=== PATIENT | female | born 1950 | race Caucasian/White ===

== ENCOUNTER 2020-08-09 13:11 | Outpatient (CLI) | payer MEDICARE, SELFPAY ==
--- NOTE | 2020-08-09 | ECG_ITS ---
Measurements Intervals [place] Rate: 89 P: 61 CO: 195 QRS: -19 QRSD: 101 T: 62 QT: 335 QTc: 409 Interpretive Statements SINUS RHYTHM LOW QRS VOLTAGE IN PRECORDIAL LEADS DELAYED PRECORDIAL R/S TRANSITION VOLTAGE CRITERIA FOR LVH BORDERLINE ECG Electronically Signed On 08-09-2020 13:53:35 COMMUNITY DEVELOPMENT MANAGER by Neo Doyle D.O.
== END 2020-08-09 13:12 | disposition home or self-care (01) ==
LOC: ANHCARD 13:14
PROVIDERS: PCP Family Medicine; Visit Provider Psychiatry & Neurology Psychiatry
DX: F20.0 Paranoid schizophrenia (principal)
CPT/HCPCS: 93005

== ENCOUNTER 2020-10-14 08:40 | Outpatient (CLI) | payer MEDICARE, SELFPAY ==
--- NOTE | ~2020-10-14 | MR_ITS ---
EXAMINATION: MR cervical spine wo con EXAM DATE: 10/14/2020 10:31 INDICATION: Myelopathy. Neck pain. TECHNIQUE: Multi-sequential, multiplanar MR images of the cervical spine were obtained without contra st. Axial T2, axial T2 MERGE sequence. Sagittal T1, T2, T2 fat saturation images also obtained. Th ere is no prior study for comparison. FINDINGS: There is moderate to severe disc disease C4-C7. The vertebral bodies are aligned in the AP dimension. The spinal cord signal intensity and intrinsic morphology is normal. Cervicomedullary christiano ction is normal in appearance. There are no suspicious marrow signal abnormalities. Level by level evaluation: C2-C3: Disc does not extend beyond the endplate margin. Uncovertebral joint arthropathy: None. Facet joint arthropathy: Mild to moderate bilateral. Neural foraminal stenosis: No stenosis. Central canal stenosis: No stenosis. C3-C4: Disc does not extend beyond the endplate margin. Uncovertebral joint arthropathy: Mild bilateral. Facet joint arthropathy: Mild to moderate bilateral. Neural foraminal stenosis: Mild bilateral. Central canal stenosis: No stenosis. C4-C5: There is a mild to moderate diffuse disc bulge asymmetric to the right Uncovertebral joint arthropathy: Moderate to severe right, moderate left. Facet joint arthropathy: Mild to moderate bilateral. Neural foraminal stenosis: Severe right, moderate left. Central canal stenosis: Mild. C5-C6: There is a mild diffuse disc bulge asymmetric to the left Uncovertebral joint arthropathy: Moderate bilateral. Facet joint arthropathy: Mild to moderate bilateral. Neural foraminal stenosis: Moderate bilateral, right greater than left. Central canal stenosis: Mild. C6-C7: There is a mild diffuse disc bulge. Uncovertebral joint arthropathy: Moderate left, mild to moderate right. Facet joint arthropathy: Mild to moderate bilateral. Neural foraminal stenosis: Moderate bilateral, left greater than right. Central canal stenosis: Mild. C7-T1: Disc does not extend beyond the endplate margin. Uncovertebral joint arthropathy: Mild bilateral. Facet joint arthropathy: Mild to moderate bilateral. Neural foraminal stenosis: No stenosis. Central canal stenosis: No stenosis. IMPRESSION: 1. C4-5 severe right neural foraminal stenosis. 2. Moderate lower cervical spondylosis. Reviewed, dictated and finalized at location A.
== END 2020-10-14 08:41 | disposition home or self-care (01) ==
PROVIDERS: PCP Family Medicine; Visit Provider Psychiatry & Neurology Neurology
DX: M47.13 Other spondylosis with myelopathy, cervicothoracic region (principal); M48.03 Spinal stenosis, cervicothoracic region
CPT/HCPCS: 72141

== ENCOUNTER 2020-12-16 08:49 | Outpatient (CLI) | payer MEDICARE, SELFPAY ==
--- NOTE | ~2020-12-16 | NM_ITS ---
EXAMINATION: NM kelsea stress w perfusion DATE: 12/16/2020 12:43 INDICATION: Chest tightness. TECHNIQUE: Rest images were obtained following intravenous administration of 9.44 mCi Tc99m tetrofosm in (Myoview). The patient was infused intravenously with Lexiscan (regadenoson). Then, 30 mCi Tc99m t etrofosmin (Myoview) was administered intravenously, and stress images were obtained. Data was recons tructed into short axis and horizontal and vertical long axis SPECT images. Gated SPECT images were a lso obtained. COMPARISON: None. FINDINGS: There is no definite reversible or fixed perfusion abnormality to suggest ischemia or infar ction. There is no segmental wall motion abnormality. Left ventricular ejection fraction measures > 70%. IMPRESSION: 1. No definite ischemia or infarct. 2. Normal left ventricular ejection fraction measuring >70%. Reviewed, dictated and finalized at location A.
--- NOTE | 2020-12-16 09:06 | ECHO_ITS ---
Patient Info Name: Dori Louise Age: 70 years : 1950 Gender: Female Ht: 68 in Wt: 169 lbs BSA: 1.93 m2 HR: 78 bpm BP: 127 / 69 mmHg Technical Quality: Good Exam Date: 12/16/2020 9:15 AM Exam Location: [facility] Pulmonary Patient Status: Outpatient Admit Date: 12/16/2020 Staff Ordering Physician: Neo Doyle DO Biomedical Equipment Support Specialist: Namita Bland RDCS Attending Provider: Neo Doyle DO Referring Physician: Vivek OBRIEN; Exam Type: CA echo doppler color flow Study Info Indications - ELIZABETH Complete two-dimensional, color flow and Doppler transthoracic echocardiogram is performed. Summary 1. Complete two-dimensional, color flow and Doppler transthoracic echocardiogram is performed. 2. Left ventricular chamber dimension is normal. 3. Left ventricular systolic function is normal, estimated at 60-65%. 4. The left ventricular diastolic function is grade II diastolic dysfunction. 5. E/e' 13 is mildly elevated. 6. Left atrial chamber dimension is mildly enlarged. 7. There is mild mitral valve regurgitation. 8. There is mild tricuspid valve regurgitation. 9. No pulmonary hypertension, estimated pulmonary arterial systolic pressure is 25 mmHg. Left Ventricle E/e' 13 is mildly elevated. Left ventricular chamber dimension is normal. Left ventricular systolic function is normal, estimated at 60-65%. The left ventricular diastolic function is grade II diastolic dysfunction. Right Ventricle Right ventricular chamber dimension is normal. Right ventricular systolic function is normal. Left Atria Left atrial chamber dimension is mildly enlarged. Right Atria Right atrial chamber dimension is normal. Aortic Valve The aortic valve is trileaflet. There is no aortic valve stenosis. There is no aortic valve regurgitation. Pulmonic Valve There is no pulmonic regurgitation. Mitral Valve There is no mitral valve stenosis. There is mild mitral valve regurgitation. Tricuspid Valve There is mild tricuspid valve regurgitation. No pulmonary hypertension, estimated pulmonary arterial systolic pressure is 25 mmHg. Pericardium/Pleural There is no pericardial effusion. Inferior Vena Cava Normal inferior vena cava with >50% collapse upon inspiration consistent with normal right atrial pressure, 5 mmHg. Aorta The aortic root size at the sinus of Valsalva is normal. Left Ventricular Outflow Tract Name Value Normal LVOT 2D LVOT Diameter 2.0 cm LVOT Doppler LVOT Peak Gradient 5 mmHg LVOT Mean Gradient 3 mmHg LVOT VTI 25 cm LVOT VTI/AV VTI Ratio 0.6 LVOT Stroke Volume 80 ml LVOT CO 15.7 l/min LVOT CI 8.1 l/min/m2 Pulmonic Valve Name Value Normal PV Doppler
--- NOTE | 2020-12-16 10:39 | EST_ITS ---
Patient Info Name: Dori Louise Age: 70 years : 1950 Gender: Female Ht: 68 in Wt: 220 lbs BSA: 2.22 m2 Exam Date: 12/16/2020 11:13 AM Exam Location: [facility] Stress Patient Status: Outpatient Admit Date: 12/16/2020 Staff Ordering Physician: Neo Doyle DO Attending Provider: Neo Doyle DO Exercise Technologist: Jose Clinton RDCS, RT Exercise Physician: Neo Doyle DO Exam Type: CA stress kelsea w NM Study Info A regadenoson stress test was performed. Summary 1. 1. Negative lexiscan stress test for ischemic ST changes by ECG criteria. 2. 2. Stable hemodynamics throughout the test. 3. 3. Nuclear scan to follow and will be reported separately. Please correlate with it. 4. 4. Patient informed of the above results. Protocol: Lexiscan Stress ECG Details Stage: REST Duration (min): 2 min : 28 sec HR (bpm): 57 SBP (mmHg): 131 DBP (mmHg): 73 Stage: REST Duration (min): 8 min : 11 sec HR (bpm): 57 SBP (mmHg): 131 DBP (mmHg): 73 Stage: STAGE 1 Duration (min): 0 min : 59 sec HR (bpm): 70 SBP (mmHg): 125 DBP (mmHg): 53 Stage: RECOVERY Duration (min): 1 min : 0 sec HR (bpm): 74 SBP (mmHg): 125 DBP (mmHg): 53 Stage: RECOVERY Duration (min): 2 min : 0 sec HR (bpm): 73 SBP (mmHg): 125 DBP (mmHg): 53 Stage: RECOVERY Duration (min): 3 min : 0 sec HR (bpm): 72 SBP (mmHg): 115 DBP (mmHg): 56 Stage: RECOVERY Duration (min): 3 min : 20 sec HR (bpm): 72 SBP (mmHg): 115 DBP (mmHg): 56 Rest HR: 57 bpm Peak HR: 75 bpm Rest Sys BP: 131 mmHg Peak Sys BP: 125 mmHg Max Pred HR: 152 bpm % Max Pred HR: 49 % Target HR: 129 bpm Max RPP: 9,375 bpm*mmHg Termination Reason: Completed protocol Cardiac Symptoms: Shortness of breath Total Time: 1 min : 0 sec Rest Crowley BP: 73 mmHg Peak Crowley BP: 53 mmHg Total Dose: 0.4 mg Resting ECG Sinus rhythm. Stress ECG No ST changes. Arrhythmias None. Report Signatures
== END 2020-12-16 08:50 | disposition home or self-care (01) ==
PROVIDERS: PCP Family Medicine; Visit Provider Internal Medicine Cardiovascular Disease
DX: R07.89 Other chest pain (principal); R06.00 Dyspnea, unspecified; I08.1 Rheumatic disorders of both mitral and tricuspid valves
CPT/HCPCS: 78452; 93017; 93306; A9502; J2785

== ENCOUNTER → 2021-02-15 13:03 | Outpatient (CLI) | payer MEDICARE, SELFPAY ==
--- NOTE | ~2021-02-15 | MM_ITS ---
EXAMINATION: MM screening cristhian BI w hilda HISTORY: Screening mammogram TECHNIQUE: Craniocaudal and mediolateral oblique 3-D tomosynthesis images were obtained and synthetic 2-D images were generated. CAD analysis was submitted and interpreted. COMPARISON: 04/26/2017, 04/20/2013 bilateral digital screening mammogram examinations BREAST PARENCHYMAL COMPOSITION: There are scattered areas of fibroglandular density. FINDINGS: Scattered bilateral benign calcifications. There is no evidence of suspicious mass, calcifi cation, or architectural distortion to suggest malignancy in either breast. There has been no suspici ous interval change. IMPRESSION: 1. No mammographic evidence of malignancy. 2. Recommend routine screening mammography in one year. BI-RADS Category 2: Benign finding(s). Reviewed, dictated and finalized at location A.
== END ==
PROVIDERS: PCP Family Medicine; Visit Provider Physician Assistant Medical
DX: Z12.31 Encounter for screening mammogram for malignant neoplasm of breast (principal)
CPT/HCPCS: 77063; 77067

== ENCOUNTER 2021-02-16 08:54 | Outpatient (CLI) | payer MEDICARE, SELFPAY ==
--- NOTE | 2021-02-16 11:30 | NEURO_ITS ---
Impression: # Complains of numbness all over. # Normal nerve conduction study in upper and lower extremities including motor and sensory nerves. # Normal needle/EMG exam, no neurogenic changes noted. Nerve Conduction Studies Anti Sensory Summary Table Stim Site NR Peak (ms) P-T Amp (?V) Site1 Site2 Delta-P (ms) Dist (cm) Tom (m/s) Left Median Anti Sensory (2-3nd Digit) Wrist 2.8 60.0 Wrist 2-3nd Digit 2.8 14.0 50 Wrist 2.7 48.4 Wrist 2-3nd Digit 2.8 14.0 50 Right Median Anti Sensory (2-3nd Digit) Wrist 3.2 68.8 Wrist 2-3nd Digit 3.2 14.0 44 Wrist 2.9 39.4 Wrist 2-3nd Digit 3.2 14.0 44 Left Radial Anti Sensory (Base 1st Digit) Wrist 2.0 17.9 Wrist Base 1st Digit 2.0 0.0 Right Radial Anti Sensory (Base 1st Digit) Wrist 2.3 10.3 Wrist Base 1st Digit 2.3 0.0 Left Sup Fibular Anti Sensory (Ant Lat Mall) 14 cm 3.2 20.2 14 cm Ant Lat Mall 3.2 16.0 50 Right Sup Fibular Anti Sensory (Ant Lat Mall) 14 cm 3.0 16.0 14 cm Ant Lat Mall 3.0 16.0 53 Left Sural Anti Sensory (Lat Mall) Calf 3.7 16.0 Calf Lat Mall 3.7 16.0 43 Right Sural Anti Sensory (Lat Mall) Calf 3.3 19.8 Calf Lat Mall 3.3 16.0 48 Left Ulnar Anti Sensory (5th Digit) Wrist 2.5 21.5 Wrist 5th Digit 2.5 14.0 56 Right Ulnar Anti Sensory (5th Digit) Wrist 2.4 19.2 Wrist 5th Digit 2.4 14.0 58 Motor Summary Table Stim Site NR Onset (ms) O-P Amp (mV) Site1 Site2 Delta-0 (ms) Dist (cm) Tom (m/s) Left Median Motor (Abd Poll Brev) Wrist 3.0 7.8 Elbow Wrist 4.8 30.0 63 Elbow 7.8 5.4 Right Median Motor (Abd Poll Brev) Wrist 3.0 8.7 Elbow Wrist 5.0 30.0 60 Elbow 8.0 6.0 Left Peroneal Motor (Vastus Med) Ankle 4.1 1.4 Popit Ankle 9.0 44.0 49 Popit 13.1 1.3 Right Peroneal Motor (Vastus Med) Ankle 3.9 2.3 Popit Ankle 8.1 40.0 49 Popit 12.0 2.0 Left Tibial Motor (Abd Devlin Brev) Ankle 4.9 5.2 Knee Ankle 10.0 45.0 45 Knee 14.9 3.7 Right Tibial Motor (Abd Devlin Brev) Ankle 4.5 3.5 Knee Ankle 9.9 44.0 44 Knee 14.4 3.6 Left Ulnar Motor (Abd Dig Minimi) Wrist 2.2 6.1 A Elbow Wrist 5.2 30.0 58 A Elbow 7.4 6.6 Right Ulnar Motor (Abd Dig Minimi) Wrist 2.8 6.0 A Elbow Wrist 5.2 30.0 58 A Elbow 8.0 4.7 F Wave Studies NR F-Lat (ms) L-R F-Lat (ms) Left Median (Mrkrs) (Abd Poll Brev) 28.32 0.96 Right Median (Mrkrs) (Abd Poll Brev) 29.28 0.96 Left Peroneal (Mrkrs) (EDB) 57.85 0.47 Right Peroneal (Mrkrs) (EDB) 58.32 0.47 Left Tibial (Mrkrs) (Abd Hallucis) 59.50 0.46 Right Tibial (Mrkrs) (Abd Hallucis) 59.04 0.46 Left Ulnar (Mrkrs) (Abd Dig Min) 28.73 0.00 Right Ulnar (Mrkrs) (Abd Dig Min) 28.73 0.00 EMG Side Muscle Nerve Root Ins Act Fibs Amp Dur Recrt Comment Right 1stDorInt Ulnar C8-T1 Nml Nml Nml Nml Nml Right Ext Indicis Radial (Post Int) C7-8 Nml Nml Nml Nml Nml Right Ext Digitorum Radial (Post Int) C7-8 Nml Nml Nml Nml Nml Right BrachioRad Radial C5-6 Nml Nml Nml Nml Nml Right PronatorTeres Median C6-7 Nml Nml Nml Nml Nml Right Abd Poll Brev Median C8-T1 Nml Nml Nml Nml Nml Right AntTibialis Dp Br Fibular L4-5 Nml Nml Nml Nml Nml Right Gastroc Tibial S1-2 Nml Nm
== END 2021-02-16 08:55 | disposition home or self-care (01) ==
LOC: ANHNEURO 08:56
PROVIDERS: PCP Family Medicine; Visit Provider Psychiatry & Neurology Neurology
DX: R20.0 Anesthesia of skin (principal); G25.81 Restless legs syndrome
CPT/HCPCS: 95886; 95913

== ENCOUNTER → 2021-03-14 13:14 | Outpatient (CLI) | payer MEDICARE, SELFPAY ==
--- NOTE | ~2021-03-14 | MR_ITS ---
EXAMINATION: MR brain/brain stem wo con DATE: 03/14/2021 14:15 INDICATION: Unspecified convulsions. Dizziness. TECHNIQUE: Magnetic resonance imaging (MRI) of the brain and brainstem was performed without intraven ous contrast. Sequences included sagittal and axial T1-weighted FSE, axial diffusion-weighted FS EPI, axial T2*-weighted GRE, axial T2-weighted FLAIR Propeller, and axial T2-weighted Propeller. Apparent diffusion coefficient (ADC) maps were created. COMPARISON: Brain MRI 06/06/2016, head CT 07/05/2019 FINDINGS: There is no intracranial hemorrhage, acute infarction, or abnormal intracranial mass lesion . The ventricles are normal in size. There is mild mucosal thickening in the paranasal sinuses. The o rbits are normal. The mastoid air cells are normal. IMPRESSION: 1. Normal brain. Reviewed, dictated and finalized at location A. IMPRESSION: 1. Normal brain.
== END ==
PROVIDERS: PCP Family Medicine; Visit Provider Psychiatry & Neurology Neurology
DX: R56.9 Unspecified convulsions (principal)
CPT/HCPCS: 70551

== ENCOUNTER 2021-03-29 12:40 | Outpatient (CLI) | payer MEDICARE, SELFPAY ==
--- NOTE | 2021-03-30 09:42 | WPDNEUROLOGY ---
Neurology EEG Report General Information Date of Study: 03/29/21 TEST eeg DIAGNOSIS dizziness CONDITION OF RECORDING awake drowsy and sleep EEG NUMBER [id number] CLINICAL HISTORY patient reported she had been experiencing dizzy spells for about the last 5 years EEG DESCRIPTION basic resting occipital frequency consists of large amount of well-organized medium voltage 8 to 9 hertz per 2nd alpha superimposed by left-sided EKG artifact. Low-voltage beta activity seen diffusely during drowsiness. Photic stimulation produced normal drive. Hyperventilation not done. Bilateral symmetrical sleep activity seen during sleep. Non paroxysmal. Nonfocal. Nonlateralizing. IMPRESSION No significant abnormalities noted
== END 2021-03-29 12:41 | disposition home or self-care (01) ==
LOC: ANHNEURO 12:41
PROVIDERS: PCP Family Medicine; Visit Provider Psychiatry & Neurology Neurology
DX: R42 Dizziness and giddiness (principal)
CPT/HCPCS: 95816

== ENCOUNTER 2021-04-25 12:17 | Outpatient (CLI) | payer MEDICARE, SELFPAY ==
--- NOTE | ~2021-04-25 | US_ITS ---
EXAMINATION: US carotid duplex BI DATE: 04/25/2021 12:55 INDICATION: Carotid atherosclerosis. Transient cerebral ischemic attack with recent episode of unspec ified convulsions and dizziness. TECHNIQUE: Grayscale, color Doppler, and pulsed Doppler images of the cervical carotid arteries were obtained. The degree of vessel stenosis is placed in one of the following categories: normal, <50%, 5 0-69%, >=70% but less than near-occlusion, near-occlusion, or total occlusion. Note that percent sten osis relative to normal distal artery lumen diameter is indirectly measured from velocity measurement s as described by Ray, et al. Radiology 2003; 229:340-346. COMPARISON: 06/06/2016 FINDINGS: RIGHT: The right common carotid artery (CCA) peak systolic velocity (PSV) is 101 cm/s. The right internal ca rotid artery (ICA) PSV is 97 cm/s. The right ICA end-diastolic velocity (EDV) is 16 cm/s. The right I CA/CCA PSV ratio is 1.0. Grayscale and color Doppler images yield an estimate of <50% diameter reduct ion from plaque in the ICA. The external carotid artery (ECA) PSV is 139 cm/s. There is antegrade eugenia w in the right vertebral artery. LEFT: The left CCA PSV is 99 cm/s. The left ICA PSV is 117 cm/s. The left ICA EDV is 23 cm/s. The left ICA/ CCA PSV ratio is 1.2. Grayscale and color Doppler images yield an estimate of <50% diameter reduction from plaque in the ICA. The ECA PSV is 165 cm/s. There is antegrade flow in the left vertebral arter y. IMPRESSION: 1. <50% stenosis in the right internal carotid artery. 2. <50% stenosis in the left internal carotid artery. Reviewed, dictated and finalized at location B.
== END 2021-04-25 12:18 | disposition home or self-care (01) ==
LOC: ANHIMG 12:27
PROVIDERS: PCP Family Medicine; Visit Provider Psychiatry & Neurology Neurology
DX: I65.23 Occlusion and stenosis of bilateral carotid arteries (principal)
CPT/HCPCS: 93880

== ENCOUNTER 2021-05-05 00:22 | Day surgery (SDC) | payer MEDICARE, SELFPAY ==
[2021-04-24 13:32] VITALS: BMI 33.0
--- NOTE | 2021-05-05 10:45 | WPDANESEPPF ---
Anes - Initial Pre Proc Eval Procedure: Operation Date: 05/05/21 12:00 Proposed Procedures p Screening Colonoscopy - Ty Constantino MD Date/Time: 05/05/21 10:45 Surgeon: Ty Constantino MD Pre Op Diagnosis: hx of colon polyps Patient Data Age: 70 Gender: F Height: 1.73 m Weight: 98.6 kg Allergies Allergy/AdvReac Type Severity Reaction Status Date / Time atorvastatin Allergy Unknown pain Verified 05/05/21 10:42 Iodinated Contrast Media Allergy Unknown Hives Verified 05/05/21 10:42 liraglutide Allergy Unknown Unknown Verified 05/05/21 10:42 metformin Allergy Unknown Renal Verified 05/05/21 10:42 impairment tetracycline Allergy Unknown Unknown Verified 05/05/21 10:42 lisinopril AdvReac Mild dizziness Verified 05/05/21 10:42 sulfamethoxazole AdvReac sore Verified 05/05/21 10:42 [From Bactrim] throat/ hoarseness trimethoprim [From Bactrim] AdvReac sore Verified 05/05/21 10:42 throat/ hoarseness Home Medications Medication Instructions Recorded Confirmed Type albuterol sulfate 90 mcg/actuation 1 inhalation INHALATION Q4H PRN 07/09/19 05/03/21 History aerosol inhaler sitagliptin 100 mg tablet See Rx Instructions .ROUTE 09/08/20 05/03/21 Rx .COMPLEX #90 tablet blood sugar diagnostic See Rx Instructions .ROUTE 09/12/20 05/03/21 Rx .COMPLEX #400 strip lorazepam 0.5 mg tablet 0.5 mg PO TID tablet 10/21/20 05/03/21 History metoprolol tartrate 25 mg tablet See Rx Instructions PO .COMPLEX 12/20/20 05/03/21 Rx #270 tablet levothyroxine 100 mcg tablet See Rx Instructions .ROUTE 12/21/20 05/03/21 Rx .COMPLEX #90 tablet clozapine 100 mg tablet 300 mg PO HS tablet 03/17/21 05/03/21 History beclomethasone dipropionate 80 1 inh INHALATION Q12H 90 Days 04/12/21 05/03/21 Rx mcg/actuation HFA breath activated #31.8 g aerosol aripiprazole 2 mg PO HS 04/24/21 05/03/21 History clozapine 50 mg PO QAM 04/24/21 05/03/21 History ropinirole 4 mg tablet 6 mg PO QHS tablet 05/03/21 05/03/21 History Patient hx anesthesia problems: none Family hx anesthesia problems: none Results Review: All pre-operative results and documents have been reviewed as part of the pre-operative evaluation. 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 Under the care of Psychiatrist. Serotonin withdrawal syndrome with perceptual disturbance Sleep apnea Stress incontinence (female) (male) Trochanteric bursitis of both hips Type 2 diabetes mellitus with hyperglycemia Vitreous degeneration, bilateral Surgical History Surgical History History of hysterectomy History of open reduction and internal fixation (ORIF) procedure repair of lt ankle fracture History of subtotal thyroidectomy Hx of appendectomy Hx of eye surgery x2 Hx of varicose vein ligation Family History Family History Father Hypertension, Onset Age: 75 Family history of malignant neoplasm of thyroid Patient's father is Mother Hypertension Family history of dementia Family history of rheumatoid arthritis Sibling Family history of malignant neoplasm Family history of hepatitis Other Family history of malignant neoplasm of breast Family history of mental disorder Family history of thyroid disease Social History Social History Alcohol intake: never Living arrangements: alone Spiritual care concerns: No Anes - Eval Final PreProcedure
[2021-05-05 10:46] VITALS: BP 116/74; PULSE 65; RESP 20; TEMP 36.6; O2SAT 98; BMI 31.5
[2021-05-05] MEDS: LACTATED RINGERS 1,000 ML 150 ML IV CONT (10:58)
[2021-05-05 11:01] LABS: Glucose Point of Care 102 mg/dl (65-105)
--- NOTE | 2021-05-05 11:04 | SUR.PREOP ---
Pt stated feeling anxious and asked to take her mid-day dose of 0.[address] Rangel made aware. Ok to take 0.5 lorazepam from pt's personal home meds per Dr. Rangel. 0.5 mg lorazepam given to pt with a sip of water.
--- NOTE | 2021-05-05 11:35 | WPDGICN ---
Assessment and Plan Assessment and plan (1) Personal history of colonic polyps: Code(s): Z86.010 - Personal history of colonic polyps Status: Acute Assessment and Plan: Patient has a history of colon polyps for this reason surveillance exam is performed today. Further recommendations will be given after endoscopy. GI Consult Note Consult date/time: 05/05/21 11:35 HPI: Dori Louise is a 70 year old female Presents for screening colonoscopy. Patient reports that her current weight appetite bowel movements are normal. She denies abdominal pain. She has had no bleeding. Patient reports having had colonoscopy with polypectomy more than 10 years ago. Last exam about 5 years ago was without polyps. She reports her current weight Appetite bowel movements are normal. 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 Under the care of Psychiatrist. Serotonin withdrawal syndrome with perceptual disturbance Sleep apnea Stress incontinence (female) (male) Trochanteric bursitis of both hips Type 2 diabetes mellitus with hyperglycemia Vitreous degeneration, bilateral Surgical History Surgical History History of hysterectomy History of open reduction and internal fixation (ORIF) procedure repair of lt ankle fracture History of subtotal thyroidectomy Hx of appendectomy Hx of eye surgery x2 Hx of varicose vein ligation Family History Family History Father Hypertension, Onset Age: 75 Family history of malignant neoplasm of thyroid Patient's father is Mother Hypertension Family history of dementia Family history of rheumatoid arthritis Sibling Family history of malignant neoplasm Family history of hepatitis Other Family history of malignant neoplasm of breast Family history of mental disorder Family history of thyroid disease Social History Social History Alcohol intake: never Living arrangements: alone Spiritual care concerns: No Meds Home Medications and Allergies Home Medications Medication Instructions Recorded Confirmed Type albuterol sulfate 90 mcg/actuation 1 inhalation INHALATION Q4H PRN 07/09/19 05/03/21 History aerosol inhaler sitagliptin 100 mg tablet See Rx Instructions .ROUTE 09/08/20 05/05/21 Rx .COMPLEX #90 tablet blood sugar diagnostic See Rx Instructions .ROUTE 09/12/20 05/03/21 Rx .COMPLEX #400 strip lorazepam 0.5 mg tablet 0.5 mg PO TID tablet 10/21/20 05/05/21 History metoprolol tartrate 25 mg tablet See Rx Instructions PO .COMPLEX 12/20/20 05/05/21 Rx #270 tablet levothyroxine 100 mcg tablet See Rx Instructions .ROUTE 12/21/20 05/05/21 Rx .COMPLEX #90 tablet clozapine 100 mg tablet 300 mg PO HS tablet 03/17/21 05/05/21 History beclomethasone dipropionate 80 1 inh INHALATION Q12H 90 Days 04/12/21 05/05/21 Rx mcg/actuation HFA breath activated #31.8 g aerosol aripiprazole 2.5 mg PO HS 04/24/21 05/05/21 History clozapine 50 mg PO QAM 04/24/21 05/05/21 History ropinirole 4 mg tablet 4 mg PO QHS tablet 05/03/21 05/05/21 History Allergies Allergy/AdvReac Type Severity Reaction Status Date / Time atorvastatin Allergy Unknown pain Verified 05/05/21 10:42 Iodinated Contrast Media Allergy Unknown Hives Verified 05/05/21 10:42 liraglutide Allergy U
[2021-05-05 12:04] VITALS: BP 97/46; PULSE 97; RESP 15; O2SAT 97
[2021-05-05 12:14] VITALS: BP 90/43; PULSE 60; RESP 22; O2SAT 97
[2021-05-05 12:24] VITALS: BP 103/54; PULSE 55; RESP 21; O2SAT 100
[2021-05-05 12:29] VITALS: BP 90/43; PULSE 58; RESP 22; O2SAT 97
== END 2021-05-05 12:41 | disposition home or self-care (01) ==
PROVIDERS: PCP Family Medicine; Visit Provider Internal Medicine Gastroenterology
PROC: 0DJD8ZZ Inspection of Lower Intestinal Tract, Via Natural or Artificial Opening Endoscopic (ICD-10-PCS; CPT 45378; principal; 2021-05-05 12:00)
DX: Z12.11 Encounter for screening for malignant neoplasm of colon (principal); Z86.010 Personal history of colon polyps; K64.8 Other hemorrhoids; J45.909 Unspecified asthma, uncomplicated; Z86.718 Personal history of other venous thrombosis and embolism; G24.01 Drug induced subacute dyskinesia; E03.9 Hypothyroidism, unspecified; F20.9 Schizophrenia, unspecified; E11.65 Type 2 diabetes mellitus with hyperglycemia; Z79.51 Long term (current) use of inhaled steroids; G47.30 Sleep apnea, unspecified; E66.9 Obesity, unspecified; Z68.31 Body mass index [BMI] 31.0-31.9, adult
CPT/HCPCS: G0105; 82948; J2704; J7120

== ENCOUNTER 2021-05-24 10:10 | Emergency (ER) | payer MEDICARE, SELFPAY ==
[2021-05-24 10:15] VITALS: BP 133/52; PULSE 65; RESP 16; TEMP 36.1; O2SAT 100
--- NOTE | 2021-05-24 10:45 | ED.SKABFB ---
HPI - Skin/Abscess/Foreign Bdy General Chief complaint: Skin/Abscess/Foreign Body Stated complaint: ABSCESS TO L FOREARM Time Seen by Provider: 05/24/21 10:30 Source: patient and RN notes reviewed Mode of arrival: ambulatory Limitations: no limitations History of Present Illness HPI narrative: Patient presents today complaining of a reddened area to the left forearm x2 days. She was concerned that she may have a boil. This area is only painful with touch. Denies drainage. She has tried no [id number] treatment prior to arrival. MD complaint: abscess/boil Related Data Home Medications Medication Instructions Recorded Confirmed lorazepam 0.5 mg tablet 0.5 mg PO TID tablet 10/21/20 05/05/21 clozapine 100 mg tablet 300 mg PO HS tablet 03/17/21 05/05/21 aripiprazole 2.5 mg PO HS 04/24/21 05/05/21 clozapine 50 mg PO QAM 04/24/21 05/05/21 ropinirole 4 mg tablet 4 mg PO QHS tablet 05/03/21 05/05/21 Allergies Allergy/AdvReac Type Severity Reaction Status Date / Time atorvastatin Allergy Unknown pain Verified 05/05/21 10:42 Iodinated Contrast Media Allergy Unknown Hives Verified 05/05/21 10:42 liraglutide Allergy Unknown Unknown Verified 05/05/21 10:42 metformin Allergy Unknown Renal Verified 05/05/21 10:42 impairment tetracycline Allergy Unknown Unknown Verified 05/05/21 10:42 lisinopril AdvReac Mild dizziness Verified 05/05/21 10:42 sulfamethoxazole AdvReac sore Verified 05/05/21 10:42 [From Bactrim] throat/ hoarseness trimethoprim [From Bactrim] AdvReac sore Verified 05/05/21 10:42 throat/ hoarseness Review of Systems Review of Systems: CONSTITUTIONAL: Denies body aches, fever, chills, or sweats. EYES: Denies visual changes, redness, or discharge. ENT: Denies rhinorrhea, congestion, sore throat, or otalgia. CARDIOVASCULAR: Denies chest pain, palpitations, or edema. RESPIRATORY: Denies cough or dyspnea. GASTROINTESTINAL: Denies abdominal pain, nausea, vomiting, or diarrhea. GENITOURINARY: Denies dysuria or hematuria. SKIN: Denies rash, itching, or wounds.+ Possible boil to left forearm MUSCULOSKELETAL: Denies back pain, joint pain, or myalgia. NEUROLOGIC: Denies headache, numbness, tingling, or weakness. PSYCH: Denies depression or anxiety. 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 Under the care of Psychiatrist. Serotonin withdrawal syndrome with perceptual disturbance Sleep apnea Stress incontinence (female) (male) Trochanteric bursitis of both hips Type 2 diabetes mellitus with hyperglycemia Vitreous degeneration, bilateral Surgical History Surgical History History of hysterectomy History of open reduction and internal fixation (ORIF) procedure repair of lt ankle fracture History of subtotal thyroidectomy Hx of appendectomy Hx of eye surgery x2 Hx of varicose vein ligation Family History Family History Father Hypertension, Onset Age: 75 Family history of malignant neoplasm of thyroid Patient's father is Mother Hypertension Family history of dementia Family history of rheumatoid arthritis Sibling Family history of malignant neoplasm Family history of hepatitis Other Family history of malignant neoplasm of breast Family history of mental disorder Family history of thyroid disease Social History Social History Alcohol intake: never Spiritual care c
== END 2021-05-24 10:52 | disposition home or self-care (01) ==
PROVIDERS: Emergency Provider Nurse Practitioner; PCP Family Medicine
DX: L02.414 Cutaneous abscess of left upper limb (principal); J45.909 Unspecified asthma, uncomplicated; E11.9 Type 2 diabetes mellitus without complications; Z86.73 Personal history of transient ischemic attack (TIA), and cerebral infarction without residual deficits; M17.12 Unilateral primary osteoarthritis, left knee; G47.30 Sleep apnea, unspecified; E89.0 Postprocedural hypothyroidism
CPT/HCPCS: 10160; 99213; G0463

== ENCOUNTER 2022-01-10 21:40 | Inpatient (IN) | payer MEDICARE, SELFPAY ==
--- NOTE | ~2022-01-10 | XR_ITS ---
EXAM: XR abdomen obstructive series DATE: 01/14/2022 08:33 HISTORY: SBO . COMPARISON: 01/13/2022. FINDINGS: NG tube, tip over the stomach, side port at the GE junction. Clear lung bases. Interval de creased small bowel dilation with only one dilated loop of bowel noted in the central abdomen. No lar ge bowel dilation. No organomegaly. Right staghorn calculus. Pelvic phleboliths. Degenerative lumbar changes. IMPRESSION: Shallow positioned NG tube, consider advancing by 5 cm. Improving findings of small bowel obstruction. Reviewed, dictated and finalized at location K. IMPRESSION: Shallow positioned NG tube, consider advancing by 5 cm. Improving f indings of small bowel obstruction.
--- NOTE | ~2022-01-10 | XR_ITS ---
. EXAMINATION: XR abdomen/kub 1V DATE: 01/12/2022 07:53 INDICATION: Small bowel obstruction. TECHNIQUE: A supine view of the abdomen on 2 radiographs was obtained. COMPARISON: CT abdomen and pelvis 01/10/2022 FINDINGS: There are dilated loops of small bowel. The colon is decompressed. The nasogastric tube tip is in the stomach. There is a staghorn calculus in right kidney. IMPRESSION: 1. Persistently dilated small bowel, consistent with small bowel obstruction. 2. Staghorn calculus in right kidney. Reviewed, dictated and finalized at location A.
--- NOTE | ~2022-01-10 | XR_ITS ---
EXAMINATION: XR abdomen/kub 1V INDICATION: Abdominal pain and constipation TECHNIQUE: Supine views of the abdomen were obtained on 2 radiographs. COMPARISON: 01/15/2022 FINDINGS: The bowel gas pattern is normal. There are no dilated loops of bowel. A small volume of ent viji contrast from recent small bowel follow-through is seen in the rectum. A staghorn calculus is no moises in the right kidney. IMPRESSION: 1. Nonspecific bowel gas pattern. Reviewed, dictated and finalized at location A.
--- NOTE | ~2022-01-10 | XR_ITS ---
EXAMINATION: XR UGI water soluble w sbs DATE: 01/15/2022 11:59 INDICATION: Small bowel obstruction TECHNIQUE: The patient drank thick barium, gas-producing crystals, and thin barium. Conventional supi ne abdomen radiographs and fluoroscopy of the esophagus, stomach, and small bowel were performed. Flu oroscopy exposure time was 1.3 minutes. The DAP for this procedure was 82.886 Gycm2. COMPARISON: None. FINDINGS: UPPER GASTROINTESTINAL SERIES: Contrast was injected through the indwelling nasogastric tube which is in the stomach. A staghorn jack culus is noted in the right kidney. There is no hiatal hernia. There was no visualized gastroesophage al reflux. The stomach shows a normal folding pattern.] SMALL BOWEL SERIES: Transit time from the stomach to proximal colon was approximately 30 minutes. There is normal caliber and mucosal fold pattern throughout the small bowel. No dilated loops of bowel are identified. IMPRESSION: 1. No small bowel obstruction. Reviewed, dictated and finalized at location A.
--- NOTE | ~2022-01-10 | XR_ITS ---
EXAMINATION: XR abdomen/kub 1V DATE: 01/11/2022 08:58 INDICATION: Small bowel obstruction TECHNIQUE: A supine view of the abdomen on 2 radiographs was obtained. COMPARISON: CT dated 01/10/2022 FINDINGS: Nasogastric tube tip in proximal side port in the stomach. There are couple dilated gas-filled loops of small bowel in the left abdomen consistent with persistent small bowel obstruction. Small amount o f gas and stool scattered throughout the colon. Large staghorn calculus filling the right renal pelvi s and multiple right renal calyces. A few phleboliths in the pelvis. Lung bases are clear. Heart size is normal. IMPRESSION: 1. Persistent small bowel obstruction. 2. Large right staghorn calculus. Reviewed, dictated and finalized at location B.
--- NOTE | ~2022-01-10 | CT_ITS ---
EXAMINATION: CT abdomen pelvis wo con DATE: 01/10/2022 22:52 INDICATION: lower and right sided ab pain TECHNIQUE: Computed tomography (CT) of the abdomen and pelvis was performed without intravenous contr ast. Automated exposure control and iterative reconstruction technique were employed. The dose-length product was 1236.92 mGy-cm. COMPARISON: None. FINDINGS: Lower thorax: Unremarkable Liver: Normal. Biliary/Gallbladder: Contracted. No bile duct dilation. Pancreas: No mass or duct dilation. Spleen: Normal. Adrenals:Small right adrenal adenoma. Kidneys: Right staghorn calculus. Bilateral perinephric stranding. No hydronephrosis or renal mass. GI tract: Diffusely dilated proximal and mid small bowel, fecal content in the distal dilated portion s of bowel, with a transition point in the mid lower abdomen (image 140 series 3). Appendix not visua lized. Mesentery/Peritoneum: No ascites, mass, or free air. Retroperitoneum: No mass. Atherosclerotic abdominal aortic and/or arterial calcifications. Pelvis: Uterus not visualized. Bladder normal. Soft Tissues: Soft tissues and body wall unremarkable. Bones: No acute osseous finding. IMPRESSION: Mid/distal small bowel obstruction, transition point in the midline lower abdomen possibly secondary to abdominal adhesion. Reviewed, dictated and finalized at location K. IMPRESSION: Mid/distal small bowel obstruction, transition point in the midline lower abdom en possibly secondary to abdominal adhesion.
--- NOTE | ~2022-01-10 | NM_ITS ---
EXAMINATION: MICHAEL chavarria renal scan DATE: 01/15/2022 13:06 INDICATION: Assess renal function. TECHNIQUE: 9 mCi Tc-99m MAG3 was administered IV. 40 mg furosemide was administered IV immediately a fterward. The patient was scanned in the supine position. A posterior abdominal radionuclide angiogra m was obtained. A subsequent time course of static images of the kidneys, ureters, and bladder was ob tained. COMPARISON: None FINDINGS: The posterior abdominal radionuclide angiogram and sequential static images show normal size, positio n, and morphology of the kidneys. Peak renal parenchymal uptake was 2.5 min in left kidney and 2.5 mi n in right kidney (normal peak 3-5 minutes). The relative early renal uptake was 55% on the left and 45% on the right (<40% is abnormal). No abnormalities of the ureters or bladder are seen. T1/2 for clearance of activity from the left kidney and proximal collecting system was 11 minutes. T1/2 for clearance of activity from the right kidney and proximal collecting system was 11 minutes. Notes on interpretation: T1/2 <10 minutes is normal, 10-15 minutes is low grade obstruction of questi onable clinical significance, 15-20 minutes is partial obstruction that is likely clinically signific ant, >20 minutes is high grade obstruction. Note that false positives may be seen with supine positio manuel, dehydration, severely dilated nonobstructed kidney, atonic collecting system, poor renal functi on, and chronic furosemide use. IMPRESSION: 1. Symmetric kidney function. 2. Negligible delay in contrast clearance from both kidneys without evident hydronephrosis identifie d on the current study or recent CT dated 01/10/22 and more likely due to either supine positioning, d ehydration or decreased renal function. Reviewed, dictated and finalized at location A. IMPRESSION: 1. Symmetric kidney function. 2. Negligible delay in contrast clearance from both kidneys without evident hy dronephrosis identified on the current study or recent CT dated 6/22/22 and mor e likely due to either supine positioning, dehydration or decreased renal funct ion.
--- NOTE | ~2022-01-10 | XR_ITS ---
EXAMINATION: XR abdomen/kub 1V INDICATION: Small bowel obstruction TECHNIQUE: Supine view the abdomen is obtained. COMPARISON: 01/12/2022 FINDINGS: The nasogastric tube is in the stomach. There are dilated loops of small bowel in the midab domen, unchanged. No free intraperitoneal gas is identified. A staghorn calculus is noted in the righ t kidney. There are phleboliths of the pelvis. IMPRESSION: 1. Dilated loops small bowel without significant change, consistent with small bowel obstruction. Reviewed, dictated and finalized at location A.
[2022-01-10 21:44] VITALS: BP 139/71; PULSE 72; RESP 18; TEMP 36.1; O2SAT 99
--- NOTE | 2022-01-10 22:34 | ED.GENADULT ---
HPI - General Adult General Chief complaint: Nausea/Vomiting/Diarrhea Stated complaint: low abd pain, N/D Time Seen by Provider: 01/10/22 21:45 History of Present Illness HPI narrative: 71-year-old female with history of recurrent urinary tract infection, and schizophrenia presented to the emergency department for evaluation of burning with urination and lower and right-sided abdominal pain with associated nausea without vomiting. Patient states over the last 2 months she has had multiple urinary tract infections and has been treated with Keflex. Patient does have follow-up scheduled with urology of [place] but has not yet had this follow-up. Patient does report prior history of appendectomy and hysterectomy. Related Data Home Medications Medication Instructions Recorded Confirmed lorazepam 0.5 mg tablet 0.5 mg PO TID 10/21/20 01/11/22 clozapine 100 mg tablet 300 mg PO HS 03/17/21 01/11/22 aripiprazole 2 mg tablet 2.5 mg PO HS 04/24/21 01/11/22 clozapine 50 mg tablet 50 mg PO QAM 04/24/21 01/11/22 metoprolol tartrate 25 mg tablet 50 mg PO BID 01/11/22 01/11/22 sitagliptin 100 mg tablet (Januvia) 100 mg PO DAILY 01/11/22 01/11/22 Allergies Allergy/AdvReac Type Severity Reaction Status Date / Time atorvastatin Allergy Unknown pain Verified 01/05/22 10:36 Iodinated Contrast Media Allergy Unknown Hives Verified 01/05/22 10:36 liraglutide Allergy Unknown Unknown Verified 01/05/22 10:36 metformin Allergy Unknown Renal Verified 01/05/22 10:36 impairment tetracycline Allergy Unknown Unknown Verified 01/05/22 10:36 lisinopril AdvReac Mild dizziness Verified 01/05/22 10:36 sulfamethoxazole AdvReac sore Verified 01/05/22 10:36 [From Bactrim] throat/ hoarseness trimethoprim [From Bactrim] AdvReac sore Verified 01/05/22 10:36 throat/ hoarseness Review of Systems Review of Systems: CONSTITUTIONAL: Denies fever, chills, or sweats. EYES: Denies visual changes, redness, or discharge. ENT: Denies rhinorrhea, congestion, sore throat, or otalgia. CARDIOVASCULAR: Denies chest pain, palpitations, or edema. RESPIRATORY: Denies cough or dyspnea. GASTROINTESTINAL: See HPI GENITOURINARY: See HPI SKIN: Denies rash or itching. MUSCULOSKELETAL: Denies back pain, joint pain, or myalgia. NEUROLOGIC: Denies headache, numbness, or weakness. PSYCHIATRIC: History of schizophrenia but feels like she is doing well at this time. 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 Under the care of Psychiatrist. Serotonin withdrawal syndrome with perceptual disturbance Sleep apnea Stress incontinence (female) (male) Trochanteric bursitis of both hips Type 2 diabetes mellitus with hyperglycemia Vitreous degeneration, bilateral Surgical History Surgical History History of hysterectomy History of open reduction and internal fixation (ORIF) procedure repair of lt ankle fracture History of subtotal thyroidectomy Hx of appendectomy Hx of eye surgery x2 Hx of varicose vein ligation Family History Family History Father Hypertension, Onset Age: 75 Family history of malignant neoplasm of thyroid Patient's father is Mother Hypertension Family history of dementia Family history of rheumatoid arthritis Sibling Family history of malignant neoplasm Family history of hepatitis Esophageal cancer Other Family history of malignant neoplasm of breast Family history of mental disorder
[2022-01-10] MEDS: ONDANSETRON INJ 4 MG/2 ML VIAL IV PUSH (22:57)
[2022-01-10] MEDS: HYDROmorphone HCL INJ (*CRX) 1 MG/ML SYR IV PUSH (22:58)
[2022-01-10 22:59] LABS: Basophils Absolute Auto 0.1 K/mm3 (0.0-0.1); Basophils Percent Auto 0.4 % (0.2-1.2); Eosinophils Absolute Auto 0.1 K/mm3 (0-0.3); Eosinophils Percent Auto 0.7 % (0-4.4); Hematocrit 39.1 % (37.0-47.0); Hemoglobin 13.1 g/dL (12.0-15.0); Immature Granulocyte Absolute 0.05 K/mm3 (0.00-0.031); Immature Granulocyte Percent A 0.4 % (0-0.5); Lymphocytes Absolute Auto 1.33 K/mm3 (0.9-3.2); Lymphocytes Percent Auto 10.1 % (18.3-44.2); Mean Corpuscular HGB Conc 33.5 g/dl (32-36); Mean Corpuscular Hemoglobin 28.7 pg (26-34); Mean Corpuscular Volume 85.7 fl (80-100); Mean Platelet Volume 11.4 fl (7.4-10.4); Monocytes Absolute Auto 0.6 K/mm3 (0.1-0.6); Monocytes Percent Auto 4.7 % (2.6-8.5); Neutrophils Absolute Auto 11.1 K/mm3 (1.3-6.7); Neutrophils Percent Auto 83.7 % (45.5-73.1); Platelet Count Result 260 k/mm3 (150-375); Red Blood Count 4.56 M/mm3 (4.2-5.4); Red Cell Distribution Width 13.9 % (11.5-14.5); White Blood Count 13.2 K/mm3 (4.5-10.0)
[2022-01-10] MEDS: SODIUM CHLORIDE 0.9% IV 1,000 ML 999 ML IV CONT (22:59)
[2022-01-10 23:11] LABS: Alanine Aminotransferase 33 U/L (6-35); Albumin Level 4.5 g/dL (3.5-5.1); Alkaline Phosphatase 93 U/L (38-126); Anion Gap 8 mmol/L (8-16); Aspartate Amino Transferase 28 U/L (14-36); Bilirubin,Total 0.3 mg/dL (0.2-1.3); Blood Urea Nitrogen 16 mg/dL (7-17); Calcium 9.1 mg/dL (8.4-10.2); Carbon Dioxide 27 mmol/L (22-30); Chloride 97 mmol/L (98-107); Estimated CRCL calculation 84 ml/min; Estimated Glomerular Filt Rate > 60; Glucose 149 mg/dL (65-110); Lipase 97 U/L (23-300); Potassium 3.9 mmol/L (3.4-5.0); Sodium 132 mmol/L (137-145)
[2022-01-10 23:12] LABS: Lactic Acid Reflex 1.1 mmol/L (0.7-2.0)
[2022-01-11] VITALS (8 sets, daily range): BP systolic 124–163; BP diastolic 55–75; PULSE 63–86; RESP 18; TEMP 36.1–36.5; O2SAT 94–100; BMI 35.7
[2022-01-11] MEDS: SODIUM CHLORIDE 0.9% IV 1,000 ML 125 ML IV CONT ×2 (01:13→06:03)
[2022-01-11 01:16] LABS: Appearance Urine Clear (Clear); Bilirubin Urine Negative (Negative); Blood Urine 2+ (Negative); Color Urine Yellow (Yellow); Glucose Urine UA Negative (Negative); Ketones Urine Negative (Negative); Leukocyte Esterase Ur 3+ LEU/UL (Negative); Nitrate Urine Negative (Negative); Protein Urine 2+ mg/dL (Negative); Specific Grav Ur 1.025 (1.001-1.035); Urobilinogen Urine 0.2 mg/dL (<2.0)
[2022-01-11 01:39] LABS: Mucus Urine Few /lpf; RBC Urine 21-50 /hpf (0-2); Squamous Epithelial Cell Urine Rare /hpf (Few); WBC Clumps Urine Present /HPF; WBC Urine >75 /hpf
[2022-01-11 02:00] LABS: Add Urine Microscopic? YES
--- NOTE | 2022-01-11 02:52 | ADMGEN ---
0237 This patient, Dori Louise, was admitted to 3 [facility] Room 321-01. Patient/family oriented to hospital policies and general routines including ID bracelet, bed and alarms, visiting hours, pain management, procedures, bathroom and other care routines, personal items, smoking policy, room service/diet, and visiting hours. Information on how to activate the Rapid Response Team has been discussed. Patient/Family are encouraged to report perceived risks to care and to ask questions if they do not understand what they are told or what they should do.
[2022-01-11] MEDS: HYDROmorphone HCL INJ (*CRX) 1 MG/ML SYR 0.5 MG IV PUSH ×2 (03:02→20:37)
[2022-01-11] MEDS: ONDANSETRON INJ 4 MG/2 ML VIAL IV PUSH (03:04)
--- NOTE | 2022-01-11 06:29 | PC.NURSE ---
0600 Pt has NG tube in left nare , connected to low intermittent suction , draining greenish content. Pt c/o nausea x1 , see MAR.
--- NOTE | 2022-01-11 06:59 | PM.IMHP ---
H&P: HPI History of Present Illness Date/Time: 01/11/22 06:59 Chief Complaint: Abdominal pain Narrative: Dori Louise is a 71 yo female with medical history of non-insulin dependent diabetes, hypertension, asthma, hypothyroidism, schizophrenia and recurrent UTIs. She presented to the ED, from home, with c/o bilateral lower abdominal pain, bilateral flank pain, and nausea. She reports the pain started yesterday morning and progressively worsened throughout the day. It was sharp, pressure like. The pain is to her lower abdomen and wraps around to both sides of her back. She reports nausea and some retching, but no emesis. She had multiple BMs the previous night and yesterday morning and got progressively smaller and liquid. She endorses straining. Additionally, she c/o urinary frequency and urgency. She does not feel she is completely evacuating her bladder. She denies fever, chills, diaphoresis, chest pain, SOB, or dizziness. She attributed her symptoms to eating 1 lb of celery and a bunch of green bananas yesterday. She took multiple doses of Pepto Bismal without relief. Of note, she reports being treated for a UTI in October of this year. She completed a course of antibiotics, which she thinks was cephalexin. Her urinary symptoms returned a few weeks later and she had a second course of unknown antibiotics that she reports completing on 12/31/21. In the ED, her vitals were stable and she was afebrile. Lab work shows WBC 13.2 with left shift, lactic acid 1.1, sodium 132, and chloride 97. UA showed 3+ leukocytes, >75 WBC, and rare epi cells. CT scan showed small bowel obstruction and staghorn calculus with bilateral perinephric fat stranding. She was admitted to the medical floor for further management. 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 Under the care of Psychiatrist. Serotonin withdrawal syndrome with perceptual disturbance Sleep apnea Stress incontinence (female) (male) Trochanteric bursitis of both hips Type 2 diabetes mellitus with hyperglycemia Vitreous degeneration, bilateral Surgical History Surgical History History of hysterectomy History of open reduction and internal fixation (ORIF) procedure repair of lt ankle fracture History of subtotal thyroidectomy Hx of appendectomy Hx of eye surgery x2 Hx of varicose vein ligation Family History Family History Father Hypertension, Onset Age: 75 Family history of malignant neoplasm of thyroid Patient's father is Mother Hypertension Family history of dementia Family history of rheumatoid arthritis Sibling Family history of malignant neoplasm Family history of hepatitis Esophageal cancer Other Family history of malignant neoplasm of breast Family history of mental disorder Family history of thyroid disease Social History Social History (Updated 01/11/22 @ 13:20 by Duyen Roy APRN) Smoking status: Never smoker Second hand tobacco smoke exposure: No Alcohol intake: never Substance use: never Living arrangements: alone Additional living arrangements comments: Gender identity (if verbalized by the patient): Female Spiritual care concerns: No Meds Home Medications and Allergies Home Medications Medication Instructions Recorded Confirmed Typ
[2022-01-11 08:18] LABS: Hemoglobin A1C 5.9 % (<5.7)
[2022-01-11 10:00] LABS: Glucose Point of Care 142 mg/dl (65-105)
--- NOTE | 2022-01-11 10:03 | PHAR ---
HOME MEDS VERIFIED = [facility] RX [id number]/ON CLOZAPINE 50 MG 1 TAB Q AM RX [id number]/ON CLOZAPINE 100 MG 3 TABS (300 MG) AT BEDTIME
[2022-01-11 11:51] LABS: Glucose Point of Care 127 mg/dl (65-105)
--- NOTE | 2022-01-11 12:36 | WPDURCON ---
Assessment and Plan Assessment and plan (1) Complicated urinary tract infection: Code(s): N39.0 - Urinary tract infection, site not specified Status: Acute Assessment and Plan: Secondary to staghorn stone, repeat culture is pending from today. Culture from 01/04/22 is negative. She will be likely to continue to have recurrent UTI's until Staghorn is removed. I would recommend prophylaxis of Cephalexin 250mg QD until surgery. (2) Staghorn calculus: Code(s): N20.0 - Calculus of kidney Status: Acute Assessment and Plan: She will cancel her appointment with Shira Lo NP next week and we will schedule her to see Dr. Andrade for a PCNL consultation to remove her right staghorn stone. No further evaluation needed, ok to discharge at anytime per urology. Urology Consult Note HPI Date Seen: 01/11/22 Time Seen: 12:36 Requesting Physician: Lilo Vigil DO Primary Care Provider: Beatriz Pizarro MD Consult Narrative Reason for consult: Staghorn Stone/Recurrent UTI Narrative: Dori Louise is a 71 year old female who presented to the ER with RLQ pain and dysuria yesterday. She has a WBC of 13.2, creatinine of 0.70 and was found to have a right staghorn stone on CT without hydronephrosis and bilateral perinephric stranding, as well as a bowel obstruction. She denies a history of kidney stones but states she has had chronic UTI's since 2018. She has an appointment with our nurse practitioner Shira next week to evaluate this, but has never been seen by our group before. Most recently she had a severe UTI around [facility] this year where she describes having a fever of >102 that persisted and required treatment with two courses of antibiotic to resolve the infection. She is currently afebrile. She denies all other urologic symptoms. We were asked to see her d/t her incidental findings on CT in the right kidney and recurrent UTI's. 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 Under the care of Psychiatrist. Serotonin withdrawal syndrome with perceptual disturbance Sleep apnea Stress incontinence (female) (male) Trochanteric bursitis of both hips Type 2 diabetes mellitus with hyperglycemia Vitreous degeneration, bilateral Surgical History Surgical History History of hysterectomy History of open reduction and internal fixation (ORIF) procedure repair of lt ankle fracture History of subtotal thyroidectomy Hx of appendectomy Hx of eye surgery x2 Hx of varicose vein ligation Family History Family History Father Hypertension, Onset Age: 75 Family history of malignant neoplasm of thyroid Patient's father is Mother Hypertension Family history of dementia Family history of rheumatoid arthritis Sibling Family history of malignant neoplasm Family history of hepatitis Esophageal cancer Other Family history of malignant neoplasm of breast Family history of mental disorder Family history of thyroid disease Social History Social Histor
[2022-01-11] MEDS: LORazepam (*CRX) 0.5 MG TABLET PO ×2 (13:08→18:13)
[2022-01-11] MEDS: KCL 20MEQ/0.9% SOD CHL 1,000 ML 125 ML IV CONT ×2 (14:47→22:56)
[2022-01-11 16:23] LABS: Glucose Point of Care 119 mg/dl (65-105)
[2022-01-11] MEDS: METOPROLOL TARTRATE 50 MG TAB PO (18:13)
[2022-01-11 18:55] LABS: Glucose Point of Care 99 mg/dl (65-105)
--- NOTE | 2022-01-11 19:54 | PM.CNGS ---
Assessment and Plan Assessment and plan (1) SBO (small bowel obstruction): Code(s): K56.609 - Unspecified intestinal obstruction, unspecified as to partial versus complete obstruction Status: Acute Assessment and Plan: Patient feeling better this morning after just several hours of NG suction and IV fluid hydration. Continue present treatment. Will check daily KUB, labs and clinical exam. Hopefully this will resolve without surgery. I did discuss with the patient that sometimes laparotomy is necessary to resolve his small-bowel obstruction. We will follow along with you. (2) Staghorn calculus: Code(s): N20.0 - Calculus of kidney Status: Chronic Assessment and Plan: Urology plans noted. (3) Complicated urinary tract infection: Code(s): N39.0 - Urinary tract infection, site not specified Status: Chronic (4) Schizophrenia: Code(s): F20.9 - Schizophrenia, unspecified Status: Chronic (5) Type 2 diabetes mellitus with microalbuminuria: Qualifiers: Diabetes mellitus group home insulin use: without terminal makeup operator use Qualified Code(s): E11.29 - Type 2 diabetes mellitus with other diabetic kidney complication; R80.9 - Proteinuria, unspecified Code(s): E11.29 - Type 2 diabetes mellitus with other diabetic kidney complication; R80.9 - Proteinuria, unspecified Status: Chronic History of Present Illness Consult details Consult date: 01/11/22 Reason for consult: abdominal pain Requesting physician: Mario Tomas MD Narrative: Patient is a 71-year-old woman with history of recurrent urinary tract infections as well as schizophrenia. Yesterday morning she was awakened with lower abdominal pain predominantly in the left lower quadrant. The pain persisted and became worse. She had nausea and dry heaves. She eventually came to the emergency room. Imaging there including CT scan showed small bowel obstruction. There imaging also showed a large right staghorn calculus. She has been admitted and nasogastric tube was placed. Urology has seen her and plans for eventual removal of the staghorn calculus are being made. She was seen early this morning in consultation for her small-bowel obstruction. She reports that she was feeling better with no further nausea and improved abdominal pain. She has a history of 2 previous abdominal surgeries. The 1st was an appendectomy in the done through a midline incision. Later in the she had a hysterectomy done through the same midline incision. Review of Systems Review of Systems: All systems reviewed & are unremarkable except as noted in HPI and below Constitutional: Constitutional: Reports as per HPI, Denies body ache(s), Denies chills, Denies fever(s) and Denies headache(s) Cardiovascular: Cardiovascular: Denies chest pain, Denies diaphoresis, Denies dyspnea and Denies paroxysmal nocturnal dyspnea Respiratory: Respiratory: Denies chest congestion, Denies cough and Denies dyspnea Gastrointestinal: Gastrointestinal: Reports as per HPI, Reports abdominal pain, Denies constipation (Last bowel movement yesterday morning), Denies heartburn, Denies diarrhea, Reports nausea and Reports vomiting (Dry heaves) Integumentary/Breasts: Skin/Breast: Denies lesions and Denies rash PMFSH Past Medical History Medical History Ankle fracture, left Asthma At low risk for fall Diabetes DVT (deep venous thrombosis) Edema History of chicken pox Hypothyroid Hypothyroidism 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 Under the care of Psychiatrist. Serotonin withdrawal syndrome with perceptual disturbance Sleep apnea Stress incontinence (female) (male) Trochanteric bursitis of both hips Type 2
[2022-01-11] MEDS: METOPROLOL TARTRATE 25 MG TABLET PO (20:37)
[2022-01-11] MEDS: ARIPiprazole 2.5 MG TABLET PO (20:37)
[2022-01-11 21:08] LABS: Glucose Point of Care 110 mg/dl (65-105)
[2022-01-12] VITALS (7 sets, daily range): BP systolic 134–146; BP diastolic 68–75; PULSE 63–72; RESP 16–18; TEMP 35.8–36.5; O2SAT 96–99
[2022-01-12] MEDS: HYDROmorphone HCL INJ (*CRX) 1 MG/ML SYR 0.5 MG IV PUSH ×4 (00:50→23:09)
[2022-01-12] MEDS: KCL 20MEQ/0.9% SOD CHL 1,000 ML 125 ML IV CONT ×2 (05:45→14:16)
[2022-01-12] MEDS: LEVOTHYROXINE SODIUM 100 MCG TABLET BY MOUTH (05:46)
[2022-01-12 05:57] LABS: Basophils Percent Auto 0.4 % (0.2-1.2); Eosinophils Absolute Auto 0.1 K/mm3 (0-0.3); Eosinophils Percent Auto 1.7 % (0-4.4); Hematocrit 36.1 % (37.0-47.0); Hemoglobin 11.5 g/dL (12.0-15.0); Immature Granulocyte Absolute 0.03 K/mm3 (0.00-0.031); Immature Granulocyte Percent A 0.4 % (0-0.5); Lymphocytes Absolute Auto 1.08 K/mm3 (0.9-3.2); Lymphocytes Percent Auto 14.1 % (18.3-44.2); Mean Corpuscular HGB Conc 31.9 g/dl (32-36); Mean Corpuscular Hemoglobin 28.3 pg (26-34); Mean Corpuscular Volume 88.9 fl (80-100); Mean Platelet Volume 10.6 fl (7.4-10.4); Monocytes Absolute Auto 0.6 K/mm3 (0.1-0.6); Neutrophils Absolute Auto 5.8 K/mm3 (1.3-6.7); Neutrophils Percent Auto 75.4 % (45.5-73.1); Platelet Count Result 196 k/mm3 (150-375); Red Blood Count 4.06 M/mm3 (4.2-5.4); Red Cell Distribution Width 14.1 % (11.5-14.5); White Blood Count 7.6 K/mm3 (4.5-10.0)
[2022-01-12 06:06] LABS: Anion Gap 3 mmol/L (8-16); Blood Urea Nitrogen 11 mg/dL (7-17); Calcium 7.8 mg/dL (8.4-10.2); Carbon Dioxide 29 mmol/L (22-30); Chloride 108 mmol/L (98-107); Estimated CRCL calculation 84 ml/min; Estimated Glomerular Filt Rate > 60; Glucose 118 mg/dL (65-110); Potassium 3.7 mmol/L (3.4-5.0); Sodium 140 mmol/L (137-145)
--- NOTE | 2022-01-12 06:51 | PM.PNGS ---
Progress Note: A&P Assessment and Plan (1) SBO (small bowel obstruction): Code(s): K56.609 - Unspecified intestinal obstruction, unspecified as to partial versus complete obstruction Status: Acute Assessment and Plan: Improving as patient now has some bowel sounds. She is still distended and has some suprapubic pain. Continue NPO and NG tube to suction. Labs look good but KUB from this morning is pending. Still hopeful this will resolve without requiring laparotomy. Discussed with patient. (2) Schizophrenia: Code(s): F20.9 - Schizophrenia, unspecified Status: Chronic (3) Type 2 diabetes mellitus with microalbuminuria: Qualifiers: Diabetes mellitus senior care insulin use: without intermediate accountant use Qualified Code(s): E11.29 - Type 2 diabetes mellitus with other diabetic kidney complication; R80.9 - Proteinuria, unspecified Code(s): E11.29 - Type 2 diabetes mellitus with other diabetic kidney complication; R80.9 - Proteinuria, unspecified Status: Chronic (4) Staghorn calculus: Code(s): N20.0 - Calculus of kidney Status: Chronic Subjective Subjective Date/Time Seen: 01/12/22 06:51 Patient reports: still having pain ( Less severe than before but still having suprapubic lower abdominal pain.), no flatus, no bowel movement and afebrile Review of Systems Review of Systems: All systems reviewed & are unremarkable except as noted in HPI and below Cardiovascular: Cardiovascular: Denies chest pain and Denies dyspnea Respiratory: Respiratory: Denies cough and Denies dyspnea Gastrointestinal: Gastrointestinal: Reports as per HPI Exam Const: General: cooperative, comfortable, no acute distress, alert and awake Nutritional Appearance: overweight Orientation/consciousness: No confusion GI: Inspection: distended, obesity and scar GI Palp: Yes Soft to palpation and No Tenderness to palpation present (GI) Auscultation: normal bowel sounds Objective Data Vital Signs Vital Signs: Vital Signs - 24 hr 01/11/22 13:47 01/11/22 08:00 01/11/22 20:16 Temperature 36.3 C L Pulse Rate 81 81 Respiratory Rate 18 18 Blood Pressure 163/75 H Pulse Oximetry 99 99 94 Oxygen Delivery Room Air Room Air 01/11/22 20:37 01/11/22 22:00 01/11/22 20:00 Temperature 36.1 C L Pulse Rate 86 63 Respiratory Rate 18 Blood Pressure 124/55 L Pulse Oximetry 96 Oxygen Delivery Room Air 01/12/22 05:14 Temperature 35.8 C L Pulse Rate 67 Respiratory Rate 16 Blood Pressure 146/75 H Pulse Oximetry 98 Oxygen Delivery Intake/Output Intake/Output: Intake & Output 01/09/22 01/10/22 01/11/22 01/12/22 23:59 23:59 23:59 23:59 Intake Total 3150 1100 Output Total 2950 1900 Balance 200 -800 Meds/Results Medications: Active Medications Generic Name Dose Route Start Last Admin Trade Name Freq PRN Reason Stop Dose Admin Albuterol 2.5 mg 01/11/22 07:26 Albuterol Sulfate Neb 2.5 Mg/3 Ml Inh INHALATION Q6HRT PRN Shortness Of Breath Aripiprazole 2.5 mg 01/11/22 21:00 01/11/22 20:37 Aripiprazole 2.5 Mg Tablet PO 2.5 mg HS ALVARADO Administration Dextrose 12.5 gm 01/11/22 07:44 Dextrose 50% 25 Gm/50 Ml Syringe IV PUSH PRN PRN Hypoglycemia Protocol Enoxaparin Sodium 40 mg 01/12/22 09:00 Enoxaparin 40 Mg/0.4 Ml Syringe SUB-Q DAILY ALVARADO Fluticasone Propionate 2 puff 01/11/22 08:00 01/12/22 06:11 Fluticasone Prop 44 Mcg (*Sp) 10.6 Gm INHALATION Not Given Q12HRT ALVARADO Glucagon 1 mg 01/11/22 07:44 Glucagon For Inj 1 Mg Vial IM PRN PRN Hypoglycemia Protocol Glucose 15 gm 01/11/22 07:44 Glucose Oral Gel 15 Gm Of Glucse In 37.5 Gm Tube PO PRN PRN Hypoglycemia Protocol Home Med 3 each 01/11/22 21:00 01/11/22 20:40 Home Medication-Clozapine 100 Mg PO 02/10/22 20:59 3 each HS ALVARADO Administration Home Med 1 each 01/11/22 09:00 01/11/22
[2022-01-12 08:04] LABS: Glucose Point of Care 123 mg/dl (65-105)
[2022-01-12] MEDS: FLUTICASONE PROP 44 MCG (*SP) 10.6 GM 2 PUFF INHALATION ×2 (08:16→20:40)
--- NOTE | 2022-01-12 08:24 | PM.IMPN ---
Progress Note: A&P Assessment and Plan (1) SBO (small bowel obstruction): Code(s): K56.609 - Unspecified intestinal obstruction, unspecified as to partial versus complete obstruction Status: Acute Assessment and Plan: CT scan demonstrates mid/distal small bowel obstruction, transition point in the midline lower abdomen possibly secondary to abdominal adhesion. N/V and abd pain noted on presentation. -General surgery consulted and appreciate recommendations. -NPO, NG tube with LIWS, and IV fluids with 20 mEQ KCl to IV fluids given large volume NG output. -Monitor I/O. -Monitor electrolytes and replace as needed. -Increase ambulation. (2) Complicated urinary tract infection: Code(s): N39.0 - Urinary tract infection, site not specified Status: Chronic Assessment and Plan: CT scan demonstrates staghorn calculus, UA positive for infection and c/o lower abd pain and dysuria at presentation. -Consult Urology and recommend -Continue Zosyn 3.375 mg IV Q6 hours until patient able to take PO and urine culture results obtained. Patient was treated with Keflex within the past 3 months and so broader abx coverage warranted. De-escalate abx as soon as appropriate. -Urine culture from 01/04 appears mixed and repeat recommended. Patient reports finishing second round of antibiotics around 12/31. -WBC improved. Patient is afebrile with improved flank pain. (3) Type 2 diabetes mellitus with microalbuminuria: Qualifiers: Diabetes mellitus mexican food maker hand insulin use: without mexican food maker hand use Qualified Code(s): E11.29 - Type 2 diabetes mellitus with other diabetic kidney complication; R80.9 - Proteinuria, unspecified Code(s): E11.29 - Type 2 diabetes mellitus with other diabetic kidney complication; R80.9 - Proteinuria, unspecified Status: Chronic Assessment and Plan: Hold Januvia. This may not be the best medication for the patient given her recurrent UTIs, however she has listed allergies for meformin and liraglutide. - A1c 5.9% and patient is well controlled. -Accu-checks Q6 while NPO. -Aspart sliding scale insulin for hyperglycemia. Goal <180 mg/dL. (4) Moderate persistent allergic asthma: Code(s): J45.40 - Moderate persistent asthma, uncomplicated Status: Chronic Assessment and Plan: Not in acute exacerbation. -continue Qvar & PRN albuterol nebs for SOB/wheezing. (5) Schizophrenia: Code(s): F20.9 - Schizophrenia, unspecified Status: Chronic Assessment and Plan: W/history of tardive dyskinesia -Continue abilify, clozapine and lorazepam at home doses. -Resume ropinirole. (6) Hypertension: Qualifiers: Hypertension type: essential hypertension Qualified Code(s): I10 - Essential (primary) hypertension Code(s): I10 - Essential (primary) hypertension Status: Chronic Assessment and Plan: -Continue metoprolol 50 mg qam and 25 mg qpm. -Hold olmesartan for now and resume when off IV fluids and/or if BP >170. (7) Postprocedural hypothyroidism: Code(s): E89.0 - Postprocedural hypothyroidism Status: Chronic Assessment and Plan: -Continue levothyroxine at home dose. Plan Awaiting bowel function. P Time Spent With Patient Time with patient: 15 - 25 minutes Subjective Date/time seen: 01/12/22 08:24 Patient is a 71 yo female with medical history of non-insulin dependent diabetes, hypertension, asthma, hypothyroidism, schizophrenia and recurrent UTIs. She presented to the ED, from home, with c/o bilateral lower abdominal pain, bilateral flank pain, and nausea. CT abdomen & pelvis demonstrated SBO, staghorn calculus with bilateral perinephritic stranding and UA was concerning for UTI. Patient has multiple questions regarding plan of care. She denies abdominal pain, nausea, vomiting or flatus. NG tube still with more than 1000 mL output overnight. She still reports urinary
[2022-01-12] MEDS: ENOXAPARIN 40 MG/0.4 ML SYRINGE SUB-Q (08:56)
[2022-01-12] MEDS: LORazepam (*CRX) 0.5 MG TABLET PO ×3 (08:56→17:06)
[2022-01-12 12:04] LABS: Glucose Point of Care 110 mg/dl (65-105)
[2022-01-12] MEDS: METOPROLOL TARTRATE 25 MG TABLET PO (17:06)
[2022-01-12 17:08] LABS: Glucose Point of Care 91 mg/dl (65-105)
--- NOTE | 2022-01-12 17:15 | WPDUROPN2 ---
Progress Note: A&P Assessment and Plan (1) Staghorn calculus: Code(s): N20.0 - Calculus of kidney Status: Chronic (2) Complicated urinary tract infection: Code(s): N39.0 - Urinary tract infection, site not specified Status: Chronic Plan 71-year-old lady admitted with small-bowel obstruction. A right staghorn calculus. -urine Culture from 01/04/22 is negative. -plan to continue to have recurrent UTI's until Staghorn is removed. Plan Cephalexin 250mg QD until surgery if no longer on IV antibiotics from general surgery perspective -recommend renal scan to assess right renal function given size of her large right staghorn calculus. -patient will require definitive stone management with a PCNL as long as she has sufficient right-sided renal function. This procedure will likely need to be performed in a tertiary facility ([facility]). Subjective Subjective Date/Time Seen: 01/12/22 17:15 Review of Systems Review of Systems: Patient denies urinary complaints at this time. Objective Data Vital Signs Vital Signs: Vital Signs - 24 hr 01/11/22 20:16 01/11/22 20:37 01/11/22 22:00 Temperature 36.1 C L Pulse Rate 86 63 Respiratory Rate 18 Blood Pressure 124/55 L Pulse Oximetry 94 96 Oxygen Delivery Room Air 01/11/22 20:00 01/12/22 05:14 01/12/22 08:28 Temperature 35.8 C L Pulse Rate 67 66 Respiratory Rate 16 16 Blood Pressure 146/75 H Pulse Oximetry 98 96 Oxygen Delivery Room Air Room Air 01/12/22 08:15 01/12/22 14:00 01/12/22 17:06 Temperature 36.5 C Pulse Rate 67 72 Respiratory Rate 16 Blood Pressure 136/71 Pulse Oximetry 98 Oxygen Delivery Room Air Intake/Output Intake/Output: Intake & Output 01/09/22 01/10/22 01/11/22 01/12/22 23:59 23:59 23:59 23:59 Intake Total 3150 2250 Output Total 2950 3000 Balance 200 -750 Meds/Results Medications: Active Medications Generic Name Dose Route Start Last Admin Trade Name Freq PRN Reason Stop Dose Admin Albuterol 2.5 mg 01/11/22 07:26 Albuterol Sulfate Neb 2.5 Mg/3 Ml Inh INHALATION Q6HRT PRN Shortness Of Breath Aripiprazole 2.5 mg 01/11/22 21:00 01/11/22 20:37 Aripiprazole 2.5 Mg Tablet PO 2.5 mg HS ALVARADO Administration Dextrose 12.5 gm 01/11/22 07:44 Dextrose 50% 25 Gm/50 Ml Syringe IV PUSH PRN PRN Hypoglycemia Protocol Enoxaparin Sodium 40 mg 01/12/22 09:00 01/12/22 08:56 Enoxaparin 40 Mg/0.4 Ml Syringe SUB-Q 40 mg DAILY ALVARADO Administration Fluticasone Propionate 2 puff 01/11/22 08:00 01/12/22 08:16 Fluticasone Prop 44 Mcg (*Sp) 10.6 Gm INHALATION 2 puff Q12HRT ALVARADO Administration Glucagon 1 mg 01/11/22 07:44 Glucagon For Inj 1 Mg Vial IM PRN PRN Hypoglycemia Protocol Glucose 15 gm 01/11/22 07:44 Glucose Oral Gel 15 Gm Of Glucse In 37.5 Gm Tube PO PRN PRN Hypoglycemia Protocol Home Med 3 each 01/11/22 21:00 01/11/22 20:40 Home Medication-Clozapine 100 Mg PO 02/10/22 20:59 3 each HS ALVARADO Administration Home Med 1 each 01/11/22 09:00 01/12/22 08:57 Home Medication-Clozapine 50 Mg PO 02/10/22 08:59 1 each QAM ALVARADO Administration Hydromorphone HCl 0.5 mg 01/11/22 00:42 01/12/22 13:13 Hydromorphone Hcl Inj (*Crx) 1 Mg/Ml Syr IV PUSH 0.5 mg Q4H PRN Administration Pain Rated 7-10 Piperacillin/Tazobactam/Dextrose 3.375 gm in 50 mls @ 100 mls/hr 01/11/22 09:00 01/12/22 14:50 Zosyn 3.375 Gm/D5w 50ml Pm IVPB Infused Q6H ALVARADO Infusion Dextrose 1,000 mls @ 100 mls/hr 01/11/22 07:44 Dextrose 5% 1,000 Ml IVPB PRN PRN Hypoglycemia Protocol Potassium Chloride/Sodium Chloride 1,000 mls @ 125 mls/hr 01/11/22 13:20 01/12/22 14:16 Kcl 20 Meq/Ns IV CONT 125 mls/hr .Q8H ALVARADO Administration Insulin Aspart 2 - 5 units 01/11/22 08:00 01/12/22 17:06 Insulin Aspart (*Bkc) 100 Units/Ml
[2022-01-12] MEDS: rOPINIRole HCL 1 MG TABLET 12 MG PO (21:11)
[2022-01-12] MEDS: ARIPiprazole 2.5 MG TABLET PO (21:11)
[2022-01-12 23:21] LABS: Glucose Point of Care 91 mg/dl (65-105)
[2022-01-13] VITALS (8 sets, daily range): BP systolic 148–174; BP diastolic 66–79; PULSE 62–80; RESP 12–18; TEMP 36.2–36.8; O2SAT 97–100
[2022-01-13] MEDS: KCL 20MEQ/0.9% SOD CHL 1,000 ML 125 ML IV CONT ×4 (00:53→22:08)
[2022-01-13] MEDS: LEVOTHYROXINE SODIUM 100 MCG TABLET BY MOUTH (05:38)
[2022-01-13 06:33] LABS: Hematocrit 36.6 % (37.0-47.0); Hemoglobin 11.4 g/dL (12.0-15.0); Mean Corpuscular HGB Conc 31.1 g/dl (32-36); Mean Corpuscular Hemoglobin 28.3 pg (26-34); Mean Corpuscular Volume 90.8 fl (80-100); Mean Platelet Volume 10.8 fl (7.4-10.4); Platelet Count Result 179 k/mm3 (150-375); Red Blood Count 4.03 M/mm3 (4.2-5.4); Red Cell Distribution Width 13.9 % (11.5-14.5); White Blood Count 7.3 K/mm3 (4.5-10.0)
[2022-01-13 07:05] LABS: Anion Gap 8 mmol/L (8-16); Blood Urea Nitrogen 9 mg/dL (7-17); Calcium 7.7 mg/dL (8.4-10.2); Carbon Dioxide 26 mmol/L (22-30); Chloride 107 mmol/L (98-107); Estimated CRCL calculation 96 ml/min; Estimated Glomerular Filt Rate > 60; Glucose 107 mg/dL (65-110); Potassium 3.5 mmol/L (3.4-5.0); Sodium 141 mmol/L (137-145)
[2022-01-13 07:57] LABS: Glucose Point of Care 108 mg/dl (65-105)
[2022-01-13] MEDS: LORazepam (*CRX) 0.5 MG TABLET PO ×3 (08:25→17:18)
[2022-01-13] MEDS: ENOXAPARIN 40 MG/0.4 ML SYRINGE SUB-Q (08:25)
[2022-01-13] MEDS: METOPROLOL TARTRATE 50 MG TAB PO (08:25)
--- NOTE | 2022-01-13 09:04 | PM.IMPN ---
Progress Note: A&P Assessment and Plan (1) SBO (small bowel obstruction): Code(s): K56.609 - Unspecified intestinal obstruction, unspecified as to partial versus complete obstruction Status: Acute Assessment and Plan: CT scan demonstrates mid/distal small bowel obstruction, transition point in the midline lower abdomen possibly secondary to abdominal adhesion. N/V and abd pain noted on presentation. -General surgery consulted and appreciate recommendations. -NPO, NG tube with LIWS, and IV fluids with 20 mEQ KCl to IV fluids. -Monitor I/O. -Monitor electrolytes and replace as needed. -Encourage ambulation. (2) Complicated urinary tract infection: Code(s): N39.0 - Urinary tract infection, site not specified Status: Chronic Assessment and Plan: CT scan demonstrates staghorn calculus, UA positive for infection and c/o lower abd pain and dysuria at presentation. -Urology following and recommend PCNL when SBO resolves. NM Lasix renal scan on Saturday. -Urine culture negative. Stop Zosyn. Keflex 250 mg daily ordered until procedure per Urology recommendations. (3) Type 2 diabetes mellitus with microalbuminuria: Qualifiers: Diabetes mellitus custodial insulin use: without custodial use Qualified Code(s): E11.29 - Type 2 diabetes mellitus with other diabetic kidney complication; R80.9 - Proteinuria, unspecified Code(s): E11.29 - Type 2 diabetes mellitus with other diabetic kidney complication; R80.9 - Proteinuria, unspecified Status: Chronic Assessment and Plan: Hold Januvia. This may not be the best medication for the patient given her recurrent UTIs, however she has listed allergies for meformin and liraglutide. -A1c 5.9% and patient is well controlled. -Accu-checks Q6 while NPO. -Aspart sliding scale insulin for hyperglycemia. Goal <180 mg/dL. -Stable. (4) Moderate persistent allergic asthma: Code(s): J45.40 - Moderate persistent asthma, uncomplicated Status: Chronic Assessment and Plan: Not in acute exacerbation. -continue Qvar & PRN albuterol nebs for SOB/wheezing. -Stable (5) Schizophrenia: Code(s): F20.9 - Schizophrenia, unspecified Status: Chronic Assessment and Plan: W/history of tardive dyskinesia -Continue abilify, clozapine and lorazepam at home doses. -Continue ropinirole 8 mg at HS and additional 4 mg PRN at HS if symptoms persist. (6) Hypertension: Qualifiers: Hypertension type: essential hypertension Qualified Code(s): I10 - Essential (primary) hypertension Code(s): I10 - Essential (primary) hypertension Status: Chronic Assessment and Plan: -Continue metoprolol 50 mg qam and 25 mg qpm. -BP elevated. Resume Olmesartan at home dose. (7) Postprocedural hypothyroidism: Code(s): E89.0 - Postprocedural hypothyroidism Status: Chronic Assessment and Plan: -Continue levothyroxine at home dose. Plan Awaiting bowel function and NM renal scan on Saturday. Time Spent With Patient Time with patient: 25 - 35 minutes (>50% time spent with patient education. ) Subjective Date/time seen: 01/13/22 09:04 Patient is a 71 yo female with medical history of non-insulin dependent diabetes, hypertension, asthma, hypothyroidism, schizophrenia and recurrent UTIs. She presented to the ED, from home, with c/o bilateral lower abdominal pain, bilateral flank pain, and nausea. CT abdomen & pelvis demonstrated SBO, staghorn calculus with bilateral perinephritic stranding and UA was concerning for UTI. Patient found lying in bed. She reports taking a lot of ice chips and is wondering how much is too much. She states she can take 2-3 tablets (8-12 mg) of ropinirole per night, but only takes 2 usually. Nursing reports she had a BM overnight, but none today. Patient denies flatus. Her chest felt tight overnight, but is improved this morning. S
[2022-01-13] MEDS: HYDROmorphone HCL INJ (*CRX) 1 MG/ML SYR 0.5 MG IV PUSH ×2 (10:17→22:04)
[2022-01-13 11:53] LABS: Glucose Point of Care 104 mg/dl (65-105)
--- NOTE | 2022-01-13 13:42 | PM.PNGS ---
Progress Note: A&P Assessment and Plan (1) SBO (small bowel obstruction): Code(s): K56.609 - Unspecified intestinal obstruction, unspecified as to partial versus complete obstruction Status: Acute Assessment and Plan: Still having high NG output, but patient said she was taking a lot of ice chips Will give Dulcolax suppository and repeat abdominal xray tomorrow Might need SBFT but patient has contrast allergy--might need to pre-treat to prevent allergic reaction (2) Complicated urinary tract infection: Code(s): N39.0 - Urinary tract infection, site not specified Status: Chronic (3) Staghorn calculus: Code(s): N20.0 - Calculus of kidney Status: Chronic Subjective Subjective Date/Time Seen: 01/13/22 13:42 Interval history: Had a large BM yesterday. No BM or flatus today. No abdominal pain. Exam GI: Inspection: non-distended GI Palp: Yes Soft to palpation and No Guarding due to palpation present (GI) Auscultation: Hypoactive bowel sounds present Objective Data Vital Signs Vital Signs: Vital Signs - 24 hr 01/12/22 14:00 01/12/22 17:06 01/12/22 20:44 Temperature 36.5 C Pulse Rate 67 72 Respiratory Rate 16 Blood Pressure 136/71 Pulse Oximetry 98 98 Oxygen Delivery Room Air 01/12/22 21:39 01/12/22 20:00 01/13/22 05:36 Temperature 36.4 C 36.2 C L Pulse Rate 63 63 73 Respiratory Rate 18 18 18 Blood Pressure 134/68 174/79 H Pulse Oximetry 99 99 99 Oxygen Delivery Room Air 01/13/22 08:25 01/13/22 08:00 Temperature Pulse Rate 76 Respiratory Rate Blood Pressure Pulse Oximetry Oxygen Delivery Room Air Intake/Output Intake/Output: Intake & Output 01/10/22 01/11/22 01/12/22 01/13/22 23:59 23:59 23:59 23:59 Intake Total 3150 3300 1050 Output Total 2950 4300 1000 Balance 200 -1000 50 Meds/Results Medications: Active Medications Generic Name Dose Route Start Last Admin Trade Name Freq PRN Reason Stop Dose Admin Albuterol 2.5 mg 01/11/22 07:26 Albuterol Sulfate Neb 2.5 Mg/3 Ml Inh INHALATION Q6HRT PRN Shortness Of Breath Aripiprazole 2.5 mg 01/11/22 21:00 01/12/22 21:11 Aripiprazole 2.5 Mg Tablet PO 2.5 mg HS ALVARADO Administration Bisacodyl 10 mg 01/13/22 13:40 Bisacodyl 10 Mg Suppository RECTAL 01/13/22 13:41 ONCE ONE Cephalexin HCl 250 mg 01/13/22 21:00 Cephalexin 250 Mg Capsule PO HS ALVARADO Dextrose 12.5 gm 01/11/22 07:44 Dextrose 50% 25 Gm/50 Ml Syringe IV PUSH PRN PRN Hypoglycemia Protocol Enoxaparin Sodium 40 mg 01/12/22 09:00 01/13/22 08:25 Enoxaparin 40 Mg/0.4 Ml Syringe SUB-Q 40 mg DAILY ALVARADO Administration Fluticasone Propionate 2 puff 01/11/22 08:00 01/13/22 08:38 Fluticasone Prop 44 Mcg (*Sp) 10.6 Gm INHALATION Not Given Q12HRT ALVARADO Glucagon 1 mg 01/11/22 07:44 Glucagon For Inj 1 Mg Vial IM PRN PRN Hypoglycemia Protocol Glucose 15 gm 01/11/22 07:44 Glucose Oral Gel 15 Gm Of Glucse In 37.5 Gm Tube PO PRN PRN Hypoglycemia Protocol Home Med 3 each 01/11/22 21:00 01/12/22 21:13 Home Medication-Clozapine 100 Mg PO 02/10/22 20:59 3 each HS ALVARADO Administration Home Med 1 each 01/11/22 09:00 01/13/22 08:26 Home Medication-Clozapine 50 Mg PO 02/10/22 08:59 1 each QAM ALVARADO Administration Hydromorphone HCl 0.5 mg 01/11/22 00:42 01/13/22 10:17 Hydromorphone Hcl Inj (*Crx) 1 Mg/Ml Syr IV PUSH 0.5 mg Q4H PRN Administration Pain Rated 7-10 Dextrose 1,000 mls @ 100 mls/hr 01/11/22 07:44 Dextrose 5% 1,000 Ml IVPB PRN PRN Hypoglycemia Protocol Potassium Chloride/Sodium Chloride 1,000 mls @ 125 mls/hr 01/11/22 13:20 01/13/22 05:38 Kcl 20 Meq/Ns IV CONT 125 mls/hr .Q8H ALVARADO Administration Insulin Aspart 2 - 5 units 01/11/22 08:00 01/13/22 12:08 Insulin Aspart (*Bkc) 100 Units/Ml SUB-Q Not Given TIDWM ALVARADO
--- NOTE | 2022-01-13 14:25 | WPDUROPN2 ---
Progress Note: A&P Assessment and Plan (1) Staghorn calculus: Code(s): N20.0 - Calculus of kidney Status: Chronic Assessment and Plan: She has a staghorn calculus on the right. There is no acute urologic issue. Currently without UTI. Continue treatment for SBO as per medical and surgical teams. Patient will need right PCN after bowel issues resolved. Subjective Subjective Date/Time Seen: 01/13/22 14:25 - No voiding issues. No flank pain. UC was normal. Exam Narrative: Resting comfortably. NGT in place Objective Data Vital Signs Vital Signs: Vital Signs - 24 hr 01/12/22 17:06 01/12/22 20:44 01/12/22 21:39 Temperature 36.4 C Pulse Rate 72 63 Respiratory Rate 18 Blood Pressure 134/68 Pulse Oximetry 98 99 Oxygen Delivery Room Air 01/12/22 20:00 01/13/22 05:36 01/13/22 08:25 Temperature 36.2 C L Pulse Rate 63 73 76 Respiratory Rate 18 18 Blood Pressure 174/79 H Pulse Oximetry 99 99 Oxygen Delivery Room Air 01/13/22 08:00 Temperature Pulse Rate Respiratory Rate Blood Pressure Pulse Oximetry Oxygen Delivery Room Air Intake/Output Intake/Output: Intake & Output 01/10/22 01/11/22 01/12/22 01/13/22 23:59 23:59 23:59 23:59 Intake Total 3150 3300 1050 Output Total 2950 4300 1000 Balance 200 -1000 50 Meds/Results Medications: Active Medications Generic Name Dose Route Start Last Admin Trade Name Freq PRN Reason Stop Dose Admin Albuterol 2.5 mg 01/11/22 07:26 Albuterol Sulfate Neb 2.5 Mg/3 Ml Inh INHALATION Q6HRT PRN Shortness Of Breath Aripiprazole 2.5 mg 01/11/22 21:00 01/12/22 21:11 Aripiprazole 2.5 Mg Tablet PO 2.5 mg HS ALVARADO Administration Cephalexin HCl 250 mg 01/13/22 21:00 Cephalexin 250 Mg Capsule PO HS ALVARADO Dextrose 12.5 gm 01/11/22 07:44 Dextrose 50% 25 Gm/50 Ml Syringe IV PUSH PRN PRN Hypoglycemia Protocol Enoxaparin Sodium 40 mg 01/12/22 09:00 01/13/22 08:25 Enoxaparin 40 Mg/0.4 Ml Syringe SUB-Q 40 mg DAILY ALVARADO Administration Fluticasone Propionate 2 puff 01/11/22 08:00 01/13/22 08:38 Fluticasone Prop 44 Mcg (*Sp) 10.6 Gm INHALATION Not Given Q12HRT ALVARADO Glucagon 1 mg 01/11/22 07:44 Glucagon For Inj 1 Mg Vial IM PRN PRN Hypoglycemia Protocol Glucose 15 gm 01/11/22 07:44 Glucose Oral Gel 15 Gm Of Glucse In 37.5 Gm Tube PO PRN PRN Hypoglycemia Protocol Home Med 3 each 01/11/22 21:00 01/12/22 21:13 Home Medication-Clozapine 100 Mg PO 02/10/22 20:59 3 each HS ALVARADO Administration Home Med 1 each 01/11/22 09:00 01/13/22 08:26 Home Medication-Clozapine 50 Mg PO 02/10/22 08:59 1 each QAM ALVARADO Administration Hydromorphone HCl 0.5 mg 01/11/22 00:42 01/13/22 10:17 Hydromorphone Hcl Inj (*Crx) 1 Mg/Ml Syr IV PUSH 0.5 mg Q4H PRN Administration Pain Rated 7-10 Dextrose 1,000 mls @ 100 mls/hr 01/11/22 07:44 Dextrose 5% 1,000 Ml IVPB PRN PRN Hypoglycemia Protocol Potassium Chloride/Sodium Chloride 1,000 mls @ 125 mls/hr 01/11/22 13:20 01/13/22 05:38 Kcl 20 Meq/Ns IV CONT 125 mls/hr .Q8H ALVARADO Administration Insulin Aspart 2 - 5 units 01/11/22 08:00 01/13/22 12:08 Insulin Aspart (*Bkc) 100 Units/Ml SUB-Q Not Given TIDWM ALVARADO Protocol Levothyroxine Sodium 100 mcg 01/11/22 07:45 01/13/22 05:38 Levothyroxine Sodium 100 Mcg Tablet BY MOUTH 100 mcg DAILY@0630 ALVARADO Administration Lorazepam 0.5 mg 01/11/22 09:00 01/13/22 12:09 Lorazepam (*Crx) 0.5 Mg Tablet PO 0.5 mg TID ALVARADO Administration Metoprolol Tartrate 50 mg 01/11/22 09:00 01/13/22 08:25 Metoprolol Tartrate 50 Mg Tab PO 50 mg QAM ALVARADO Administration Metoprolol Tartrate 25 mg 01/11/22 18:00 01/12/22 17:06 Metoprolol Tartrate 25 Mg Tablet PO 25 mg QPM ALVARADO Administration Olmesartan 5 mg 01/14/22 09:00 Olmesartan Medoxomil 5 Mg Tablet PO
[2022-01-13] MEDS: BISACODYL 10 MG SUPPOSITORY RECTAL (14:27)
[2022-01-13] MEDS: METOPROLOL TARTRATE 25 MG TABLET PO (17:18)
[2022-01-13 17:28] LABS: Glucose Point of Care 95 mg/dl (65-105)
[2022-01-13] MEDS: ARIPiprazole 2.5 MG TABLET PO (20:10)
[2022-01-13] MEDS: rOPINIRole HCL 1 MG TABLET 8 MG PO (20:10)
[2022-01-13] MEDS: FLUTICASONE PROP 44 MCG (*SP) 10.6 GM 2 PUFF INHALATION (20:46)
[2022-01-13] MEDS: ALBUTEROL SULFATE NEB 2.5 MG/3 ML INH INHALATION (22:36)
[2022-01-14] LABS: Glucose Point of Care 94 mg/dl (65-105)
--- NOTE | 2022-01-14 03:55 | PC.NURSE ---
01/14/22 0355 ng tube clamped by this nurse so pt may ambulate in hallways. pt then assisted back to bed.
[2022-01-14] MEDS: LEVOTHYROXINE SODIUM 100 MCG TABLET BY MOUTH (05:33)
[2022-01-14 05:42] LABS: Glucose Point of Care 98 mg/dl (65-105)
[2022-01-14] MEDS: KCL 20MEQ/0.9% SOD CHL 1,000 ML 125 ML IV CONT (05:53)
[2022-01-14 06:00] VITALS: BP 183/82; PULSE 75; RESP 18; TEMP 36.2; O2SAT 98
--- NOTE | 2022-01-14 06:22 | PC.NURSE ---
01/14/22 0618 spoke with galo regarding pt's elev bp. galo stated to give benicar early.
[2022-01-14 06:23] LABS: Hematocrit 35.7 % (37.0-47.0); Hemoglobin 11.3 g/dL (12.0-15.0); Mean Corpuscular HGB Conc 31.7 g/dl (32-36); Mean Corpuscular Hemoglobin 28.5 pg (26-34); Mean Corpuscular Volume 90.2 fl (80-100); Mean Platelet Volume 10.8 fl (7.4-10.4); Platelet Count Result 196 k/mm3 (150-375); Red Blood Count 3.96 M/mm3 (4.2-5.4); Red Cell Distribution Width 13.5 % (11.5-14.5); White Blood Count 7.9 K/mm3 (4.5-10.0)
[2022-01-14] MEDS: HYDROmorphone HCL INJ (*CRX) 1 MG/ML SYR 0.5 MG IV PUSH ×2 (06:29→17:17)
[2022-01-14 06:30] LABS: Anion Gap 7 mmol/L (8-16); Blood Urea Nitrogen 9 mg/dL (7-17); Calcium 8.1 mg/dL (8.4-10.2); Carbon Dioxide 24 mmol/L (22-30); Chloride 109 mmol/L (98-107); Estimated CRCL calculation 96 ml/min; Estimated Glomerular Filt Rate > 60; Glucose 100 mg/dL (65-110); Potassium 3.7 mmol/L (3.4-5.0); Sodium 140 mmol/L (137-145)
[2022-01-14] MEDS: OLMESARTAN MEDOXOMIL 5 MG TABLET PO (06:30)
[2022-01-14 08:21] LABS: Glucose Point of Care 91 mg/dl (65-105)
[2022-01-14] MEDS: ENOXAPARIN 40 MG/0.4 ML SYRINGE SUB-Q (08:51)
[2022-01-14 08:52] VITALS: PULSE 78
[2022-01-14] MEDS: METOPROLOL TARTRATE 50 MG TAB PO (08:52)
[2022-01-14] MEDS: LORazepam (*CRX) 0.5 MG TABLET PO ×3 (08:52→17:17)
[2022-01-14] MEDS: FLUTICASONE PROP 44 MCG (*SP) 10.6 GM 2 PUFF INHALATION ×2 (09:02→20:50)
[2022-01-14 09:04] VITALS: PULSE 74; RESP 16
--- NOTE | 2022-01-14 10:59 | PM.PNGS ---
Progress Note: A&P Assessment and Plan (1) SBO (small bowel obstruction): Code(s): K56.609 - Unspecified intestinal obstruction, unspecified as to partial versus complete obstruction Status: Acute Assessment and Plan: NG output less today. X-ray has been done, but has not been read by radiology. I reviewed the x-ray and bowel gas pattern appears less distended and signs of obstruction resolving. Will give milk of magnesia per tube and Dulcolax suppository again today. Not sure if patient has a true contrast allergy she states that she had a single of developed at the IV site he when she a prior study with contrast. She probably will be able to tolerate oral contrast for small-bowel follow-through if necessary, but will see if stimulating bowels a little more will help. (2) Complicated urinary tract infection: Code(s): N39.0 - Urinary tract infection, site not specified Status: Chronic (3) Staghorn calculus: Code(s): N20.0 - Calculus of kidney Status: Chronic Subjective Subjective Date/Time Seen: 01/14/22 10:59 Interval history: No bowel movement yet. Any abdominal pain. Patient is hungry. Patient states that before her symptoms started she had eaten 1 lb of celery and 8 bananas. She is wondering if this could have contributed to the obstruction. Exam GI: Inspection: non-distended GI Palp: Yes Soft to palpation and No Guarding due to palpation present (GI) Auscultation: Hypoactive bowel sounds present Objective Data Vital Signs Vital Signs: Vital Signs - 24 hr 01/13/22 14:00 01/13/22 17:18 01/13/22 19:50 Temperature 36.2 C L Pulse Rate 62 80 Respiratory Rate 12 Blood Pressure 168/77 H Pulse Oximetry 100 Oxygen Delivery Room Air 01/13/22 20:48 01/13/22 22:36 01/13/22 22:00 Temperature 36.8 C Pulse Rate 68 70 69 Respiratory Rate 14 14 16 Blood Pressure 148/66 H Pulse Oximetry 97 Oxygen Delivery 01/13/22 22:46 01/14/22 06:00 01/14/22 08:52 Temperature 36.2 C L Pulse Rate 70 75 78 Respiratory Rate 16 18 Blood Pressure 183/82 H Pulse Oximetry 98 Oxygen Delivery 01/14/22 09:04 01/14/22 08:00 Temperature Pulse Rate 74 Respiratory Rate 16 Blood Pressure Pulse Oximetry Oxygen Delivery Room Air Intake/Output Intake/Output: Intake & Output 01/11/22 01/12/22 01/13/22 01/14/22 23:59 23:59 23:59 23:59 Intake Total 3150 3300 3100 1000 Output Total 2950 4300 3100 900 Balance 200 -1000 0 100 Meds/Results Medications: Active Medications Generic Name Dose Route Start Last Admin Trade Name Freq PRN Reason Stop Dose Admin Albuterol 2.5 mg 01/11/22 07:26 01/13/22 22:36 Albuterol Sulfate Neb 2.5 Mg/3 Ml Inh INHALATION 2.5 mg Q6HRT PRN Administration Shortness Of Breath Aripiprazole 2.5 mg 01/11/22 21:00 01/13/22 20:10 Aripiprazole 2.5 Mg Tablet PO 2.5 mg HS ALVARADO Administration Bisacodyl 10 mg 01/14/22 10:58 Bisacodyl 10 Mg Suppository RECTAL 01/14/22 10:59 ONCE ONE Cephalexin HCl 250 mg 01/13/22 21:00 01/13/22 21:41 Cephalexin 250 Mg Capsule PO Not Given HS ALVARADO Dextrose 12.5 gm 01/11/22 07:44 Dextrose 50% 25 Gm/50 Ml Syringe IV PUSH PRN PRN Hypoglycemia Protocol Enoxaparin Sodium 40 mg 01/12/22 09:00 01/14/22 08:51 Enoxaparin 40 Mg/0.4 Ml Syringe SUB-Q 40 mg DAILY ALVARADO Administration Fluticasone Propionate 2 puff 01/11/22 08:00 01/14/22 09:02 Fluticasone Prop 44 Mcg (*Sp) 10.6 Gm INHALATION 2 puff Q12HRT ALVARADO Administration Glucagon 1 mg 01/11/22 07:44 Glucagon For Inj 1 Mg Vial IM PRN PRN Hypoglycemia Protocol Glucose 15 gm 01/11/22 07:44 Glucose Oral Gel 15 Gm Of Glucse In 37.5 Gm Tube PO PRN PRN Hypoglycemia Protocol Home Med 3 each 01/11/22 21:00 01/13/22 20:10 Home Medication-Clozapine 100 Mg PO 02/10/22 20:59 3 each HS ALVARADO Administration Home
[2022-01-14] MEDS: BISACODYL 10 MG SUPPOSITORY RECTAL (11:17)
[2022-01-14] MEDS: MAGNESIUM HYDROXIDE SUSP 30 ML UDC FEED TUBE (11:17)
[2022-01-14 12:24] LABS: Glucose Point of Care 94 mg/dl (65-105)
--- NOTE | 2022-01-14 13:57 | PM.IMPN ---
Progress Note: A&P Assessment and Plan (1) SBO (small bowel obstruction): Code(s): K56.609 - Unspecified intestinal obstruction, unspecified as to partial versus complete obstruction Status: Acute Assessment and Plan: Admission CT scan demonstrates mid/distal SBO, transition point in midline lower abdomen possibly secondary to abd adhesion. N/V and significant abd pain reported on admission. -NG tube output decreasing. BM on 01/12 but no BM since. Thinks she passed flatus once today. -General surgery following and appreciate recommendations. Bisacodyl supp & MOM via NG today per surgery. -Continue NPO except meds/ice chips. -NG tube to suction. output appears to be decreasing. -Continue IV fluids. Glucose 99-100, she reports normal fasting 140 mg/dL and feels foggy. Change fluids to D51/2NS w/40 mEQ KCl at 125 ml/hour. -Monitor and replace electrolytes as needed. -Encouraged to ambulate. -Will hold lovenox now in case no resolution of SBO and surgery needed. (2) Staghorn calculus: Code(s): N20.0 - Calculus of kidney Status: Chronic Assessment and Plan: CT scan demonstrates staghorn calculus, UA concerning for infection and c/o lower abd pain and dysuria on admission. -Urology following and recommend PCNL when SBO resolves. -NM Lasix renal scan on Saturday. -Urine culture negative. Zosyn stopped 01/13 and prophylactic Keflex 250 mg daily until procedure, per Urology recommendations. (3) Type 2 diabetes mellitus with microalbuminuria: Qualifiers: Diabetes mellitus watermelon inspector insulin use: without watermelon inspector use Qualified Code(s): E11.29 - Type 2 diabetes mellitus with other diabetic kidney complication; R80.9 - Proteinuria, unspecified Code(s): E11.29 - Type 2 diabetes mellitus with other diabetic kidney complication; R80.9 - Proteinuria, unspecified Status: Chronic Assessment and Plan: Hold Januvia while NPO and inpatient. -A1c 5.9% and patient is well controlled. -Accu-checks Q6 while NPO. -Aspart sliding scale insulin for hyperglycemia. Goal <180 mg/dL. -Dextrose IV fluids as above. (4) Moderate persistent allergic asthma: Code(s): J45.40 - Moderate persistent asthma, uncomplicated Status: Chronic Assessment and Plan: Not in acute exacerbation. -continue Qvar & PRN albuterol HFA for SOB/wheezing. -PRN nebs changed to inhaler due to c/o claustrophobia. -Stable (5) Schizophrenia: Code(s): F20.9 - Schizophrenia, unspecified Status: Chronic Assessment and Plan: W/history of tardive dyskinesia -Continue abilify, clozapine and lorazepam at home doses. (6) Hypertension: Qualifiers: Hypertension type: essential hypertension Qualified Code(s): I10 - Essential (primary) hypertension Code(s): I10 - Essential (primary) hypertension Status: Chronic Assessment and Plan: -Continue metoprolol 50 mg qam and 25 mg qpm. -BP elevated. Resume Olmesartan at home dose. (7) Postprocedural hypothyroidism: Code(s): E89.0 - Postprocedural hypothyroidism Status: Chronic Assessment and Plan: -Continue levothyroxine at home dose. (8) Restless legs syndrome: Code(s): G25.81 - Restless legs syndrome Status: Chronic Assessment and Plan: -Continue ropinirole 8 mg at HS and additional 4 mg PRN at HS if symptoms persist. Plan CODE STATUS: FULL CODE. DISPOSITION: Home with spouse when bowel function returns. Estimated LOS: unable to determine at this time. Time Spent With Patient Time with patient: 15 - 25 minutes Subjective Date/time seen: 01/14/22 13:57 Patient is a 71 yo female with medical history of non-insulin dependent diabetes, hypertension, asthma, hypothyroidism, schizophrenia and recurrent UTIs. She presented to the ED, from home, with c/o bilateral lower abdominal pain, bilateral flank pain, and n
[2022-01-14 14:00] VITALS: BP 160/72; PULSE 66; RESP 20; TEMP 36.8; O2SAT 100
[2022-01-14] MEDS: KCL 40 MEQ/D5 1/2NS 1,000 ML 125 ML IV CONT ×2 (14:56→22:09)
[2022-01-14 15:58] LABS: Glucose Point of Care 96 mg/dl (65-105)
[2022-01-14 17:18] VITALS: PULSE 78
[2022-01-14] MEDS: METOPROLOL TARTRATE 25 MG TABLET PO (17:18)
[2022-01-14 20:40] LABS: Glucose Point of Care 114 mg/dl (65-105)
[2022-01-14 22:00] VITALS: BP 160/72; PULSE 61; RESP 18; TEMP 36.3; O2SAT 100
[2022-01-14] MEDS: rOPINIRole HCL 1 MG TABLET 8 MG PO (22:10)
[2022-01-14] MEDS: CEPHALEXIN 250 MG CAPSULE PO (22:10)
[2022-01-14] MEDS: ARIPiprazole 2.5 MG TABLET PO (22:10)
[2022-01-15] VITALS (7 sets, daily range): BP systolic 122–169; BP diastolic 67–83; PULSE 66–86; RESP 16–20; TEMP 36.2–36.9; O2SAT 98–99
[2022-01-15] MEDS: HYDROmorphone HCL INJ (*CRX) 1 MG/ML SYR 0.5 MG IV PUSH (00:18)
--- NOTE | 2022-01-15 00:44 | PC.NURSE ---
Patient continues to call me into the room, paranoid that she didn't get her medications. I assured her she did. Then she said I didn't turn the NG tube off after giving them to her. I assured her the NG suction was turned off before I gave them to her, and that I left it off for an hour, before turning it back on. She just looked at me like she really didn't believe me; however, the tube was off before giving them, and it was left off for an hour after giving them before I turned it back on.
[2022-01-15] MEDS: LEVOTHYROXINE SODIUM 100 MCG TABLET BY MOUTH (05:48)
[2022-01-15 06:25] LABS: Hematocrit 36.8 % (37.0-47.0); Mean Corpuscular HGB Conc 32.6 g/dl (32-36); Mean Corpuscular Hemoglobin 28.8 pg (26-34); Mean Corpuscular Volume 88.2 fl (80-100); Mean Platelet Volume 10.8 fl (7.4-10.4); Platelet Count Result 215 k/mm3 (150-375); Red Blood Count 4.17 M/mm3 (4.2-5.4); Red Cell Distribution Width 13.5 % (11.5-14.5); White Blood Count 8.3 K/mm3 (4.5-10.0)
[2022-01-15 06:39] LABS: Glucose Point of Care 112 mg/dl (65-105)
[2022-01-15 07:04] LABS: Anion Gap 9 mmol/L (8-16); Blood Urea Nitrogen 9 mg/dL (7-17); Calcium 8.3 mg/dL (8.4-10.2); Carbon Dioxide 22 mmol/L (22-30); Chloride 107 mmol/L (98-107); Estimated CRCL calculation 113 ml/min; Estimated Glomerular Filt Rate > 60; Glucose 109 mg/dL (65-110); Potassium 3.9 mmol/L (3.4-5.0); Sodium 138 mmol/L (137-145)
[2022-01-15 08:25] LABS: Glucose Point of Care 98 mg/dl (65-105)
[2022-01-15] MEDS: FLUTICASONE PROP 44 MCG (*SP) 10.6 GM 2 PUFF INHALATION ×2 (08:40→21:04)
[2022-01-15] MEDS: METOPROLOL TARTRATE 50 MG TAB PO (09:31)
[2022-01-15] MEDS: OLMESARTAN MEDOXOMIL 5 MG TABLET PO (09:31)
--- NOTE | 2022-01-15 09:35 | PM.PNGS ---
Progress Note: A&P Assessment and Plan (1) SBO (small bowel obstruction): Code(s): K56.609 - Unspecified intestinal obstruction, unspecified as to partial versus complete obstruction Status: Acute Assessment and Plan: Plain films yesterday suggesting the small bowel obstruction was improving. Still with high NG output overnight. Will plan to get a Gastrografin upper GI small bowel follow through to further evaluate. Will discuss the patient's possible contrast allergy with the Radiologist to decide on the need for pre-medication for the Gastrografin study. Continue NG tube decompression, NPO, IV fluids, and analgesics as needed. (2) Complicated urinary tract infection: Code(s): N39.0 - Urinary tract infection, site not specified Status: Chronic (3) Staghorn calculus: Code(s): N20.0 - Calculus of kidney Status: Chronic Plan I have discussed the patient's case and plan of care with Dr. Quinteros. Subjective Subjective Date/Time Seen: 01/15/22 09:35 Interval history: This is a 71 yo F who presented to the ER with lower abdominal pain and work-up in the ED showed evidence of a small bowel obstruction. She was admitted and has been treated with NG tube decompression and bowel rest. She also has a staghorn right calculus that Urology is following. Chart reviewed. Patient seen and examined. She reports not sleeping well last night due to post-nasal drainage and irritation of the NG tube. She also reports having a few short episodes of what felt like muscle spasms in her central abdomen, which she received Dilaudid IV once around midnight. She denies any abdominal pain this morning or bloating. She reports one small bowel movement yesterday and noticing flatus yesterday but not yet today. NG output charted overnight was 1,000 mL. She has an Iodinated contrast allergy noted in her chart and reports she had one episode of hives after a CT when she received IV contrast over 20 years ago. She has since avoided contrast. Review of Systems Review of Systems: All systems reviewed & are unremarkable except as noted in HPI and below Constitutional: Constitutional: Reports as per HPI and Reports no additional constitutional complaints Gastrointestinal: Gastrointestinal: Reports as per HPI and Reports no additional gastrointestinal complaints Exam Const: General: comfortable, no acute distress and awake Nutritional Appearance: overweight Orientation/consciousness: patient oriented x3 GI: Inspection: non-distended and obesity GI Palp: Yes Soft to palpation, No Tenderness to palpation present (GI) and No Guarding due to palpation present (GI) Auscultation: Hypoactive bowel sounds present Extrem: General: normal to inspection and no edema Psych: Insight: Good insight present (Psych) Objective Data Vital Signs Vital Signs: Vital Signs - 24 hr 01/14/22 14:00 01/14/22 17:18 01/14/22 22:00 Temperature 98.3 F 97.3 F L Pulse Rate 66 78 61 Respiratory Rate 20 18 Blood Pressure 160/72 H 160/72 H Pulse Oximetry 100 100 01/15/22 06:00 01/15/22 08:41 01/15/22 09:31 Temperature 98.0 F Pulse Rate 85 72 86 Respiratory Rate 20 16 Blood Pressure 169/83 H Pulse Oximetry 98 Intake/Output Intake/Output: Intake & Output 01/12/22 01/13/22 01/14/22 01/15/22 23:59 23:59 23:59 23:59 Intake Total 3300 3100 2000 300 Output Total 4300 3100 3500 Balance -1000 0 -1500 300 Meds/Results Medications: Active Medications Generic Name Dose Route Start Last Admin Trade Name Freq PRN Reason Stop Dose Admin Albuterol 2 puff 01/14/22 12:32 Albuterol Sulfate (*Sp) Aerosol 1 Puff INHALATION Q4HRT PRN Shortness Of Breath Or Wheezing Aripiprazole 2.5 mg 01/11/22 21:00 01/14/22 22:10 Aripiprazole 2.5 Mg Tablet PO 2.5 mg HS ALVARADO Administration Cephalexin HCl 250 mg 01/13/22 21:00 01/14/22 22:10 Cephalexin 250 Mg Capsule PO 250 mg HS ALVARADO Admin
[2022-01-15] MEDS: KCL 40 MEQ/D5 1/2NS 1,000 ML 125 ML IV CONT (09:37)
[2022-01-15] MEDS: LORazepam (*CRX) 0.5 MG TABLET PO ×3 (09:40→17:28)
[2022-01-15] MEDS: PANTOPRAZOLE SODIUM IV 40 MG VIAL IV PUSH (10:41)
--- NOTE | 2022-01-15 11:20 | PC.NURSE ---
Pt called the desk and needed to go to the bathroom, some pain medication, and ice cream. Before I could turn around her bed alarm was going off and I went flying in to find her lying crosswise in the bed. I helped her up and to the bathroom, then back to bed. After getting her tucked back in, I told her I would go get her pain medication, to which she replied, how did you know I wanted pain medication? I didn't tell anyone yet. So I told her I heard her when she called to which she couldn't remember calling. When I went to take her pain med back in to her, she had already fallen to sleep and was resting. When I turned to leave, I accidentally bumped the table, and she woke up. I went over to scan her bracelet so I could chart her pain med and she asked when we started scanning bracelets for ice cream. I explained that it was for her pain medication, not for her ice cream. That satisfied her and she finally went to sleep.
--- NOTE | 2022-01-15 11:34 | PM.IMPN ---
Progress Note: A&P Assessment and Plan (1) SBO (small bowel obstruction): Code(s): K56.609 - Unspecified intestinal obstruction, unspecified as to partial versus complete obstruction Status: Acute Assessment and Plan: Admission CT scan demonstrates mid/distal SBO, transition point in midline lower abdomen possibly secondary to abd adhesion. N/V and significant abd pain reported on admission. -General surgery following and appreciate recommendations. -NPO except meds/ice chips. -NG tube to suction. -Continue D51/2NS w/40 mEQ KCl at 125 ml/hour. -Monitor and replace electrolytes as needed. -Encouraged to ambulate. -Will hold lovenox now in case no resolution of SBO and surgery needed. -Upper GI series today. (2) Staghorn calculus: Code(s): N20.0 - Calculus of kidney Status: Chronic Assessment and Plan: CT scan demonstrates staghorn calculus, UA concerning for infection and c/o lower abd pain and dysuria on admission. -Urology following and recommend PCNL when SBO resolves. -NM Lasix renal scan today. -Urine culture negative. Zosyn stopped 01/13 and prophylactic Keflex 250 mg daily until procedure, per Urology recommendations. (3) Type 2 diabetes mellitus with microalbuminuria: Qualifiers: Diabetes mellitus assisted insulin use: without assisted use Qualified Code(s): E11.29 - Type 2 diabetes mellitus with other diabetic kidney complication; R80.9 - Proteinuria, unspecified Code(s): E11.29 - Type 2 diabetes mellitus with other diabetic kidney complication; R80.9 - Proteinuria, unspecified Status: Chronic Assessment and Plan: Hold Januvia while NPO and inpatient. -A1c 5.9% and patient is well controlled. -Accu-checks Q6 while NPO. -Aspart sliding scale insulin for hyperglycemia. Goal <180 mg/dL. -Dextrose IV fluids as above. -Stable. (4) Moderate persistent allergic asthma: Code(s): J45.40 - Moderate persistent asthma, uncomplicated Status: Chronic Assessment and Plan: Not in acute exacerbation. -continue Qvar & PRN albuterol HFA for SOB/wheezing. -PRN nebs changed to inhaler due to c/o claustrophobia. -Stable (5) Schizophrenia: Code(s): F20.9 - Schizophrenia, unspecified Status: Chronic Assessment and Plan: W/history of tardive dyskinesia -Continue abilify, clozapine and lorazepam at home doses. (6) Hypertension: Qualifiers: Hypertension type: essential hypertension Qualified Code(s): I10 - Essential (primary) hypertension Code(s): I10 - Essential (primary) hypertension Status: Chronic Assessment and Plan: -Continue metoprolol 50 mg qam and 25 mg qpm, olmesartan at home dose. -BP elevated. Add IV hydralazine 10 mg Q8 hours PRN SBP>160 (7) Postprocedural hypothyroidism: Code(s): E89.0 - Postprocedural hypothyroidism Status: Chronic Assessment and Plan: -Continue levothyroxine at home dose. (8) Restless legs syndrome: Code(s): G25.81 - Restless legs syndrome Status: Chronic Assessment and Plan: -Continue ropinirole 8 mg at HS and additional 4 mg PRN at HS if symptoms persist. Plan CODE STATUS: FULL CODE. DISPOSITION: Home with spouse when bowel function returns. Estimated LOS: possible DC in 1-2 days if improving. Add PT/OT eval Time Spent With Patient Time with patient: 15 - 25 minutes Subjective Date/time seen: 01/15/22 11:34 She denies new complaints or overnight events. She is on her way to [place] renal scan and Upper GI series. NG tube with increased output in the past 24 hours. She reports 1 small liquid BM and flatus yesterday. None today, however. No SOB or dysuria. Review of Systems Review of Systems: All systems reviewed & are unremarkable except as noted in HPI and below Exam Narrative: GENERAL: no distress, older adult female lying on the gurney.
[2022-01-15] MEDS: FUROSEMIDE INJ 40 MG/4 ML VIAL (12:28)
[2022-01-15 13:18] LABS: Glucose Point of Care 146 mg/dl (65-105)
[2022-01-15 16:25] LABS: Glucose Point of Care 120 mg/dl (65-105)
[2022-01-15] MEDS: METOPROLOL TARTRATE 25 MG TABLET PO (17:28)
[2022-01-15] MEDS: CEPHALEXIN 250 MG CAPSULE PO (21:34)
[2022-01-15] MEDS: rOPINIRole HCL 1 MG TABLET 8 MG PO (21:34)
[2022-01-15] MEDS: ARIPiprazole 2.5 MG TABLET PO (21:37)
[2022-01-15 22:12] LABS: Glucose Point of Care 142 mg/dl (65-105)
--- NOTE | 2022-01-15 22:30 | PC.NURSE ---
As soon as we came in for shift change, pt started calling Emilia into her room wanting to go for a walk, and I finally walked in on one conversation she was being very short with Emilia, upset that she only got to go for one walk today. However, PT had her up walking as well as the day shift nurse. I went in and explained that we were in the middle of trying to get report, that we had other patients that were jumping out of the bed, and as soon as things calmed down, Emilia could come back in and take her for a walk. She didn't look too happy, but was agreeable to it.
[2022-01-15] MEDS: HYDROcodone/acetaminophen (*CRX) 5-325 MG TABLET 1 TAB PO (23:20)
[2022-01-16] VITALS (8 sets, daily range): BP systolic 134–145; BP diastolic 64–75; PULSE 66–78; RESP 16–18; TEMP 36.4–36.8; O2SAT 96–100
[2022-01-16] MEDS: LEVOTHYROXINE SODIUM 100 MCG TABLET BY MOUTH (06:17)
[2022-01-16 07:47] LABS: Glucose Point of Care 108 mg/dl (65-105)
[2022-01-16] MEDS: FLUTICASONE PROP 44 MCG (*SP) 10.6 GM 2 PUFF INHALATION ×2 (08:35→20:33)
[2022-01-16] MEDS: LORazepam (*CRX) 0.5 MG TABLET PO ×3 (08:56→16:35)
[2022-01-16] MEDS: PANTOPRAZOLE 40 MG TABLET PO (08:56)
[2022-01-16] MEDS: METOPROLOL TARTRATE 50 MG TAB PO (08:57)
[2022-01-16] MEDS: OLMESARTAN MEDOXOMIL 5 MG TABLET PO (08:58)
[2022-01-16 11:40] LABS: Glucose Point of Care 145 mg/dl (65-105)
--- NOTE | 2022-01-16 11:40 | PM.PNGS ---
Progress Note: A&P Assessment and Plan (1) SBO (small bowel obstruction): Code(s): K56.609 - Unspecified intestinal obstruction, unspecified as to partial versus complete obstruction Status: Acute Assessment and Plan: appears to have resolved. Tolerating full liquids well. Advance to soft diet. Can go home tomorrow on regular diabetic diet from surgical standpoint. Subjective Subjective Date/Time Seen: 01/16/22 11:40 Patient reports: no new complaints, feels better, pain is less ( no abdominal pain), tolerating liquids well, bowel movement and afebrile Review of Systems Review of Systems: All systems reviewed & are unremarkable except as noted in HPI and below ( HPI) Constitutional: Constitutional: Denies anorexia, Denies chills, Denies fever(s), Denies headache(s), Denies night sweats and Denies poor appetite Gastrointestinal: Gastrointestinal: Reports as per HPI, Denies abdominal pain, Denies nausea and Denies vomiting Exam Const: General: comfortable, no acute distress, alert and awake Nutritional Appearance: overweight Orientation/consciousness: No confusion GI: Inspection: normal to inspection ( protuberant but not distended) and scar GI Palp: Yes Soft to palpation and No Tenderness to palpation present (GI) Auscultation: normal bowel sounds Objective Data Vital Signs Vital Signs: Vital Signs - 24 hr 01/15/22 13:57 01/15/22 14:00 01/15/22 15:38 Temperature 36.9 C Pulse Rate 71 Respiratory Rate 16 Blood Pressure 122/68 Pulse Oximetry 99 Oxygen Delivery Room Air Room Air 01/15/22 17:28 01/15/22 22:00 01/15/22 23:55 Temperature 36.2 C L Pulse Rate 73 68 66 Respiratory Rate 18 Blood Pressure 146/67 H Pulse Oximetry 99 98 Oxygen Delivery CPAP 01/16/22 04:11 01/16/22 06:00 01/16/22 08:37 Temperature 36.4 C L Pulse Rate 71 66 72 Respiratory Rate 18 16 Blood Pressure 145/64 H Pulse Oximetry 96 97 Oxygen Delivery CPAP 01/16/22 08:57 Temperature Pulse Rate 73 Respiratory Rate Blood Pressure Pulse Oximetry Oxygen Delivery Intake/Output Intake/Output: Intake & Output 01/13/22 01/14/22 01/15/22 01/16/22 23:59 23:59 23:59 23:59 Intake Total 3100 1999 2080 790 Output Total 3100 3500 1600 Balance 0 -1500 480 790 Meds/Results Medications: Active Medications Generic Name Dose Route Start Last Admin Trade Name Freq PRN Reason Stop Dose Admin Acetaminophen 500 mg 01/15/22 12:35 Acetaminophen 500 Mg Tablet PO Q6H PRN Mild Pain (1-3) or Fever Hydrocodone Bitart/Acetaminophen 1 tab 01/15/22 12:35 01/15/22 23:20 Hydrocodone/Acetaminophen (*Crx) 5-325 Mg Tablet PO 1 tab Q6H PRN Administration Pain Rated 4-6 Albuterol 2 puff 01/14/22 12:32 Albuterol Sulfate (*Sp) Aerosol 1 Puff INHALATION Q4HRT PRN Shortness Of Breath Or Wheezing Aripiprazole 2.5 mg 01/11/22 21:00 01/15/22 21:37 Aripiprazole 2.5 Mg Tablet PO 2.5 mg HS ALVARADO Administration Cephalexin HCl 250 mg 01/13/22 21:00 01/15/22 21:34 Cephalexin 250 Mg Capsule PO 250 mg HS ALVARADO Administration Dextrose 12.5 gm 01/11/22 07:44 Dextrose 50% 25 Gm/50 Ml Syringe IV PUSH PRN PRN Hypoglycemia Protocol Enoxaparin Sodium 40 mg 01/12/22 09:00 01/14/22 08:51 Enoxaparin 40 Mg/0.4 Ml Syringe SUB-Q 40 mg DAILY ALVARADO Administration Fluticasone Propionate 2 puff 01/11/22 08:00 01/16/22 08:35 Fluticasone Prop 44 Mcg (*Sp) 10.6 Gm INHALATION 2 puff Q12HRT ALVARADO Administration Glucagon 1 mg 01/11/22 07:44 Glucagon For Inj 1 Mg Vial IM PRN PRN Hypoglycemia Protocol Glucose 15 gm 01/11/22 07:44 Glucose Oral Gel 15 Gm Of Glucse In 37.5 Gm Tube PO PRN PRN Hypoglycemia Protocol Home Med 3 each 01/11/22 21:00 01/15/22 21:35 Home Medication-Clozapine 100 Mg PO 02/10/22 20:59 3 each HS ALVARADO Administration Home Med 1 each 01/11/22 0
--- NOTE | 2022-01-16 12:11 | P.PNIM_ITS ---
Progress Note: A&P Assessment and Plan (1) SBO (small bowel obstruction): Code(s): K56.609 - Unspecified intestinal obstruction, unspecified as to partial versus complete obstruction Status: Acute Assessment and Plan: * Admission CT scan demonstrates mid/distal SBO, transition point in midline lower abdomen possibly secondary to abd adhesion. N/V and significant abd pain reported on admission. * General surgery following and appreciate recommendations. * Resolving. Diet advanced per surgery. (2) Staghorn calculus: Code(s): N20.0 - Calculus of kidney Status: Chronic Assessment and Plan: * CT scan demonstrates staghorn calculus, UA concerning for infection and c/o lower abd pain and dysuria on admission. * Urology following and recommend PCNL outpatient when SBO resolves. This will likely be done and MoBap per notes. * NM Lasix renal scan with negligible delay in contrast clearance from both kidneys and no hydronephrosis. * Urine culture negative. Zosyn stopped 01/13 and prophylactic * Continue Keflex 250 mg daily until procedure, per Urology recommendations. (3) Type 2 diabetes mellitus with microalbuminuria: Qualifiers: Diabetes mellitus prison insulin use: without longwall headgate operator use Qualified Code(s): E11.29 - Type 2 diabetes mellitus with other diabetic kidney complication; R80.9 - Proteinuria, unspecified Code(s): E11.29 - Type 2 diabetes mellitus with other diabetic kidney complication; R80.9 - Proteinuria, unspecified Status: Chronic Assessment and Plan: * Hold Januvia while inpatient. * A1c 5.9% and patient is well controlled. * Accu-checks Q6 while NPO. * Aspart sliding scale insulin for hyperglycemia. Goal <180 mg/dL. * Stable. (4) Moderate persistent allergic asthma: Code(s): J45.40 - Moderate persistent asthma, uncomplicated Status: Chronic Assessment and Plan: * Not in acute exacerbation. * continue Qvar & PRN albuterol HFA for SOB/wheezing. * Stable (5) Schizophrenia: Code(s): F20.9 - Schizophrenia, unspecified Status: Chronic Assessment and Plan: * W/history of tardive dyskinesia * Continue abilify, clozapine and lorazepam at home doses. (6) Hypertension: Qualifiers: Hypertension type: essential hypertension Qualified Code(s): I10 - Essential (primary) hypertension Code(s): I10 - Essential (primary) hypertension Status: Chronic Assessment and Plan: * Continue metoprolol 50 mg qam and 25 mg qpm, olmesartan at home dose. * IV hydralazine 10 mg Q8 hours PRN SBP>160 (7) Postprocedural hypothyroidism: Code(s): E89.0 - Postprocedural hypothyroidism Status: Chronic Assessment and Plan: * Continue levothyroxine at home dose. (8) Restless legs syndrome: Code(s): G25.81 - Restless legs syndrome Status: Chronic Assessment and Plan: * Continue ropinirole 8 mg at HS and additional 4 mg PRN at HS if symptoms persist. Plan CODE STATUS: FULL CODE. DISPOSITION: Home with spouse. No home needs. Estimated LOS: If tolerating diet, okay per surgery to discharge 01/17. Time Spent With Patient Time with patient: 15 - 25 minutes Subjective Date/time seen: 01/16/22 12:11 Patient reports at least 3 bowel movements yesterday. She denies nausea or vomiting. NG tube was removed yesterday after negative upper GI series. She d
--- NOTE | 2022-01-16 12:11 | PM.IMPN ---
Progress Note: A&P Assessment and Plan (1) SBO (small bowel obstruction): Code(s): K56.609 - Unspecified intestinal obstruction, unspecified as to partial versus complete obstruction Status: Acute Assessment and Plan: Admission CT scan demonstrates mid/distal SBO, transition point in midline lower abdomen possibly secondary to abd adhesion. N/V and significant abd pain reported on admission. General surgery following and appreciate recommendations. Resolving. Diet advanced per surgery. (2) Staghorn calculus: Code(s): N20.0 - Calculus of kidney Status: Chronic Assessment and Plan: CT scan demonstrates staghorn calculus, UA concerning for infection and c/o lower abd pain and dysuria on admission. Urology following and recommend PCNL outpatient when SBO resolves. This will likely be done and MoBap per notes. NM Lasix renal scan with negligible delay in contrast clearance from both kidneys and no hydronephrosis. Urine culture negative. Zosyn stopped 01/13 and prophylactic Continue Keflex 250 mg daily until procedure, per Urology recommendations. (3) Type 2 diabetes mellitus with microalbuminuria: Qualifiers: Diabetes mellitus longterm insulin use: without longterm use Qualified Code(s): E11.29 - Type 2 diabetes mellitus with other diabetic kidney complication; R80.9 - Proteinuria, unspecified Code(s): E11.29 - Type 2 diabetes mellitus with other diabetic kidney complication; R80.9 - Proteinuria, unspecified Status: Chronic Assessment and Plan: Hold Januvia while inpatient. A1c 5.9% and patient is well controlled. Accu-checks Q6 while NPO. Aspart sliding scale insulin for hyperglycemia. Goal <180 mg/dL. Stable. (4) Moderate persistent allergic asthma: Code(s): J45.40 - Moderate persistent asthma, uncomplicated Status: Chronic Assessment and Plan: Not in acute exacerbation. continue Qvar & PRN albuterol HFA for SOB/wheezing. Stable (5) Schizophrenia: Code(s): F20.9 - Schizophrenia, unspecified Status: Chronic Assessment and Plan: W/history of tardive dyskinesia Continue abilify, clozapine and lorazepam at home doses. (6) Hypertension: Qualifiers: Hypertension type: essential hypertension Qualified Code(s): I10 - Essential (primary) hypertension Code(s): I10 - Essential (primary) hypertension Status: Chronic Assessment and Plan: Continue metoprolol 50 mg qam and 25 mg qpm, olmesartan at home dose. IV hydralazine 10 mg Q8 hours PRN SBP>160 (7) Postprocedural hypothyroidism: Code(s): E89.0 - Postprocedural hypothyroidism Status: Chronic Assessment and Plan: Continue levothyroxine at home dose. (8) Restless legs syndrome: Code(s): G25.81 - Restless legs syndrome Status: Chronic Assessment and Plan: Continue ropinirole 8 mg at HS and additional 4 mg PRN at HS if symptoms persist. Plan CODE STATUS: FULL CODE. DISPOSITION: Home with spouse. No home needs. Estimated LOS: If tolerating diet, okay per surgery to discharge 01/17. Time Spent With Patient Time with patient: 15 - 25 minutes Subjective Date/time seen: 01/16/22 12:11 Patient reports at least 3 bowel movements yesterday. She denies nausea or vomiting. NG tube was removed yesterday after negative upper GI series. She denies dysuria or flank pain. Her breathing feels comfortable. Review of Systems Review of Systems: All systems reviewed & are unremarkable except as noted in HPI and below Exam Narrative: GENERAL: no distress, older adult female lying in bed. HEENT: PERRL. conjunctivae clear. Nonicteric. Mucous membranes dry. NECK: No JVD. LUNGS: Respirations regular and unlabored. Lung sounds CTAB. No wheezing or accessory muscle use. HEART: Normal S1 and S2 regular rate and rhythm without murmu
[2022-01-16 16:31] LABS: Glucose Point of Care 114 mg/dl (65-105)
[2022-01-16] MEDS: METOPROLOL TARTRATE 25 MG TABLET PO (17:01)
[2022-01-16 22:07] LABS: Glucose Point of Care 128 mg/dl (65-105)
[2022-01-16] MEDS: ARIPiprazole 2.5 MG TABLET PO (22:09)
[2022-01-16] MEDS: rOPINIRole HCL 1 MG TABLET 8 MG PO (22:09)
[2022-01-16] MEDS: CEPHALEXIN 250 MG CAPSULE PO (22:09)
[2022-01-17] VITALS (7 sets, daily range): BP systolic 140–159; BP diastolic 65–81; PULSE 66–78; RESP 18–20; TEMP 36.3–36.5; O2SAT 96–99
[2022-01-17] MEDS: LEVOTHYROXINE SODIUM 100 MCG TABLET BY MOUTH (05:51)
[2022-01-17 08:06] LABS: Glucose Point of Care 113 mg/dl (65-105)
[2022-01-17] MEDS: LORazepam (*CRX) 0.5 MG TABLET PO ×3 (08:13→16:43)
[2022-01-17] MEDS: PANTOPRAZOLE 40 MG TABLET PO (08:14)
[2022-01-17] MEDS: METOPROLOL TARTRATE 50 MG TAB PO (08:14)
[2022-01-17] MEDS: OLMESARTAN MEDOXOMIL 5 MG TABLET PO (08:14)
[2022-01-17] MEDS: ENOXAPARIN 40 MG/0.4 ML SYRINGE SUB-Q (08:14)
[2022-01-17] MEDS: FLUTICASONE PROP 44 MCG (*SP) 10.6 GM 2 PUFF INHALATION (08:16)
--- NOTE | 2022-01-17 11:54 | P.DS_ITS ---
DS: Admitting Diagnosis Discharge Date 01/17/2022 Admitting Diagnosis Acute abdominal pain DS: Discharge Diagnosis Discharge Diagnosis (1) SBO (small bowel obstruction): Code(s): K56.609 - Unspecified intestinal obstruction, unspecified as to partial versus complete obstruction Status: Acute Assessment and Plan: * Admission CT scan demonstrates mid/distal SBO, transition point in midline lower abdomen possibly secondary to abd adhesion. N/V and significant abd pain reported on admission. * General surgery following and appreciate recommendations. * Resolving. Diet advanced per surgery. (2) Staghorn calculus: Code(s): N20.0 - Calculus of kidney Status: Chronic Assessment and Plan: * CT scan demonstrates staghorn calculus, UA concerning for infection and c/o lower abd pain and dysuria on admission. * Urology following and recommend PCNL outpatient when SBO resolves. This will likely be done and MoBap per notes. * NM Lasix renal scan with negligible delay in contrast clearance from both kidneys and no hydronephrosis. * Urine culture negative. Zosyn stopped 01/13 and prophylactic * Continue Keflex 250 mg daily until procedure, per Urology recommendations. (3) Type 2 diabetes mellitus with microalbuminuria: Qualifiers: Diabetes mellitus care home insulin use: without buttermaker use Qualified Code(s): E11.29 - Type 2 diabetes mellitus with other diabetic kidney complication; R80.9 - Proteinuria, unspecified Code(s): E11.29 - Type 2 diabetes mellitus with other diabetic kidney complication; R80.9 - Proteinuria, unspecified Status: Chronic Assessment and Plan: * Hold Januvia while inpatient. * A1c 5.9% and patient is well controlled. * Accu-checks Q6 while NPO. * Aspart sliding scale insulin for hyperglycemia. Goal <180 mg/dL. * Stable. (4) Moderate persistent allergic asthma: Code(s): J45.40 - Moderate persistent asthma, uncomplicated Status: Chronic Assessment and Plan: * Not in acute exacerbation. * continue Qvar & PRN albuterol HFA for SOB/wheezing. * Stable (5) Schizophrenia: Code(s): F20.9 - Schizophrenia, unspecified Status: Chronic Assessment and Plan: * W/history of tardive dyskinesia * Continue abilify, clozapine and lorazepam at home doses. (6) Hypertension: Qualifiers: Hypertension type: essential hypertension Qualified Code(s): I10 - Essential (primary) hypertension Code(s): I10 - Essential (primary) hypertension Status: Chronic Assessment and Plan: * Continue metoprolol 50 mg qam and 25 mg qpm, olmesartan at home dose. * IV hydralazine 10 mg Q8 hours PRN SBP>160 (7) Postprocedural hypothyroidism: Code(s): E89.0 - Postprocedural hypothyroidism Status: Chronic Assessment and Plan: * Continue levothyroxine at home dose. (8) Restless legs syndrome: Code(s): G25.81 - Restless legs syndrome Status: Chronic Assessment and Plan: * Continue ropinirole 8 mg at HS and additional 4 mg PRN at HS if symptoms persist. Plan CODE STATUS: FULL CODE. DISPOSITION: Home with spouse. No home needs. Estimated LOS: If tolerating diet, okay per surgery to discharge 01/17. DS: Summary Hospital Course Reason for hospitalization: Acute abdominal pain Small bowel obstruction Hospital Course: Patient is 71-ye
--- NOTE | 2022-01-17 11:54 | PM.DS ---
DS: Admitting Diagnosis Discharge Date 01/17/2022 Admitting Diagnosis Acute abdominal pain DS: Discharge Diagnosis Discharge Diagnosis (1) SBO (small bowel obstruction): Code(s): K56.609 - Unspecified intestinal obstruction, unspecified as to partial versus complete obstruction Status: Acute Assessment and Plan: Admission CT scan demonstrates mid/distal SBO, transition point in midline lower abdomen possibly secondary to abd adhesion. N/V and significant abd pain reported on admission. General surgery following and appreciate recommendations. Resolving. Diet advanced per surgery. (2) Staghorn calculus: Code(s): N20.0 - Calculus of kidney Status: Chronic Assessment and Plan: CT scan demonstrates staghorn calculus, UA concerning for infection and c/o lower abd pain and dysuria on admission. Urology following and recommend PCNL outpatient when SBO resolves. This will likely be done and MoBap per notes. NM Lasix renal scan with negligible delay in contrast clearance from both kidneys and no hydronephrosis. Urine culture negative. Zosyn stopped 01/13 and prophylactic Continue Keflex 250 mg daily until procedure, per Urology recommendations. (3) Type 2 diabetes mellitus with microalbuminuria: Qualifiers: Diabetes mellitus superintendent terminal insulin use: without superintendent terminal use Qualified Code(s): E11.29 - Type 2 diabetes mellitus with other diabetic kidney complication; R80.9 - Proteinuria, unspecified Code(s): E11.29 - Type 2 diabetes mellitus with other diabetic kidney complication; R80.9 - Proteinuria, unspecified Status: Chronic Assessment and Plan: Hold Januvia while inpatient. A1c 5.9% and patient is well controlled. Accu-checks Q6 while NPO. Aspart sliding scale insulin for hyperglycemia. Goal <180 mg/dL. Stable. (4) Moderate persistent allergic asthma: Code(s): J45.40 - Moderate persistent asthma, uncomplicated Status: Chronic Assessment and Plan: Not in acute exacerbation. continue Qvar & PRN albuterol HFA for SOB/wheezing. Stable (5) Schizophrenia: Code(s): F20.9 - Schizophrenia, unspecified Status: Chronic Assessment and Plan: W/history of tardive dyskinesia Continue abilify, clozapine and lorazepam at home doses. (6) Hypertension: Qualifiers: Hypertension type: essential hypertension Qualified Code(s): I10 - Essential (primary) hypertension Code(s): I10 - Essential (primary) hypertension Status: Chronic Assessment and Plan: Continue metoprolol 50 mg qam and 25 mg qpm, olmesartan at home dose. IV hydralazine 10 mg Q8 hours PRN SBP>160 (7) Postprocedural hypothyroidism: Code(s): E89.0 - Postprocedural hypothyroidism Status: Chronic Assessment and Plan: Continue levothyroxine at home dose. (8) Restless legs syndrome: Code(s): G25.81 - Restless legs syndrome Status: Chronic Assessment and Plan: Continue ropinirole 8 mg at HS and additional 4 mg PRN at HS if symptoms persist. Plan CODE STATUS: FULL CODE. DISPOSITION: Home with spouse. No home needs. Estimated LOS: If tolerating diet, okay per surgery to discharge 01/17. DS: Summary Hospital Course Reason for hospitalization: Acute abdominal pain Small bowel obstruction Hospital Course: Patient is 71-year-old female past medical history of non-insulin diabetic diabetes mellitus, hypertension, asthma, hypothyroidism, schizophrenia and recurrent UTIs. Patient presented to [facility] emergency department from home with complaints of bilateral lower abdominal pain with bilateral flank pain with associated nausea. Patient reports of being started the day before and progressively worsened throughout the day it was sharp, pressure-like. The pain to the lower abdomen wrapped around both sides to her back. She reported
[2022-01-17 12:10] LABS: Glucose Point of Care 177 mg/dl (65-105)
--- NOTE | 2022-01-17 14:00 | PC.NURSE ---
call placed to urology last note stated pt needs R PCN after sob resolves.
--- NOTE | 2022-01-17 15:20 | PC.NURSE ---
Swapna Chandra [employer] to discuss renal scan finding with pt at bedside soon, pt is scheduled for R PCN outpt at another hospital, procedure will be done outpatient.
--- NOTE | 2022-01-17 15:23 | PM.PNGS ---
Progress Note: A&P Assessment and Plan (1) SBO (small bowel obstruction): Code(s): K56.609 - Unspecified intestinal obstruction, unspecified as to partial versus complete obstruction Status: Acute Assessment and Plan: Continues to improve. Tolerating solids and bowels are moving. Okay to discharge home on a regular diabetic diet from our standpoint. No follow-up with surgery needed. Plan I have discussed the patient's case and plan of care with Dr. Quinteros. Subjective Subjective Date/Time Seen: 01/17/22 15:23 Patient reports: no new complaints, feels better, pain is less, tolerating a regular diet, flatus and bowel movement Interval history: Patient seen and examined. She reports feeling well today. Continues to feel better. Denies any abdominal pain, nausea or vomiting. She still has some soreness in the RLQ, but otherwise feels well. Bowels are moving and tolerating her diet. Review of Systems Review of Systems: All systems reviewed & are unremarkable except as noted in HPI and below Exam Const: General: no acute distress and awake Orientation/consciousness: patient oriented x3 GI: Inspection: non-distended and obesity GI Palp: Yes Soft to palpation, No Tenderness to palpation present (GI) and No Guarding due to palpation present (GI) Auscultation: normal bowel sounds Neuro: General: no focal motor deficits and No confusion Extrem: General: no edema Psych: Insight: Good insight present (Psych) Objective Data Vital Signs Vital Signs: Vital Signs - 24 hr 01/16/22 17:01 01/16/22 20:37 01/16/22 21:27 Temperature 98.2 F Pulse Rate 78 67 Respiratory Rate 18 Blood Pressure 140/74 Pulse Oximetry 96 100 Oxygen Delivery CPAP 01/17/22 02:28 01/17/22 04:39 01/17/22 05:17 Temperature 97.7 F Pulse Rate 67 71 66 Respiratory Rate 18 Blood Pressure 140/65 Pulse Oximetry 97 96 99 Oxygen Delivery CPAP CPAP 01/17/22 08:14 01/17/22 08:00 01/17/22 13:41 Temperature 97.3 F L Pulse Rate 66 66 74 Respiratory Rate 18 20 Blood Pressure 159/81 H Pulse Oximetry 99 99 Oxygen Delivery CPAP Intake/Output Intake/Output: Intake & Output 01/14/22 01/15/22 01/16/22 01/17/22 23:59 23:59 23:59 23:59 Intake Total 1999 2079 1770 1470 Output Total 3500 1600 1000 1750 Balance -1500 480 770 -280 Meds/Results Medications: Active Medications Generic Name Dose Route Start Last Admin Trade Name Freq PRN Reason Stop Dose Admin Acetaminophen 500 mg 01/15/22 12:35 Acetaminophen 500 Mg Tablet PO Q6H PRN Mild Pain (1-3) or Fever Hydrocodone Bitart/Acetaminophen 1 tab 01/15/22 12:35 01/15/22 23:20 Hydrocodone/Acetaminophen (*Crx) 5-325 Mg Tablet PO 1 tab Q6H PRN Administration Pain Rated 4-6 Albuterol 2 puff 01/14/22 12:32 Albuterol Sulfate (*Sp) Aerosol 1 Puff INHALATION Q4HRT PRN Shortness Of Breath Or Wheezing Aripiprazole 2.5 mg 01/11/22 21:00 01/16/22 22:09 Aripiprazole 2.5 Mg Tablet PO 2.5 mg HS ALVARADO Administration Cephalexin HCl 250 mg 01/13/22 21:00 01/16/22 22:09 Cephalexin 250 Mg Capsule PO 250 mg HS ALVARADO Administration Dextrose 12.5 gm 01/11/22 07:44 Dextrose 50% 25 Gm/50 Ml Syringe IV PUSH PRN PRN Hypoglycemia Protocol Enoxaparin Sodium 40 mg 01/12/22 09:00 01/17/22 08:14 Enoxaparin 40 Mg/0.4 Ml Syringe SUB-Q 40 mg DAILY ALVARADO Administration Fluticasone Propionate 2 puff 01/11/22 08:00 01/17/22 08:16 Fluticasone Prop 44 Mcg (*Sp) 10.6 Gm INHALATION 2 puff Q12HRT ALVARADO Administration Glucagon 1 mg 01/11/22 07:44 Glucagon For Inj 1 Mg Vial IM PRN PRN Hypoglycemia Protocol Glucose 15 gm 01/11/22 07:44 Glucose Oral Gel 15 Gm Of Glucse In 37.5 Gm Tube PO PRN PRN Hypoglycemia Protocol Home Med 3 each 01/11/22 21:00 01/16/22 22:10 Home Medication-Clozapine 100 Mg PO 02/10/22 20:59 3 each HS ALVARADO Admi
[2022-01-17] MEDS: METOPROLOL TARTRATE 25 MG TABLET PO (16:44)
[2022-01-17 16:46] LABS: Glucose Point of Care 129 mg/dl (65-105)
--- NOTE | 2022-01-17 16:57 | PC.NURSE ---
home medication return to pt
--- NOTE | 2022-01-17 17:30 | WPDUROPN2 ---
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 Andrade to discuss plans for your PCNL at [facility]. No further plans to assess at this time. We discussed at the bedside what a PCNL entails and the results of her Renal lasix scan. I answered all of her questions and she understands the plan for her large stone. (2) Complicated urinary tract infection: Code(s): N39.0 - Urinary tract infection, site not specified Status: Chronic Subjective Subjective Date/Time Seen: 01/17/22 17:30 Right Staghorn stone Chronic UTI Patient had a renal lasix scan two days ago and we are at the bedside today to discuss results. Review of Systems Cardiovascular: Cardiovascular: Denies chest pain Respiratory: Respiratory: Reports no additional respiratory complaints Gastrointestinal: Gastrointestinal: Reports abdominal pain, Denies nausea and Denies vomiting Genitourinary: Genitourinary: Denies hematuria, Denies dysuria, Denies flank pain and Denies urinary urgency Exam Const: General: cooperative Resp: Effort & Inspection: normal respiratory effort Cardio: Rate: regular rate GI: GI Palp: Yes Soft to palpation and No Tenderness to palpation present (GI) : General: Yes no CVA tenderness Back/Spine/Pelvis: Back: CVA tenderness Extrem: Right lower extremity: no edema Left lower extremity: no edema Objective Data Vital Signs Vital Signs: Vital Signs - 24 hr 01/16/22 20:37 01/16/22 21:27 01/17/22 02:28 Temperature 98.2 F Pulse Rate 67 67 Respiratory Rate 18 Blood Pressure 140/74 Pulse Oximetry 96 100 97 Oxygen Delivery CPAP CPAP 01/17/22 04:39 01/17/22 05:17 01/17/22 08:14 Temperature 97.7 F Pulse Rate 71 66 66 Respiratory Rate 18 Blood Pressure 140/65 Pulse Oximetry 96 99 Oxygen Delivery CPAP 01/17/22 08:00 01/17/22 13:41 01/17/22 16:44 Temperature 97.3 F L Pulse Rate 66 74 78 Respiratory Rate 18 20 Blood Pressure 159/81 H Pulse Oximetry 99 99 Oxygen Delivery CPAP Intake/Output Intake/Output: Intake & Output 01/14/22 01/15/22 01/16/2229/22 23:59 23:59 23:59 23:59 Intake Total 1999 2079 1770 1470 Output Total 3500 1600 1000 1750 Balance -1500 480 770 -280 Meds/Results Medications: Active Medications Generic Name Dose Route Start Last Admin Trade Name Freq PRN Reason Stop Dose Admin Acetaminophen 500 mg 01/15/22 12:35 Acetaminophen 500 Mg Tablet PO Q6H PRN Mild Pain (1-3) or Fever Hydrocodone Bitart/Acetaminophen 1 tab 01/15/22 12:35 01/15/22 23:20 Hydrocodone/Acetaminophen (*Crx) 5-325 Mg Tablet PO 1 tab Q6H PRN Administration Pain Rated 4-6 Albuterol 2 puff 01/14/22 12:32 Albuterol Sulfate (*Sp) Aerosol 1 Puff INHALATION Q4HRT PRN Shortness Of Breath Or Wheezing Aripiprazole 2.5 mg 01/11/22 21:00 01/16/22 22:09 Aripiprazole 2.5 Mg Tablet PO 2.5 mg HS ALVARADO Administration Cephalexin HCl 250 mg 01/13/22 21:00 01/16/22 22:09 Cephalexin 250 Mg Capsule PO 250 mg HS ALVARADO Administration Dextrose 12.5 gm 01/11/22 07:44 Dextrose 50% 25 Gm/50 Ml Syringe IV PUSH PRN PRN Hypoglycemia Protocol Enoxaparin Sodium 40 mg 01/12/22 09:00 01/17/22 08:14 Enoxaparin 40 Mg/0.4 Ml Syringe SUB-Q 40 mg DAILY ALVARADO Administration Fluticasone Propionate 2 puff 01/11/22 08:00 01/17/22 08:16 Fluticasone Prop 44 Mcg (*Sp) 10.6 Gm INHALATION 2 puff Q12HRT ALVARADO Administration Glucagon 1 mg 01/11/22 07:44 Glucagon For Inj 1 Mg Vial IM PRN PRN Hypoglycemia Protocol Glucose 15 gm 01/11/22 07:44 Glucose Oral Gel 15 Gm Of Glucse In 37.5 Gm Tube PO PRN PRN Hypoglycemia Protocol Home Med 3 each 01/11/22 21:00 01/16/22 22:10 Home Medication-Clozapine 100 Mg PO 01/20
--- NOTE | 2022-01-17 18:02 | PC.NURSE ---
discharge paperwork explained to pt, home medication returned, belongings packed, pt awaiting ride home. Discharge paperwork signed.
== END 2022-01-17 18:20 | disposition home or self-care (01) | DRG 390 ==
LOC: ANHED 22:07 → ANH3MEDSUR 01-11 01:35
PROVIDERS: Nurse Practitioner Family; Admitting Provider Internal Medicine; Emergency Provider Emergency Medicine; PCP Family Medicine; Visit Provider Nurse Practitioner Family
DX: K56.50 Intestinal adhesions [bands], unspecified as to partial versus complete obstruction (principal); N20.0 Calculus of kidney; E11.29 Type 2 diabetes mellitus with other diabetic kidney complication; R80.9 Proteinuria, unspecified; J45.40 Moderate persistent asthma, uncomplicated; F20.9 Schizophrenia, unspecified; I10 Essential (primary) hypertension; E89.0 Postprocedural hypothyroidism; G25.81 Restless legs syndrome; M17.0 Bilateral primary osteoarthritis of knee; N39.3 Stress incontinence (female) (male); G47.30 Sleep apnea, unspecified; E11.65 Type 2 diabetes mellitus with hyperglycemia; M70.62 Trochanteric bursitis, left hip; M70.61 Trochanteric bursitis, right hip; H43.813 Vitreous degeneration, bilateral; Z90.49 Acquired absence of other specified parts of digestive tract; Z90.710 Acquired absence of both cervix and uterus; Z86.718 Personal history of other venous thrombosis and embolism
CPT/HCPCS: 36415; 74018; 74019; 74176; 74240; 74248; 78708; 80048; 80053; 81001; 82948; 83036; 83605; 83690; 83735; 85025; 85027; 87086; 87088; 94640; 96361; 96374; 96375; 96376; 97161; 97165; 99285; A9270; A9562; C9113; G0378; J0696; J1170; J1650; J1940; J2405; J2543; J3480; J7030

== ENCOUNTER 2022-02-01 09:54 | Outpatient (CLI) | payer MEDICARE, SELFPAY ==
--- NOTE | 2022-02-09 14:58 | WPDPFTINT ---
PFT Procedure Performed PFT Procedure Performed Spirometry with Pre/Post Bronchodilator Plethysmography (Lung Vol) Diffusing Cap (DLCO) Flow Vol Loop PFT Interpretation DOS: 02/01/2022 REQUESTING: Lexy Plascencia PA-C REASON FOR TESTING: Shortness of breath, asthma PULMONARY FUNCTION TESTS Results are reliable and reproducible. Spirometry: pre bronchodilator FEV1 is 61%, 1.57 L, Decreased.. Pre bronchodilator FVC is 67%, 2.22 L, decreased. FEV1/FVC ratio is 71% normal. FEF 25-75 is 48% predicted, 0.99 L decreased. After bronchodilator, the FEV1 increases by 14%, 210 mL which is The FEV1 becomes 70%, 1.78 L which is still below normal. The FVC increases by 5%, 70% predicted, 2.33 L, still below normal. The FEV1/FVC ratio is 77% normal. The EF EF 25-75 increases 49%, this is now 71% predicted. This increased by 49%, now 1.48 L. This is now in the normal range. Lung volumes: Total lung capacity is 97% predicted, 5.49 L, normal. Functional residual capacity 113%, 3.67 L, normal. Residual volume 138%, 3.27 L, elevated consistent with air trapping. RV/TLC is increased 60% consistent with air trapping. Airway resistance elevated 169%. Diffusion: DLCO 98% normal. DLCO /VA = 136%, normal. Flow volume loop: There is mild scooping of the expiratory limb. IMPRESSION: There is a mild obstructive ventilatory impairment which is severe in the small airways with a robust response to bronchodilator, moderate air trapping and normal diffusion. In the proper clinical setting this may be consistent with asthma. Compared to her prior study on 05/07/2017 the FEV1 was normal 85%, 2.15 L, the FVC was normal 81%, 2.79 L, and the OYH60-63% was 70% predicted 1.89 L. There was a robust response to bronchodilator in the small airways with a 23% increase in RLO51-11%. Total lung capacity was 86%, also normal. Air trapping was present with an increased RV/TLC 42%. Diffusion was normal. The current study shows decrease in FEV1 and FVC, which were previously normal. Aga Dumas MD
== END 2022-02-01 09:55 | disposition home or self-care (01) ==
LOC: ANHPFT 09:56
PROVIDERS: PCP Family Medicine; Visit Provider Physician Assistant
DX: R06.02 Shortness of breath (principal); R06.00 Dyspnea, unspecified
CPT/HCPCS: 94060; 94726; 94729

== ENCOUNTER 2022-02-16 16:40 | Emergency (ER) | payer MEDICARE, SELFPAY ==
[2022-02-16 17:46] VITALS: BP 128/104; PULSE 82; RESP 16; TEMP 36.1; O2SAT 99
[2022-02-16 18:19] LABS: Alanine Aminotransferase 37 U/L (6-35); Albumin Level 4.7 g/dL (3.5-5.1); Alkaline Phosphatase 95 U/L (38-126); Anion Gap 12 mmol/L (8-16); Aspartate Amino Transferase 29 U/L (14-36); Bilirubin,Total 0.4 mg/dL (0.2-1.3); Blood Urea Nitrogen 15 mg/dL (7-17); Calcium 9.1 mg/dL (8.4-10.2); Carbon Dioxide 23 mmol/L (22-30); Chloride 99 mmol/L (98-107); Estimated CRCL calculation 94 ml/min; Estimated Glomerular Filt Rate > 60; Glucose 132 mg/dL (65-110); Lipase 133 U/L (23-300); Potassium 3.7 mmol/L (3.4-5.0); Sodium 134 mmol/L (137-145)
[2022-02-16 18:27] LABS: NT Pro B Type Natriuretic Pept 67 pg/mL (5-100)
[2022-02-16 18:58] LABS: Appearance Urine Clear (Clear); Bilirubin Urine Negative (Negative); Blood Urine Negative (Negative); Glucose Urine UA Negative (Negative); Ketones Urine Negative (Negative); Leukocyte Esterase Ur 2+ LEU/UL (Negative); Nitrate Urine Negative (Negative); Protein Urine Negative (Negative); Urobilinogen Urine 0.2 mg/dL (<2.0)
[2022-02-16 19:05] LABS: Add Urine Microscopic? YES; Bacteria Urine Trace /hpf; Color Urine Light Yellow (Yellow); RBC Urine 0-2 /hpf (0-2); Squamous Epithelial Cell Urine Rare /hpf (Few); WBC Urine 51-75 /hpf
[2022-02-16 20:45] LABS: Basophils Absolute Auto 0.1 K/mm3 (0.0-0.1); Basophils Percent Auto 0.6 % (0.2-1.2); Eosinophils Absolute Auto 0.2 K/mm3 (0-0.3); Eosinophils Percent Auto 2.2 % (0-4.4); Hematocrit 36.1 % (37.0-47.0); Hemoglobin 11.9 g/dL (12.0-15.0); Immature Granulocyte Absolute 0.05 K/mm3 (0.00-0.031); Immature Granulocyte Percent A 0.5 % (0-0.5); Lymphocytes Absolute Auto 2.48 K/mm3 (0.9-3.2); Lymphocytes Percent Auto 26.3 % (18.3-44.2); Mean Corpuscular Hemoglobin 28.4 pg (26-34); Mean Corpuscular Volume 86.2 fl (80-100); Mean Platelet Volume 11.4 fl (7.4-10.4); Monocytes Absolute Auto 0.5 K/mm3 (0.1-0.6); Monocytes Percent Auto 5.7 % (2.6-8.5); Neutrophils Absolute Auto 6.1 K/mm3 (1.3-6.7); Neutrophils Percent Auto 64.7 % (45.5-73.1); Platelet Count Result 195 k/mm3 (150-375); Red Blood Count 4.19 M/mm3 (4.2-5.4); Red Cell Distribution Width 13.6 % (11.5-14.5); White Blood Count 9.4 K/mm3 (4.5-10.0)
--- NOTE | 2022-02-16 21:01 | ED.EXTPRO ---
HPI - Extremity Problem General Chief complaint: Extremity Problem,Nontraumatic Stated complaint: swelling to feet Time Seen by Provider: 02/16/22 20:52 History of Present Illness HPI Narrative: Patient is a 71-year-old female complaining of bilateral lower extremity swelling x1 month. Patient denies chest pain, shortness of breath, abdominal pain, abdominal distention, fever or chills. Related Data Home Medications Medication Instructions Recorded Confirmed lorazepam 0.5 mg tablet 0.5 mg PO TID 10/21/20 01/23/22 clozapine 100 mg tablet 300 mg PO HS 03/17/21 01/23/22 aripiprazole 2 mg tablet 2.5 mg PO HS 04/24/21 01/23/22 clozapine 50 mg tablet 50 mg PO QAM 04/24/21 01/23/22 sitagliptin 100 mg tablet (Januvia) 100 mg PO DAILY 01/11/22 01/23/22 metoprolol tartrate 25 mg tablet 50 mg PO .COMPLEX 01/23/22 01/23/22 polyethylene glycol 3350 17 gram 17 g PO DAILY 01/23/22 01/23/22 oral powder packet (Miralax) Allergies Allergy/AdvReac Type Severity Reaction Status Date / Time atorvastatin Allergy Unknown pain Verified 01/23/22 11:56 Iodinated Contrast Media Allergy Unknown Hives Verified 01/23/22 11:56 liraglutide Allergy Unknown Unknown Verified 01/23/22 11:56 metformin Allergy Unknown Renal Verified 01/23/22 11:56 impairment tetracycline Allergy Unknown Unknown Verified 01/23/22 11:56 lisinopril AdvReac Mild dizziness Verified 01/23/22 11:56 sulfamethoxazole AdvReac sore Verified 01/23/22 11:56 [From Bactrim] throat/ hoarseness trimethoprim [From Bactrim] AdvReac sore Verified 01/23/22 11:56 throat/ hoarseness Review of Systems Review of Systems: All systems reviewed & are unremarkable except as noted in HPI and below Constitutional: Constitutional: Denies body ache(s), Denies chills, Denies excessive sweating, Denies fatigue, Denies fever(s), Denies headache(s), Denies lethargy, Denies malaise, Denies weakness and Denies weight loss Eyes: Eyes: Denies blurry vision, Denies change in vision and Denies loss of vision ENT: Denies dizziness, Denies ear discharge, Denies headache(s), Denies lip swelling, Denies epistaxis, Denies nasal congestion, Denies neck pain, Denies throat swelling and Denies tongue swelling Cardiovascular: Cardiovascular: Denies chest pain, Denies chest pain at rest, Denies chest pain with activity, Denies diaphoresis, Denies rapid heart rate, Denies edema, Denies irregular heart rhythm, Denies lightheadedness, Denies palpitations, Denies dyspnea and Denies dyspnea on exertion Respiratory: Respiratory: Denies chest congestion, Denies cough, Denies hemoptysis, Denies dyspnea and Denies dyspnea on exertion Gastrointestinal: Gastrointestinal: Denies abdominal pain, Denies melena, Denies hematochezia, Denies diarrhea, Denies nausea, Denies vomiting and Denies hematemesis Musculoskeletal: Musculoskeletal: Denies abnormal gait, Denies deformity, Denies joint swelling, Denies limited range of motion, Denies neck pain and Denies numbness Neurologic: Denies Abnormal speech present, Denies abnormal gait, Denies confusion, Denies dizziness, Denies headache(s), Denies focal weakness, Denies loss of vision, Denies numbness, Denies Other visual disturbances, Denies Sensory deficit (Neuro) and Denies weakness Psychiatric: Psychiatric: Denies confusion, Denies depression, Denies auditory hallucinations, Denies homicidal ideation and Denies suicidal ideation Endocrine: Endocrine: Denies cold intolerance, Denies excessive sweating, Denies fatigue, Denies heat intolerance and Denies palpitations Hematologic/Lymphatic: Hematologic/Lymphatic: Denies easy bleeding and Denies easy bruising Allergic/Immunologic: Allergic/Immunologic: Denies lip swelling, Denies throat swelling and Denies tongue swelling [facility] Past Medical History Medical History Ankle fracture, left Asthma At low risk for fall Diabetes DVT (deep venous thrombosis) Edema History
[2022-02-16 22:26] VITALS: BP 140/82; PULSE 64; RESP 18; O2SAT 100
== END 2022-02-16 22:27 | disposition home or self-care (01) ==
PROVIDERS: Nurse Practitioner Family; Emergency Provider Emergency Medicine; PCP Family Medicine
DX: R60.0 Localized edema (principal); J45.909 Unspecified asthma, uncomplicated; E11.9 Type 2 diabetes mellitus without complications; G47.30 Sleep apnea, unspecified; H43.813 Vitreous degeneration, bilateral; N39.3 Stress incontinence (female) (male); M17.0 Bilateral primary osteoarthritis of knee; E89.0 Postprocedural hypothyroidism; F20.9 Schizophrenia, unspecified; G24.01 Drug induced subacute dyskinesia; Z86.718 Personal history of other venous thrombosis and embolism; Z87.01 Personal history of pneumonia (recurrent); Z90.710 Acquired absence of both cervix and uterus; Z79.899 Other long term (current) drug therapy
CPT/HCPCS: 36415; 80053; 81001; 83690; 83880; 85025; 87077; 87086; 87186; 99283

== ENCOUNTER 2022-03-03 07:18 | Outpatient (CLI) | payer MEDICARE, SELFPAY ==
--- NOTE | 2022-03-03 08:28 | ECHO_ITS ---
Patient Info Name: Dori Louise Age: 71 years : 1950 Gender: Female Ht: 68 in Wt: 228 lbs BSA: 2.27 m2 HR: 63 bpm BP: 129 / 79 mmHg Technical Quality: Good Exam Date: 03/03/2022 8:46 AM Exam Location: [facility] Pulmonary Patient Status: Outpatient Admit Date: 03/03/2022 Staff Ordering Physician: Beatriz Pizarro MD Grades 7 8 Tutor: Namita Bland RDCS Attending Provider: Beatriz Pizarro MD Referring Physician: Juarez LOZOYA; Exam Type: CA echo doppler color flow Study Info Indications - LEG EDEMA Complete two-dimensional, color flow and Doppler transthoracic echocardiogram is performed. Summary 1. Complete two-dimensional, color flow and Doppler transthoracic echocardiogram is performed. 2. Left ventricular chamber dimension is normal. 3. Left ventricular systolic function is normal, estimated at 60-65%. 4. The left ventricular diastolic function is grade I diastolic dysfunction. 5. E/e' 8 is minimally elevated. 6. There is trace mitral valve regurgitation. 7. No pulmonary hypertension, estimated pulmonary arterial systolic pressure is 23 mmHg. Left Ventricle E/e' 8 is minimally elevated. Left ventricular chamber dimension is normal. Left ventricular systolic function is normal, estimated at 60-65%. The left ventricular diastolic function is grade I diastolic dysfunction. Right Ventricle Right ventricular systolic function is normal and with normal TAPSE 2.2 cm. Right ventricular chamber dimension is normal. Left Atria Left atrial chamber dimension is normal. Right Atria Right atrial chamber dimension is normal. Aortic Valve The aortic valve is trileaflet. There is no aortic valve stenosis. There is no aortic valve regurgitation. Pulmonic Valve There is no pulmonic regurgitation. Mitral Valve There is no mitral valve stenosis. There is trace mitral valve regurgitation. Tricuspid Valve There is no tricuspid valve regurgitation. No pulmonary hypertension, estimated pulmonary arterial systolic pressure is 23 mmHg. Pericardium/Pleural There is no pericardial effusion. Inferior Vena Cava Normal inferior vena cava with >50% collapse upon inspiration consistent with normal right atrial pressure, 5 mmHg. Aorta The aortic root size at the sinus of Valsalva is normal. Left Ventricular Outflow Tract Name Value Normal LVOT 2D LVOT Diameter 2.0 cm LVOT Doppler LVOT Peak Gradient 5 mmHg LVOT Mean Gradient 3 mmHg LVOT VTI 22 cm LVOT VTI/AV VTI Ratio 0.7 LVOT Stroke Volume 72 ml LVOT CO 15.3 l/min LVOT CI 6.8 l/min/m2 Pulmonic Valve Name Value Normal PV Doppler PV Peak Gradient
== END 2022-03-03 07:19 | disposition home or self-care (01) ==
LOC: ANHCARD 07:20
PROVIDERS: PCP Family Medicine; Visit Provider Family Medicine
DX: R06.02 Shortness of breath (principal); M79.89 Other specified soft tissue disorders
CPT/HCPCS: 93306

== ENCOUNTER 2022-04-20 10:32 | Outpatient (CLI) | payer MEDICARE, SELFPAY ==
--- NOTE | ~2022-04-20 | DEXA_ITS ---
Bone Density Report Name: WILTON APIZ Age: 71 Sex: Female Ethnicity: White Date of : 1950 Indication: postmenopausal; screening for osteoporosis; height loss; prior fracture; asthma or emphysema; hysterectomy; Referring Provider: MUKUL SNYDER Study: Bone densitometry was performed. Exam Date: April 20, 2022 Accession number: [id number] Bone Density: Region BMD T-score Z-score Classification AP Spine(L1-L4) 1.109 0.6 2.7 Normal Femoral Neck (Left) 0.761 -0.8 1.0 Normal Total Hip (Left) 0.944 0.0 1.5 Normal Femoral Neck (Right) 0.771 -0.7 1.1 Normal Total Hip (Right) 0.946 0.0 1.5 Normal Femoral Neck Mean 0.766 -0.7 1.0 Normal Total Hip Mean 0.945 0.0 1.5 Normal World Health Organization criteria for BMD impression classify patients as: Normal (T-score at or above -1.0), Osteopenia (T-score between -1.0 and -2.5), or Osteoporosis (T-score at or below -2.5). 10-year Fracture Risk: FRAX not reported because: All T-scores for Spine Total, Hip Total, Femoral Neck at or above -1.0 Clinical Information Provided by Patient: Has had a low trauma fracture Has the following medical conditions: Asthma or Emphysema, Hysterectomy Patient maximum height was 69 Menopause Age: 50 Drinks caffeinated beverages Onset of menses at age 16 Number of children 0 Impression: The patient has normal bone mass. The patient has risk factors, including: previous fracture. Discussion: BONE DENSITY IS ABOVE THE MINIMUM DESIRABLE LEVEL AT ALL SKELETAL SITES TESTED. This patient?s bone mineral density is above the minimum desirable level (T-score -1.0 or better) at all sites measured. The patient should follow a healthful lifestyle (good nutrition with adequate calcium and vitamin D, and appropriate weight-bearing exercise). Follow-Up: Consider repeating this study in 5 years or sooner if there is some new clinical indication. Reported by: Dr. Barrett Perry on 04/27/2022 1:42:00 PM. Reviewed, dictated and final[facility]
== END 2022-04-20 10:33 | disposition home or self-care (01) ==
LOC: CHSIMG 10:34
PROVIDERS: PCP Family Medicine; Visit Provider Family Medicine
DX: Z78.0 Asymptomatic menopausal state (principal)
CPT/HCPCS: 77080

== ENCOUNTER 2022-06-20 19:16 | Outpatient (NON) | payer MEDICARE, SELFPAY | END 2022-06-20 19:17 | disposition home or self-care (01) | PROVIDERS: PCP Family Medicine; Visit Provider Family Medicine | DX: N39.0 Urinary tract infection, site not specified (principal) | CPT/HCPCS: 87077; 87086; 87186 ==

== ENCOUNTER 2022-07-24 14:28 | Outpatient (CLI) | payer MEDICARE, SELFPAY ==
[2022-07-24 20:20] LABS: Kit Draw Collected
== END 2022-07-24 14:29 | disposition home or self-care (01) ==
PROVIDERS: PCP Family Medicine; Visit Provider Family Medicine
DX: G62.9 Polyneuropathy, unspecified (principal)
CPT/HCPCS: 36415

== ENCOUNTER 2022-10-01 09:15 | Outpatient (CLI) | payer MEDICARE, SELFPAY ==
--- NOTE | ~2022-10-01 | NM_ITS ---
EXAMINATION: NM kelsea stress w perfusion DATE: 10/01/2022 11:25 INDICATION: Chest pain TECHNIQUE: Rest images were obtained following intravenous administration of 9.44 mCi Tc99m tetrofosm in (Myoview). The patient was infused intravenously with Lexiscan (Regadenoson). Then, 30 mCi Tc99m t etrofosmin (Myoview) was administered intravenously, and stress images were obtained. Data was recons tructed into short axis and horizontal and vertical long axis SPECT images. Gated SPECT images were a lso obtained. COMPARISON: 12/16/2020 FINDINGS: There is no definite reversible or fixed perfusion abnormality to suggest ischemia or infar ction. There is normal left ventricular chamber size, wall motion and ejection fraction. Left ventr icular ejection fraction measures >70%. IMPRESSION: 1. Normal myocardial perfusion at rest and during stress. 2. Left ventricular ejection fraction measuring >70%. Reviewed, dictated and finalized at location B.
--- NOTE | 2022-10-01 09:35 | EST_ITS ---
Patient Info Name: Dori Louise Age: 72 years : 1950 Gender: Female Ht: 67 in Wt: 235 lbs BSA: 2.29 m2 HR: 80 bpm BP: 135 / 90 mmHg Heart Rhythm: Sinus Rhythm Exam Date: 10/01/2022 10:25 AM Exam Location: [facility] Stress Patient Status: Outpatient Admit Date: 10/01/2022 Staff Ordering Physician: Neo Doyle DO Attending Provider: Neo Doyle DO Exercise Technologist: Rachele Zambrano CT Exercise Physician: Neo Doyle DO Exam Type: CA stress kelsea w NM Study Info Indications R07.9 - Chest pain, unspecified A regadenoson stress test was performed. Summary 1. 1. Negative lexiscan stress test for ischemic ST changes by ECG criteria. 2. 2. Stable hemodynamics throughout the test. 3. 3. Nuclear scan to follow and will be reported separately. Please correlate with it. 4. 4. Patient informed of the above results. Protocol: Lexiscan Stress ECG Details Stage: REST Duration (min): 1 min : 4 sec HR (bpm): 80 SBP (mmHg): 135 DBP (mmHg): 90 Stage: REST Duration (min): 3 min : 46 sec HR (bpm): 80 SBP (mmHg): 135 DBP (mmHg): 90 Stage: REST Duration (min): 6 min : 37 sec HR (bpm): 79 SBP (mmHg): 135 DBP (mmHg): 90 Stage: STAGE 1 Duration (min): 0 min : 59 sec HR (bpm): 94 SBP (mmHg): 135 DBP (mmHg): 90 Stage: RECOVERY Duration (min): 1 min : 0 sec HR (bpm): 93 SBP (mmHg): 131 DBP (mmHg): 59 Stage: RECOVERY Duration (min): 2 min : 0 sec HR (bpm): 95 SBP (mmHg): 131 DBP (mmHg): 59 Stage: RECOVERY Duration (min): 3 min : 0 sec HR (bpm): 94 SBP (mmHg): 155 DBP (mmHg): 61 Stage: RECOVERY Duration (min): 3 min : 54 sec HR (bpm): 92 SBP (mmHg): 155 DBP (mmHg): 61 Rest HR: 79 bpm Peak HR: 95 bpm Rest Sys BP: 135 mmHg Peak Sys BP: 155 mmHg Max Pred HR: 150 bpm % Max Pred HR: 63 % Target HR: 128 bpm Max RPP: 14,725 bpm*mmHg Termination Reason: Completed protocol Cardiac Symptoms: Shortness of breath Total Time: 1 min : 0 sec Rest Crowley BP: 90 mmHg Peak Crowley BP: 61 mmHg Total Dose: 0.4 mg Resting ECG Sinus rhythm, PRWP. Stress ECG No ST changes. Arrhythmias None. Report Signatures
== END 2022-10-01 09:16 | disposition home or self-care (01) ==
PROVIDERS: PCP Family Medicine; Visit Provider Internal Medicine Cardiovascular Disease
DX: R07.89 Other chest pain (principal)
CPT/HCPCS: 78452; 93017; A9502; J2785

== ENCOUNTER 2022-10-10 13:51 | Emergency (ER) | payer MEDICARE, SELFPAY ==
[2022-10-10 13:55] VITALS: BP 182/99; PULSE 104; RESP 20; TEMP 36.6; O2SAT 99
--- NOTE | 2022-10-10 14:16 | ED.PSYCH ---
HPI - Psych General Chief Complaint: Psychiatric Symptoms <Parminder Robb MD - Last Filed: 10/10/22 21:59> Stated Complaint: SI, cut wrists <Parminder Robb MD - Last Filed: 10/10/22 21:59> Time Seen by Provider: 10/10/22 13:56 <Parminder Robb MD - Last Filed: 10/10/22 21:59> History of Present Illness HPI Narrative: Patient is a 72-year-old female who presents ER with suicidal ideation and attempt. Cut her wrist yesterday horizontally across both wrists. Nothing to repair. Patient reports she was concerned people were trying to get into her home yesterday and she was distressed decided to end her life. She reports she is still suicidal but does not think people are trying to get her home. She reports hearing voices that tell her to not talk to her family. Patient has history of SI and schizophrenia. She was seen by her psychiatrist but she did not tell him her issues. She was encouraged to come here by her sister. <Parminder Robb MD - Last Filed: 10/10/22 21:59> Related Data Home Medications: Home Medications Medication Instructions Recorded Confirmed lorazepam 0.5 mg tablet 0.5 mg PO TID 10/21/20 09/19/22 clozapine 100 mg tablet 300 mg PO HS 03/17/21 09/19/22 aripiprazole 2 mg tablet See Rx Instructions PO QHS 05/22/22 09/19/22 olmesartan 5 mg tablet 5 mg PO DAILY 09/19/22 09/19/22 <Parminder Robb MD - Last Filed: 10/10/22 21:59> Allergies/Adverse Reactions: Allergies Allergy/AdvReac Type Severity Reaction Status Date / Time atorvastatin Allergy Unknown pain Verified 10/10/22 14:07 Iodinated Contrast Media Allergy Unknown Hives Verified 10/10/22 14:07 liraglutide Allergy Unknown Unknown Verified 10/10/22 14:07 metformin Allergy Unknown Renal Verified 10/10/22 14:07 impairment tetracycline Allergy Unknown Unknown Verified 10/10/22 14:07 lisinopril AdvReac Mild dizziness Verified 10/10/22 14:07 sulfamethoxazole AdvReac sore Verified 10/10/22 14:07 [From Bactrim] throat/ hoarseness trimethoprim [From Bactrim] AdvReac sore Verified 10/10/22 14:07 throat/ hoarseness <Parminder Robb MD - Last Filed: 10/10/22 21:59> Review of Systems Review of Systems: All systems reviewed & are unremarkable except as noted in HPI and below <Parminder Robb MD - Last Filed: 10/10/22 21:59> Constitutional: Constitutional: Denies chills, Denies fatigue and Denies fever(s) <Parminder Robb MD - Last Filed: 10/10/22 21:59> ENT: Denies nasal congestion and Denies sore throat <Parminder Robb MD - Last Filed: 10/10/22 21:59> Cardiovascular: Cardiovascular: Denies chest pain, Denies rapid heart rate and Denies radiating jaw, neck or arm pain <Parminder Robb MD - Last Filed: 10/10/22 21:59> Respiratory: Respiratory: Denies cough and Denies dyspnea <Parminder Robb MD - Last Filed: 10/10/22 21:59> Gastrointestinal: Gastrointestinal: Denies abdominal pain, Denies diarrhea, Denies nausea and Denies vomiting <Parminder Robb MD - Last Filed: 10/10/22 21:59> Genitourinary: Genitourinary: Denies dysuria and Denies flank pain <Parminder Robb MD - Last Filed: 10/10/22 21:59> [facility] Past Medical History Medical History: Medical History Ankle fracture, left At low risk for fall Chest tightness Complicated urinary tract infection Diabetes ELIZABETH (dyspnea on exertion) DVT (deep venous thrombosis) Edema General unsteadiness H/O nephrolithotomy with removal of calculi (~04/2022) History of chicken pox 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 Under the care of Psychiatrist. Seizures 03.29.21 eeg negative 03.14.21 mri brain normal Serotonin withdrawal syndrome
--- NOTE | 2022-10-10 14:30 | PC.NURSE ---
Pt had 3 bags of personal belongings given to sister in ED lobby at this time. 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
[2022-10-10 14:41] LABS: Basophils Absolute Auto 0.1 K/mm3 (0.0-0.1); Basophils Percent Auto 0.5 % (0.2-1.2); Eosinophils Absolute Auto 0.1 K/mm3 (0-0.3); Eosinophils Percent Auto 1.2 % (0-4.4); Hematocrit 37.1 % (37.0-47.0); Hemoglobin 12.6 g/dL (12.0-15.0); Immature Granulocyte Absolute 0.05 K/mm3 (0.00-0.031); Immature Granulocyte Percent A 0.4 % (0-0.5); Lymphocytes Absolute Auto 1.68 K/mm3 (0.9-3.2); Lymphocytes Percent Auto 14.4 % (18.3-44.2); Mean Corpuscular Hemoglobin 28.3 pg (26-34); Mean Corpuscular Volume 83.4 fl (80-100); Mean Platelet Volume 10.7 fl (7.4-10.4); Monocytes Absolute Auto 0.5 K/mm3 (0.1-0.6); Monocytes Percent Auto 4.5 % (2.6-8.5); Neutrophils Absolute Auto 9.2 K/mm3 (1.3-6.7); Platelet Count Result 238 k/mm3 (150-375); Red Blood Count 4.45 M/mm3 (4.2-5.4); Red Cell Distribution Width 13.6 % (11.5-14.5); White Blood Count 11.6 K/mm3 (4.5-10.0)
[2022-10-10 14:52] LABS: Acetaminophen < 10 ug/mL (10-30); Ethanol < 10 mg/dL (<10); Salicylate < 1.0 mg/dL (2-20)
[2022-10-10 14:56] LABS: Alanine Aminotransferase 70 U/L (6-35); Albumin Level 4.7 g/dL (3.5-5.1); Alkaline Phosphatase 114 U/L (38-126); Anion Gap 9 mmol/L (8-16); Aspartate Amino Transferase 43 U/L (14-36); Bilirubin,Total 0.8 mg/dL (0.2-1.3); Blood Urea Nitrogen 11 mg/dL (7-17); Carbon Dioxide 24 mmol/L (22-30); Chloride 98 mmol/L (98-107); Estimated CRCL calculation 109 ml/min; Estimated Glomerular Filt Rate > 60; Glucose 131 mg/dL (65-110); Potassium 3.7 mmol/L (3.4-5.0); Sodium 131 mmol/L (137-145)
[2022-10-10 15:18] LABS: SARS-CoV-2 RNA PCR Negative
[2022-10-10 15:41] LABS: Appearance Urine Clear (Clear); Bacteria Urine None Seen /hpf; Bilirubin Urine Negative (Negative); Blood Urine Negative (Negative); Color Urine Yellow (Yellow); Glucose Urine UA Negative (Negative); Ketones Urine Negative (Negative); Leukocyte Esterase Ur 1+ LEU/UL (Negative); Need Manual Microscopic Reviewed; Nitrate Urine Negative (Negative); Non Pathogenic Casts 0-2; Protein Urine Negative (Negative); RBC Urine 0-2 /hpf (0-2); Specific Grav Ur 1.006 (1.001-1.035); Squamous Epithelial Cell Urine None seen /hpf (Few); Urobilinogen Urine 0.2 mg/dL (<2.0); WBC Urine 0-5 /hpf
[2022-10-10 15:43] LABS: Add Urine Microscopic? YES
[2022-10-10 17:24] LABS: Amphetamine Screen Urine Negative (Negative); Barbiturate Screen Urine Negative (Negative); Benzodiazepines Screen Urine Negative (Negative); Cannabinoid Screen Urine Negative (Negative); Cocaine Screen Urine Negative (Negative); Methadone Screen Urine Negative (Negative); Opiate Screen Urine Negative (Negative); Phencyclidine Screen Urine Negative (Negative)
[2022-10-10] MEDS: ACETAMINOPHEN 500 MG TABLET 1000 MG PO (20:35)
[2022-10-10 20:40] VITALS: BP 140/70; PULSE 80; RESP 16; TEMP 36.9; O2SAT 100
[2022-10-10] MEDS: LORazepam (*CRX) 0.5 MG TABLET PO (20:44)
--- NOTE | 2022-10-10 21:30 | PC.NURSE ---
Intake nurse at [facility] states they cannot take pt due to staffing issues because pt is requires a cpap at night. states she will notify [facility] to let them know. states may have bed in the morning. dr. Robb aware.
--- NOTE | 2022-10-10 22:15 | PC.NURSE ---
Nurse to nurse given to Bertha at [place] states she will call back with accepting MD
--- NOTE | 2022-10-10 22:45 | PC.NURSE ---
shipwright helper at [facility] called back for more info and states that Dr. Antonio accepts pt but transport cannot be set up until [address] Herrera aware.
[2022-10-11 03:16] LABS: Glucose Point of Care 205 mg/dl (65-105)
--- NOTE | 2022-10-11 06:48 | PC.NURSE ---
Lynne from [facility] #: [phone]
[2022-10-11 07:33] VITALS: BP 173/72; PULSE 89; RESP 18; TEMP 36.3; O2SAT 100
== END 2022-10-11 08:38 ==
PROVIDERS: Emergency Medicine; Emergency Provider Preventive Medicine Aerospace Medicine; PCP Family Medicine
DX: F32.A Depression, unspecified (principal); R45.851 Suicidal ideations; S61.512A Laceration without foreign body of left wrist, initial encounter; S61.511A Laceration without foreign body of right wrist, initial encounter; E11.9 Type 2 diabetes mellitus without complications; Z86.718 Personal history of other venous thrombosis and embolism; W26.9XXA Contact with unspecified sharp object(s), initial encounter; Z20.822 Contact with and (suspected) exposure to COVID-19; Z79.899 Other long term (current) drug therapy
CPT/HCPCS: 36415; 80053; 80307; 81001; 82948; 84443; 85025; 99285; A9270; U0003; U0005

== ENCOUNTER 2022-10-26 08:59 | Observation (INO) | payer MEDICARE, SELFPAY ==
[2022-10-26] VITALS (41 sets, daily range): BP systolic 132–186; BP diastolic 58–98; PULSE 76–101; RESP 8–21; TEMP 36.5–36.9; O2SAT 97–100; BMI 32.9
--- NOTE | ~2022-10-26 | US_ITS ---
US venous doppler [facility] DATE: 10/27/2022 08:37 INDICATION: Edema of the lower extremities TECHNIQUE: Real-time and color flow imaging and Doppler analysis of the veins of both lower extremiti es COMPARISON: None FINDINGS: The greater saphenous veins are patent. There is spontaneous and phasic flow and normal aug mentation and color flow signal and normal compression of the deep veins of both lower extremities. IMPRESSION: No evidence of deep venous thrombosis of the lower extremities Reviewed, dictated and finalized at [facility]. Reviewed, dictated and finalized at location [facility].
--- NOTE | ~2022-10-26 | CT_ITS ---
EXAMINATION: CT brain wo con DATE: 10/26/2022 10:00 INDICATION: Altered mental status. TECHNIQUE: Computed tomography (CT) of the head was performed without intravenous contrast. The mA wa s adjusted according to patient size. Iterative reconstruction technique was employed. The dose-lengt h product was 605.33 mGy-cm. COMPARISON: Head CT 07/05/2019 FINDINGS: There is no intracranial hemorrhage, acute infarction, or abnormal intracranial mass lesion . The ventricles are normal in size. There is mild mucosal thickening in the paranasal sinuses. There are likely changes of ocular lens replacement surgeries. The mastoid air cells are normal. IMPRESSION: 1. Normal brain. Reviewed, dictated and finalized at location [facility]. IMPRESSION: 1. Normal brain.
--- NOTE | 2022-10-26 09:10 | ECG_ITS ---
Measurements Intervals [place] Rate: 86 P: 66 IL: 174 QRS: -29 QRSD: 115 T: 50 QT: 364 QTc: 436 Interpretive Statements SINUS RHYTHM VOLTAGE CRITERIA FOR LVH LOW QRS VOLTAGE IN PRECORDIAL LEADS BORDERLINE ECG COMPARED TO ECG 08/09/2020 13:34:04 NO SIGNIFICANT CHANGES Electronically Signed On 10-27-2022 14:49:50 CDT by Rodrick Le M.D.
[2022-10-26 09:31] LABS: Basophils Absolute Auto 0.1 K/mm3 (0.0-0.1); Basophils Percent Auto 0.7 % (0.2-1.2); Eosinophils Absolute Auto 0.1 K/mm3 (0-0.3); Eosinophils Percent Auto 1.3 % (0-4.4); Hematocrit 36.1 % (37.0-47.0); Hemoglobin 11.8 g/dL (12.0-15.0); Immature Granulocyte Absolute 0.03 K/mm3 (0.00-0.031); Immature Granulocyte Percent A 0.4 % (0-0.5); Lymphocytes Absolute Auto 1.14 K/mm3 (0.9-3.2); Mean Corpuscular HGB Conc 32.7 g/dl (32-36); Mean Corpuscular Hemoglobin 28.9 pg (26-34); Mean Corpuscular Volume 88.3 fl (80-100); Mean Platelet Volume 11.6 fl (7.4-10.4); Monocytes Absolute Auto 0.6 K/mm3 (0.1-0.6); Monocytes Percent Auto 7.6 % (2.6-8.5); Neutrophils Absolute Auto 6.2 K/mm3 (1.3-6.7); Platelet Count Result 208 k/mm3 (150-375); Red Blood Count 4.09 M/mm3 (4.2-5.4); Red Cell Distribution Width 13.9 % (11.5-14.5); White Blood Count 8.2 K/mm3 (4.5-10.0)
[2022-10-26 09:39] LABS: Alanine Aminotransferase 56 U/L (6-35); Albumin Level 4.1 g/dL (3.5-5.1); Alkaline Phosphatase 128 U/L (38-126); Anion Gap 9 mmol/L (8-16); Aspartate Amino Transferase 36 U/L (14-36); Bilirubin,Total 0.5 mg/dL (0.2-1.3); Blood Urea Nitrogen 20 mg/dL (7-17); Carbon Dioxide 24 mmol/L (22-30); Chloride 106 mmol/L (98-107); Estimated Glomerular Filt Rate > 60; Glucose 191 mg/dL (65-110); Potassium 3.3 mmol/L (3.4-5.0); Sodium 139 mmol/L (137-145)
[2022-10-26 09:41] LABS: Ethanol < 10 mg/dL (<10)
[2022-10-26 09:45] LABS: Acetaminophen < 10 ug/mL (10-30); Salicylate < 1.0 mg/dL (2-20)
[2022-10-26 09:46] LABS: Amphetamine Screen Urine Negative (Negative); Barbiturate Screen Urine Negative (Negative); Benzodiazepines Screen Urine Negative (Negative); Cannabinoid Screen Urine Negative (Negative); Cocaine Screen Urine Negative (Negative); Methadone Screen Urine Negative (Negative); Opiate Screen Urine Negative (Negative); Phencyclidine Screen Urine Negative (Negative)
[2022-10-26 09:48] LABS: Appearance Urine Cloudy (Clear); Bilirubin Urine Negative (Negative); Blood Urine Negative (Negative); Color Urine Yellow (Yellow); Glucose Urine UA Negative (Negative); Ketones Urine Trace mg/dL (Negative); Leukocyte Esterase Ur 2+ LEU/UL (Negative); Mucus Urine Present /lpf; Need Manual Microscopic Need Manual; Nitrate Urine Positive (Negative); Non Pathogenic Casts 0-2; Protein Urine 1+ mg/dL (Negative); RBC Urine 0-2 /hpf (0-2); Specific Grav Ur 1.028 (1.001-1.035); Squamous Epithelial Cell Urine None seen /hpf (Few); WBC Urine >100 /hpf; pH Urine 5.5 (5.0-9.0)
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
[2022-10-26 10:03] LABS: Bacteria Urine 4+ /hpf; WBC Clumps Urine Present /hpf
[2022-10-26 10:17] LABS: Influenza A QL RT-PCR Negative (Negative); Influenza B QL RT-PCR Negative (Negative); SARS-CoV-2 RNA PCR Negative
[2022-10-26 10:21] LABS: Add Urine Microscopic? YES
[2022-10-26] MEDS: SODIUM CHLORIDE 0.9% IV 1,000 ML 999 ML IV CONT (10:27)
[2022-10-26] MEDS: POTASSIUM CHLORIDE 20 MEQ PACKET (FOR LIQUID) 40 MEQ PO (12:07)
--- NOTE | 2022-10-26 12:51 | PC.NURSE ---
Safety tray ordered at 1250.
--- NOTE | 2022-10-26 16:20 | ADMGEN ---
This patient, Dori Louise, was admitted to Intensive Care Unit-4. Patient/family oriented to hospital policies and general routines including ID bracelet, bed and alarms, visiting hours, pain management, procedures, bathroom and other care routines, personal items, smoking policy, room service/diet, and visiting hours. Information on how to activate the Rapid Response Team has been discussed. Patient/Family are encouraged to report perceived risks to care and to ask questions if they do not understand what they are told or what they should do.
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
[2022-10-26] MEDS: METOPROLOL TARTRATE 50 MG TAB PO (23:32)
[2022-10-27 03:47] VITALS: BP 157/85; PULSE 66; RESP 20; TEMP 36.8; O2SAT 98
[2022-10-27 04:29] LABS: Hematocrit 36.9 % (37.0-47.0); Hemoglobin 12.4 g/dL (12.0-15.0); Mean Corpuscular HGB Conc 33.6 g/dl (32-36); Mean Corpuscular Volume 86.2 fl (80-100); Mean Platelet Volume 11.9 fl (7.4-10.4); Platelet Count Result 215 k/mm3 (150-375); Red Blood Count 4.28 M/mm3 (4.2-5.4); Red Cell Distribution Width 13.6 % (11.5-14.5); White Blood Count 9.1 K/mm3 (4.5-10.0)
[2022-10-27 04:39] LABS: Ammonia 12 umol/L (9-30)
[2022-10-27 05:05] LABS: Alanine Aminotransferase 52 U/L (6-35); Albumin Level 3.9 g/dL (3.5-5.1); Alkaline Phosphatase 137 U/L (38-126); Anion Gap 6 mmol/L (8-16); Aspartate Amino Transferase 30 U/L (14-36); Bilirubin,Total 0.7 mg/dL (0.2-1.3); Blood Urea Nitrogen 9 mg/dL (7-17); Calcium 8.5 mg/dL (8.4-10.2); Carbon Dioxide 25 mmol/L (22-30); Chloride 108 mmol/L (98-107); Estimated CRCL calculation 94 ml/min; Estimated Glomerular Filt Rate > 60; Glucose 133 mg/dL (65-110); Potassium 3.5 mmol/L (3.4-5.0); Sodium 139 mmol/L (137-145)
[2022-10-27 05:17] LABS: Hemoglobin A1C 7.1 % (<5.7)
[2022-10-27] MEDS: LEVOTHYROXINE SODIUM 100 MCG TABLET PO (06:08)
[2022-10-27 07:34] VITALS: BP 174/84; PULSE 79; RESP 20; TEMP 36.8; O2SAT 98
[2022-10-27 07:42] LABS: Glucose Point of Care 151 mg/dl (65-105)
[2022-10-27] MEDS: FLUTICASONE PROP 110 MCG INHALER 12 GM (*SP) 2 PUFF INHALATION ×2 (08:08→21:14)
[2022-10-27] MEDS: METOPROLOL TARTRATE 25 MG TABLET 50 MG PO (08:16)
[2022-10-27] MEDS: GLIMEPIRIDE 2 MG TABLET PO (08:16)
--- NOTE | 2022-10-27 11:36 | PC.NURSE ---
patient pulled out IV. Physician Dr. Man stated ok to leave out. care continued
--- NOTE | 2022-10-27 12:08 | PC.NURSE ---
patient sister, Donna, her POA, called for updates. sister stated patient usually goes to [facility] in [place] for treatment when she has psychotic breakthroughs. Donna stated patient does this once every 5-8years and requires an adjustment on her meds. She stated she was recently at the [facility] and absolutely does not want her to go back there. Donna stated she was not notified of her transfer and is POA.
--- NOTE | 2022-10-27 12:31 | PM.IMPN ---
Progress Note: A&P Assessment and Plan (1) Altered mental status: Code(s): R41.82 - Altered mental status, unspecified Status: Acute Assessment and Plan: I think her altered mental status is likely related to her paranoia. She does have a UTI however which I suppose could be playing a role as well. No focal deficits to suggest CVA. Drug screen was negative. (2) Paranoid schizophrenia: Code(s): F20.0 - Paranoid schizophrenia Status: Acute Assessment and Plan: Recently at an inpatient facility as detailed in HPI. Patient reports feeling suicidal but is unable to verbalize a plan. She will need a crisis evaluation when she is treated for the UTI. Continue home medications. (3) Urinary tract infection: Code(s): N39.0 - Urinary tract infection, site not specified Status: Acute Assessment and Plan: She has been started on ceftriaxone, pending urine culture. (4) Hypertension: Qualifiers: Hypertension type: essential hypertension Qualified Code(s): I10 - Essential (primary) hypertension Code(s): I10 - Essential (primary) hypertension Status: Chronic Assessment and Plan: Continue antihypertensives and monitor. (5) Type 2 diabetes mellitus: Code(s): E11.9 - Type 2 diabetes mellitus without complications Status: Acute Assessment and Plan: Continue glimepiride. Initiate sliding scale insulin, Accu-Cheks, and hypoglycemic protocol. (6) Hypokalemia: Code(s): E87.6 - Hypokalemia Status: Acute Assessment and Plan: Replace potassium and monitor. (7) Suicidal ideation: Code(s): R45.851 - Suicidal ideations Status: Acute Assessment and Plan: Initiate suicide precautions as detailed above. Will need crisis evaluation once medically stable. (8) Lower extremity edema: Code(s): R60.0 - Localized edema Status: Acute Assessment and Plan: Check venous Doppler ultrasounds to rule out DVT given history of the same. Subjective Date/time seen: 10/27/22 12:31 No complaints Exam Narrative: General: Chronically ill-appearing elderly female in the semi-Cowan position in bed. Weight: 11.2 kg. BMI: 32.9. HEENT: Wearing glasses. Normocephalic, atraumatic. Pupils are reactive. Extraocular motions appear to be intact. Sclerae anicteric. Conjunctiva mildly injected. Oral mucosa is moist. Her tongue protrudes somewhat out of the mouth and a rhythmic fashion consistent with tardive dyskinesia. Oropharynx not visualized. Neck: Supple. Scar consistent with prior thyroidectomy. Respiratory: Lung sounds are diminished due to poor effort. Cardiovascular: Regular rate and rhythm with S1-S2. Gastrointestinal: Abdomen is soft and nondistended with positive bowel sounds. She is a bit tender to palpation in the suprapubic region. No guarding or rebound tenderness. Skin: Warm and dry. Extremities: No cyanosis or clubbing. 1+ mitch ankle edema, softening above the ankles. Equivocal Homans sign bilaterally. Neurological: Alert to name. She does not answer the rest of the orientation questions. Cranial nerves 2-12 are grossly intact. Speech is slow and tangential. No facial asymmetry. Noted to move upper and lower extremities. She did not participate in the neurologic exam. Psychiatric: Depressed mood. Flat affect. Exhibits paranoid thoughts. Objective Data Vital Signs Vital Signs: Vital Signs - 24 hr 10/26/22 12:45 10/26/22 13:00 10/26/22 13:15 Temperature Pulse Rate 81 81 83 Respiratory Rate 9 L 9 L 13 Blood Pressure Pulse Oximetry 98 100 99 10/26/22 13:30 10/26/22 13:45 10/26/22 14:00 Temperature Pulse Rate 90 90 99 Respiratory Rate 11 L 11 L 21 H Blood Pressure Pulse Oximetry 100 100 100 10/26/22 14:01 10/26/22 14:22 10/26/22 14:30 Temperature Pulse Rate 101 H 94 93 Respiratory Rate 14 11 L 11 L Blood Pressure 153/58 H
[2022-10-27 16:41] LABS: Glucose Point of Care 104 mg/dl (65-105)
[2022-10-27] MEDS: METOPROLOL TARTRATE 25 MG TABLET PO (17:40)
[2022-10-27] MEDS: HALOPERIDOL LACTATE 5 MG/ML VIAL IM (17:59)
[2022-10-27] MEDS: clonazePAM (*CRX) 0.5 MG TABLET PO (18:00)
[2022-10-27 20:00] VITALS: BP 143/69; PULSE 75; RESP 20; TEMP 36.6; O2SAT 100
[2022-10-27 20:44] LABS: Glucose Point of Care 154 mg/dl (65-105)
[2022-10-27 21:30] VITALS: PULSE 72; RESP 18
[2022-10-27] MEDS: rOPINIRole HCL 1 MG TABLET 4 MG PO (23:11)
[2022-10-28] MEDS: rOPINIRole HCL 1 MG TABLET 4 MG PO ×2 (00:25→20:45)
[2022-10-28 02:48] LABS: Glucose Point of Care 160 mg/dl (65-105)
[2022-10-28] MEDS: clonazePAM (*CRX) 0.5 MG TABLET PO (03:57)
[2022-10-28 04:00] VITALS: BP 178/83; PULSE 91; RESP 18; TEMP 36.7; O2SAT 99
[2022-10-28 05:37] LABS: Glucose Point of Care 134 mg/dl (65-105)
[2022-10-28] MEDS: HALOPERIDOL LACTATE 5 MG/ML VIAL IM (06:45)
--- NOTE | 2022-10-28 06:51 | PC.NURSE ---
A ONE TIME DOSE OF HALDOL 5 MG IM WAS ORDERED APPROXIMATELY 0300 D/T PT LEAVING THE ROOM ATTEMPTING TO MAKE PHONE CALLS TO HER SISTER. SHE WAS ABLE TO BE REDIRECTED AT THAT TIME AND IT WAS NOT ADMINISTERED. 0630 PT WOKE IN AN ANXIOUS STATE STATING SHE MISSED HER TIME TO GET OUT OF HERE . SHE EXITED HER ROOM AND RAN TOWARDS THE EXIT DESPITE ATTEMPTS TO BE REDIRECTED. TWO RNS WERE ABLE TO ESCORT HER BACK TO HER ROOM WHILE COMPLAINTS OF NEEDING TO LEAVE CONTINUED. AT THAT TIME THE 5 MG HALDOL WAS GIVEN IM IN THE LEFT THIGH D/T HER MULTIPLE ATTEMPTS TO LEAVE THE ROOM AND INABILITY TO BE REDIRECTED
[2022-10-28] MEDS: INSULIN ASPART (*BKC) 100 UNITS/ML SUB-Q (07:31)
[2022-10-28] MEDS: LEVOTHYROXINE SODIUM 100 MCG TABLET PO (07:32)
[2022-10-28 07:33] VITALS: PULSE 74
[2022-10-28] MEDS: METOPROLOL TARTRATE 25 MG TABLET 50 MG PO (07:33)
[2022-10-28] MEDS: GLIMEPIRIDE 2 MG TABLET PO (07:34)
[2022-10-28 07:35] VITALS: BP 149/81; PULSE 72; RESP 14; TEMP 36.9; O2SAT 98
[2022-10-28 07:48] LABS: Glucose Point of Care 220 mg/dl (65-105)
[2022-10-28] MEDS: CEFDINIR 300 MG CAPSULE PO ×2 (08:38→20:45)
[2022-10-28] MEDS: FLUTICASONE PROP 110 MCG INHALER 12 GM (*SP) 2 PUFF INHALATION ×2 (08:45→22:58)
[2022-10-28 10:13] LABS: Glucose Point of Care 138 mg/dl (65-105)
--- NOTE | 2022-10-28 10:24 | PC.NURSE ---
This patient standing at the side of her bed complaining of shortness of breath. States You guys gave me something. I know you did. You gave me too much insulin. Patient's glucose checked early as she felt her glucose was low. Resulted to be normal. Upon visualization of the result, patient states Well I'm withdrawing, then. When asked what patient is withdrawing from, she states she doesn't know. She states [facility] tricked me to get me in here! Patient instructed to stay in bed to promote safety. States Just let me ! Dr. Man notified. Orders received.
[2022-10-28] MEDS: QUEtiapine FUMARATE 25 MG TABLET PO ×2 (11:15→20:45)
--- NOTE | 2022-10-28 11:51 | PM.IMPN ---
Progress Note: A&P Assessment and Plan (1) Altered mental status: Code(s): R41.82 - Altered mental status, unspecified Status: Acute Assessment and Plan: I think her altered mental status is likely related to her paranoia. She does have a UTI however which I suppose could be playing a role as well. No focal deficits to suggest CVA. Drug screen was negative. (2) Paranoid schizophrenia: Code(s): F20.0 - Paranoid schizophrenia Status: Acute Assessment and Plan: Recently at an inpatient facility as detailed in HPI. Patient reports feeling suicidal but is unable to verbalize a plan. She will need a crisis evaluation when she is treated for the UTI. Continue home medications. (3) Urinary tract infection: Code(s): N39.0 - Urinary tract infection, site not specified Status: Acute Assessment and Plan: Oral antibiotics. This is not causing her any psychologic issue at this time. Patient is medically stable and cleared for evaluation by Psychiatry or case management. (4) Hypertension: Qualifiers: Hypertension type: essential hypertension Qualified Code(s): I10 - Essential (primary) hypertension Code(s): I10 - Essential (primary) hypertension Status: Chronic Assessment and Plan: Continue antihypertensives and monitor. (5) Type 2 diabetes mellitus: Code(s): E11.9 - Type 2 diabetes mellitus without complications Status: Acute Assessment and Plan: Continue glimepiride. Initiate sliding scale insulin, Accu-Cheks, and hypoglycemic protocol. (6) Hypokalemia: Code(s): E87.6 - Hypokalemia Status: Acute Assessment and Plan: Replace potassium and monitor. (7) Suicidal ideation: Code(s): R45.851 - Suicidal ideations Status: Acute Assessment and Plan: Initiate suicide precautions as detailed above. Will need crisis evaluation once medically stable. (8) Lower extremity edema: Code(s): R60.0 - Localized edema Status: Acute Assessment and Plan: Check venous Doppler ultrasounds to rule out DVT given history of the same. Subjective Date/time seen: 10/28/22 11:51 No complaints Exam Narrative: General: Chronically ill-appearing elderly female in the semi-Cowan position in bed. Weight: 11.2 kg. BMI: 32.9. HEENT: Wearing glasses. Normocephalic, atraumatic. Pupils are reactive. Extraocular motions appear to be intact. Sclerae anicteric. Conjunctiva mildly injected. Oral mucosa is moist. Her tongue protrudes somewhat out of the mouth and a rhythmic fashion consistent with tardive dyskinesia. Oropharynx not visualized. Neck: Supple. Scar consistent with prior thyroidectomy. Respiratory: Lung sounds are diminished due to poor effort. Cardiovascular: Regular rate and rhythm with S1-S2. Gastrointestinal: Abdomen is soft and nondistended with positive bowel sounds. She is a bit tender to palpation in the suprapubic region. No guarding or rebound tenderness. Skin: Warm and dry. Extremities: No cyanosis or clubbing. 1+ mitch ankle edema, softening above the ankles. Equivocal Homans sign bilaterally. Neurological: Alert to name. She does not answer the rest of the orientation questions. Cranial nerves 2-12 are grossly intact. Speech is slow and tangential. No facial asymmetry. Noted to move upper and lower extremities. She did not participate in the neurologic exam. Psychiatric: Depressed mood. Flat affect. Exhibits paranoid thoughts. Objective Data Vital Signs Vital Signs: Vital Signs - 24 hr 10/27/22 20:00 10/27/22 21:30 10/28/22 04:00 Temperature 97.8 F 98.0 F Pulse Rate 75 72 91 Respiratory Rate 20 18 18 Blood Pressure 143/69 H 178/83 H Pulse Oximetry 100 99 Oxygen Delivery 10/28/22 07:33 10/28/22 07:35 10/28/22 08:00 Temperature 98.4 F Pulse Rate 74 72 Respiratory Rate 14 Blood Pressure 149/81 H Pulse Oximetry 98 Ox
[2022-10-28 16:00] VITALS: BP 151/86; PULSE 79; RESP 12; TEMP 36.5; O2SAT 99
[2022-10-28 16:27] VITALS: PULSE 79
[2022-10-28] MEDS: METOPROLOL TARTRATE 25 MG TABLET PO (16:27)
[2022-10-28 16:35] LABS: Glucose Point of Care 129 mg/dl (65-105)
[2022-10-28 21:00] LABS: Glucose Point of Care 169 mg/dl (65-105)
[2022-10-28 22:07] VITALS: BP 146/74; PULSE 91; RESP 20; TEMP 36.4; O2SAT 100
[2022-10-29 05:13] VITALS: BP 155/88; PULSE 106; RESP 19; TEMP 36.4; O2SAT 98
[2022-10-29] MEDS: LEVOTHYROXINE SODIUM 100 MCG TABLET PO (06:30)
[2022-10-29 08:00] VITALS: BP 160/78; PULSE 95; RESP 15; RESP 20; TEMP 36.4; O2SAT 99
[2022-10-29 08:12] VITALS: PULSE 95
[2022-10-29] MEDS: METOPROLOL TARTRATE 25 MG TABLET 50 MG PO (08:12)
[2022-10-29] MEDS: CEFDINIR 300 MG CAPSULE PO ×2 (08:12→21:07)
[2022-10-29] MEDS: QUEtiapine FUMARATE 25 MG TABLET PO ×2 (08:13→21:07)
[2022-10-29] MEDS: GLIMEPIRIDE 2 MG TABLET PO (08:13)
[2022-10-29 08:31] LABS: Glucose Point of Care 190 mg/dl (65-105)
[2022-10-29 08:32] VITALS: RESP 20
[2022-10-29] MEDS: FLUTICASONE PROP 110 MCG INHALER 12 GM (*SP) 2 PUFF INHALATION ×2 (08:32→21:48)
--- NOTE | 2022-10-29 11:59 | PM.DS ---
DS: Admitting Diagnosis Discharge Date October 29, 2022 Admitting Diagnosis Acute psychotic episode DS: Discharge Diagnosis Discharge Diagnosis (1) Altered mental status: Code(s): R41.82 - Altered mental status, unspecified Status: Acute Assessment and Plan: I think her altered mental status is likely related to her paranoia. She does have a UTI however which I suppose could be playing a role as well. No focal deficits to suggest CVA. Drug screen was negative. (2) Paranoid schizophrenia: Code(s): F20.0 - Paranoid schizophrenia Status: Acute Assessment and Plan: Recently at an inpatient facility as detailed in HPI. Patient reports feeling suicidal but is unable to verbalize a plan. She will need a crisis evaluation when she is treated for the UTI. Continue home medications. (3) Urinary tract infection: Code(s): N39.0 - Urinary tract infection, site not specified Status: Acute Assessment and Plan: She has been started on ceftriaxone, pending urine culture. (4) Hypertension: Qualifiers: Hypertension type: essential hypertension Qualified Code(s): I10 - Essential (primary) hypertension Code(s): I10 - Essential (primary) hypertension Status: Chronic Assessment and Plan: Continue antihypertensives and monitor. (5) Type 2 diabetes mellitus: Code(s): E11.9 - Type 2 diabetes mellitus without complications Status: Acute Assessment and Plan: Continue glimepiride. Initiate sliding scale insulin, Accu-Cheks, and hypoglycemic protocol. (6) Hypokalemia: Code(s): E87.6 - Hypokalemia Status: Acute Assessment and Plan: Replace potassium and monitor. (7) Suicidal ideation: Code(s): R45.851 - Suicidal ideations Status: Acute Assessment and Plan: Initiate suicide precautions as detailed above. Will need crisis evaluation once medically stable. (8) Lower extremity edema: Code(s): R60.0 - Localized edema Status: Acute Assessment and Plan: Check venous Doppler ultrasounds to rule out DVT given history of the same. DS: Summary Hospital Course Hospital Course: Patient was admitted for acute psychotic episode. She has also having paranoid delusions. Patient is also treated for UTI which is not contributing to any of these issues. She is can be involuntarily admitted to psych unit. Time Spent with Patient Time attestation: Total time spent providing and/or coordinating discharge services: Exam Narrative: General: Chronically ill-appearing elderly female in the semi-Cowan position in bed. Weight: 11.2 kg. BMI: 32.9. HEENT: Wearing glasses. Normocephalic, atraumatic. Pupils are reactive. Extraocular motions appear to be intact. Sclerae anicteric. Conjunctiva mildly injected. Oral mucosa is moist. Her tongue protrudes somewhat out of the mouth and a rhythmic fashion consistent with tardive dyskinesia. Oropharynx not visualized. Neck: Supple. Scar consistent with prior thyroidectomy. Respiratory: Lung sounds are diminished due to poor effort. Cardiovascular: Regular rate and rhythm with S1-S2. Gastrointestinal: Abdomen is soft and nondistended with positive bowel sounds. She is a bit tender to palpation in the suprapubic region. No guarding or rebound tenderness. Skin: Warm and dry. Extremities: No cyanosis or clubbing. 1+ mitch ankle edema, softening above the ankles. Equivocal Homans sign bilaterally. Neurological: Alert to name. She does not answer the rest of the orientation questions. Cranial nerves 2-12 are grossly intact. Speech is slow and tangential. No facial asymmetry. Noted to move upper and lower extremities. She did not participate in the neurologic exam. Psychiatric: Depressed mood. Flat affect. Exhibits paranoid thoughts. DS: Data Data Completed and Pending Labs on day of discharge: Labs from last 24 hours 10/29/22
[2022-10-29 12:26] LABS: Glucose Point of Care 128 mg/dl (65-105)
[2022-10-29 15:16] LABS: Hematocrit 40.5 % (37.0-47.0); Hemoglobin 13.6 g/dL (12.0-15.0); Mean Corpuscular HGB Conc 33.6 g/dl (32-36); Mean Corpuscular Hemoglobin 29.4 pg (26-34); Mean Corpuscular Volume 87.7 fl (80-100); Mean Platelet Volume 11.1 fl (7.4-10.4); Platelet Count Result 249 k/mm3 (150-375); Red Blood Count 4.62 M/mm3 (4.2-5.4); Red Cell Distribution Width 13.8 % (11.5-14.5); White Blood Count 9.3 K/mm3 (4.5-10.0)
[2022-10-29 15:31] LABS: Alanine Aminotransferase 60 U/L (6-35); Albumin Level 4.4 g/dL (3.5-5.1); Alkaline Phosphatase 152 U/L (38-126); Anion Gap 10 mmol/L (8-16); Aspartate Amino Transferase 40 U/L (14-36); Bilirubin,Total 0.5 mg/dL (0.2-1.3); Blood Urea Nitrogen 15 mg/dL (7-17); Calcium 8.7 mg/dL (8.4-10.2); Carbon Dioxide 24 mmol/L (22-30); Chloride 102 mmol/L (98-107); Estimated CRCL calculation 80 ml/min; Estimated Glomerular Filt Rate > 60; Glucose 206 mg/dL (65-110); Potassium 3.9 mmol/L (3.4-5.0); Sodium 136 mmol/L (137-145)
[2022-10-29 15:41] LABS: Influenza A QL RT-PCR Negative (Negative); Influenza B QL RT-PCR Negative (Negative); RSV RNA, RT-PCR Negative (Negative); SARS-CoV-2 RNA PCR Negative
[2022-10-29 16:00] VITALS: BP 158/78; PULSE 70; RESP 12; TEMP 36.7; O2SAT 99
[2022-10-29 16:12] LABS: Glucose Point of Care 199 mg/dl (65-105)
[2022-10-29] MEDS: METOPROLOL TARTRATE 25 MG TABLET PO (18:24)
[2022-10-29 18:45] LABS: Appearance Urine Clear (Clear); Bilirubin Urine Negative (Negative); Blood Urine Negative (Negative); Color Urine Yellow (Yellow); Glucose Urine UA Trace mg/dL (Negative); Ketones Urine Negative (Negative); Leukocyte Esterase Ur Negative LEU/UL (NEGATIVE); Nitrate Urine Negative (Negative); Protein Urine Negative (Negative); Specific Grav Ur 1.004 (1.001-1.035); Urobilinogen Urine 0.2 mg/dL (<2.0); pH Urine 6.5 (5.0-9.0)
[2022-10-29 18:54] LABS: Barbiturate Screen Urine Negative (Negative); Benzodiazepines Screen Urine Negative (Negative)
[2022-10-29 19:00] LABS: Amphetamine Screen Urine Negative (Negative); Cannabinoid Screen Urine Negative (Negative); Cocaine Screen Urine Negative (Negative); Methadone Screen Urine Negative (Negative); Opiate Screen Urine Negative (Negative); Phencyclidine Screen Urine Negative (Negative)
[2022-10-29 19:08] LABS: Add Urine Microscopic? NO
[2022-10-29] MEDS: rOPINIRole HCL 1 MG TABLET 4 MG PO (21:06)
--- NOTE | 2022-10-29 21:38 | PC.NURSE ---
[facility] called around 2100 asking for pt information to be sent to [facility]. Fax number [phone]. Notified batch tester, Darin.
[2022-10-29 23:24] LABS: Glucose Point of Care 131 mg/dl (65-105)
[2022-10-29 23:25] VITALS: BP 159/73; PULSE 65; RESP 16; TEMP 36.3; O2SAT 96
--- NOTE | 2022-10-29 23:29 | PC.NURSE ---
Pt currently resting in bed comfortably, cooperative but suspicious. Pt currently A&Ox4 and admitted to having auditory hallucinations. She wasn't specific about what the hallucinations were telling her. Pt also has delusions and has been asking to call her friends because she needs to leave the hospital with another pt that she saw walking in the hallway. Pt educated to stay in her room and that she doesn't need to worry about other pts in the hospital. Pt is redirectable at this time. All VS currently stable and as follows: Temp: 97.4 HR: 65 SpO2: 96% RR: 16 BP: 159/73 blood glucose: 131
[2022-10-30] MEDS: clonazePAM (*CRX) 0.5 MG TABLET PO (01:12)
[2022-10-30] MEDS: ALBUTEROL SULFATE (*SP) AEROSOL 1 PUFF INHALATION (01:17)
[2022-10-30] MEDS: rOPINIRole HCL 1 MG TABLET 4 MG PO (03:43)
[2022-10-30] MEDS: traZODone HCL 50 MG TABLET 100 MG PO (03:43)
[2022-10-30] MEDS: LEVOTHYROXINE SODIUM 100 MCG TABLET PO (06:10)
[2022-10-30 08:00] VITALS: BP 115/74; PULSE 75; RESP 16; TEMP 36.5; O2SAT 100; O2SAT 92
[2022-10-30] MEDS: FLUTICASONE PROP 110 MCG INHALER 12 GM (*SP) 2 PUFF INHALATION (08:48)
[2022-10-30 08:58] LABS: Glucose Point of Care 138 mg/dl (65-105)
[2022-10-30 09:30] VITALS: PULSE 80
[2022-10-30] MEDS: METOPROLOL TARTRATE 25 MG TABLET 50 MG PO (09:30)
[2022-10-30] MEDS: CEFDINIR 300 MG CAPSULE PO (09:30)
[2022-10-30] MEDS: GLIMEPIRIDE 2 MG TABLET PO (09:30)
[2022-10-30] MEDS: QUEtiapine FUMARATE 25 MG TABLET PO (09:30)
--- NOTE | 2022-10-30 11:32 | PM.DS ---
DS: Admitting Diagnosis Discharge Date October 30, 2022 Admitting Diagnosis Acute psychotic episode DS: Discharge Diagnosis Discharge Diagnosis (1) Altered mental status: Code(s): R41.82 - Altered mental status, unspecified Status: Acute Assessment and Plan: I think her altered mental status is likely related to her paranoia. She does have a UTI however which I suppose could be playing a role as well. No focal deficits to suggest CVA. Drug screen was negative. (2) Paranoid schizophrenia: Code(s): F20.0 - Paranoid schizophrenia Status: Acute Assessment and Plan: Recently at an inpatient facility as detailed in HPI. Patient reports feeling suicidal but is unable to verbalize a plan. She will need a crisis evaluation when she is treated for the UTI. Continue home medications. (3) Urinary tract infection: Code(s): N39.0 - Urinary tract infection, site not specified Status: Acute Assessment and Plan: She has been started on ceftriaxone, pending urine culture. (4) Hypertension: Qualifiers: Hypertension type: essential hypertension Qualified Code(s): I10 - Essential (primary) hypertension Code(s): I10 - Essential (primary) hypertension Status: Chronic Assessment and Plan: Continue antihypertensives and monitor. (5) Type 2 diabetes mellitus: Code(s): E11.9 - Type 2 diabetes mellitus without complications Status: Acute Assessment and Plan: Continue glimepiride. Initiate sliding scale insulin, Accu-Cheks, and hypoglycemic protocol. (6) Hypokalemia: Code(s): E87.6 - Hypokalemia Status: Acute Assessment and Plan: Replace potassium and monitor. (7) Suicidal ideation: Code(s): R45.851 - Suicidal ideations Status: Acute Assessment and Plan: Initiate suicide precautions as detailed above. Will need crisis evaluation once medically stable. (8) Lower extremity edema: Code(s): R60.0 - Localized edema Status: Acute Assessment and Plan: Check venous Doppler ultrasounds to rule out DVT given history of the same. DS: Summary Hospital Course Hospital Course: patient was admitted for acute psychotic episode.? She has also having paranoid delusions.? Patient is also treated for UTI which is not contributing to any of these issues.? She is can be involuntarily admitted to psych unit. Time Spent with Patient Time attestation: Total time spent providing and/or coordinating discharge services: Exam Narrative: General: Chronically ill-appearing elderly female in the semi-Cowan position in bed. Weight: 11.2 kg. BMI: 32.9. HEENT: Wearing glasses. Normocephalic, atraumatic. Pupils are reactive. Extraocular motions appear to be intact. Sclerae anicteric. Conjunctiva mildly injected. Oral mucosa is moist. Her tongue protrudes somewhat out of the mouth and a rhythmic fashion consistent with tardive dyskinesia. Oropharynx not visualized. Neck: Supple. Scar consistent with prior thyroidectomy. Respiratory: Lung sounds are diminished due to poor effort. Cardiovascular: Regular rate and rhythm with S1-S2. Gastrointestinal: Abdomen is soft and nondistended with positive bowel sounds. She is a bit tender to palpation in the suprapubic region. No guarding or rebound tenderness. Skin: Warm and dry. Extremities: No cyanosis or clubbing. 1+ mitch ankle edema, softening above the ankles. Equivocal Homans sign bilaterally. Neurological: Alert to name. She does not answer the rest of the orientation questions. Cranial nerves 2-12 are grossly intact. Speech is slow and tangential. No facial asymmetry. Noted to move upper and lower extremities. She did not participate in the neurologic exam. Psychiatric: Depressed mood. Flat affect. Exhibits paranoid thoughts. DS: Data Data Completed and Pending Labs on day of discharge: Labs from last 24 hours 10/30/22
[2022-10-30 11:43] LABS: Glucose Point of Care 167 mg/dl (65-105)
== END 2022-10-30 14:58 | disposition home or self-care (01) ==
LOC: ANHED 11:57 → ANHICU 10-28 19:11
PROVIDERS: Emergency Medicine; Physician Assistant; Admitting Provider Internal Medicine; Emergency Provider Physician Assistant; PCP Family Medicine; Visit Provider Chiropractor
DX: R41.82 Altered mental status, unspecified (principal); F20.0 Paranoid schizophrenia; I10 Essential (primary) hypertension; E11.9 Type 2 diabetes mellitus without complications; E87.6 Hypokalemia; R45.851 Suicidal ideations; R60.0 Localized edema; Z20.822 Contact with and (suspected) exposure to COVID-19; N39.0 Urinary tract infection, site not specified; B96.1 Klebsiella pneumoniae [K. pneumoniae] as the cause of diseases classified elsewhere; G24.01 Drug induced subacute dyskinesia; D64.9 Anemia, unspecified; H43.813 Vitreous degeneration, bilateral; Z91.199 Patient's noncompliance with other medical treatment and regimen due to unspecified reason; Z91.51 Personal history of suicidal behavior; Z86.718 Personal history of other venous thrombosis and embolism; Z79.84 Long term (current) use of oral hypoglycemic drugs; Z79.51 Long term (current) use of inhaled steroids; Z79.899 Other long term (current) drug therapy
CPT/HCPCS: 36415; 70450; 80053; 80307; 81001; 81003; 82140; 82607; 82948; 83036; 83735; 84443; 85025; 85027; 87077; 87086; 87186; 87636; 87637; 93005; 93970; 94640; 96361; 96365; 96372; 99285; A9270; G0378; J0696; J1630; J1815; J7030

== ENCOUNTER 2022-12-01 07:58 | Emergency (ER) | payer MEDICARE, SELFPAY ==
[2022-12-01] VITALS (10 sets, daily range): BP systolic 141–158; BP diastolic 73–86; PULSE 65–77; RESP 17–20; TEMP 36.4; O2SAT 98–100
--- NOTE | ~2022-12-01 | CT_ITS ---
EXAMINATION: CT cervical spine wo con DATE: 12/01/2022 08:59 INDICATION: Trauma. TECHNIQUE: Computed tomography (CT) of the cervical spine was performed without intravenous contrast. The dose-length product was 515 mGy-cm. Automated exposure control and iterative reconstruction tech nique were employed. COMPARISON: None FINDINGS: There is advanced degenerative disc disease at C4-5, C5-6 and C6-7. There is straightening of cervical lordosis. Craniovertebral junction is normal. Odontoid process is normal. No evidence for perched facet. Mild-moderate multilevel uncinate hypertrophy. No acute fracture or traumatic malalig nment. Lung apices are unremarkable. IMPRESSION: 1. No acute fracture. Reviewed, dictated and finalized at location A. IMPRESSION: 1. No acute fracture.
--- NOTE | ~2022-12-01 | CT_ITS ---
EXAMINATION: CT BRAIN W/O DATE: 12/01/2022 08:59 INDICATION: Altered mental status TECHNIQUE: Computed tomography (CT) of the head was performed without intravenous contrast. The dose- length product was 832.33 mGy-cm. Automated exposure control and iterative reconstruction technique w ere employed. COMPARISON: No prior studies for comparison. FINDINGS: Normal brain parenchymal volume for age. Normal owusu-white differentiation. No acute intrac ranial hemorrhage, infarction, mass or mass effect. No ventriculomegaly or midline shift. Midline sagittal images demonstrate a normal corpus callosum, c raniovertebral junction and sella turcica. Basilar cisterns are patent. Mild mucosal thickening of the maxillary and ethmoid sinuses. Mastoids are pneumatized. No depressed skull fractures. There is intracranial atherosclerosis. IMPRESSION: 1. No acute intracranial abnormality. Reviewed, dictated and finalized at location A.
[2022-12-01 08:09] LABS: Glucose Point of Care 148 mg/dl (65-105)
--- NOTE | 2022-12-01 08:10 | ECG_ITS ---
Measurements Intervals [place] Rate: 71 P: 50 IN: 204 QRS: -16 QRSD: 111 T: 20 QT: 394 QTc: 430 Interpretive Statements SINUS RHYTHM INTRAVENTRICULAR CONDUCTION DELAY LEFT VENTRICULAR HYPERTROPHY BORDERLINE R WAVE PROGRESSION, ANTERIOR LEADS MINIMAL Q WAVES- HIGH LATERAL LEADS BORDERLINE ECG COMPARED TO ECG 10/26/2022 09:19:20 INTRAVENTRICULAR CONDUCTION DELAY NOW PRESENT Electronically Signed On 12-01-2022 13:00:07 CDT by Neo Doyle D.O.
--- NOTE | 2022-12-01 08:11 | ED.GENADULT ---
HPI - General Adult General Chief complaint: Unspecified Stated complaint: found on floor History of Present Illness HPI narrative: 72-year-old female presenting to the emergency department for evaluation for increased somnolence and a fall from bed. Patient states that she was recently discharged from [facility] [place] and was started on a medication that she feels gives her bad side effects. Patient states that she took extra dose of her Ativan to help her sleep. Patient states this morning she had a fall from bed. Upon arrival to the ED patient is somnolent but is alert and able to provide history. Patient states that this was an attempt to sleep and not an attempt at self-harm. Related Data Home Medications Medication Instructions Recorded Confirmed clozapine 100 mg tablet 350 mg PO HS 03/17/21 10/26/22 aripiprazole 2 mg tablet 1 mg PO QHS 05/22/22 10/26/22 beclomethasone dipropionate 80 2 inh inhalation Q12H 10/26/22 10/26/22 mcg/actuation HFA breath activated aerosol (Qvar RediHaler) clonazepam 0.5 mg tablet 0.5 mg PO DAILY PRN Anxiety 10/26/22 10/26/22 glimepiride 2 mg tablet 2 mg PO DAILY 10/26/22 10/26/22 levothyroxine 100 mcg tablet 100 mcg PO DAILY 10/26/22 10/26/22 ropinirole 4 mg tablet 12 mg PO HS 10/27/22 10/27/22 Allergies Allergy/AdvReac Type Severity Reaction Status Date / Time atorvastatin Allergy Unknown pain Verified 12/01/22 08:12 Iodinated Contrast Media Allergy Unknown Hives Verified 12/01/22 08:12 liraglutide Allergy Unknown Unknown Verified 12/01/22 08:12 metformin Allergy Unknown Renal Verified 12/01/22 08:12 impairment tetracycline Allergy Unknown Unknown Verified 12/01/22 08:12 lisinopril AdvReac Mild dizziness Verified 12/01/22 08:12 sulfamethoxazole AdvReac sore Verified 12/01/22 08:12 [From Bactrim] throat/ hoarseness trimethoprim [From Bactrim] AdvReac sore Verified 12/01/22 08:12 throat/ hoarseness Review of Systems Review of Systems: All systems reviewed & are unremarkable except as noted in HPI and below PMFSH Past Medical History Medical History (Updated 12/01/22 @ 16:01 by Wilber Arboleda MD) Ankle fracture, left Complicated urinary tract infection Diabetes DVT (deep venous thrombosis) Edema General unsteadiness History of chicken pox 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 Under the care of Psychiatrist. Seizures .8. eeg negative 03.14.21 mri brain normal Staghorn calculus Stress incontinence (female) (male) Vitreous degeneration, bilateral Surgical History Surgical History (Updated 10/29/22 @ 00:51 by Susan Montes PA-C) H/O nephrolithotomy with removal of calculi (~04/2022) History of hysterectomy History of open reduction and internal fixation (ORIF) procedure repair of lt ankle fracture History of subtotal thyroidectomy Hx of appendectomy Hx of eye surgery x2 Hx of varicose vein ligation Family History Family History Father Hypertension, Onset Age: 75 Family history of malignant neoplasm of thyroid Patient's father is Mother Hypertension Family history of dementia Family history of rheumatoid arthritis Sibling Family history of malignant neoplasm Family history of hepatitis Esophageal cancer Kidney failure Other Family history of malignant neoplasm of breast Family history of mental disorder Family history of thyroid disease Social History Social History (Updated 10/29/22 @ 00:51 by Susan Montes PA-C) Social History: Caffeine-seldom Smoking status: Never smoker Second hand tobacco smoke exposure: No Alcohol intake: never Substance use: never Substance use type: does not use Lack of Transportation: No Lack of Food: Never True Current Housing: Decline to A
[2022-12-01 08:40] LABS: Alveolar/Arterial O2 Gradient 25.9 mmHg; Base Excess ABG -2.1 mEq/l (+/-2.0); Carboxyhemoglobin 0.3 % THb (0-2.0); Fractional Inspired Oxygen 21 %; HCO3 ABG 22.9 mEq/l (22.0-26.0); Methemoglobin ABG 0.2 %THb (0-1.5); Oxygen Content ABG 16.4 %vol (16.0-22.0); Oxygen Saturation ABG 94.9 % (95.0-100.0); Oxyhemoglobin 93.7 % THb (90.0-100.0); PCO2 ABG 40.2 mmHg (35.0-45.0); PO2 ABG 75.7 mmHg (80.0-100.0); Reduced Hemoglobin 5.8 %THb (0-5.0); Total Hemoglobin 12.4 g/dL (12.0-18.0); pH ABG 7.374 (7.350-7.450)
[2022-12-01 08:41] LABS: Modified Allen's Test Pass; Site Drawn LEFT RADIAL
[2022-12-01 08:44] LABS: Basophils Absolute Auto 0.1 K/mm3 (0.0-0.1); Basophils Percent Auto 0.5 % (0.2-1.2); Eosinophils Absolute Auto 0.2 K/mm3 (0-0.3); Eosinophils Percent Auto 1.9 % (0-4.4); Hematocrit 38.9 % (37.0-47.0); Hemoglobin 12.7 g/dL (12.0-15.0); Immature Granulocyte Absolute 0.05 K/mm3 (0.00-0.031); Immature Granulocyte Percent A 0.5 % (0-0.5); Lymphocytes Absolute Auto 1.71 K/mm3 (0.9-3.2); Mean Corpuscular HGB Conc 32.6 g/dl (32-36); Mean Corpuscular Hemoglobin 28.9 pg (26-34); Mean Corpuscular Volume 88.6 fl (80-100); Mean Platelet Volume 11.5 fl (7.4-10.4); Monocytes Absolute Auto 0.6 K/mm3 (0.1-0.6); Monocytes Percent Auto 5.3 % (2.6-8.5); Neutrophils Absolute Auto 8.1 K/mm3 (1.3-6.7); Neutrophils Percent Auto 75.8 % (45.5-73.1); Platelet Count Result 207 k/mm3 (150-375); Red Blood Count 4.39 M/mm3 (4.2-5.4); Red Cell Distribution Width 13.6 % (11.5-14.5); White Blood Count 10.7 K/mm3 (4.5-10.0)
[2022-12-01 08:51] LABS: Appearance Urine Clear (Clear); Bilirubin Urine Negative (Negative); Blood Urine Negative (Negative); Color Urine Yellow (Yellow); Glucose Urine UA Negative (Negative); Ketones Urine Negative (Negative); Leukocyte Esterase Ur Negative LEU/UL (Negative); Nitrate Urine Negative (Negative); Protein Urine Negative (Negative); Specific Grav Ur 1.015 (1.001-1.035); Urobilinogen Urine 0.2 mg/dL (<2.0)
[2022-12-01 08:55] LABS: Alanine Aminotransferase 58 U/L (6-35); Albumin Level 4.1 g/dL (3.5-5.1); Alkaline Phosphatase 103 U/L (38-126); Anion Gap 6 mmol/L (8-16); Aspartate Amino Transferase 36 U/L (14-36); Bilirubin,Total 0.4 mg/dL (0.2-1.3); Blood Urea Nitrogen 17 mg/dL (7-17); Calcium 8.8 mg/dL (8.4-10.2); Carbon Dioxide 29 mmol/L (22-30); Chloride 103 mmol/L (98-107); Estimated CRCL calculation 90 ml/min; Estimated Glomerular Filt Rate > 60; Glucose 148 mg/dL (65-110); Potassium 3.9 mmol/L (3.4-5.0); Sodium 138 mmol/L (137-145)
[2022-12-01 08:56] LABS: INR 0.9; Lactic Acid Reflex 1.6 mmol/L (0.7-2.0); Partial Thromboplastin Time 26.7 SECONDS (22.3-36.8); Prothrombin Time 12.5 Seconds (11.1-14.7)
[2022-12-01 08:56] LABS: Acetaminophen < 10 ug/mL (10-30); Ethanol < 10 mg/dL (<10); Salicylate < 1.0 mg/dL (2-20)
[2022-12-01 09:05] LABS: Amphetamine Screen Urine Negative (Negative); Barbiturate Screen Urine Negative (Negative); Benzodiazepines Screen Urine Negative (Negative); Cannabinoid Screen Urine Negative (Negative); Cocaine Screen Urine Negative (Negative); Methadone Screen Urine Negative (Negative); Opiate Screen Urine Negative (Negative); Phencyclidine Screen Urine Negative (Negative)
[2022-12-01 09:06] LABS: Add Urine Microscopic? NO
== END 2022-12-01 15:36 | disposition home or self-care (01) ==
PROVIDERS: Emergency Provider Emergency Medicine; PCP Family Medicine
DX: T42.4X1A Poisoning by benzodiazepines, accidental (unintentional), initial encounter (principal); E11.9 Type 2 diabetes mellitus without complications; Z86.718 Personal history of other venous thrombosis and embolism; W06.XXXA Fall from bed, initial encounter; Z79.899 Other long term (current) drug therapy
CPT/HCPCS: 36415; 36600; 70450; 72125; 80053; 80307; 81003; 82375; 82805; 82948; 83050; 83605; 84443; 85025; 85610; 85730; 93005; 99284

== ENCOUNTER → 2022-12-19 13:46 | Outpatient (CLI) | payer MEDICARE, SELFPAY ==
--- NOTE | ~2022-12-19 | US_ITS ---
EXAMINATION: US carotid duplex BI DATE: 12/19/2022 14:18 INDICATION: Visual disturbance. TECHNIQUE: Grayscale, color Doppler, and pulsed Doppler images of the cervical carotid arteries were obtained. The degree of vessel stenosis is placed in one of the following categories: normal, <50%, 5 0-69%, >=70% but less than near-occlusion, near-occlusion, or total occlusion. Note that percent sten osis relative to normal distal artery lumen diameter is indirectly measured from velocity measurement s as described by Ray, et al. Radiology 2003; 229:340-346. COMPARISON: 06/06/2016 FINDINGS: RIGHT: The right common carotid artery (CCA) peak systolic velocity (PSV) is 149 cm/s. The right internal ca rotid artery (ICA) PSV is 114 cm/s. The right ICA end-diastolic velocity (EDV) is 11 cm/s. The right ICA/CCA PSV ratio is 0.8. Grayscale and color Doppler images yield an estimate of <50% diameter reduc tion from plaque in the ICA. The external carotid artery (ECA) PSV is 187 cm/s. There is antegrade fl ow in the right vertebral artery. LEFT: The left CCA PSV is 116 cm/s. The left ICA PSV is 140 cm/s. The left ICA EDV is 20 cm/s. The left ICA /CCA PSV ratio is 1.2. Grayscale and color Doppler images including secondary Doppler criteria yield an estimate of <50% diameter reduction from plaque in the ICA. The ECA PSV is 171 cm/s. There is ante grade flow in the left vertebral artery. IMPRESSION: 1. <50% stenosis in the right internal carotid artery. 2. <50% stenosis in the left internal carotid artery. Reviewed, dictated and finalized at location B.
== END ==
PROVIDERS: PCP Family Medicine
DX: H53.8 Other visual disturbances (principal); I65.23 Occlusion and stenosis of bilateral carotid arteries
CPT/HCPCS: 93880

== ENCOUNTER 2022-12-23 11:00 | Emergency (ER) | payer MEDICARE, SELFPAY ==
--- NOTE | ~2022-12-23 | XR_ITS ---
XR chest 1V portable DATE: 12/23/2022 12:08 INDICATION: Cough TECHNIQUE: Portable upright AP chest on 12/2022 at 1207 hours COMPARISON: 07/05/2019 2 view chest FINDINGS: Borderline heart size. Mild aortic unfolding. No hilar or mediastinal enlargement. No pulmonary infiltrate or consolidation, pleural effusion or pulmonary vascular congestion or pneumo thorax is detected. Osteopenia Degenerative spurring of the thoracic spine. IMPRESSION: No active pulmonary disease is evident on this limited single portable view Reviewed, dictated and finalized at location A. IMPRESSION: No active pulmonary disease is evident on this limited single erika ble view
[2022-12-23 11:04] VITALS: BP 164/79; PULSE 90; RESP 18; TEMP 36.6; O2SAT 99
--- NOTE | 2022-12-23 11:24 | ECG_ITS ---
Measurements Intervals [place] Rate: 74 P: 54 DC: 197 QRS: -20 QRSD: 122 T: 33 QT: 391 QTc: 434 Interpretive Statements SINUS RHYTHM MODERATE VOLTAGE CRITERIA FOR LVH, CONSIDER NORMAL VARIANT [MEETS CRITERIA IN ONE OF: R(aVL), S(V1), R(V5), R(V5/V6)+S(V1)] COMPARED TO ECG 12/01/2022 08:17:09 NO SIGNIFICANT CHANGES Electronically Signed On 12-23-2022 12:18:22 CDT by Giuliana Genao M.D.
--- NOTE | 2022-12-23 11:24 | ED.RECABL ---
HPI - Recheck/Abnormal Lab/Rx General Chief Complaint: Recheck/Abnormal Lab/Rx Stated Complaint: high BS; weeping wound Time Seen by Provider: 12/23/22 11:14 History of Present Illness HPI narrative: 72-year-old female with a history of JAVI, schizophrenia, type 2 diabetes, hypertension , chronic venous stasis reports for evaluation of worsening bilateral lower extremity edema and a weeping wound to her right lower extremity x5 day ,and for evaluation due to her glucose being elevated to 405 this morning. She ate brownies for breakfast and did not take her glipizide this morning, took her blood glucose which was 405 and came to the ED. She is not having any signs or symptoms of infection and states she normally takes her medications daily, she is unsure why she did not take it this morning. Patient states she has had increased edema to her extremities for the past few weeks, her primary and had her Lasix dose increased to 40 mg daily on 12/12. Patient reports it did not help the edema. She reports 5 days ago, she noticed a wound to her right lower extremity that started weeping and came here because she has not stopped weeping and she think she need stitches . States she had an echocardiogram in February and was told it was normal . She has followed with Dr. Ramos (cardiology) for multiple years because she was having dizziness many years ago and was sent to cardiology for evaluation. States her last appoint with Dr. Ramos was 6 months ago and normal. She states she has shortness of breath which is unchanged from her baseline and due to her asthma. She also reports nasal congestion and a intermittent productive cough. Denies CP, abdominal pain, fever, body aches, chills, rashes, leg pain, hemoptysis. Echo on 03/03/2022 summary as follows: ? 1. Complete two-dimensional, color flow and Doppler transthoracic echocardiogram is performed. ? 2. Left ventricular chamber dimension is normal. ? 3. Left ventricular systolic function is normal, estimated at 60-65%. ? 4. The left ventricular diastolic function is grade I diastolic dysfunction. ? 5. E/e' 8 is minimally elevated. ? 6. There is trace mitral valve regurgitation. ? 7. No pulmonary hypertension, estimated pulmonary arterial systolic pressure is 23 mmHg. Related Data Home Medications Medication Instructions Recorded Confirmed clozapine 100 mg tablet 350 mg PO HS 03/17/21 12/12/22 aripiprazole 2 mg tablet 1 mg PO QHS 05/22/22 12/12/22 beclomethasone dipropionate 80 2 inh inhalation Q12H 10/26/22 12/12/22 mcg/actuation HFA breath activated aerosol (Qvar RediHaler) clonazepam 0.5 mg tablet 0.5 mg PO DAILY PRN Anxiety 10/26/22 12/12/22 ropinirole 4 mg tablet 12 mg PO HS 10/27/22 12/12/22 escitalopram oxalate 20 mg tablet 20 mg PO DAILY 12/06/22 12/12/22 loxapine succinate 50 mg capsule 50 mg PO ONCE 12/06/22 12/12/22 hydroxyzine HCl 10 mg tablet 10 mg PO QHS PRN 12/12/22 12/12/22 Allergies Allergy/AdvReac Type Severity Reaction Status Date / Time atorvastatin Allergy Unknown pain Verified 12/23/22 11:01 Iodinated Contrast Media Allergy Unknown Hives Verified 12/23/22 11:01 liraglutide Allergy Unknown Unknown Verified 12/23/22 11:01 metformin Allergy Unknown Renal Verified 12/23/22 11:01 impairment tetracycline Allergy Unknown Unknown Verified 12/23/22 11:01 lisinopril AdvReac Mild dizziness Verified 12/23/22 11:01 sulfamethoxazole AdvReac sore Verified 12/23/22 11:01 [From Bactrim] throat/ hoarseness trimethoprim [From Bactrim] AdvReac sore Verified 12/23/22 11:01 throat/ hoarseness Review of Systems Review of Systems: CONSTITUTIONAL: Denies fever, chills EYES: Denies visual changes, redness, or discharge. ENT: Denies rhinorrhea, sore throat, or otalgia. CARDIOVASCULAR: See HPI RESPIRATORY: See HPI GASTROINTESTINAL: Denies abdominal pain, nausea, vomiting, or diarrhea. GENITOURINARY: Denies dysuria or hematuria. SKIN: Denies rash or itching. MUSCULOSKELETAL
[2022-12-23 12:08] VITALS: PULSE 73; RESP 18; O2SAT 93
[2022-12-23] MEDS: FUROSEMIDE INJ 40 MG/4 ML VIAL 20 MG IV PUSH (12:11)
[2022-12-23 12:22] LABS: Basophils Absolute Auto 0.1 K/mm3 (0.0-0.1); Basophils Percent Auto 1.2 % (0.2-1.2); Eosinophils Absolute Auto 0.8 K/mm3 (0-0.3); Eosinophils Percent Auto 10.9 % (0-4.4); Hematocrit 34.5 % (37.0-47.0); Hemoglobin 11.5 g/dL (12.0-15.0); Immature Granulocyte Absolute 0.04 K/mm3 (0.00-0.031); Immature Granulocyte Percent A 0.6 % (0-0.5); Lymphocytes Absolute Auto 1.85 K/mm3 (0.9-3.2); Lymphocytes Percent Auto 25.5 % (18.3-44.2); Mean Corpuscular HGB Conc 33.3 g/dl (32-36); Mean Corpuscular Hemoglobin 28.8 pg (26-34); Mean Corpuscular Volume 86.5 fl (80-100); Mean Platelet Volume 11.6 fl (7.4-10.4); Monocytes Absolute Auto 0.5 K/mm3 (0.1-0.6); Monocytes Percent Auto 7.2 % (2.6-8.5); Neutrophils Percent Auto 54.6 % (45.5-73.1); Platelet Count Result 190 k/mm3 (150-375); Red Blood Count 3.99 M/mm3 (4.2-5.4); Red Cell Distribution Width 13.3 % (11.5-14.5); White Blood Count 7.3 K/mm3 (4.5-10.0)
[2022-12-23 12:37] LABS: Alanine Aminotransferase 40 U/L (6-35); Albumin Level 3.7 g/dL (3.5-5.1); Alkaline Phosphatase 105 U/L (38-126); Anion Gap 4 mmol/L (8-16); Aspartate Amino Transferase 27 U/L (14-36); Bilirubin,Total 0.4 mg/dL (0.2-1.3); Blood Urea Nitrogen 16 mg/dL (7-17); Calcium 8.2 mg/dL (8.4-10.2); Carbon Dioxide 26 mmol/L (22-30); Chloride 103 mmol/L (98-107); Estimated CRCL calculation 95 ml/min; Estimated Glomerular Filt Rate > 60; Glucose 333 mg/dL (65-110); Sodium 133 mmol/L (137-145)
[2022-12-23 12:49] LABS: NT Pro B Type Natriuretic Pept 50 pg/mL (19.9-100)
[2022-12-23 13:01] LABS: Influenza A QL RT-PCR Negative (Negative); Influenza B QL RT-PCR Negative (Negative); SARS-CoV-2 RNA PCR Negative (Negative)
[2022-12-23 13:36] VITALS: BP 138/71; PULSE 80; RESP 18; O2SAT 100
[2022-12-23 13:44] LABS: Appearance Urine Clear (Clear); Bilirubin Urine Negative (Negative); Blood Urine Negative (Negative); Color Urine Yellow (Yellow); Glucose Urine UA 1+ mg/dL (Negative); Ketones Urine Negative (Negative); Leukocyte Esterase Ur Negative LEU/UL (Negative); Nitrate Urine Negative (Negative); Protein Urine Negative (Negative); Specific Grav Ur 1.006 (1.001-1.035); Urobilinogen Urine 0.2 mg/dL (<2.0); pH Urine 5.5 (5.0-9.0)
[2022-12-23 13:48] LABS: Add Urine Microscopic? NO
[2022-12-23] MEDS: glipiZIDE XL 2.5 MG TAB.ER.24 PO (14:06)
[2022-12-23 14:15] VITALS: BP 156/58; PULSE 79; RESP 18; O2SAT 100
== END 2022-12-23 14:16 | disposition home or self-care (01) ==
PROVIDERS: Emergency Provider Physician Assistant; PCP Family Medicine
DX: R60.0 Localized edema (principal); R06.02 Shortness of breath; E11.65 Type 2 diabetes mellitus with hyperglycemia; I10 Essential (primary) hypertension; G47.33 Obstructive sleep apnea (adult) (pediatric); I87.8 Other specified disorders of veins; F20.9 Schizophrenia, unspecified; J45.909 Unspecified asthma, uncomplicated; Z79.51 Long term (current) use of inhaled steroids; Z79.84 Long term (current) use of oral hypoglycemic drugs; Z20.822 Contact with and (suspected) exposure to COVID-19
CPT/HCPCS: 36415; 71045; 80053; 81003; 83880; 85025; 87636; 93005; 96374; 99284; A9270; J1940

== ENCOUNTER 2023-01-23 13:30 | Outpatient (RCR) | payer MEDICARE, SELFPAY ==
--- NOTE | 2022-12-25 13:26 | OPREHPOC ---
Outpatient Therapy Plan of Care This is a Multidisciplinary Plan of Care that may contain components documented by all disciplines (PT, OT, and ST.) PT Problem 1 PT Problem #1 Knowledge Deficit PT Goal 1 Goal Pt to be IND with issued HEP Target Visit 8 PT Problem 2 PT Problem #2 Pain PT Goal 1 Goal Pt to report low back pain no greater than 4/10 in the last week Target Visit 8 PT Goal 2 Goal Pt to report 75% improvement in overall symptoms Target Visit 8 PT Problem 3 PT Problem #3 Impaired Strength PT Goal 1 Goal Pt to improve BLE strength to grossly 4/5 Target Visit 8 PT Goal 2 Goal Pt to improve 5xSTS time from 26s to 18s to minimize fall risk Target Visit 8 PT Problem 4 PT Problem #4 Impaired Functional Mobil PT Goal 1 Goal Pt to improve 2 min walk distance from 275ft to 350ft Target Visit 8 PT Goal 2 Goal Pt to report a functional lift of 10lb without deviations Target Visit 8 PT Problem 5 PT Problem #5 Impaired Safety Awareness PT Goal 1 Goal Pt to report no falls in the last month Target Visit 8
--- NOTE | 2022-12-25 13:26 | PTOPEVAL1 ---
Assessment and note entered by Veena Albarran, PT, DPT Evaluation Information Assessment Status Evaluation Diagnosis low back pain Onset 1 month Subjective Information Pt states in October she had a one month long hospital stay. She noticed after a change of medication while still in the hospital that she started to have back pain. She was in the emergency room 2 days ago for blood sugar concerns and a weeping wound on her R keene. She states she has been using a walker since getting out of the hospital d/t being so week. She reports she was supposed to have HH PT but this never happened. She states she was only out of bed for meals while in the hospital. Pt reports 2 falls in the last month, she lives alone but has caregivers that come 2x/wk to help with daily chores. Reported Pain Level Pain Score 6: Self Report Assessment PT Clinical Summary Dori presents to therapy today for her initial evaluation with a diagnosis of low back pain. She reports a month long hospitalization during which she was doing minimal physical activity. Today she demonstrates decreased hip, lumbar, and thoracic ROM, decreased LE and core strength, and decreased postural alignment. Balance and strength deficits are resulting in her using a rollator which she was not prior to her hospitalization. She also reports tenderness to palpation along her sacral border and throughout her lumbar paraspinals. Skilled therapy services are indicated to improve the deficits noted above, to manage pain, to improve safety and independence, and to return to PLOF. Plan of Care Interventions Electrical Stimulation,Gait Training,Hot Pack/Cold Pack,Manual Therapy,Neuro Re-education,Patient/ Caregiver Educati,Therapeutic Activities, Therapeutic Exercise PT Services Indicated Yes Treatment Frequency and 2x/ wk for 4 wks Duration These treatments will address the objective and functional deficits as defined above. The patient will be advanced safely and appropriately in order for the patient to progress towards his/her prior level of function. Additional exercises will be introduced and as well as a comprehensive home exercise program upon discharge, if needed, ?to ensure carryover of functional gains achieved in the clinic. This treatment plan has been reviewed and agreement upon by the patient.
--- NOTE | 2023-01-08 14:19 | PCPTNOTE ---
On 01/08/23, the student Caprice Thacker, provided care and completed [facility] documentation on this patient. I have reviewed the student's documentation and agree with the findings.
--- NOTE | 2023-01-11 15:38 | PCPTNOTE ---
On 01/11/23, the student, Carly Thacker, provided care and completed [facility] documentation on this patient. I have reviewed the student's documentation and agree with the findings.
--- NOTE | 2023-01-15 10:14 | PCPTNOTE ---
On 01/15/23, the student Kirstie Carroll, provided care and completed [facility] documentation on this patient. I have reviewed the student's documentation and agree with the findings.
--- NOTE | 2023-01-17 15:28 | PCPTNOTE ---
On 01/17/23, the student, Kirstie Carroll provided care and completed [facility] documentation on this patient. I have reviewed the student's documentation and agree with the findings.
--- NOTE | 2023-01-23 14:10 | PTOPDC ---
Assessment and note entered by Veena Albarran, PT, DPT Evaluation Information Assessment Status Discharge Diagnosis low back pain Onset 1 month Subjective Information Pt states her back is hurting less than when she stated, she also states she feels less weak. She states her back pain is better than when she went into the hospital. She states balance has been a challenge for her for a while, she feels like her overall mobility has basically returned to normal. Pt reports 65% improvement in her overall symptoms. Reported Pain Level Pain Score 2,2,1: Self Report Assessment PT Clinical Summary Dori presents to therapy today for her progress report following 8 visits of skilled therapy to treat her diagnosis of low back pain. She reports a month long hospitalization during which she was doing minimill physical activity. Today she demonstrates improved BLE strength to grossly 4 to 4+/5. She demonstrates improved times during the 5xSTS and score on the Tinetti that no longer place her at an increased risk of falls. She reports functional better than prior to her hospitalization. She has met all of her therapy goals and no longer requires skilled. She will be discharged at this time. Plan of Care PT Services Indicated No
== END 2023-01-23 14:29 | disposition home or self-care (01) ==
LOC: ANHGOSHPT 13:30
PROVIDERS: PCP Family Medicine; Visit Provider Family Medicine
DX: M54.50 Low back pain, unspecified (principal)
CPT/HCPCS: 97110; 97112; 97140; 97161; 97530

== ENCOUNTER → 2023-02-27 10:21 | Outpatient (CLI) | payer MEDICARE, SELFPAY ==
--- NOTE | ~2023-02-27 | MM_ITS ---
EXAMINATION: MM screening cristhian BI w hilda HISTORY: Screening mammogram TECHNIQUE: Craniocaudal and mediolateral oblique 3-D tomosynthesis images were obtained and synthetic 2-D images were generated. CAD analysis was submitted and interpreted. COMPARISON: 02/15/2021, 04/26/2017, 04/20/2013 BREAST PARENCHYMAL COMPOSITION: The breasts are heterogeneously dense, which may obscure small masses . FINDINGS: Scattered benign-appearing calcifications are present. No suspicious mass, calcification, o r architectural distortion are identified in either breast to suggest malignancy. There has been no s uspicious interval change. IMPRESSION: 1. No mammographic evidence of malignancy. 2. Recommend routine screening mammography in one year. BI-RADS Category 2: Benign finding(s). Reviewed, dictated and finalized at location A.
== END ==
PROVIDERS: PCP Family Medicine; Visit Provider Family Medicine
DX: Z12.31 Encounter for screening mammogram for malignant neoplasm of breast (principal)
CPT/HCPCS: 77063; 77067

== ENCOUNTER → 2023-02-28 07:37 | Outpatient (CLI) | payer MEDICARE, SELFPAY ==
--- NOTE | ~2023-02-28 | US_ITS ---
Limited Abdominal Sonogram: Real-time sonographic imaging of the right upper quadrant was performed. Clinical History: Other fecal abnormalities Findings: The liver appears normal with no evidence of mass lesion or bile duct dilatation. Main por camilla vein demonstrates normal direction of flow. The gallbladder is well distended, and appears normal with no evidence of gallstone or wall thickening. The common bile duct measures 5 mm. The visualize d pancreas, aorta, and IVC are unremarkable. Impression: No significant abnormality seen. Reviewed, dictated and finalized at location . Impression: No significant abnormality seen.
== END ==
PROVIDERS: PCP Family Medicine; Visit Provider Family Medicine
DX: R19.5 Other fecal abnormalities (principal)
CPT/HCPCS: 76705

== ENCOUNTER 2023-04-08 09:16 | Outpatient (CLI) | payer MEDICARE, SELFPAY ==
--- NOTE | 2023-04-08 09:43 | ECHO_ITS ---
Patient Info Name: Dori Louise Age: 72 years : 1950 Gender: Female Ht: 68 in Wt: 223 lbs BSA: 2.24 m2 HR: 78 bpm BP: 158 / 81 mmHg Technical Quality: Fair Exam Date: 04/08/2023 9:45 AM Exam Location: [facility] Patient Status: Outpatient Admit Date: 04/08/2023 Staff Ordering Physician: Neo Doyle DO Public Information Officer: Namita Bland RDCS Attending Provider: Neo Doyle DO Referring Physician: Vivek OBRIEN; Exam Type: CA echo doppler w bubble study Study Info Indications - TIA Complete two-dimensional, color flow and Doppler transthoracic echocardiogram is performed with agitated saline. Contrast/Agitated Saline Contrast/Ag. Saline: Agitated Saline Amount: 20.00 ml Administered By: Kitty White RDCS Existing IV Access: Yes New IV Access: Left Site Condition: IV removed Summary 1. Left ventricular chamber dimension is normal. 2. Left ventricular systolic function is normal, estimated at 60-65%. 3. There is mild concentric increased left ventricular wall thickness. 4. The left ventricular diastolic function is grade I diastolic dysfunction. 5. E/e' 10 is mildly elevated. 6. Left atrial chamber dimension is mildly enlarged. 7. There is trace mitral valve regurgitation. 8. No pulmonary hypertension, estimated pulmonary arterial systolic pressure is 29 mmHg. Left Ventricle E/e' 10 is mildly elevated. Left ventricular chamber dimension is normal. Left ventricular systolic function is normal, estimated at 60-65%. There is mild concentric increased left ventricular wall thickness. The left ventricular diastolic function is grade I diastolic dysfunction. Right Ventricle Right ventricular chamber dimension is normal. Right ventricular systolic function is normal. Left Atria Left atrial chamber dimension is mildly enlarged. Right Atria Right atrial chamber dimension is normal. Atrial Septum Agitated saline injection with and without valsalva maneuver opacified right side cardiac chambers without shunt to left side cardiac chambers. Intact interatrial septum visualized by 2D and agitated saline imaging. Aortic Valve The aortic valve is trileaflet. There is no aortic valve stenosis. There is no aortic valve regurgitation. Pulmonic Valve There is no pulmonic regurgitation. Mitral Valve There is no mitral valve stenosis. There is trace mitral valve regurgitation. Tricuspid Valve There is no tricuspid valve regurgitation. No pulmonary hypertension, estimated pulmonary arterial systolic pressure is 29 mmHg. Pericardium/Pleural There is no pericardial effusion. Inferior Vena Cava Normal inferior vena cava with >50% collapse upon inspiration consistent with normal right atrial pressure, 5 mmHg. Aorta The aortic root size at the sinus of Valsalva is normal. Left Ventricular Outflow Tract Name Value Normal LVOT 2D LVOT Diameter 2.0 cm LVOT Doppler LVOT Peak Gradient 6 mmHg LVOT Mean Gradient 3 mmHg LVOT VTI 26 cm LVOT VTI/AV VTI Ratio 0.8 LVOT Stroke Volume 83 ml
== END 2023-04-08 09:17 | disposition home or self-care (01) ==
LOC: ANHCARD 09:17
PROVIDERS: PCP Family Medicine; Visit Provider Internal Medicine Cardiovascular Disease
DX: H53.8 Other visual disturbances (principal); I51.7 Cardiomegaly; I34.0 Nonrheumatic mitral (valve) insufficiency; R93.1 Abnormal findings on diagnostic imaging of heart and coronary circulation
CPT/HCPCS: 93306; 96375

== ENCOUNTER → 2023-04-30 10:09 | Outpatient (CLI) | payer MEDICARE, SELFPAY ==
--- NOTE | ~2023-04-30 | CT_ITS ---
EXAMINATION: CT abdomen pelvis wo con DATE: 04/30/2023 10:27 INDICATION: Kidney stones TECHNIQUE: Computed tomography (CT) of the abdomen and pelvis was performed without intravenous contr ast. The dose-length product was 896.29 mGy-cm. Automated exposure control and iterative reconstructi on technique were employed. COMPARISON: CT dated 01/10/2022. FINDINGS: There are punctate nonobstructing 2 mm bilateral renal stones. No ureteral stones or hydron ephrosis. Bladder is unremarkable. Ureters are normal in course and caliber. There is cortical scarri ng in the right kidney. Cardiomegaly. Lung bases are unremarkable. No significant pleural or pericardial effusion. The liver, spleen, pancreas, adrenal glands are unremarkable. Gallbladder is present there is a small upper abd ominal ventral hernia containing fat. No bowel obstruction. Moderate lumbar spondylosis. Grade 1 dege nerative spondylolisthesis at L3-4. There is atherosclerosis of the aorta without aneurysm. No lympha denopathy. Nonobstructive bowel pattern. No free air or free fluid. IMPRESSION: 1. Nonobstructing bilateral nephrolithiasis. Reviewed, dictated and finalized at location L.
== END ==
DX: N20.0 Calculus of kidney (principal)
CPT/HCPCS: 74176

== ENCOUNTER 2023-07-17 09:42 | Outpatient (CLI) | payer MEDICARE, SELFPAY ==
--- NOTE | ~2023-07-17 | US_ITS ---
US arterial ankle brachial ind INDICATION: Poor circulation of the extremity TECHNIQUE: Segmental pressures and plethysmographic and Doppler waveforms of the brachial and lower e xtremity arteries were obtained. COMPARISON: None. FINDINGS: Right and left brachial artery pressures of 146 mm Hg and 149 mm Hg, respectively, are concordant (no rmal difference <= 30 mmHg). The right ankle-brachial index (SEAN) is 1.35 (normal >= 0.9-1.0). The right great toe-brachial index (TBI) is 1.03 (normal >= 0.60). The left SEAN is 1.34. The left TBI is 1.21. IMPRESSION: 1. Normal bilateral ankle and toe brachial indices. Reviewed, dictated and finalized at location B. R SUBSTRATE TESTER
== END 2023-07-17 09:43 | disposition home or self-care (01) ==
LOC: CHSIMG 09:44
PROVIDERS: PCP Family Medicine; Visit Provider Family Medicine
DX: R60.0 Localized edema (principal); R09.89 Other specified symptoms and signs involving the circulatory and respiratory systems
CPT/HCPCS: 93922

== ENCOUNTER → 2023-07-29 09:45 | Outpatient (CLI) | payer MEDICARE, SELFPAY ==
--- NOTE | ~2023-07-29 | MR_ITS ---
MRI of the lumbar spine Clinical History: Degenerative disc disease Technique: Axial T2-weighted images, and sagittal T1-weighted, T2-weighted, and T2 fat-sat images wer e acquired. Findings: No acute fracture identified. There is minimal grade 1 anterolisthesis of L3 over L4, and o f L4 over L5. No suspicious bone marrow signal abnormality seen. There is reactive marrow edema at th e L1-L2 disc space due to underlying degenerative disc disease. At L1-L2, there is small disc extrusion at the left paracentral region extending superiorly behind th e L1 vertebral body. There is mild facet arthropathy. No central canal stenosis or neural foraminal n arrowing. At L2-L3, there is mild disc bulge and moderate facet arthropathy. No central canal stenosis or neura l foraminal narrowing. At L3-L4, there is diffuse disc bulge with severe facet arthropathy and probable left-sided 1 cm syno vial cyst (sagittal image 8). There is associated severe compression of the thecal sac, with severe c entral canal stenosis. There is moderate to severe left neural foraminal narrowing, and moderate righ t neural foraminal narrowing. At L4-L5, there is disc bulge and severe facet arthropathy. No central canal stenosis. There is mild to moderate right neural foraminal narrowing. At L5-S1, there is minimal disc bulge. There is moderate facet arthropathy. No central canal stenosis or neural foraminal narrowing. Paravertebral soft tissues are unremarkable. Impression: Multifactorial severe degenerative spondylosis at L3-L4, with associated 1 cm synovial cyst in severe spinal canal stenosis/thecal sac compression. Small disc extrusion at the left paracentral region at L1-L2, extending superiorly. Minimal grade 1 anterolistheses of L3 over L4, and L4 over L5. Reviewed, dictated and finalized at [facility]. MANAGER Impression: Multifactorial severe degenerative spondylosis at L3-L4, with associated 1 cm s ynovial cyst in severe spinal canal stenosis/thecal sac compression. Small disc extrusion at the left paracentral region at L1-L2, extending superio rly. Minimal grade 1 anterolistheses of L3 over L4, and L4 over L5.
== END ==
PROVIDERS: PCP Family Medicine; Visit Provider Family Medicine
DX: M51.16 Intervertebral disc disorders with radiculopathy, lumbar region (principal); M47.816 Spondylosis without myelopathy or radiculopathy, lumbar region; M71.38 Other bursal cyst, other site; M48.061 Spinal stenosis, lumbar region without neurogenic claudication; M51.26 Other intervertebral disc displacement, lumbar region
CPT/HCPCS: 72148

== ENCOUNTER 2023-08-28 06:42 | Emergency (ER) | payer MEDICARE, SELFPAY ==
--- NOTE | ~2023-08-28 | CT_ITS ---
Non-contrast CT scan of the Abdomen and Pelvis Clinical indication: Hematuria, abdominal pain Technique: 2.5 mm axial scans were obtained through the abdomen and pelvis without intravenous or or al contrast. Dose reduction technique was used on this scan by utilizing automated exposure control a nd iterative reconstruction technique. The dose-length product (DLP) was 1138.03 mGy-cm. COMPARISON: 04/30/2023 Findings: Images through the lung bases reveal no abnormalities. There is no evidence of renal or ureteral calculi. The kidneys and the ureters are nondilated. The liver, spleen, pancreas, gallbladder, and adrenals appear normal. There is no aortic aneurysm. There is no evidence of bowel obstruction. Images through the pelvis were performed. There is no evidence of ascites or lymphadenopathy. Urinary bladder unremarkable. No adnexal mass seen. No ascites. Impression: No significant abnormality seen. Reviewed, dictated and finalized at [facility]. ONAL SALES REPRESENTATIVE Impression: No significant abnormality seen.
[2023-08-28 07:00] VITALS: BP 149/67; PULSE 60; RESP 16; TEMP 36.4; O2SAT 100
[2023-08-28 07:28] LABS: Basophils Percent Auto 0.4 % (0.2-1.2); Eosinophils Absolute Auto 0.7 K/mm3 (0-0.3); Eosinophils Percent Auto 6.2 % (0-4.4); Hematocrit 40.2 % (37.0-47.0); Hemoglobin 13.2 g/dL (12.0-15.0); Immature Granulocyte Absolute 0.03 K/mm3 (0.00-0.031); Immature Granulocyte Percent A 0.3 % (0-0.5); Lymphocytes Absolute Auto 1.51 K/mm3 (0.9-3.2); Lymphocytes Percent Auto 13.3 % (18.3-44.2); Mean Corpuscular HGB Conc 32.8 g/dl (32-36); Mean Corpuscular Hemoglobin 27.8 pg (26-34); Mean Corpuscular Volume 84.6 fl (80-100); Mean Platelet Volume 11.1 fl (7.4-10.4); Monocytes Absolute Auto 0.5 K/mm3 (0.1-0.6); Monocytes Percent Auto 4.4 % (2.6-8.5); Neutrophils Absolute Auto 8.6 K/mm3 (1.3-6.7); Neutrophils Percent Auto 75.4 % (45.5-73.1); Platelet Count Result 246 k/mm3 (150-375); Red Blood Count 4.75 M/mm3 (4.2-5.4); Red Cell Distribution Width 14.1 % (11.5-14.5); White Blood Count 11.4 K/mm3 (4.5-10.0)
[2023-08-28 07:34] LABS: Appearance Urine Clear (Clear); Bacteria Urine 4+ /hpf; Bilirubin Urine Negative (Negative); Blood Urine Negative (Negative); Color Urine Yellow (Yellow); Glucose Urine UA Negative (Negative); Ketones Urine Negative (Negative); Leukocyte Esterase Ur 2+ LEU/UL (Negative); Nitrate Urine Negative (Negative); Non Pathogenic Casts 0-2; Protein Urine Negative (Negative); RBC Urine 0-2 /hpf (0-2); Specific Grav Ur 1.006 (1.001-1.035); Squamous Epithelial Cell Urine None seen /hpf (Few); Urobilinogen Urine 0.2 mg/dL (<2.0); WBC Urine 21-50 /hpf; pH Urine 6.5 (5.0-9.0)
[2023-08-28 07:36] VITALS: BP 149/67; PULSE 55; RESP 20; O2SAT 94
[2023-08-28 07:37] LABS: Prothrombin Time 13.3 Seconds (11.1-14.7)
[2023-08-28 07:38] LABS: Partial Thromboplastin Time 29.1 SECONDS (22.3-36.8)
[2023-08-28 07:46] LABS: Alanine Aminotransferase 41 U/L (6-35); Albumin Level 4.3 g/dL (3.5-5.1); Alkaline Phosphatase 89 U/L (38-126); Anion Gap 7 mmol/L (8-16); Aspartate Amino Transferase 28 U/L (14-36); Bilirubin,Total 0.7 mg/dL (0.2-1.3); Blood Urea Nitrogen 15 mg/dL (7-17); Calcium 9.1 mg/dL (8.4-10.2); Carbon Dioxide 27 mmol/L (22-30); Chloride 99 mmol/L (98-107); Estimated CRCL calculation 90 ml/min; Estimated Glomerular Filt Rate > 60; Glucose 154 mg/dL (65-110); Potassium 3.8 mmol/L (3.4-5.0); Sodium 133 mmol/L (137-145)
[2023-08-28 08:02] LABS: Add Urine Microscopic? YES
--- NOTE | 2023-08-28 08:12 | ED.GENADULT ---
HPI - General Adult General Chief complaint: Back Pain/Injury Stated complaint: blood in urine and stool Time Seen by Provider: 08/28/23 07:00 Source: patient Limitations: no limitations History of Present Illness HPI narrative: Patient is a 73-year-old female presented emergency department complaining of blood in her stool and blood in her urine. Patient states that she noticed blood in her stool 6 months ago and thought might be related to aspirin, notes that his extent or distal. Patient denies use of blood thinners or use of NSAIDs or alcohol. Patient notes her last colonoscopy was 2020. He patient denies any significant changes in her blood in her stool. Patient states the blood in her urine she knows partially 2 weeks ago has not noticed any clots, denies difficulty urinating, notes that she has a history of staghorn calculi and had a CT on April 30 showed tiny stones. Patient also states that she is chronic sciatica pain for which she is no new spinal specialist and is getting regular PT and OT has an appointment coming up on September 16 and overall this is not changed in her primary concerns are her foot in her stool and urine. Patient also states that she has noticed a little bit of right lower quadrant mild abdominal discomfort Frida, coming goes has not tried anything for, nonradiating, no history in the past. Patient denies chest pain, difficulty breathing, fever, nausea, vomiting, diarrhea, constipation, new or change medications, numbness, weakness, recent injuries. Related Data Home Medications Medication Instructions Recorded Confirmed aripiprazole 400 mg intramuscular 400 mg IM MONTHLY 02/18/23 06/25/23 suspension,extended release (Faridaligudelia Mainleighanna) lorazepam 0.5 mg tablet 0.5 mg PO DAILY PRN 02/18/23 06/25/23 aspirin 81 mg chewable tablet 81 mg PO DAILY 03/26/23 06/25/23 acetaminophen 500 mg capsule 500 mg PO Q6H PRN 06/25/23 06/25/23 buspirone 5 mg tablet 5 mg PO BID 06/25/23 06/25/23 furosemide 20 mg tablet 20 mg PO QAM 06/25/23 06/25/23 losartan 25 mg tablet 25 mg PO DAILY 06/25/23 06/25/23 Allergies Allergy/AdvReac Type Severity Reaction Status Date / Time atorvastatin Allergy Unknown pain Verified 08/28/23 07:27 Iodinated Contrast Media Allergy Unknown Hives Verified 08/28/23 07:27 liraglutide Allergy Unknown Unknown Verified 08/28/23 07:27 metformin Allergy Unknown Renal Verified 08/28/23 07:27 impairment tetracycline Allergy Unknown Unknown Verified 08/28/23 07:27 nebivolol Allergy Hives Verified 08/28/23 07:27 glipizide AdvReac Intermediate Diarrhea Verified 08/28/23 07:27 lisinopril AdvReac Mild dizziness Verified 08/28/23 07:27 sulfamethoxazole AdvReac sore Verified 08/28/23 07:27 [From Bactrim] throat/ hoarseness trimethoprim [From Bactrim] AdvReac sore Verified 08/28/23 07:27 throat/ hoarseness Review of Systems Review of Systems: A 10 system review of systems was completed on the patient and is negative except for what is stated in the HPI. Nursing and ancillary documentation was reviewed. 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
[2023-08-28] MEDS: SODIUM CHLORIDE 0.9% IV 500 ML 999 ML IV CONT (08:26)
[2023-08-28] MEDS: cefTRIAXone 2 GM/NS 100 ML 2 GM/100 ML BAG IVPB (08:26)
[2023-08-28 08:50] LABS: Lipase 144 U/L (23-300); Magnesium 2.1 mg/dL (1.6-2.3)
[2023-08-28 09:02] LABS: Creatine Kinase 137 U/L (30-135)
[2023-08-28] MEDS: KETOROLAC 15 MG/ML VIAL (*BKC) IV PUSH (09:29)
[2023-08-28] MEDS: ACETAMINOPHEN 500 MG TABLET 1000 MG PO (09:30)
[2023-08-28 09:38] VITALS: BP 133/54; PULSE 96; RESP 14; O2SAT 100
== END 2023-08-28 09:39 | disposition home or self-care (01) ==
PROVIDERS: Emergency Provider Student in an Organized Health Care Education/Training Program; PCP Family Medicine
DX: N39.0 Urinary tract infection, site not specified (principal); M19.90 Unspecified osteoarthritis, unspecified site; Z87.442 Personal history of urinary calculi; Z86.73 Personal history of transient ischemic attack (TIA), and cerebral infarction without residual deficits
CPT/HCPCS: 36415; 74176; 80053; 81001; 82550; 83605; 83690; 83735; 85025; 85610; 85730; 87077; 87086; 87186; 96365; 96375; 99284; A9270; J0696; J1885; J7040

== ENCOUNTER 2023-09-19 13:58 | Outpatient (CLI) | payer MEDICARE, SELFPAY ==
--- NOTE | ~2023-09-19 | XR_ITS ---
MODIFIED ESOPHAGRAM HISTORY: Dysphagia. TECHNIQUE: Modified barium esophagram was performed by speech pathologist under radiologist fluorosco pic guidance. This was recorded on tape. The exam was reviewed on 09/19/2023 15:08 COVER MAKING MACHINE OPERATOR. The DAP for this procedure was 0.64 Gycm2. Fluoroscopy time is 0.8. FINDINGS: Lateral projection of the cervical spine demonstrates normal alignment. Normal swallowing function without penetration or aspiration.. IMPRESSION: 1: Normal swallowing function without penetration or aspiration. 2: Please refer to speech pathologist report for additional detail. Reviewed, dictated and finalized at location A. R MAKING MACHINE OPERATOR
--- NOTE | 2023-09-19 15:08 | REHSTMBS ---
Assessment and note entered by Aga Lima, SHAKE MAKER Modified Barium Swallow Evaluation Feeding Type Recommended Oral Food Consistency Regular, Level 7 Liquid Consistency Thin (0) ST Clinical Summary MODIFIED BARIUM SWALLOW This patient was seen for a Modified Barium Swallow study at the request of her physician. Patient reports that she has been coughing on water for a long time. When asked about other liquids, she reported the same. She denied difficulty swallowing solids but did say that occasionally supplements can hang up. Patient told the story about a grape becoming lodged in the esophagus when she was in her twenties. Patient has a varied medical history including three thyroid surgeries and GERD that may or may not be affecting her swallowing skills. The patient was viewed in the lateral position to the level of C5/C6. She was presented first with a small sip of thin liquid contrast medium and then uncontrolled contrast medium per cup and also per straw, pudding mixed with semi-solid contrast medium, and then fruit cocktail and esme cracker, both coated with the semi-solid mixture. She elicited quick swallows with no evidence of penetration or aspiration. Results indicate this patient's swallowing skills are within normal limits; when results were discussed with patient, she stated that people have been telling her to slow down when drinking. Patient was instructed in the use of head flexion and therapist modeled appropriate head flexion and patient voiced and demonstrated good understanding. No further Speech Therapy is recommended. Thank you for this referral.
== END 2023-09-19 13:59 | disposition home or self-care (01) ==
PROVIDERS: PCP Family Medicine; Visit Provider Nurse Practitioner
DX: R13.12 Dysphagia, oropharyngeal phase (principal)
CPT/HCPCS: 92611

== ENCOUNTER 2023-09-26 00:30 | Day surgery (SDC) | payer MEDICARE, SELFPAY ==
[2023-09-17 14:02] VITALS: BMI 33.8
--- NOTE | 2023-09-24 10:23 | SUR.PREOP ---
Patient called regarding upcoming procedure. Reviewed preop instructions, appointment times, and procedure prep.
[2023-09-26 10:45] VITALS: BP 156/71; PULSE 67; RESP 20; TEMP 36.4; O2SAT 97
--- NOTE | 2023-09-26 11:00 | WPDANESEPPF ---
Anes - Initial Pre Proc Eval Procedure: Operation Date: 09/26/23 11:30 Proposed Procedures p Esophagogastroduodenoscopy & Colonoscopy - Shaan Ambrose MD Date/Time: 09/26/23 11:00 Surgeon: Shaan Ambrose MD Pre Op Diagnosis: melena,other dysphagia Patient Data Age: 73 Gender: F Height: 1.73 m Weight: 96.8 kg Last Vital Signs Temp 97.5 F L 09/26/23 10:45 Pulse 67 09/26/23 10:45 Resp 20 09/26/23 10:45 BP 156/71 H 09/26/23 10:45 Pulse Ox 97 09/26/23 10:45 O2 Del Method Room Air 09/26/23 10:45 Allergies Allergy/AdvReac Type Severity Reaction Status Date / Time atorvastatin Allergy Intermediate Muscle Pain Verified 09/26/23 10:39 metformin Allergy Intermediate Renal Verified 09/26/23 10:39 impairment nebivolol Allergy Intermediate Hives Verified 09/26/23 10:39 sulfamethoxazole Allergy Intermediate sore Verified 09/26/23 10:39 [From Bactrim] throat/ hoarseness tetracycline Allergy Intermediate Fever Verified 09/26/23 10:39 trimethoprim [From Bactrim] Allergy Intermediate sore Verified 09/26/23 10:39 throat/ hoarseness Iodinated Contrast Media Allergy Mild Hives Verified 09/26/23 10:39 glipizide AdvReac Intermediate Diarrhea Verified 09/26/23 10:39 liraglutide AdvReac Intermediate Gastrointestinal Verified 09/26/23 10:39 Upset lisinopril AdvReac Mild dizziness Verified 09/26/23 10:39 Home Medications Medication Instructions Recorded Confirmed Type glucose monitor kit #1 ea 08/13/22 09/04/23 Rx rollator #1 ea 12/06/22 09/04/23 Rx levothyroxine 100 mcg tablet 100 mcg PO DAILY #30 tabs 01/18/23 09/26/23 Rx glimepiride 2 mg tablet 2 mg PO QAM #90 tabs 02/13/23 09/17/23 Rx aripiprazole 400 mg intramuscular 400 mg IM MONTHLY 02/18/23 09/17/23 History suspension,extended release (Jody Casey) aspirin 81 mg chewable tablet 81 mg PO DAILY 03/26/23 09/17/23 History metoprolol tartrate 50 mg tablet 50 mg PO BID #60 tabs 04/23/23 09/26/23 Rx albuterol sulfate 90 mcg/actuation 1 - 2 inh inhalation Q4-6H PRN 06/03/23 09/17/23 Rx aerosol inhaler (ProAir HFA) shortness of breath or wheezing #8.5 grams buspirone 5 mg tablet 5 mg PO BID 06/25/23 09/26/23 History furosemide 20 mg tablet 20 mg PO QAM 06/25/23 09/17/23 History losartan 25 mg tablet 25 mg PO DAILY 06/25/23 09/17/23 History blood sugar diagnostic (OneTouch #100 ea 08/23/23 09/04/23 Rx Ultra Test strips) loperamide 2 mg capsule (Imodium 2 mg PO Q6H PRN loose stool #60 09/04/23 09/17/23 Rx A-D) caps Qvar RediHaler 80 mcg/actuation 1 inh inhalation Q12H #10.6 grams 09/09/23 09/17/23 Rx HFA breath activated aerosol (beclomethasone dipropionate) acetaminophen 300 mg-codeine 30 mg 1 - 2 tablet PO Q6H PRN Pain 09/17/23 09/17/23 History tablet buspirone 10 mg tablet 10 mg PO HS 09/17/23 09/17/23 History cyclobenzaprine 5 mg tablet 5 mg PO TID PRN MUSCLE SPASMS 09/17/23 09/17/23 History mupirocin 2 % topical ointment 1 applic topical TID PRN Rash 09/17/23 09/17/23 History ropinirole 4 mg tablet 2 mg PO QAM 09/17/23 09/17/23 History ropinirole 4 mg tablet 4 mg PO HS 09/17/23 09/17/23 History vitamin E 400 unit tablet 400 unit PO DAILY 09/17/23 09/17/23 History Patient hx anesthesia problems: none Family hx anesthesia problems: none Results Review: All pre-operative results and documents have been reviewed as part of the pre-operative evaluation. 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
[2023-09-26] MEDS: LACTATED RINGERS 1,000 ML 150 ML IV CONT (11:07)
--- NOTE | 2023-09-26 11:09 | WPDHPUPDATE1 ---
History and Physical Update Update Date/Time: 09/26/23 11:09 History and Physical has been reviewed, including an updated exam of the patient. There are NO changes in the patient's condition. Risks, benefits, and alternatives have been discussed and questions answered. Patient agrees to proceed with procedure.
[2023-09-26 11:10] LABS: Glucose Point of Care 105 mg/dl (65-105)
--- NOTE | 2023-09-26 11:40 | SUR.OPER ---
EGD START 1116, END 1120 COLONOSCOPY START 1124, END 1136
[2023-09-26 11:42] VITALS: BP 119/49; PULSE 57; RESP 17; O2SAT 99
[2023-09-26 11:52] VITALS: BP 109/48; PULSE 57; RESP 24; O2SAT 99
[2023-09-26 12:02] VITALS: BP 108/87; PULSE 59; RESP 23; O2SAT 99
--- NOTE | 2023-09-26 12:19 | SUR.PHASEII ---
Pt up in wheelchair. Awaiting transportation.
== END 2023-09-26 13:22 | disposition home or self-care (01) ==
PROVIDERS: PCP Family Medicine; Visit Provider Internal Medicine Gastroenterology
PROC: 0DJ08ZZ Inspection of Upper Intestinal Tract, Via Natural or Artificial Opening Endoscopic (ICD-10-PCS; CPT 43235; principal; 2023-09-26 11:30)
DX: K21.00 Gastro-esophageal reflux disease with esophagitis, without bleeding (principal); K29.50 Unspecified chronic gastritis without bleeding; K31.89 Other diseases of stomach and duodenum; D12.0 Benign neoplasm of cecum; D12.3 Benign neoplasm of transverse colon; I10 Essential (primary) hypertension; E11.9 Type 2 diabetes mellitus without complications; G47.33 Obstructive sleep apnea (adult) (pediatric); F20.9 Schizophrenia, unspecified; K52.9 Noninfective gastroenteritis and colitis, unspecified; N39.3 Stress incontinence (female) (male); E66.9 Obesity, unspecified; Z68.32 Body mass index [BMI] 32.0-32.9, adult; Z79.84 Long term (current) use of oral hypoglycemic drugs; Z79.51 Long term (current) use of inhaled steroids; Z79.82 Long term (current) use of aspirin; Z98.890 Other specified postprocedural states; Z86.010 Personal history of colon polyps; Z86.73 Personal history of transient ischemic attack (TIA), and cerebral infarction without residual deficits; Z86.718 Personal history of other venous thrombosis and embolism; Z86.79 Personal history of other diseases of the circulatory system; Z80.8 Family history of malignant neoplasm of other organs or systems; Z80.0 Family history of malignant neoplasm of digestive organs; Z80.3 Family history of malignant neoplasm of breast
CPT/HCPCS: 43239; 45385; 45380; 82948; 88305; J1596; J2001; J2704; J7120

== ENCOUNTER 2023-11-25 09:46 | Outpatient (CLI) | payer MEDICARE, SELFPAY ==
--- NOTE | ~2023-11-25 | MR_ITS ---
EXAMINATION: MR lumbar spine wo con DATE: 11/25/2023 10:37 INDICATION: Low back pain. Lumbar disc disease with radiculopathy. TECHNIQUE: Magnetic resonance imaging (MRI) of the lumbar spine was performed without intravenous con trast. Sequences included sagittal T2-weighted FSE, sagittal T2-weighted FS FSE, sagittal T1-weighted FSE, and axial T2-weighted FSE. COMPARISON: Lumbar spine MRI 07/29/2023 FINDINGS: There is 13 degrees dextroscoliosis of thoracolumbar spine. There is 4 mm anterolisthesis o f L3 on L4 and L4 on L5. Vertebral body heights are normal. There is moderately decreased disc height at T12-L1, severely decreased disc height at L1-L2, mildly decreased disc height at L2-L3 and L3-L4, and moderately decreased disc height at L4-L5. The distal spinal cord signal intensity is normal. Th e conus medullaris is at T12. The following disc levels are specifically discussed: L1-L2: The disc is bulging with superimposed left subarticular and foraminal zone extrusion. There is mild bilateral facet joint osteoarthritis. There is mild right and moderate left neural foraminal st enosis. There is mild central canal stenosis. L2-L3: The disc is bulging. There is severe bilateral facet joint osteoarthritis. There is mild bilat eral neural foraminal stenosis. There is mild central canal stenosis. L3-L4: The disc is bulging. There is severe bilateral facet joint osteoarthritis. There is a 12 mm sy novial cyst of right facet joint in the central spinal canal. There is mild bilateral neural foramina l stenosis. There is severe central canal stenosis. L4-L5: The disc is bulging. There is severe bilateral facet joint osteoarthritis. There is mild bilat eral neural foraminal stenosis. There is mild central canal stenosis. L5-S1: The disc does not extend beyond the endplate margin. There is severe bilateral facet joint ost eoarthritis. There is mild bilateral neural foraminal stenosis. There is no central canal stenosis. IMPRESSION: 1. Severe lumbar spondylosis, stable from 07/29/2023. 2. Thoracolumbar dextroscoliosis. Reviewed, dictated and finalized at location A.
--- NOTE | ~2023-11-25 | MR_ITS ---
MRI of the cervical spine Clinical History: Upper extremity weakness Technique: Axial T2-weighted and gradient images, and sagittal T1-weighted, T2-weighted, and STIR nga ges were acquired. Findings: There is no fracture or subluxation of cervical spine. Vertebral bodies maintain normal hei ght and alignment. No suspicious bone marrow signal abnormality seen. There is moderate to advanced d egenerative disc narrowing at C4-C5, C5-C6, and C6-C7. At C2-C3, there is no disc bulge or herniation. No spinal canal stenosis, cord compression, or neural foraminal narrowing. There is bilateral facet arthropathy. At C3-C4, there is no significant disc bulge or herniation. No spinal canal stenosis or cord compress ion. Probable minimal bilateral neural foraminal narrowing, with bilateral facet arthropathy present. At C4-C5, there is mild disc osteophyte complex. No fern canal stenosis or cord compression. There i s right neural foraminal narrowing with bilateral facet arthropathy present. At C5-C6, there is mild disc osteophyte complex. There is minimal flattening the ventral cord. There is bilateral neural foraminal narrowing with bilateral facet arthropathy. At C6-C7, there is no significant disc osteophyte complex. No spinal canal stenosis or cord compressi on. There is bilateral neural foraminal narrowing. No abnormal signal seen in the spinal cord. Paravertebral soft tissues are unremarkable. Impression: Moderate degenerative spondylosis, as above. Reviewed, dictated and finalized at [facility]. Impression: Moderate degenerative spondylosis, as above.
== END 2023-11-25 09:47 ==
LOC: MICIMG 09:47
PROVIDERS: PCP Family Medicine
DX: R29.898 Other symptoms and signs involving the musculoskeletal system (principal); M43.06 Spondylolysis, lumbar region; M41.85 Other forms of scoliosis, thoracolumbar region; M51.16 Intervertebral disc disorders with radiculopathy, lumbar region; M71.30 Other bursal cyst, unspecified site; M47.892 Other spondylosis, cervical region
CPT/HCPCS: 72141; 72148

== ENCOUNTER 2024-03-16 09:37 | Outpatient (CLI) | payer MEDICARE, SELFPAY ==
--- NOTE | ~2024-03-16 | CT_ITS ---
Non-contrast CT scan of the Abdomen and Pelvis Clinical indication: Nephrolithiasis Technique: 2.5 mm axial scans were obtained through the abdomen and pelvis without intravenous or or al contrast. Dose reduction technique was used on this scan by utilizing automated exposure control a nd iterative reconstruction technique. The dose-length product (DLP) was 882.38 mGy-cm. COMPARISON: 08/28/2023 Findings: Images through the lung bases reveal no abnormalities. There is no evidence of renal or ureteral calculi. The kidneys and the ureters are nondilated. The liver, spleen, pancreas, gallbladder, and adrenals appear normal. There is no aortic aneurysm. There is no evidence of bowel obstruction. Images through the pelvis were performed. There is no evidence of ascites or lymphadenopathy. Urinary bladder unremarkable. No pelvic mass seen. Impression: No significant abnormality seen. Reviewed, dictated and finalized at [facility]. Impression: No significant abnormality seen.
== END 2024-03-16 09:38 ==
PROVIDERS: PCP Family Medicine
DX: N20.0 Calculus of kidney (principal)
CPT/HCPCS: 74176

== ENCOUNTER 2024-05-07 13:21 | Outpatient (CLI) | payer MEDICARE, SELFPAY ==
--- NOTE | ~2024-05-07 | DEXA_ITS ---
Bone Density Report Name: WILTON PAIZ Age: 73 Sex: Female Ethnicity: White Date of : 1950 Indication: postmenopausal; screening for osteoporosis; height loss; prior fracture; asthma or emphysema; hysterectomy; Referring Provider: TONY, SILVIA Stevens Study: Bone densitometry was performed. Exam Date: May 07, 2024 Accession number: [id number] Bone Density: Region BMD T-score Z-score Classification Femoral Neck (Left) 0.811 -0.3 1.6 Normal Total Hip (Left) 1.002 0.5 2.1 Normal Femoral Neck (Right) 0.813 -0.3 1.6 Normal Total Hip (Right) 1.288 2.8 4.4 Normal Femoral Neck Mean 0.812 -0.3 1.6 Normal Total Hip Mean 1.145 1.7 3.3 Normal World Health Organization criteria for BMD impression classify patients as: Normal (T-score at or above -1.0), Osteopenia (T-score between -1.0 and -2.5), or Osteoporosis (T-score at or below -2.5). 10-year Fracture Risk: FRAX not reported because: All T-scores for Spine Total, Hip Total, Femoral Neck at or above -1.0 Previous Exams: Region Exam Age BMD T-score BMD Change BMD Change Date g/cm2 vs Baseline vs Previous Total Hip(Left) 05/07/2024 73 1.002 0.5 0.058 (6.1%)# 0.058 (6.1%)# 04/20/2022 71 0.944 0.0 Total Hip(Right) 05/07/2024 73 1.288 2.8 0.342 (36.1%)# 0.342 (36.1%)# 04/20/2022 71 0.946 0.0 *Denotes significance at 95% confidence level, LSC for Total Hip = 0.027 g/cm2 # Denotes dissimilar scan types or analysis methods Clinical Information Provided by Patient: Has had a low trauma fracture Has used the following medications: HRT (i.e. estrogen/hormone therapy), Vitamin D, multivitamins Has the following medical conditions: Asthma or Emphysema, Hysterectomy Patient maximum height was 69 Menopause Age: 50 Drinks caffeinated beverages Onset of menses at age 16 Number of children 0 Impression: The patient has normal bone mass. The patient has risk factors, including: previous fracture. No significant bone loss was observed. Discussion: BONE DENSITY IS ABOVE THE MINIMUM DESIRABLE LEVEL AT ALL SKELETAL SITES TESTED. This patient?s bone mineral density is above the minimum desirable level (T-score -1.0 or better) at all sites measured. The patient should follow a healthful lifestyle (good nutrition with adequate calcium and vitamin D, and appropriate weight-bearing exercise). Follow-Up: Consider repeating this study in 5 years or sooner if there is some new clinical indication. Reported by: Grey
--- NOTE | ~2024-05-07 | MM_ITS ---
EXAMINATION: MM screening cristhian BI w hilda HISTORY: Screening TECHNIQUE: Craniocaudal and mediolateral oblique 3-D tomosynthesis images were obtained and synthetic 2-D images were generated. CAD analysis was submitted and interpreted. COMPARISON: Comparison to multiple prior studies sequentially, with oldest reviewed study dated 12/2016. BREAST PARENCHYMAL COMPOSITION: Dense: The breasts are heterogeneously dense, which may obscure small masses FINDINGS: There is no evidence of suspicious mass, calcification, or architectural distortion to sugg est malignancy in either breast. There has been no suspicious interval change. IMPRESSION: 1. No mammographic evidence of malignancy. 2. Recommend routine screening mammography in one year. BI-RADS Category 1: Negative Reviewed, dictated and finalized at location B.
== END 2024-05-07 13:22 | disposition home or self-care (01) ==
PROVIDERS: PCP Family Medicine; Visit Provider Family Medicine
DX: Z12.31 Encounter for screening mammogram for malignant neoplasm of breast (principal); Z78.0 Asymptomatic menopausal state
CPT/HCPCS: 77063; 77067; 77080

== ENCOUNTER 2025-07-09 12:24 | Outpatient (CLI) | payer MEDICARE, SELFPAY ==
--- OUTSIDE RECORDS SUMMARY | 2025-07-08 13:44 | XMS_ITS | Encounter Summary ---
Author Organization [facility] Address [address] [place] [address] Care Team Providers Care Grants And Contracts Assistant Name Role Phone Barrie Hamm MD Primary Care Provider Encounter Details Date Type Department Care Team (Latest Contact Info) Description 07/08/2025 1:44 PM EDGING CATCHER - 07/08/2025 11:59 PM EDGING CATCHER Hospital Encounter [facility] - Outside Imaging Discharge Disposition: Home or Self Care Social History Tobacco Use Types Packs/Day Years Used Date Smoking Tobacco: Never Passive Smoke Exposure: Never Smokeless Tobacco: Never PHQ-2 Answer Date Recorded Patient Health Questionnaire-2 Score 2 04/29/2025 Comments Unknown Sex and Gender Information Value Date Recorded Sex Assigned at Not on file Legal Sex Female 5:21 AM EDGING CATCHER Gender Identity Not on file Sexual Orientation Not on file documented as of this encounter Medications at Time of Discharge albuterol HFA (Proventil; Ventolin; Proair) 108 (90 Base) MCG/ACT inhaler Inhale 1 (one) puff by mouth as needed 4 amLODIPine (Norvasc) 5 MG tablet Take 1 (one) tablet by mouth once daily 5 04/01/20 26 ARIPiprazole ER (Abilify Maintena) 400 MG injection Inject 400 (four hundred) mg into muscle every 30 days Asmanex HFA 100 MCG/ACT inhaler Inhale 2 (two) puffs by mouth 2 times daily 5 clobetasol (Temovate) 0.05 % cream Apply 1 Application to affected area as needed cyclobenzaprine (Flexeril) 5 MG tablet Take 1 (one) tablet by mouth 3 times daily as needed 5 09/26/19 26 furosemide (Lasix) 20 MG tablet Take 1 (one) tablet by mouth 4 gabapentin (Neurontin) 300 MG capsule Take 1 (one) capsule by mouth 3 times daily 5 04/15/20 26 glimepiride (Amaryl) 2 MG tablet Take 1 (one) tablet by mouth once daily 4 hydroxypropyl methylcellulose (Pure & Gentle Lubricant) 0.3 % ophthalmic solution 1 drop by Ophthalmic route 3 times daily levothyroxine (Synthroid) 100 MCG tablet Take 1 (one) tablet by mouth daily before breakfast 4 losartan (Cozaar) 100 MG tablet TAKE 1 TABLET BY MOUTH ORDER SELECTOR BEFORE BREAKFAST 5 losartan (Cozaar) 50 MG tablet Take 1 (one) tablet by mouth once daily 5 metFORMIN ER 24hr (Glucophage XR) 500 MG tablet Take 1 (one) tablet by mouth once daily 5 04/01/20 26 methenamine hippurate (Hiprex) 1 GM tablet Take 1 (one) tablet by mouth 2 times daily 4 Multiple Vitamin (Multivitamin) TABS Take 1 tablet by mouth once daily OneTouch Ultra Test test strip USE TO CHECK BLOOD SUGAR TWICE DAILY 5 PSYLLIUM PO Take 1 packet by mouth every morning rOPINIRole (Requip) 4 MG tablet Take 1 (one) tablet by mouth at bedtime Vitamin D-Vitamin K (Decara K) 1250-200 MCG CAPS Vitamin K2-Vitamin D3 Vitamin E (Vitamin E/D-Alpha Natural) 268 MG (400 UNIT) capsule Take 1 (one) capsule by mouth 2 times daily documented as of this encounter Plan of Treatment Not on file documented as of this encounter Procedures Procedure Name Priority Date/Time Associated Diagnosis Comments MRI KNEE LEFT OUTSIDE Routine 02/17/2025 1:48 PM CDT documented in this encounter Results * MRI Knee Left Outside (02/17/2025 1:48 PM CDT) Narrative [facility] - 07/08/2025 1:48 PM EDGING CATCHER This is a study from an outside facility that has been uploaded into PACS. us Provider [facility] Final Result Performing Organization Address City/State/[facility] Co de Phone Number [facility] [address] [place] [address] documented in this encounter Visit Diagnoses Not on filedocumented in this encounter Care Teams Grants And Contracts Assistant Relationship Specialty Start Date End Date Barrie Hamm MD [address] [facility] [address] [place] [address] PCP - General Family Medicine 07/06/24 documented as of this encounter
--- OUTSIDE RECORDS SUMMARY | 2025-07-09 12:28 | XMS_ITS | Encounter Summary ---
Author Organization [facility] Address [address] [place] [address] Care Team Providers Care Strawhat Sizer Name Role Phone Barrie Hamm MD Primary Care Provider [phone] No Physician Primary Care Provider Barrie Hamm MD Unavailable [phone] Samir Gibson MD Unavailable [phone] Meggan Quiles MD Unavailable Irina Swain MD Unavailable [phone] Neo Doyle DO Unavailable [phone] Og Crawford MD Unavailable [phone] Lexy Plascencia Unavailable [phone] Jennyfer Tyler MD Unavailable [phone] Barrie Hamm MD Primary Care Provider [phone] Shelly Fierro NP Unavailable [phone] Renny Becerra MD Unavailable [phone] Marcel Joshi MD Unavailable [phone] Olivier Singh MD Primary Care Provider [phone] Barrie Hamm MD Primary Care Provider [phone] AnastaciaLindsey dodd Unavailable Unavailable Encounter Details Date Type Department Care Team (Late st Contact Info) Description 11/18/2023 Telephone [facility] [address] [place] [id number] Mary Ortiz, RN Social History Tobacco Use Types Packs/Day Years Used Date Smoking Tobacco: Never Passive Smoke Exposure: Never Smokeless Tobacco: Never Alcohol Use Standard Drinks/Week Comments No 0 (1 standard drink = 0.6 oz pur e alcohol) AUDIT-C Answer Date Recorded Q1: How often do you have a drink containing alcohol? Never 11/06/2023 Q2: How many drinks containi ng alcohol do you have on a typical day when you are drinking? Patient does not drink Q3: How often do you have si x or more drinks on one occasion? Never 11/06/2023 PHQ-2 Answer Date Recorded PHQ-2 Total Score (If total score is 3 or more points, staff should administer the PHQ-9) 2 11/22/2023 Personal Safety Answer Date Recorded Have you ever been in or are you currently in a harmful physical or emotional relationship or is someone making you feel afraid or unsafe? Denies 11/19/2023 Comments No Sex and Gender Information Value Date Recorded Sex Assigned at Not on file Legal Sex Female 2:54 AM JOINTER MACHINE OPERATOR Gender Identity Female 03/13/2022 6:32 PM CDT Sexual Orientation Straight 03/13/2022 6: 32 PM CDT Occupation Industry Job Start Date Job End Date disabled Not on file Not on file Not on file documented as of this encounter Plan of Treatment Upcoming Encounters Date Type Department Care Team (Latest Contact Info) Description 09/14/2025 12:31 PM JOINTER MACHINE OPERATOR Hospital Encounter [facility] [address] [place] [address] Andres Banks MD [address] [place] [address] 09/14/2025 12:31 PM JOINTER MACHINE OPERATOR - 09/14/2025 3:06 PM JOINTER MACHINE OPERATOR Surgery [facility] [address] [place] [address] Andres Banks MD [address] [place] [address] INSERTIONm AXONICS DEVICE STAGE 1 09/30/2025 11:57 AM CDT Hospital Encounter [facility] [address] [place] [address] Andres Banks MD [address] [place] [address] 09/30/2025 11:57 AM CDT - 09/30/2025 1:23 PM CDT Surgery [facility] [address] [place] [address] Andres Banks MD [address] [facility] [place] [address] INSERTION AXONICS STAGE 2 Scheduled Procedures Name Priority Associated Diagnoses Date/Ti me INSERTION/REMOVAL INTERSTIM DEVICE STAGE 1 Mixed incontinence Full incontinence of feces OAB (overactive bladder) 09/14/2025 12:31 PM JOINTER MACHINE OPERATOR INSERTION/REMOVAL INTERSTIM STAGE 2 Mixed incontinence Full incontinence of feces OAB (overactive bladder) 09/30/2025 11:57 AM CDT PERCUTANEOUS NEPHROLITHOTOMY - TRILOGY Right renal stone CYSTOSCOPY Right renal stone URETEROSCOPY Right renal stone documented as of this encounter Visit Diagnoses Not on filedocumented in this encounter Additional Health Concerns 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 04/30/2022 04/30/2022 COVID: Suspected 05/27/2024 05/27/2024 05/27/2024 11:21 PM JOINTER MACHINE OPERATOR Exposure, COVID-19 Comment:Added automatically based on COVID19 lab answers indicating exposure risk 08/07/2024 08/07/2024 08/17/2024 3:[address] COVID: Suspected 08/07/2024 08/07/2024 08/07/2024 4:51 PM JOINTER MACHINE OPERATOR COVID: Suspected 11/25/2024 11/25/2024 11/25/2024 3:44 PM CDT COVID: Suspected 11/25/2024 11/25/2024 11/26/2024 1:16 AM CDT documented as of this encounter Care Teams Strawhat Sizer Relationship Specialty Start Date End Date Barrie Hamm MD [address] [place], [place] [phone] PCP - General Family Medicine 05/28/23 10/06/24 No, Physician PCP - General 10/07/24 10/27/24 Barrie Hamm MD [address] [place], [place] [id number] PCP - General Family Medicine 10/28/24 03/12/25 Olivier Singh MD [address] [facility] [address] [place], [place] [phone] PCP - General Family Medicine 03/13/25 03/14/25 Barrie Hamm MD [address] [place], [place] [id number] PCP - General Family Medicine 03/15/25 Barrie Hamm MD [address] [place], [place] [id number] Family Medicine 10/07/24 03/12/25 Samir Gibson MD [address] [place] [id number] Referring Physician Neurology 11/21/20 Meggan Quiles MD [address] [place] [address] Consulting Physician Urology 09/08/22 Irina Swain MD [address] [place] [address] Referring Physician Dermatology 05/28/23 Neo Doyle DO [address] [facility] [address] [place] [address] Referring Physician Cardiology 05/28/23 Og Crawford MD [address] [facility] [address] [place] [address] Consulting Physician Nephrology 05/28/23 Lexy Plascencia PA [address] [place] [address] Senior Programmer Physician Hospital Corpsman 05/28/23 Jennyfer Tyler MD [address] [place] [address] Psychiatry 05/28/23 12/15/24 Shelly Fierro, TABBY [address] [facility] [address] [place] [address] Psychiatry 12/16/24 Renny Becerra MD [address] [place] [address] Referring Physician Psychiatry 12/16/24 Marcel Joshi MD [address] [place] [address] Consulting Physician Neurosurgery 12/16/24 Lindsey Contreras Primary Extraction Machine Operator 04/08/25 documented as of this encounter
--- OUTSIDE RECORDS SUMMARY | 2025-07-09 12:28 | XMS_ITS | Clinical Summary ---
Author Organization [facility] Address [address] [facility] [place] [address] Care Team Providers Care Bar Pilot Name Role Phone Barrie Hamm MD Primary Care Provider [phone] Source Comments [facility],non-owned Affiliates and Associated Physician Practices is amultiple site organization consisting of ambulatory clinics and hospital sitesin [place], [place], [place] and [place]. This disclosure is being madepursuant to the Care Everywhere program and may not contain all information available regarding this patient. Last updated 18.[facility] Allergies Active Allergy Reactions Criticality Noted Date Comments Atorvastatin Other Medium 03/20/2022 Muscle pain Contrast-Iodinated Agents For Ct/Other Other Medium 05/21/2023 Glipizide-Metformin Hcl Diarrhea Low 05/20/2023 Liraglutide Nausea and/or Vomiting Low 03/20/2022 Victoza Lisinopril Dizziness,Other Low 03/20/2022 Dizziness Metformin Other Low 03/20/2022 Renal impairment Kidney issues Nebivolol Other,Itching,Rash Medium 04/15/2023 Red Dye Unknown 11/13/2023 Sulfamethoxazole W-Trimethoprim Other Low 09/03/2022 Sore throat Tetracyclines Fever,Other,Unknown Medium 12/25/2017 fever Trimethoprim Other Low 08/22/2023 hoarseness Medications * Be aware that medications may not be up to date on this document. Alwaysverify current medications with the patient. ARIPiprazole ER (Jody Maintena) 400 MG injection Inject 400 (four hundred) mg into muscle every 30 days Active albuterol HFA (Proventil; Ventolin; Proair) 108 (90 Base) MCG/ACT inhaler Inhale 1 (one) puff by mouth as needed 05/27/20 24 Active Ascorbic Acid 1000 MG Take 1 (one) tablet by mouth once daily 11/11/19 24 Active furosemide (Lasix) 20 MG tablet Take 1 (one) tablet by mouth 06/07/20 24 Active glimepiride (Amaryl) 2 MG tablet Take 1 (one) tablet by mouth once daily 03/19/20 24 Active levothyroxine (Synthroid) 100 MCG tablet Take 1 (one) tablet by mouth daily before breakfast 06/07/20 24 Active losartan (Cozaar) 50 MG tablet Take 1 (one) tablet by mouth once daily 09/15/19 25 Active methenamine hippurate (Hiprex) 1 GM tablet Take 1 (one) tablet by mouth 2 times daily 02/16/20 24 Active Multiple Vitamin (Multivitamin) TABS Take 1 tablet by mouth once daily Active rOPINIRole (Requip) 4 MG tablet Take 1 (one) tablet by mouth at bedtime Active Vitamin D-Vitamin K (Decara K) 1250-200 MCG CAPS Vitamin K2-Vitamin D3 Active Vitamin E (Vitamin E/D-Alpha Natural) 268 MG (400 UNIT) capsule Take 1 (one) capsule by mouth 2 times daily Active amLODIPine (Norvasc) 5 MG tablet Take 1 (one) tablet by mouth once daily 04/01/20 25 026 Active clobetasol (Temovate) 0.05 % cream Apply 1 Application to affected area as needed Active cyclobenzaprine (Flexeril) 5 MG tablet Take 1 (one) tablet by mouth 3 times daily as needed 03/29/20 25 026 Active gabapentin (Neurontin) 300 MG capsule Take 1 (one) capsule by mouth 3 times daily 03/29/20 25 026 Active Asmanex HFA 100 MCG/ACT inhaler Inhale 2 (two) puffs by mouth 2 times daily 12/02/19 25 Active losartan (Cozaar) 100 MG tablet TAKE 1 TABLET BY MOUTH WEIGHT LOSS CENTRE MANAGER BEFORE BREAKFAST 03/29/20 25 Active metFORMIN ER 24hr (Glucophage XR) 500 MG tablet Take 1 (one) tablet by mouth once daily 04/01/20 25 026 Active PSYLLIUM PO Take 1 packet by mouth every morning Active hydroxypropyl methylcellulose (Pure & Gentle Lubricant) 0.3 % ophthalmic solution 1 drop by Ophthalmic route 3 times daily Active OneTouch Ultra Test test strip USE TO CHECK BLOOD SUGAR TWICE DAILY 02/09/20 25 Active Active Problems Problem Noted Date Diagnosed Date OAB (overactive bladder) 09/15/2024 Assessment & Plan (09/15/2024 4:28 PM APPLICATIONS DEVELOPER): - We reviewed the diagnosis of overactive bladder (OAB) and discussed the unclear etiology of the disease. We have provided the patient an informational handout. - For treatment of OAB, we discussed expectant management and behavioral/lifestyle modification including fluid intake and its impact on bladder symptoms. I have recommended no more than 64oz of fluid be consumed in a 24 hour period. Of those 64oz, no more than 8oz of that fluid should be caffeinated. We also discussed physical therapy for bladder training/suppression techniques, percutaneous tibial nerve stimulation, oral medications including both anticholinergics and beta-3 agonists, bladder botox injections, and sacral neuromodulation. - previous treatments attempted include: oxybutynin - After counseling, patient desires to return home and consider her options. She will contact office when she decides how she wants to proceed. Full incontinence of feces 09/15/2024 Assessment & Plan (09/15/2024 4:28 PM APPLICATIONS DEVELOPER): - counseled on management options including pelvic floor physical therapy, medication, and surgical management. Discussed associated risks, benefits, and alternatives to each intervention. Specifically regarding sacral neuromodulation (SNM), discussed the risk of pain, bleeding, infection, damage to surrounding structures, failure to improve symptoms, future implant complications requiring explantation. We discussed how this is a two-step procedure requiring two trips to the operating room with anesthesia. The first procedure involves placement of the lead for a 1-2 week test phase during which time bladder and bowel diaries will be completed and assist in determining whether full implantation of a battery is justified versus return to OR for removal of lead after test phase. We discussed how clinical success is defined as >50% improvement in patient's baseline symptoms and does not guarantee complete resolution of patient's bladder and/or bowel problems. - we discussed recommendation for stool bulking and antidiarrheal agents. Instructions on metamucil titration provided. - ultimately she decided to return home and consider her options. She will reach out to provider if she desires to pursue any treatment other than stool bulking and anti-diarrheals. - she declined to be put in touch with [facility] representatives for further counseling/education Encounters Date Type Department Care Team Description 07/08/2025 1:44 PM APPLICATIONS DEVELOPER - 07/08/2025 11:59 PM APPLICATIONS DEVELOPER Hospital Encounter [facility] - Outside Imaging Discharge Disposition: Home or Self Care 06/21/2025 Telephone [facility] [address] [place] [address], [address] [address] Chris Collier PA-C Pain Knee (Suggested celebrex bid x 5 days , then qd) 05/04/2025 11:10 AM CDT Office Visit [address], [address] [address] Lei Montgomery MD Left knee pain, unspecified chronicity (Primary Dx) from Last 3 Months Family History Medical History Relation Name Comments Cancer - Thyroid Father Hypertension Father Hypertension Mother CAD (Coronary Artery Disease) Sister Depression Sister Hypertension Sister Relation Name Status Comments Father Mother Sister Social History Tobacco Use Types Packs/Day Years Used Date Smoking Tobacco: Never Passive Smoke Exposure: Never Smokeless Tobacco: Never Tobacco Cessation:Counseling Given: Not Answered PHQ-2 Answer Date Recorded Patient Health Questionnaire-2 Score 2 04/29/2025 Comments Unknown Sex and Gender Information Value Date Recorded Sex Assigned at Not on file Legal Sex Female 5:21 AM APPLICATIONS DEVELOPER Gender Identity Not on file Sexual Orientation Not on file Last Filed Vital Signs Vital Sign Reading Time Taken Comments Blood Pressure 138/84 09/15/2024 2:13 PM APPLICATIONS DEVELOPER Pulse - - Temperature - - Respiratory Rate - - Oxygen Saturation - - Inhaled Oxygen Concentration - - Weight 93.9 kg (207 lb) 09/15/2024 2:13 PM APPLICATIONS DEVELOPER Height 165.1 cm (5' 5) 09/15/2024 2:13 PM APPLICATIONS DEVELOPER Body Mass Index 34.45 09/15/2024 2:13 PM APPLICATIONS DEVELOPER Plan of Treatment Health Maintenance Due Date Last Done Comments BONE DENSITY TESTING 1950 COLOGUARD (AGES 45-75) - COLON CA SCREENING 1950 COLON MONITORING 1950 COLONOSCOPY - COLON CA SCREENING 1950 CT COLONOGRAPHY - COLON CA SCREENING 1950 Colorectal Cancer Screening 1950 FIT - COLON CA SCREENING 1950 FLEX SIG - COLON CA SCREENING 1950 LIPID TESTING 1950 MAMMOGRAM 1950 MEDICARE AWV 12 MONTHS 1950 HEPATITIS C SCREENING 07/28/1970 DTAP/TDAP/TD VACCINES (1 - Tdap) 1971 PNEUMOCOCCAL VACCINE 50+ (1 of 1 - PCV) 2002 ZOSTER VACCINE (1 of 2) 2002 COVID-19 VACCINE (3 - season) 2025 07/05/2021, 11/25/2020 INFLUENZA VACCINE (#1) 2025 3, 07/03/2012, 03/31/2009, Additional history exists Respiratory Syncytial Virus (RSV) Vaccine Pt: or over 60 yrs (1 - 1-dose 75+ series) 2027 DEPRESSION SCREENING Completed 09/15/2024 HEPATITIS B VACCINE Aged Out No longe r eligible based on patient's age to complete this topic HIB VACCINE Aged Out No longer eligi ble based on patient's age to complete this topic HPV VACCINE Aged Out No longer eligi ble based on patient's age to complete this topic MENINGOCOCCAL (Group B) VACCINE SHARED DECISION-MAKING Aged Out No longer eligible based on patient's age to complete this topic MENINGOCOCCAL GROUPS A/C/Y/W VACCINE Aged Out No longer eligible based on patient's age to complete this topic Insurance MEDICARE ANTHEM * Guarantor: WILTON PAIZ Account Type Relation to Patient Date of Phone Billing Address Personal/Family Spouse Care Teams Bar Pilot Relationship Specialty Start Date End Date Barrie Hamm MD [address] [place] [id number] PCP - General Family Medicine 07/06/24
--- OUTSIDE RECORDS SUMMARY | 2025-07-09 12:28 | XMS_ITS | Encounter Summary ---
Author Organization [facility] Healthcare Address [address] [place] [address] Care Team Providers Care Water And Sewer Systems Superintendent Name Role Phone Samir Gibson MD Unavailable [phone] Meggan Quiles MD Unavailable Irina Swain MD Unavailable [phone] Neo Doyle DO Unavailable [phone] Og Crawford MD Unavailable [phone] Lexy Plascencia Unavailable [phone] Shelly Fierro NP Unavailable [phone] Renny Becerra MD Unavailable [phone] Marcel Joshi MD Unavailable [phone] Barrie Hamm MD Primary Care Provider [phone] Lindsey Contreras Unavailable Unavailable Encounter Details Date Type Department Care Team (Late st Contact Info) Description 05/10/2025 Telephone [facility] Medical Group Primary Care at [address] [address] Barrie Hamm MD [address] [place] [address] [address] [place] [address] Social History Tobacco Use Types Packs/Day Years Used Date Smoking Tobacco: Never Passive Smoke Exposure: Never Smokeless Tobacco: Never Alcohol Use Standard Drinks/Week Comments Never 0 (1 standard drink = 0.6 oz pur e alcohol) PHQ-2 Answer Date Recorded PHQ-2 Total Score (If total score is 3 or more points, staff should administer the PHQ-9) 0 02/08/2025 PHQ-9 Answer Date Recorded PHQ-9 Total Score 10 12/16/2024 AUDIT-C Answer Date Recorded Q1: How often do you have a drink containing alcohol? Never 03/11/2025 Q2: How many drinks containi ng alcohol do you have on a typical day when you are drinking? Patient does not drink Q3: How often do you have si x or more drinks on one occasion? Never 03/11/2025 Personal Safety Answer Date Recorded Have you ever been in or are you currently in a harmful physical or emotional relationship or is someone making you feel afraid or unsafe? Denies 03/26/2025 Comments No Sex and Gender Information Value Date Recorded Sex Assigned at Not on file Legal Sex Female 2:54 AM STOCK CONTROL SUPERVISOR Gender Identity Female 03/13/2022 6:32 PM CDT Sexual Orientation Straight 03/13/2022 6: 32 PM CDT Occupation Industry Job Start Date Job End Date disabled Not on file Not on file Not on file documented as of this encounter Plan of Treatment Upcoming Encounters Date Type Department Care Team (Latest Contact Info) Description 09/14/2025 12:31 PM STOCK CONTROL SUPERVISOR Hospital Encounter [facility] Operating Room 1 [place] [address] Andres Banks MD [address] [place] [address] 09/14/2025 12:31 PM STOCK CONTROL SUPERVISOR - 09/14/2025 3:06 PM STOCK CONTROL SUPERVISOR Surgery [facility] Operating Room 1 [place] [address] Andres Banks MD [address] [place] [address] INSERTIONm AXONICS DEVICE STAGE 1 09/30/2025 11:57 AM CDT Hospital Encounter [facility] Operating Room 1 [place] [address] Andres Banks MD [address] [place] [address] 09/30/2025 11:57 AM CDT - 09/30/2025 1:23 PM CDT Surgery [facility] Operating Room 1 [place] [address] Andres Banks MD [address] [place] [address] INSERTION AXONICS STAGE 2 Scheduled Procedures Name Priority Associated Diagnoses Date/Ti me INSERTION/REMOVAL INTERSTIM DEVICE STAGE 1 Mixed incontinence Full incontinence of feces OAB (overactive bladder) 09/14/2025 12:31 PM STOCK CONTROL SUPERVISOR INSERTION/REMOVAL INTERSTIM STAGE 2 Mixed incontinence Full incontinence of feces OAB (overactive bladder) 09/30/2025 11:57 AM CDT PERCUTANEOUS NEPHROLITHOTOMY - TRILOGY Right renal stone CYSTOSCOPY Right renal stone URETEROSCOPY Right renal stone documented as of this encounter Visit Diagnoses Not on filedocumented in this encounter Additional Health Concerns 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 04/30/2022 04/30/2022 documented as of this encounter Care Teams Water And Sewer Systems Superintendent Relationship Specialty Start Date End Date Barrie Hamm MD [address] [facility] [address] [place] [address] PCP - General Family Medicine 03/15/25 Samir Gibson MD [address] [place] [address] Referring Physician Neurology 11/21/20 Meggan Quiles MD [address] [facility] [address] [place] [address] Consulting Physician Urology 09/08/22 Irina Swain MD [address] [place] [address] Referring Physician Dermatology 05/28/23 Neo Doyle DO [address] [place] [address] Referring Physician Cardiology 05/28/23 Og Crawford MD 1 [facility] [place] [address] Consulting Physician Nephrology 05/28/23 Lexy Plascencia PA [address] [place] [address] Core Layer Machine Operator Physician Rolled Glass Crosscutter 05/28/23 Shelly Fierro NP [address] [place] [address] Psychiatry 12/16/24 Renny Becerra MD [address] [place] [address] Referring Physician Psychiatry 12/16/24 Marcel Joshi MD [address] [place] [address] Consulting Physician Neurosurgery 12/16/24 Lindsey Contreras Primary Account Services Coordinator 04/08/25 documented as of this encounter
--- OUTSIDE RECORDS SUMMARY | 2025-07-09 12:28 | XMS_ITS | Encounter Summary ---
Author Organization [facility] Healthcare Address [address] [place] [address] Care Team Providers Care Ceramic Painter Name Role Phone Samir Gibson MD Unavailable [phone] Meggan Quiles MD Unavailable Irina Swain MD Unavailable [phone] Neo Doyle DO Unavailable [phone] Og Crawford MD Unavailable [phone] Lexy Plascencia Unavailable Shelly Fierro NP Unavailable [phone] Renny Becerra MD Unavailable [phone] Marcel Joshi MD Unavailable [phone] Barrie Hamm MD Primary Care Provider Lindsey Contreras Unavailable Unavailable Encounter Details Date Type Department Care Team (Late st Contact Info) Description 06/16/2025 Results Follow-Up [facility] Medical Group Primary Care at [address] [address] Barrie Hamm MD [address] [place] [address] [address] [place] [address] Albumin Creatinine Ratio, Urine Social History Tobacco Use Types Packs/Day Years [...] on file Legal Sex Female 2:54 AM GERIATRIC PHYSICAL THERAPIST Gender Identity Female 03/13/2022 6:32 PM CDT Sexual Orientation Straight 03/13/2022 6: 32 PM CDT Occupation Industry Job Start Date Job End Date disabled Not on file Not on file Not on file documented as of this encounter Plan of Treatment Upcoming Encounters Date Type Department Care Team (Latest Contact Info) Description 09/14/2025 12:31 PM GERIATRIC PHYSICAL THERAPIST Hospital Encounter [facility] Operating Room 1 [place] [phone] Andres Banks MD [address] [place] [address] 09/14/2025 12:31 PM GERIATRIC PHYSICAL THERAPIST - 09/14/2025 3:06 PM GERIATRIC PHYSICAL THERAPIST Surgery [facility] Operating Room 1 [place] [address] Andres Banks MD [address] [place] [address] INSERTIONm AXONICS DEVICE STAGE 1 09/30/2025 11:57 AM CDT Hospital Encounter [facility] Operating Room 1 [place] [address] Andres Banks MD [address] [place] [address] 09/30/2025 11:57 AM CDT - 09/30/2025 1:23 PM CDT Surgery [facility] Operating Room 1 [place] [address] Andres Banks MD [address] [place] [address] INSERTION AXONICS STAGE 2 Scheduled Procedures Name Priority Associated Diagnoses Date/Ti me INSERTION/REMOVAL INTERSTIM DEVICE STAGE 1 Mixed incontinence Full incontinence of feces OAB (overactive bladder) 09/14/2025 12:31 PM GERIATRIC PHYSICAL THERAPIST INSERTION/REMOVAL INTERSTIM STAGE 2 Mixed incontinence Full incontinence of feces OAB (overactive bladder) 09/30/2025 11:57 AM CDT PERCUTANEOUS NEPHROLITHOTOMY - TRILOGY Right renal stone CYSTOSCOPY Right renal stone URETEROSCOPY Right renal stone documented as of this encounter Goals Goal Patient Goal Type Associated Problems Recent Progress Patient-Stated? 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 04/30/2022 04/30/2022 documented as of this encounter Care Teams Ceramic Painter Relationship Specialty Start Date End Date Barrie Hamm MD [address] [facility] [address] [place] [address] PCP - General Family Medicine 03/15/25 Samir Gibson MD [address] [place] [address] Referring Physician Neurology 11/21/20 Meggan Quiles MD [address] [place] [address] Consulting Physician Urology 09/08/22 Irina Swain MD [address] [place] [address] Referring Physician Dermatology 05/28/23 Neo Doyle DO [address] [facility] [address] [place] [address] Referring Physician Cardiology 05/28/23 Og Crawford MD 1 [facility] [place] [address] Consulting Physician Nephrology 05/28/23 Lexy Plascencia PA [address] [place] [address] Business Architect Physician Identity Management Developer 05/28/23 Shelly Feirro NP [address] [facility] [address] [place] [address] Psychiatry 12/16/24 Renny Becerra MD [address] [place] [address] Referring Physician Psychiatry 12/16/24 Marcel Joshi MD [address] [place] [address] Consulting Physician Neurosurgery 12/16/24 Lindsey Contreras Primary Can Operator 04/08/25 documented as of this encounter
--- OUTSIDE RECORDS SUMMARY | 2025-07-09 12:28 | XMS_ITS | Encounter Summary ---
Author Organization [facility] Healthcare Address [address] [place] [address] Care Team Providers Care Doughnut Glazier Name Role Phone Samir Gibson MD Unavailable [phone] Meggan Quiles MD Unavailable Irina Swain MD Unavailable [phone] Neo Doyle DO Unavailable [phone] Og Crawford MD Unavailable [phone] Lexy Plascencia Unavailable [phone] Shelly Fierro NP Unavailable [phone] Renny Becerra MD Unavailable [phone] Marcel Joshi MD Unavailable [phone] Barrie Hamm MD Primary Care Provider Lindsey Contreras Unavailable Unavailable Encounter Details Date Type Department Care Team (Late st Contact Info) Description 06/15/2025 Results Follow-Up [facility] Medical Group Primary Care at [address] [address] Barrie Hamm MD [address] [place] [address] [address] [place] [address] CBC with auto differential, Comprehensive metabolic panel, Lipid panel, Additional followed-up results: 6 Social History Tobacco Use Types Packs/Day Years [...] on file Legal Sex Female 2:54 AM FAST FOOD CREW MEMBER Gender Identity Female 03/13/2022 6:32 PM CDT Sexual Orientation Straight 03/13/2022 6: 32 PM CDT Occupation Industry Job Start Date Job End Date disabled Not on file Not on file Not on file documented as of this encounter Plan of Treatment Upcoming Encounters Date Type Department Care Team (Latest Contact Info) Description 09/14/2025 12:31 PM FAST FOOD CREW MEMBER Hospital Encounter [facility] Operating Room 1 [place] [address] Andres Banks MD [address] [place] [address] 09/14/2025 12:31 PM FAST FOOD CREW MEMBER - 09/14/2025 3:06 PM FAST FOOD CREW MEMBER Surgery [facility] Operating Room 1 [place] [address] Andres Banks MD [address] [place] [address] INSERTIONm AXONICS DEVICE STAGE 1 09/30/2025 11:57 AM CDT Hospital Encounter [facility] Operating Room [address] [place] [address] Andres Banks MD [address] [place] [address] 09/30/2025 11:57 AM CDT - 09/30/2025 1:23 PM CDT Surgery [facility] Operating Room [address] [place] [address] Andres Banks MD [address] [place] [address] INSERTION AXONICS STAGE 2 Scheduled Procedures Name Priority Associated Diagnoses Date/Ti me INSERTION/REMOVAL INTERSTIM DEVICE STAGE 1 Mixed incontinence Full incontinence of feces OAB (overactive bladder) 09/14/2025 12:31 PM FAST FOOD CREW MEMBER INSERTION/REMOVAL INTERSTIM STAGE 2 Mixed incontinence Full incontinence of feces OAB (overactive bladder) 09/30/2025 11:57 AM CDT PERCUTANEOUS NEPHROLITHOTOMY - TRILOGY Right renal stone CYSTOSCOPY Right renal stone URETEROSCOPY Right renal stone documented as of this encounter Goals Goal Patient Goal Type Associated Problems Recent Progress Patient-Stated? 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 04/30/2022 04/30/2022 documented as of this encounter Care Teams Doughnut Glazier Relationship Specialty Start Date End Date Barrie Hamm MD [address] [facility] [address] [place] [address] PCP - General Family Medicine 03/15/25 Samir Gibson MD [address] [place] [address] Referring Physician Neurology 11/21/20 Meggan Quiles MD [address] [place] [address] Consulting Physician Urology 09/08/22 Irina Swain MD [address] [place] [address] Referring Physician Dermatology 05/28/23 Neo Doyle DO [address] [facility] [address] [place] [address] Referring Physician Cardiology 05/28/23 Og Crawford MD 1 [facility] [address] [place] [address] Consulting Physician Nephrology 05/28/23 Lexy Plascencia PA [address] [place] [address] Asphalt Heater Tender Physician Film Sorter 05/28/23 Shelly Fierro, TABBY [address] [place], [place] [address] Psychiatry 12/16/24 Renny Becerra MD [address] [place] [address] Referring Physician Psychiatry 12/16/24 Marcel Joshi MD [address] [place] [address] Consulting Physician Neurosurgery 12/16/24 Lindsey Contreras Primary Assistant Prosecuting Attorney 04/08/25 documented as of this encounter
--- OUTSIDE RECORDS SUMMARY | 2025-07-09 12:28 | XMS_ITS | Encounter Summary ---
Author Organization [facility] Address [address] [place] [address] Phone Care Team Providers Care Equipment Operator Intermodal Yard Name Role Phone Beatriz Pizarro MD Primary Care Provider + Barrie Hamm MD Primary Care Provider [phone] No, Physician Primary Care Provider [phone] Barrie Hamm MD Unavailable [phone] Samir Gibson MD Unavailable [phone] Meggan Quiles MD Unavailable Irina Swain MD Unavailable [phone] Neo Doyle DO Unavailable [phone] Og Crawford MD Unavailable [phone] Lexy Plascencia Unavailable [phone] Jennyfer Tyler MD Unavailable [phone] Barrie Hamm MD Primary Care Provider [phone] Shelly Fierro NP Unavailable [phone] Renny Becerra MD Unavailable [phone] Marcel Joshi MD Unavailable [phone] Olivier Singh MD Primary Care Provider [phone] Barrie Hamm MD Primary Care Provider Lindsey Contreras Unavailable Unavailable Encounter Details Date Type Department Care Team (Latest Contact Info) Description 04/08/2023 Orders Only [facility] Scanning, Provider Social History Tobacco Use Types Packs/Day Years Used Date Smoking Tobacco: Never Smokeless Tobacco: Never Alcohol Use Standard Drinks/Week Comments No 0 (1 standard drink = 0.6 oz pur e alcohol) AUDIT-C Answer Date Recorded Q1: How often do you have a drink containing alcohol? Never 09/07/2022 Q2: How many drinks containi ng alcohol do you have on a typical day when you are drinking? Patient does not drink Q3: How often do you have si x or more drinks on one occasion? Never 09/07/2022 PHQ-2 Answer Date Recorded PHQ-2 Score 0 03/14/2019 Comments Unknown Sex and Gender Information Value Date Recorded Sex Assigned at Not on file Legal Sex Female 2:54 AM PULP DRIER Gender Identity Female 03/13/2022 6:32 PM CDT Sexual Orientation Straight 03/13/2022 6: 32 PM CDT Occupation Industry Job Start Date Job End Date disabled Not on file Not on file Not on file documented as of this encounter Plan of Treatment Upcoming Encounters Date Type Department Care Team (Latest Contact Info) Description 09/14/2025 12:31 PM PULP DRIER Hospital Encounter [facility] Operating Room 1 [place] [address] Andres Banks MD [address] [place] [address] 09/14/2025 12:31 PM PULP DRIER - 09/14/2025 3:06 PM PULP DRIER Surgery [facility] Operating Room 1 [place] [address] Andres Banks MD [address] [place] [address] INSERTIONm AXONICS DEVICE STAGE 1 09/30/2025 11:57 AM CDT Hospital Encounter [facility] Operating Room 1 [place] [address] Andres Banks MD [address] [place] [address] 09/30/2025 11:57 AM CDT - 09/30/2025 1:[address] [facility] Operating Room [address] [place] [address] Andres Banks MD [address] [place] [address] INSERTION AXONICS STAGE 2 Scheduled Procedures Name Priority Associated Diagnoses Date/Ti me INSERTION/REMOVAL INTERSTIM DEVICE STAGE 1 Mixed incontinence Full incontinence of feces OAB (overactive bladder) 09/14/2025 12:31 PM PULP DRIER INSERTION/REMOVAL INTERSTIM STAGE 2 Mixed incontinence Full incontinence of feces OAB (overactive bladder) 09/30/2025 11:57 AM CDT PERCUTANEOUS NEPHROLITHOTOMY - TRILOGY Right renal stone CYSTOSCOPY Right renal stone URETEROSCOPY Right renal stone documented as of this encounter Procedures Procedure Name Priority Date/Time Associated Diagnosis Comments CARDIOLOGY DOCUMENT SCAN 04/08/2023 documented in this encounter Results * CARDIOLOGY DOCUMENT SCAN (04/08/2023) Anatomical Region Laterality Modality Other us Provider Scanning CV CARDIAC SERVICES PROCEDURES Final Result documented in this encounter Visit Diagnoses Not on filedocumented in this encounter Additional Health Concerns 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 04/30/2022 04/30/2022 COVID: Suspected 10/08/2023 10/08/2023 10/08/2023 10:22 AM CDT Influenza, adult 10/08/2023 10/08/2023 10/15/2023 3:06 AM CDT COVID: Suspected 05/27/2024 05/27/2024 05/27/2024 11:21 PM PULP DRIER Exposure, COVID-19 Comment:Added automatically based on COVID19 lab answers indicating exposure risk 08/07/2024 08/07/2024 08/17/2024 3:[address] COVID: Suspected 08/07/2024 08/07/2024 08/07/2024 4:51 PM PULP DRIER COVID: Suspected 11/25/2024 11/25/2024 11/25/2024 3:44 PM CDT COVID: Suspected 11/25/2024 11/25/2024 11/26/2024 1:16 AM CDT documented as of this encounter Care Teams Equipment Operator Intermodal Yard Relationship Specialty Start Date End Date Beatriz Pizarro MD PCP - General 12/15/15 05/27/23 Barrie Hamm MD [address] [place] [address] PCP - General Family Medicine 05/28/23 10/06/24 No, Physician PCP - General 10/07/24 10/27/24 Barrie Hamm MD [address] [place] [address] PCP - General Family Medicine 10/28/24 03/12/25 Olivier Singh MD [address] [place] [address] [address] [place], [place] [id number] PCP - General Family Medicine 03/13/25 03/14/25 Barrie Hamm MD [address] [place], [place] [address] PCP - General Family Medicine 03/15/25 Barrie Hamm MD [address] [place] [address] Family Medicine 10/07/24 03/12/25 Samir Gibson MD [address] [place] [address] Referring Physician Neurology 11/21/20 Meggan Quiles MD [address] [facility] [address] [place] [address] Consulting Physician Urology 09/08/22 Irina Swain MD [address] [place] [address] Referring Physician Dermatology 05/28/23 Neo Doyle DO [address] [facility] [address] [place] [address] Referring Physician Cardiology 05/28/23 Og Crawford MD 1 [facility] [address] DIV [place] [address] Consulting Physician Nephrology 05/28/23 Lexy Plascencia PA [address] [place] [address] Net Ui Developer Physician Media Relations Director 05/28/23 Jennyfer Tyler MD [address] [place] [address] Psychiatry 05/28/23 12/15/24 Shelly Fierro NP [address] [place] [address] Psychiatry 12/16/24 Renny Becerra MD [address] [place] [address] Referring Physician Psychiatry 12/16/24 Marcel Joshi MD [address] [place] [address] Consulting Physician Neurosurgery 12/16/24 Lindsey Contreras Primary Lift Truck Operator 04/08/25 documented as of this encounter
--- OUTSIDE RECORDS SUMMARY | 2025-07-09 12:28 | XMS_ITS | Clinical Summary ---
Author Organization [facility] Address [address] [place] [address] Care Team Providers Care Internet Cafe Manager Name Role Phone Samir Gibson MD Unavailable [phone] Meggan uQiles MD Unavailable Irina Swain MD Unavailable [phone] Neo Doyle DO Unavailable [phone] Og Crawford MD Unavailable [phone] Lexy Plascencia Unavailable Shelly Fierro NP Unavailable [phone] Renny Becerra MD Unavailable [phone] Marcel Joshi MD Unavailable [phone] Barrie Hamm MD Primary Care Provider Lindsey Contreras Unavailable Unavailable Allergies Active Allergy Reactions Criticality Noted Date Comments Atorvastatin Muscle pain Medium 03/20/2022 Pt states- No Statins Iodinated Contrast Media Hives Medium 05/21/2023 Liraglutide Nausea only Low 03/20/2022 Victoza Lisinopril Dizziness Low 03/20/2022 Metformin Other (See comments) Low 03/20/2022 Renal impairment Nebivolol Hives,Itching,Rash Medium 04/15/2023 Sulfa (Sulfonamide Antibiotics) Other (See comments) Low 03/20/2022 Bactrim/Trimethoprim - Sore throat, hoarseness Tetracycline Fever Medium 12/25/2017 Medications OneTouch Ultra2 Meter misc 08/14/19 23 Active rOPINIRole (REQUIP) 4 mg tablet Take 2 tablets (8 mg total) by mouth nightly 2mg AM, 4mg PM 11/10/19 22 Active vitamin E 400 unit capsuleIndicati ons:Blood thinner for HX stroke left eye Take 1 capsule (400 Units total) by mouth every morning Active ARIPiprazole (ABILIFJuancarlos MAINTENA) 400 mg IM injectionIndica tions:schizophr enia Inject 400 mg into the muscle as instructed every 30 (thirty) days Active CRANBERRY ORALIndications :UTI prevention Take 1 tablet/capsule by mouth every morning Active albuterol HFA (PROVENTIL HFA,VENTOLIN HFA,PROAIR HFA) 90 mcg/actuation inhalerIndicati ons:Acute Asthma Attack Inhale 1 puff as needed (asthma) 1 each 05/27/20 24 Active cholecalciferol , vitD3,/vit K2 (vitamin D3-vitamin K2) 125-90 mcg capsuleIndicati ons:Bone health Take 1 tablet by mouth every morning Active furosemide (LASIX) 20 mg tablet TAKE 1 TABLET BY MOUTH DAILY NEEDED FOR GREATER THAN 1 LB WEIGHT GAIN IN 24 HOURS, INCREASED LEG SWELLING 100 tablet 1 06/07/20 24 Active Asmanex HFA 100 mcg/actuation inhalerIndicati ons:Maintenance Therapy for Asthma Inhale 2 puffs 2 (two) times a day One puff in Am and 2 puff at night 12/02/19 25 Active losartan (COZAAR) 100 mg tabletIndicatio ns:hypertension Take 1 tablet (100 mg total) by mouth stock unloader before breakfast 90 tablet 3 12/17/19 25 026 Active levothyroxine (SYNTHROID) 100 mcg tablet Take 1 tablet (100 mcg total) by mouth stock unloader before breakfast 100 tablet 3 12/22/19 25 Active ascorbic acid (vitamin C) 1,000 mg tabletIndicatio ns:Immune health Take 1 tablet (1,000 mg total) by mouth every morning Avoiding to be able to provide urine sample. Active OneTouch Ultra Test stripIndication s:Type 2 diabetes mellitus without complication, without long-term current use of insulin (HCC) USE TO CHECK BLOOD SUGAR TWICE DAILY 100 strip 3 02/09/20 Active ARIPiprazole (ABILIFY) 20 mg tabletIndicatio ns:Schizophreni a Take 1 tablet (20 mg total) by mouth daily Not taking currently. Only has PO in case she is unable to receive injection. 02/04/20 Active multivitamin-mi nerals-lutein (Multivitamin 50 Plus) tabletIndicatio ns:General health Take 1 tablet by mouth every morning Active psyllium (METAMUCIL) powderIndicatio ns:constipation Take 1 packet by mouth every morning 1 tsp in morning Active artificial tears,hypromell ose, 0.3 % dropsIndication s:Dry Eye Administer 1 drop into both eyes 3 (three) times a day Active UNABLE TO FINDIndications :Sleep Take 1 each by mouth nightly Med Name: Herbal tea Active clobetasoL (TEMOVATE) 0.05 % creamIndication s:Atopic Dermatitis,Skin Inflammation Apply 1 Application topically as needed (Dermatitis) If flare up then uses BID for 2 weeks Active senna-docusate (PERICOLACE) 8.6-50 mgIndications:c onstipation Take 2 tablets by mouth 2 (two) times a day 03/15/20 Active Additional Information Patient not taking.Reported on 06/23/2025 amLODIPine (NORVASC) 5 mg tabletIndicatio ns:Hypertension associated with diabetes (HCC) Take 1 tablet (5 mg total) by mouth daily 90 tablet 3 04/01/20 25 026 Active gabapentin (NEURONTIN) 300 mg capsule Take 1 capsule (300 mg total) by mouth 3 (three) times a day 90 capsule 04/15/20 25 026 Active methenamine (HIPREX) 1 gram tablet TAKE 1 TABLET BY MOUTH TWICE DAILY 180 tablet 3 05/11/20 25 Active methenamine (HIPREX) 1 gram tabletIndicatio ns:Urinary Tract/Genitouri nary Infection Take 1 tablet (1,000 mg total) by mouth 2 (two) times a day 180 tablet 3 05/11/20 25 026 Active glimepiride (AMARYL) 1 mg tabletIndicatio ns:type 2 diabetes mellitus Take 1 tablet (1 mg total) by mouth daily before breakfast 30 tablet 3 05/24/20 25 Active Additional Information Patient taking differently: 2 mgoral Daily before breakfast, Indications: type 2 diabetes mellitus, Reported on 06/23/2025 oxyCODONE (ROXICODONE) 5 mg immediate release tabletIndicatio ns:Pain Take 1 tablet (5 mg total) by mouth every 4 (four) hours as needed for pain 42 tablet 06/02/20 25 Active celecoxib (CeleBREX) 100 mg capsule 1 capsule (100 mg total) daily Active methocarbamoL (ROBAXIN) 500 mg tabletIndicatio ns:Muscle Spasm Take 1 tablet (500 mg total) by mouth every 8 (eight) hours as needed for muscle spasms 40 tablet 1 06/23/20 25 Active empagliflozin (Jardiance) 10 mg tablet Take 1 tablet (10 mg total) by mouth daily 30 tablet 2 06/23/20 25 Active metFORMIN XR (GLUCOPHAGE XR) 500 mg 24 hr tabletIndicatio ns:Hypertension associated with diabetes (HCC) Take 2 tablets (1,000 mg total) by mouth daily with breakfast 05/12/20 25 025 Discontinued baclofen (LIORESAL) 10 mg tabletIndicatio ns:Muscle Spasticity of Spinal Origin Take 1 tablet (10 mg total) by mouth 3 (three) times a day as needed for muscle spasms 90 tablet 2 05/17/20 25 025 Discontinued Active Problems Problem Noted Date Diagnosed Date Obesity, morbid 06/23/2025 Primary osteoarthritis of left knee 04/30/2025 Abscess of forearm, left 04/01/2025 Acquired deformity of left knee 04/01/2025 Altered mental status 04/01/2025 Anemia 04/01/2025 Benzodiazepine overdose 04/01/2025 Carpal tunnel syndrome 04/01/2025 Chest tightness 04/01/2025 Closed head injury 04/01/2025 Depression with suicidal ideation 04/01/2025 Diarrhea 04/01/2025 ELIZABETH (dyspnea on exertion) 04/01/2025 Shortness of breath 04/01/2025 E. coli sepsis 04/01/2025 Edema 04/01/2025 General unsteadiness 04/01/2025 Hip pain, left 04/01/2025 Hypokalemia 04/01/2025 Hyponatremia 04/01/2025 Injury of deep peroneal nerv e at ankle and foot level, left leg, sequela 04/01/2025 Laceration of wrist 04/01/2025 Left elbow tendonitis 04/01/2025 Mixed incontinence 04/01/2025 Moderate persistent asthma 04/01/2025 Allergic rhinitis 04/01/2025 Rhinitis 04/01/2025 SBO (small bowel obstruction) 04/01/2025 Seizures 04/01/2025 Sensory problems with limbs 04/01/2025 Suicidal ideation 04/01/2025 Type 2 diabetes mellitus with hyperglycemia 03/22 Urinary tract infection 04/01/2025 Vitamin D deficiency, unspecified 04/01/2025 Hyperglycemia 04/01/2025 Acute blood loss anemia 03/12/2025 Assessment & Plan (03/14/2025 3:30 PM CDT): As expected post op estimated blood loss + drain in place --hemodynamically stable --trend CBC --03/14 hgb 10 History of CVA with residual deficit 03/12/2025 Assessment & Plan (03/14/2025 3:30 PM CDT): CVA in 2022 (L eye) - residual deficit. --Allergy to statin --Continue BP and DM management Vestibular dysfunction 03/12/2025 Assessment & Plan (03/12/2025 11:23 AM CDT): history of vestibular dysfunction. She has undergone vestibular therapy. But hasn't followed up with neurology for several years. Still has issues with balance Electrolyte and fluid disorder 03/12/2025 Assessment & Plan (03/14/2025 3:31 PM CDT): --Intermittent and chronic, mild hyponatremia. --Euvolemic on exam. --These fluid and electrolyte abnormalities are being treated, evaluated or monitored: Hyponatremia from CHF --follow electrolytes --03/14 Na 134, encourage po intake Acute on chronic back pain 03/12/2025 Assessment & Plan (03/14/2025 3:36 PM CDT): --Home regimen of celebrex --Managed inpatient with oral regimen of scheduled tylenol, flexeril 5mg TID, gabapentin 100mg TID and PRN oxycodone 5mg q4 with IV Dilaudid for breakthrough Urethral sphincter deficiency, intrinsic (ISD) 0 12/28/2024 Paranoid schizophrenia 12/16/2024 Carpal tunnel syndrome, bilateral 11/06/2024 Assessment & Plan (02/19/2025 11:07 AM CDT): Assessment & Plan (12/07/2024 1:26 PM CDT): Advise her that in regards to the carpal tunnel syndrome I do expect there to be some simple shooting pains like she is describing every now and then for the next month or so. I also advised that over the course of the next month if she continues to wear her night braces that this could continue to improve over time. She should let me know if there is worsening. She exhibited understanding and is in agreement with this plan of care. Assessment & Plan (11/06/2024 10:11 AM CDT): Orders: lidocaine (XYLOCAINE) 20 mg/mL (2 %) injection 60 mg methylPREDNISolone acetate (DEPO-medrol) injection 80 mg Chronic paranoid schizophrenia 11/05/2024 Generalized anxiety disorder 11/05/2024 Restless legs syndrome 11/05/2024 Severe recurrent major depre ssion without psychotic features 11/05/2024 Full incontinence of feces 09/15/2024 OAB (overactive bladder) 09/15/2024 Numbness and tingling of hand 08/17/2024 UTI symptoms 2024 Assessment & Plan (2024 12:41 PM SENIOR MOBILE APPLICATION DEVELOPER): Symptoms minimal, she wants to wait until culture comes back. At time of dictation, urine culture returned with positive klebsiella pneumoniae. Patient has sulfa allergy. Intermediate resistance to macrobid. Will try cefdinir. Susceptibility Klebsiella pneumoniae INTERPRETATION Ampicillin Resistant Cefazolin Susceptible Cefdinir Susceptible Cefepime Susceptible Ceftazidime Susceptible Ceftriaxone Susceptible Cefuroxime-axetil Susceptible Cephalexin Susceptible Ciprofloxacin Susceptible Gentamicin Susceptible Meropenem Susceptible Nitrofurantoin Intermediate Piperacillin/Tazobactam Susceptible Trimethoprim with Sulfamethoxazole Susceptible History of fracture of left ankle 2024 Acute left ankle pain 2024 Assessment & Plan (2024 12:42 PM SENIOR MOBILE APPLICATION DEVELOPER): Will obtain updated x-ray of ankle. History of hardware placement. Refer to [facility] orthopedics. Statin myopathy 05/20/2024 03/20/2022 Overview (05/20/2024): Do not recommend statin re-trial given history of intolerance (myopathy). Provider to consider billing statin myopathy (G72.0) with assessment/plan in note on annual basis to remove patient from [facility] Statin Gap report. Medicare annual wellness visit, subsequent 11/26 Assessment & Plan (11/27/2023 9:21 AM CDT): -Recommended: Healthy diet. Avoiding junk food/fast food. -30 minutes of exercise most days of the week. Increase to 45 minutes for weight loss. Immunizations: Recommended pneumococcal 20 bring BP log to office visit, routine labs ordered, call if any problems Follow-up in [address] Hamm Diabetic retinopathy, nonproliferative, mild Assessment & Plan (11/27/2023 8:43 AM CDT): She sees Dr. Brian Phillips - retin specialist in [facility]. Drug induced subacute dyskinesia 11/14/2023 Metabolic dysfunction-associ ated steatotic liver disease (MASLD) 11/14/2023 History of uric acid staghorn calculus Lower extremity edema 11/14/2023 Mixed stress and urge urinary incontinence 11/13 Nontoxic nodular goiter 11/14/2023 JAVI (obstructive sleep apnea) 11/14/2023 Peripheral neuropathy 11/14/2023 Personal history of colonic polyps 11/14/2023 Schizophrenia 11/14/2023 Assessment & Plan (03/14/2025 3:37 PM CDT): --Continue home Abilify and Requip Assessment & Plan (11/27/2023 9:24 AM CDT): Stable. On abilify. C/o's of increased appetite with it. Managed by psychiatry. Trace mitral valve regurgitation 11/14/2023 Synovial cyst 11/07/2023 Assessment & Plan (03/14/2025 3:30 PM CDT): --LLE radiculopathy with L3-4 stenosis now s/p L3-4 PSD, synovial cyst resection, L3-4 PSF on 03/11/2025, closed with Monocryl, drains x 1, +prevena t --Prevena to be changed 03/18 --Post-operative imaging obtained 03/12 --Therapy recommends dispo to rehab --Patient to follow-up with Dr. Joshi outpatient Lumbar disc disease with radiculopathy Assessment & Plan (07/13/2023 1:15 PM SENIOR MOBILE APPLICATION DEVELOPER): Adding medrol for inflammation Refilled cyclobenzaprine for spasm May use tylenol PRN for pain control MRI ordered, we will want to get that soon Considering PT Referral to spine surgeon as well Asthma 05/28/2023 Assessment & Plan (11/27/2023 8:50 AM CDT): Mild, intermittent. Uses qvar intermittently. Has been forgetting to use it. Uses albuterol once every 2-3 weeks Hypertension associated with diabetes 11/12/2018 Assessment & Plan (06/09/2024 10:45 AM SENIOR MOBILE APPLICATION DEVELOPER): Increasing losartan to 75 mg daily, 1-1/2 tablets of the 50 mg tablet daily. I usually do not start insulin for type 2 diabetics until we are above 9% on the A1c. Her A1c at this time is in good shape Assessment & Plan (11/27/2023 8:47 AM CDT): Blood pressures are stable, but not at goal. Running borderline with readings in the 140's. Will increase losartan to 50mg daily. Continue metoprolol. F/u [address] Hamm. Assessment & Plan (03/19/2019 12:54 PM CDT): Stable on current regimen. Assessment & Plan (11/12/2018 11:22 PM CDT): Hypertension is well controlled on Lisinopril. Dietary sodium restriction. Weight loss. Hyperlipidemia associated with type 2 diabetes silvia delvalle 11/12/2018 Assessment & Plan (06/09/2024 10:45 AM SENIOR MOBILE APPLICATION DEVELOPER): Recommended trying citrus bergamot, flaxseed oil. You may try fish oil as well, although it will not affect the LDL directly Discussed guidelines for LDL (newer goal is under 70 mg/dl, used to be under 100 mg/dl) Advised cutting way back on saturated fats, cutting carb intake to below 100 mg/dl Assessment & Plan (11/27/2023 8:42 AM CDT): Allergy to statins. Atorvastatin has caused muscle pain. Has not tried other statins. Last LDL 61 05/2023. Lab Results Component Value Date CHOL 134 05/28/2023 CHOL 141 04/04/2022 Lab Results Component Value Date HDL 46 05/28/2023 HDL 45 04/04/2022 Lab Results Component Value Date LDLCALC 61 05/28/2023 LDLCALC 61 04/04/2022 Lab Results Component Value Date TRIG 134 05/28/2023 TRIG 176 (H) 04/04/2022 No results found for: POCCHDLR No results found for: POCNONHDL No results found for: POCCHLPL Assessment & Plan (03/19/2019 12:53 PM CDT): Intolerant to statins. Assessment & Plan (11/12/2018 11:23 PM CDT): Intolerant to statins. Will consider Zetia next visit. Class 2 severe obesity due t o excess calories with serious comorbidity and body mass index (BMI) of 36.0 to 36.9 in adult 11/12/2018 Overview (11/12/2018): BMI Follow-up includes: nutrition counseling, exercise counseling and education provided. Assessment & Plan (12/16/2024 11:08 AM CDT): BMI Follow-up includes: nutrition counseling, exercise counseling, and education provided. Assessment & Plan (06/09/2024 10:44 AM SENIOR MOBILE APPLICATION DEVELOPER): BMI Follow-up includes: nutrition counseling, exercise counseling, and education provided. Assessment & Plan (11/27/2023 8:43 AM CDT): BMI Follow-up includes: nutrition counseling. Assessment & Plan (05/28/2023 4:16 PM SENIOR MOBILE APPLICATION DEVELOPER): Healthy, low carbohydrate lifestyle and exercise for 150min/week recommended Diabetes 11/11/2018 Assessment & Plan (03/14/2025 3:21 PM CDT): --Home regimen: Amaryl held inpatient --Diabetic diet --Accuchecks ACHS + resistant SSI Assessment & Plan (11/27/2023 8:48 AM CDT): This is a chronic condition which is stable Is at goal for her age and health condition at less than [7,8] % Personally reviewed most recent A1c - Lab Results Component Value Date HGBA1C 7.2 (H) 07/31/2023 Medication- continue amaryl 2mg Monitor blood sugar 1 times a day. Encouraged annual eye exam. Urine microalbumin/creatinine ratio - normal Is treated with GERARDO/ARB Yes Personally reviewed CMP GFR- Lab Results Component Value Date EGFR 94 09/11/2023 , Lab Results Component Value Date GFRNAA 95 06/11/2023 Kidney function- Normal States abilify makes her hungry all the time - getting up in the middle of the night and eating. Assessment & Plan (05/28/2023 3:25 PM SENIOR MOBILE APPLICATION DEVELOPER): Updated labs ordered. Assessment & Plan (03/19/2019 12:54 PM CDT): Well controlled, hemoglobin A1c is 5.7%. Continue Januvia 100 mg daily. Consistent carb diet exercise and weight loss emphasized. Annual dilated eye exam. Foot care discussed. RTC in 6 months Assessment & Plan (11/12/2018 11:38 PM CDT): 68 years old female with history of hypertension and schizophrenia presents for management of type 2 diabetes mellitus and hypothyroidism. Recent hemoglobin A1c was 6.0%. Will make no change in her current regimen. Continue Januvia 100 mg daily. Reminded to bring in blood sugar diary at next visit. Dietary recommendations for ADA diet. Regular aerobic exercise. Discussed ways to avoid symptomatic hypoglycemia. Discussed sick day management. Discussed foot care. Reminded to get yearly retinal exam. Diabetes will be reassessed in 3 months. Acquired hypothyroidism 11/11/2018 Assessment & Plan (03/14/2025 3:21 PM CDT): --Continue home synthroid Assessment & Plan (11/27/2023 8:40 AM CDT): Cannot find recent TSH. Currently on levothyroxine 100mcg. Will check TSH with labs today. F/u [address] Hamm Assessment & Plan (03/19/2019 12:54 PM CDT): Biochemically euthyroid. TSH was 2.4 in September 2018. Continue levothyroxine 100 mcg daily. TSH Q 6-12 months Assessment & Plan (11/12/2018 11:35 PM CDT): Biochemically euthyroid, TSH 2.44. Continue levothyroxine 100 mcg daily. TSH Q 6-12 months.. Will change Synthroid at subsequent visits if fatigue remains to be an issue. Vestibular vertigo 04/19/2016 Resolved Problems Problem Noted Date Diagnosed Date Resolved Date Diastolic dysfunction 11/14/20232023 Lymphedema 06/20/2023 11/27/2023 Renal stone 09/07/2022 11/27/2023 Staghorn calculus 04/04/2022 11/27/2023 Nephrolithiasis 02/19/2022 11/27/2023 Overview (02/19/2022): Added automatically from request for surgery [id number] Conjunctivochalasis of left eye 01/30/2022 11/27/2023 Cervicalgia 01/04/2020 11/27/2023 Assessment & Plan (01/04/2020 12:17 PM CDT): The patient complains of neck pain. She has a supple neck. There is no evidence of radiculopathy on my exam. I am going to refer her to physical therapy for her neck pain. I will see her back as needed. Tremor 01/04/2020 11/27/2023 Assessment & Plan (01/04/2020 12:16 PM CDT): The patient reports that she has a tremor. On my exam I could find no evidence of either an intention or resting tremor. She had no cogwheeling. There is no festination to her gait. I do not believe she has a movement disorder. Rather, like her previous neurologist, I believe her tremors are episodic and likely medication related. Dizziness and giddiness 12/25/20170 02/2025 Assessment & Plan (01/04/2020 12:17 PM CDT): The patient has a history of vestibular dysfunction. She has undergone vestibular therapy. On my exam she shows no evidence of cerebellar dysfunction. I do not believe she has a central vertigo. Rather, this point, is likely medication related. She is going to discuss this further with her psychiatrist. Encounters Date Type Department Care Team Description 07/08/[address] [facility] Neurosurgery [address] [facility] [address] [place] [address] Beatriz Rojas NP Lumbar disc disease with radiculopathy (Primary Dx) 06/25/2025 8:35 AM SENIOR MOBILE APPLICATION DEVELOPER - 06/25/2025 11:59 PM SENIOR MOBILE APPLICATION DEVELOPER Hospital Encounter [facility] [address] [place] [id number] Synovial cyst; Lumbar disc disease with radiculopathy Discharge Disposition: Discharge to home or self care 06/25/2025 8:32 AM SENIOR MOBILE APPLICATION DEVELOPER - 06/25/2025 11:59 PM SENIOR MOBILE APPLICATION DEVELOPER Hospital Encounter [facility] [address] [place] [address] Synovial cyst; Lumbar disc disease with radiculopathy Discharge Disposition: Discharge to home or self care 06/23/2025 10:15 AM SENIOR MOBILE APPLICATION DEVELOPER Office Visit [facility] Primary Care at [address] [phone] Barrie Hamm MD Hypertension associated with diabetes (HCC) (Primary Dx); Obesity, morbid; Seizures (HCC); Hyperlipidemia associated with type 2 diabetes mellitus (HCC); Class 2 severe obesity due to excess calories with serious comorbidity and body mass index (BMI) of 36.0 to 36.9 in adult; Vitamin D deficiency, unspecified; Bilateral carpal tunnel syndrome 06/16/2025 Results Follow-Up [facility] Primary Care at [address] [address] Barrie Hamm MD Albumin Creatinine Ratio, Urine 06/15/2025 Orders Only [facility] at [address] [address] Barrie Hamm MD 06/15/2025 Results Follow-Up [facility] at [address] [phone] Barrie Hamm MD CBC with auto differential, Comprehensive metabolic panel, Lipid panel, Additional followed-up results: 6 06/14/2025 Orders Only [facility] Neurosurgery [address] [facility] 6[address] [place] [address] [place] [address] aMrcel Joshi MD Synovial cyst (Primary Dx); Lumbar disc disease with radiculopathy 06/14/2025 Telephone [facility] Primary Care at [address] [phone] Barrie Hamm MD Additional Services Or Orders 06/08/2025 1:20 PM SENIOR MOBILE APPLICATION DEVELOPER Office Visit [facility] Medicine Infectious Diseases [address] [place] [address] [address] [place] [address] Jannie Burks MD UTI symptoms (Primary Dx); Encounter for screening examination for sexually transmitted disease 05/31/2025 Telephone [facility] Obstetrics and Gynecology [address] [facility] 7[address] [place] [address] OlmedoDarling 05/18/2025 Telephone [facility] Primary [facility] at [address] [phone] Barrie Hamm MD Pre op clearance apointments 05/18/2025 Results Follow-Up [facility] at [address] [address] Jannie Hayden NP Vaginitis panel Vaginal, Urine culture Urine, clean voided 05/17/2025 11:45 AM CDT - 05/17/2025 11:59 PM CDT Hospital Encounter [facility] [address] [place] [address] Urinary frequency Discharge Disposition: Discharge to home or self care 05/17/2025 11:00 AM CDT Office Visit [facility] at [address] [phone] Laure Peace PA Urinary frequency (Primary Dx); Vaginal burning 05/13/2025 Orders Only [facility] Neurosurgery [address] [facility] 6th [place] [address] [place] [address] Marcel Joshi MD S/P spinal fusion (Primary Dx) 05/10/2025 Telephone [facility] at [address] [phone] Barrie Hamm MD 04/30/2025 10:00 AM CDT Office Visit [facility] Orthopedic [facility] Sports Medicine [address] [place] [address] Mick Medina MD Primary osteoarthritis of left knee (Primary Dx); Left knee pain, unspecified chronicity 04/30/2025 9:50 AM CDT Ancillary Procedure [facility] at [address] [phone] Left knee pain, unspecified chronicity 04/30/2025 9:45 AM CDT Ancillary Procedure [facility] at [address] [phone] Left knee pain, unspecified chronicity 04/30/2025 Orders Only [facility] [address] [place] [address] Mick Medina MD Preop testing (Primary Dx) 04/30/2025 Telephone [facility] [address] [place] [phone] Mick Medina MD surgery clearance- Left knee 04/27/[address] [facility] Scheduling [address] [place] [id number] Beatriz Rojas NP 04/21/2025 9:45 AM CDT Office Visit [facility] Neurosurgery [address] [facility] Office [facility] [address] [place] [address] Marcel Joshi MD Synovial cyst (Primary Dx) 04/21/[address] [facility] Neurosurgery [address] [facility] [address] [place] [address] Marcel Joshi MD Synovial cyst (Primary Dx) 04/16/[address] [facility] [address] [place] [address] [address] [place] [address] Anuradha Iverson RMA 04/16/2025 Telephone [facility] Primary Care at [address] [phone] Barrie Hamm MD [facility] orders 04/14/2025 11:40 AM CDT Office Visit [facility] ([facility]) - [facility] Urology [address] [place] [address] Medicine 11th [place] [address] [place] [address] Meggan Quiles MD Struvite kidney stones (Primary Dx); Recurrent UTI from Last 3 Months Immunizations Immunization Administration Dates Next Due Influenza, Trivalent, IM (MDV) 3,07/03/2012,03/31/2009,2007,06/19/2006 Influenza, Unspecified 06/23/2025(Deferr ed: Patient Refused),06/05/2024(Deferred: Patient Refused),04/21/2024(Deferred: Patient Refused),07/08/2023(Deferred: Patient Refused),06/20/2023(Deferred: Patient Refused),05/28/2023(Deferred: Patient Refused),01/19/2023(Deferred: Patient Refused),07/22/2022(Deferred: Patient Refused),04/22/2022(Deferred: Patient Refused) MeinProspekt (J&J) SARS-CoV-2 Vaccination 11/25/2020 PPD TEST 03/01/2025 Pneumococcal Polysaccharide PPV23 06/27/2011, Td, Not Adsorbed 07/08/2017 Tdap 08/23/2017,04/08/2013 Surgical History Surgery Date Site/Laterality Comments HYSTERECTOMY 07/22/1997 - 07/21/1998 APPENDECTOMY 1996 unknown date THYROID SURGERY 2014 2000 and childhood EYE SURGERY at age 7 and 16 PERCUTANEOUS NEPHROLITHOTRIPSY 03/22/2022 - 04/20/2022 ANKLE FRACTURE SURGERY 07/22/2003 - 07/21/2004 Left CATARACT EXTRACTION FRACTURE SURGERY 05/2004 Medical History Medical History Date Comments Asthma 1957 DVT (deep venous thrombosis) Hypothyroidism 2014 Schizophrenia Diabetes mellitus 2007 Diabetic neuropathy (HCC) Primary central sleep apnea Stress incontinence of urine NAFL (nonalcoholic fatty liver) Type 2 diabetes mellitus Hypertension 2014 Depression 1987 Sleep apnea Anxiety Arthritis Cataract Heart disease Kidney stone 2021 Chest pain Coronary artery disease 2015 Dermatitis Mitral valve regurgitation Osteopenia Sinusitis Stroke (HCC) February 2023 Urinary tract infection 2017 Irregular menses 1995 Fibroid 1996 Abnormal Pap smear of cervix 1996 Menopause ovarian failure 1997 CTS (carpal tunnel syndrome) 2015 Family History Medical History Relation Name Comments 77y , HTN Father Lance Bunch Cancer Father Lance Bunch Dementia Father Lance Gregorio [place] Hypertension Father Lance Perkins [place] Memory loss Father Lance Perkins [place] Thyroid cancer Father Lance Perkins [place] Arthritis Maternal Grandfather Lei Austyn Hypertension Maternal Grandfather Lei Zaman Hypertension Maternal Grandmother Patience Zaman , 89y, HTN Mother Edie Zaman [place] Dementia Mother Edie Zaman [place] Hypertension Mother Edie Zaman [place] Memory loss Mother Edie Zaman [place] Osteoarthritis Mother Edie Zaman [place] 67y, HTN Sister 1 Maya [place]ow Cancer Sister 1 Maya P[place]ow Depression Sister 1 Maya P[place]ow Early Sister 1 Maya P[place]ow Eating disorder Sister 1 Maya [place] Kidney failure Sister 1 Maya P[place]ow Mental illness Sister 1 Maya [place]ow Neuropathy Sister 1 Maya [place]ow Rashes / Skin problems Sister 1 Maya [place] Allergy (severe) Sister 2 Donna Trebus Cancer Sister 2 Donna Trebus Hearing loss Sister 2 Donna Trebus Heart disease Sister 2 Donna Trebus Hypertension Sister 2 Donna Trebus Kidney disease Sister 2 Donna Trebus Mental illness Sister 2 Donna Trebus Anesthesia problems Neg Hx Relation Name Status Comments Father Lance Hoffmanw Maternal Grandfather Lei Zaman Maternal Grandmother Patience Zaman Mother Edie Zaman [place] Sister 1 Maya [place]ow Sister 2 Donna Trebus Social History Tobacco Use Types Packs/Day Years Used Date Smoking Tobacco: Never Passive Smoke Exposure: Never Smokeless Tobacco: Never Tobacco Cessation:Counseling Given: Not Answered Alcohol Use Standard Drinks/Week Comments Never 0 (1 standard drink = 0.6 oz pur e alcohol) PHQ-2 Answer Date Recorded PHQ-2 Total Score (If total score is 3 or more points, staff should administer the PHQ-9) 0 06/23/2025 PHQ-9 Answer Date Recorded PHQ-9 Total Score [...] on file Legal Sex Female 2:54 AM SENIOR MOBILE APPLICATION DEVELOPER Gender Identity Female 03/13/2022 6:32 PM CDT Sexual Orientation Straight 03/13/2022 6: 32 PM CDT Occupation Industry Job Start Date Job End Date disabled Not on file Not on file Not on file Last Filed Vital Signs Vital Sign Reading Time Taken Comments Blood Pressure 130/60 06/23/2025 10:15 AM SENIOR MOBILE APPLICATION DEVELOPER Pulse 73 06/23/2025 10:15 AM SENIOR MOBILE APPLICATION DEVELOPER Temperature 36.2 C (97.2 F) 06/23/2025 10:15 AM SENIOR MOBILE APPLICATION DEVELOPER Respiratory Rate 16 06/23/2025 10:1 5 AM SENIOR MOBILE APPLICATION DEVELOPER Oxygen Saturation 97% 06/23/2025 10: 15 AM SENIOR MOBILE APPLICATION DEVELOPER Inhaled Oxygen Concentration - - Weight 106.5 kg (234 lb 12.8 oz) 2024 10:15 AM SENIOR MOBILE APPLICATION DEVELOPER Height 170.2 cm (5' 7) 06/23/2025 10:1 5 AM SENIOR MOBILE APPLICATION DEVELOPER Body Mass Index 36.77 06/23/2025 10:15 AM SENIOR MOBILE APPLICATION DEVELOPER Plan of Treatment Upcoming Encounters Date Type Department Care Team (Latest Contact Info) Description 09/14/2025 12:31 PM SENIOR MOBILE APPLICATION DEVELOPER Hospital Encounter [facility] Operating Room [address] [place] [address] Andres Banks MD [address] [place] [address] 09/14/2025 12:31 PM SENIOR MOBILE APPLICATION DEVELOPER - 09/14/2025 3:06 PM SENIOR MOBILE APPLICATION DEVELOPER Surgery [facility] [address] [place] [address] Andres Banks MD [address] [place] [address] INSERTIONm AXONICS DEVICE STAGE 1 09/30/2025 11:57 AM CDT Hospital Encounter [facility] Operating Room [address] [place] [id number] Andres Banks MD [address] [place] [address] 09/30/2025 11:57 AM CDT - 09/30/2025 1:23 PM CDT Surgery [facility] [address] [place] [address] Andres Banks MD [address] [place] [address] INSERTION AXONICS STAGE 2 Scheduled Procedures Name Priority Associated Diagnoses Date/Ti me INSERTION/REMOVAL INTERSTIM DEVICE STAGE 1 Mixed incontinence Full incontinence of feces OAB (overactive bladder) 09/14/2025 12:31 PM SENIOR MOBILE APPLICATION DEVELOPER INSERTION/REMOVAL INTERSTIM STAGE 2 Mixed incontinence Full incontinence of feces OAB (overactive bladder) 09/30/2025 11:57 AM CDT PERCUTANEOUS NEPHROLITHOTOMY - TRILOGY Right renal stone CYSTOSCOPY Right renal stone URETEROSCOPY Right renal stone Health Maintenance Due Date Last Done Comments Pneumococcal vaccine 65+ (3 of 3 - PCV) 06/27/2012 06/27/2011, 06/19/2006 Foot Exam 11/26/2024 11/27/2023, 02/20, 11/11/2018 Influenza Vaccine (#1) 2025 3, 07/03/2012, 03/31/2009, Additional history exists Breast Cancer Screening-Mammogram 05/07/2025 05/07/2024, 02/27/2023 Zoster Vaccine (1 of 2) 09/09/2025 Post poned from 1971 (Insurance / Financial) Hemoglobin A1C 12/12/2025 06/14/2025, 02/19, 12/11/2024, Additional history exists Well Visit 65+ 12/16/2025 12/16/2024, 11/27/2023 Dilated Eye Exam 03/02/2026 03/02/2025, 04/2024, 03/10/2024, Additional history exists Covid-19 Vaccine (3 - 2024- season) 2026 07/05/2021, 11/25/2020 Postponed from 03/22/2025 (Patient declined, but will receive in the future) Osteoporosis Screening-Bone Density Scan 05/07/2026 05/07/2024, 04/20/2022 Lipid Panel 06/14/2026 06/14/2025, 08/2 07/2024, 12/11/2024, Additional history exists eGFR 06/14/2026 06/14/2025, 09/0 11/2024, 03/14/2025, Additional history exists Albumin Creatinine Ratio, Urine 06/15/2026 06/15/2025, 06/03/2024, 05/28/2023, Additional history exists Depression Screening 06/23/2026 06/23/2025, 02/08/2025, 12/16/2024, Additional history exists Fall Risk Assessment 06/23/2026 06/23/2025, 03/15/2025, 02/08/2025, Additional history exists DTaP/Tdap/Td Vaccine (4 - Td or Tdap) 08/23/2027 08/23/2017, 07/08/2017, 04/08/2013 Colon Cancer Screening-Colonoscopy 09/25/2028 09/26/2023, 02/27/2023, 05/05/2021 Hepatitis C Screening Completed 05/28/2023 Colon Cancer Screening-CT Colonography Discontinued 09/26/2023, 02/27/2023, 05/05/2021 Colon Cancer Screening-DNA Stool Discontinued 09/26/2023, 02/27/2023, 05/05/2021 Colon Cancer Screening-FIT Discontinued 09/25, 02/27/2023, 05/05/2021 Colon Cancer Screening-Sigmoidoscopy Discontinued 09/26/2023, 02/27/2023, 05/05/2021 Hepatitis B Screening Completed 06/14/2025 Goals Goal Patient Goal Type Associated Problems Recent Progress Patient-Stated? Author Autogenera de leon Goal Care Plan Autogenerated Problem No Lilo Hampton RMA Autogenera de leon Goal Care Plan Autogenerated Problem No Lilo Hampton RMA Medical Devices Implanted Type [facility] Laboratory Technician Device Identifier Shelf Expiration Date Model / Serial / Lot Pins/Plate Left: Ankle [employer] Inlay [place] 6fr 26cm Pusher Fluoro Marker Atraumatic Insertion Latex Free [id number] - [id number] Implanted:Qty: 1 on 04/30/2022 by Adelina Ross MD at [facility] Right: Ureter [employer] [id number] 01/17/2026 [id number] / / [id number] [employer] Graft Bone Magnetos 10cc 1-2mm Granules In Moldable Putty [id number] - [id number] - [id number] Implanted:Qty: 1 on 03/11/2025 by Marcel Joshi MD at [facility] N/A: Spine Lumbar [employer] 08/22/2029 [id number] / [id number] / [id number] Medtronic Inc Bmp Infuse Sm [id number] - [id number] Implanted:Qty: 1 on 03/11/2025 by Marcel Joshi MD at [facility] N/A: Spine Lumbar Med[employer] Inc [id number] 02/18/2027 [id number] / / [id number] Alph[employer] Screw Spinal 6.5x50mm Invictus Polyaxial Ilc Nonstrl [id number] - [id number] Implanted:Qty: 4 on 03/11/2025 by Marcel Joshi MD at [facility] N/A: Spine Lumbar [employer] [id number] / / Alph[employer] Timbo Spinal 6x45mm Invictus Grn Titan Nonstrl [id number] - [id number] Implanted:Qty: 2 on 03/11/2025 by Marcel Joshi MD at [facility] N/A: Spine Lumbar [employer] [id number] / / Explanted Type [facility] Laboratory Technician Device Identifier Shelf Expiration Date Model / Serial / Lot Burse [employer] Universa 6fr 26cm Radiopaque Positioner Monofilament Tether 2 [id number] - [id number] Implanted:Qty: 1 on 04/04/2022 by Regina Leblanc MD at [facility] Explanted:Qty: 1 on 04/30/2022 by Adelina Ross MD at [facility] Stent Right: Ureter [employer] [id number] 02/09/2025 [id number] / / [id number] Procedures Procedure Name Priority Date/Time Associated Diagnosis Comments MRI LUMBAR SPINE WO CONTRAST Schedule Routine, Read Routine (OP Routine) 06/25/2025 9:54 AM SENIOR MOBILE APPLICATION DEVELOPER Synovial cyst Lumbar disc disease with radiculopathy XR SPINE LUMBAR 2 OR 3 VIEWS Schedule Routine, Read Routine (OP Routine) 06/25/2025 8:51 AM SENIOR MOBILE APPLICATION DEVELOPER Synovial cyst Lumbar disc disease with radiculopathy ALBUMIN CREATININE RATIO, URINE Routine 06/15/2025 9:16 AM SENIOR MOBILE APPLICATION DEVELOPER VITAMIN D 25 HYDROXY Routine 06/14/2025 8:28 AM SENIOR MOBILE APPLICATION DEVELOPER Class 1 obesity due to excess calories with serious comorbidity and body mass index (BMI) of 34.0 to 34.9 in adult THYROID FUNCTION CASCADE Routine 06/14/2025 8:28 AM SENIOR MOBILE APPLICATION DEVELOPER Acquired hypothyroidism HEMOGLOBIN A1C Routine 06/14/2025 8:28 AM SENIOR MOBILE APPLICATION DEVELOPER Hypertension associated with diabetes (HCC) Hyperlipidemia associated with type 2 diabetes mellitus (HCC) 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, macular edema presence unspecified (HCC) LIPID PANEL Routine 06/14/2025 8:28 AM SENIOR MOBILE APPLICATION DEVELOPER Hyperlipidemia associated with type 2 diabetes mellitus (HCC) COMPREHENSIVE METABOLIC PANEL Routine 06/14/2025 8:28 AM SENIOR MOBILE APPLICATION DEVELOPER Hypertension associated with diabetes (HCC) CBC WITH AUTO DIFFERENTIAL Routine 06/14/2025 8:28 AM SENIOR MOBILE APPLICATION DEVELOPER Hypertension associated with diabetes (HCC) HEPATITIS B CORE ANTIBODY, TOTAL Routine 06/14/2025 8:28 AM SENIOR MOBILE APPLICATION DEVELOPER Need for hepatitis B screening test HEPATITIS B SURFACE ANTIGEN Routine 06/14/2025 8:28 AM SENIOR MOBILE APPLICATION DEVELOPER Need for hepatitis B screening test HEPATITIS B SURFACE ANTIBODY (IMMUNE STATUS) Routine 06/14/2025 8:28 AM SENIOR MOBILE APPLICATION DEVELOPER Need for hepatitis B screening test URINE CULTURE Routine 05/17/2025 11:45 AM CDT Urinary frequency VAGINITIS PANEL Routine 05/17/2025 11:45 AM CDT Urinary frequency POCT URINALYSIS DIPSTICK Routine 05/17/2025 11:41 AM CDT Urinary frequency XR KNEE LEFT 4 OR MORE VIEWS Schedule Routine, Read Routine (OP Routine) 04/30/2025 10:14 AM CDT Left knee pain, unspecified chronicity XR PELVIS 1 OR 2 VIEWS Schedule Routine, Read Routine (OP Routine) 04/30/2025 10:14 AM CDT Left knee pain, unspecified chronicity DIABETES EYE EXAM Routine 03/02/2025 4:17 PM CDT DEXA SCAN Routine 05/07/2024 3:29 PM CDT MAMMOGRAPHY Routine 05/07/2024 12:09 PM CDT COLONOSCOPY Routine 09/26/2023 HEPATITIS C ANTIBODY Routine 05/28/2023 2:51 PM SENIOR MOBILE APPLICATION DEVELOPER Encounter for hepatitis C screening test for low risk patient from Last 3 Months or Most Recently Relevant to Health Maintenance Results * MRI Lumbar Spine WO Contrast (06/25/2025 9:54 AM SENIOR MOBILE APPLICATION DEVELOPER) Anatomical Region Laterality Modality Spine N/A Magnetic Resonan ce 06/25/2025 10:4 7 AM SENIOR MOBILE APPLICATION DEVELOPER Impressions 06/25/2025 10:47 AM SENIOR MOBILE APPLICATION DEVELOPER Interval posterior lumbar instrumented fusion with laminectomy at L3-4. No acute findings. Multilevel disc degeneration, otherwise stable. Electronically signed by: Blossom Noel M.D. Narrative 06/25/2025 10:47 AM SENIOR MOBILE APPLICATION DEVELOPER EXAMINATION: Magnetic resonance imaging (MRI) of the lumbar spine without contrast HISTORY: Low back pain with radiating pain to anterior right thigh following fall 2010. Prior lumbar surgery 03/11/2025. TECHNIQUE: Multiplanar multi-weighted MRI of the lumbar spine was performed without intravenous contrast using the standard protocol. COMPARISON: None Available. FINDINGS: There are mild rightward curvature of the lumbar spine in keeping with mild degenerative scoliosis. Mild degenerative anterolisthesis of L3 on L4 and of L4 on L5. Alignment otherwise is normal. There has been interval posterior lumbar instrumented fusion of L3-L4 with spinal rods and pedicle screws. There is artifact related to the hardware. Within limitation, there is no acute marrow signal abnormality. Vertebral height is maintained. There are no compression fractures. The conus medullaris terminates at the level of L1-L2. The distal spinal cord signal intensity is normal. There is disc degeneration at several levels. Disc levels are as follows: L1-2: Diffuse annular bulge with asymmetric protrusion towards the left. There is mild spinal stenosis. No significant neural foraminal narrowing. L2-3: Diffuse annular bulge. Artifact related to the fusion hardware. Mild stable central canal stenosis. No neural foraminal stenosis. L3-4: Posterior laminectomy changes. Severe spinal stenosis is no longer present. Artifact related to hardware. No definable foraminal stenosis. L4-5, degenerative anterolisthesis. Mild artifact related to the hardware. Stable mild spinal stenosis with bilateral facet arthritic change. No new finding. No foraminal stenosis. L5-S1: Limited views of the abdomen and pelvis show no soft tissue abnormality. No abnormalities included abdomen. Procedure Note Blossom Noel MD - 06/25/2025 EXAMINATION: Magnetic resonance imaging (MRI) of the lumbar spine without contrast HISTORY: Low back pain with radiating pain to anterior right thigh following fall 2010. Prior lumbar surgery 03/11/2025. TECHNIQUE: Multiplanar multi-weighted MRI of the lumbar spine was performed without intravenous contrast using the standard protocol. COMPARISON: None Available. FINDINGS: There are mild rightward curvature of the lumbar spine in keeping with mild degenerative scoliosis. Mild degenerative anterolisthesis of L3 on L4 and of L4 on L5. Alignment otherwise is normal. There has been interval posterior lumbar instrumented fusion of L3-L4 with spinal rods and pedicle screws. There is artifact related to the hardware. Within limitation, there is no acute marrow signal abnormality. Vertebral height is maintained. There are no compression fractures. The conus medullaris terminates at the level of L1-L2. The distal spinal cord signal intensity is normal. There is disc degeneration at several levels. Disc levels are as follows: L1-2: Diffuse annular bulge with asymmetric protrusion towards the left. There is mild spinal stenosis. No significant neural foraminal narrowing. L2-3: Diffuse annular bulge. Artifact related to the fusion hardware. Mild stable central canal stenosis. No neural foraminal stenosis. L3-4: Posterior laminectomy changes. Severe spinal stenosis is no longer present. Artifact related to hardware. No definable foraminal stenosis. L4-5, degenerative anterolisthesis. Mild artifact related to the hardware. Stable mild spinal stenosis with bilateral facet arthritic change. No new finding. No foraminal stenosis. L5-S1: Limited views of the abdomen and pelvis show no soft tissue abnormality. No abnormalities included abdomen. IMPRESSION: Interval posterior lumbar instrumented fusion with laminectomy at L3-4. No acute findings. Multilevel disc degeneration, otherwise stable. Electronically signed by: Blossom Noel M.D. Marcel Joshi MD [facility] MRI PROCEDURES Final Result * XR Spine Lumbar 2 or 3 Views (06/25/2025 8:51 AM SENIOR MOBILE APPLICATION DEVELOPER) Anatomical Region Laterality Modality Spine N/A Computed Radiogr aphy 06/25/2025 3:26 PM SENIOR MOBILE APPLICATION DEVELOPER Impressions 06/25/2025 3:26 PM SENIOR MOBILE APPLICATION DEVELOPER 1. No acute displaced fracture or traumatic malalignment of the lumbar spine. 2. Chronic findings as above. Electronically signed by: Aly Alexis M.D. Narrative 06/25/2025 3:26 PM SENIOR MOBILE APPLICATION DEVELOPER EXAMINATION: XR SPINE LUMBAR 2 OR 3 VIEWS HISTORY: low back pain after fall TECHNIQUE: 3 radiographic views of the lumbar spine were obtained. COMPARISON: 04/07/2025 03/03/2025 FINDINGS: ALIGNMENT: Unchanged grade 1 anterolisthesis of L4 on L5. No acute traumatic malalignment. VERTEBRAE: Postsurgical changes status post posterior instrumentation and fusion and fusion of L3/L4 with transpedicular screws and interlocking fixation timbo. No definite acute hardware complication. Multilevel endplate degenerative changes most pronounced at L1/L2. Multilevel facet arthrosis most pronounced L4-S1. DISKS: Multilevel intervertebral disc height loss most pronounced at L1/L2. PELVIS: Pelvic phleboliths. SOFT TISSUES: Scattered colonic stool. Nonobstructive bowel gas pattern. Vascular calcifications. Neuroforaminal and spinal canal narrowing suboptimally evaluated by radiograph but there appears to be at least mild neural foraminal narrowing at L5/S1. Procedure Note Aly Alexis MD - 06/25/2025 EXAMINATION: XR SPINE LUMBAR 2 OR 3 VIEWS HISTORY: low back pain after fall TECHNIQUE: 3 radiographic views of the lumbar spine were obtained. COMPARISON: 04/07/2025 03/03/2025 FINDINGS: ALIGNMENT: Unchanged grade 1 anterolisthesis of L4 on L5. No acute traumatic malalignment. VERTEBRAE: Postsurgical changes status post posterior instrumentation and fusion and fusion of L3/L4 with transpedicular screws and interlocking fixation timbo. No definite acute hardware complication. Multilevel endplate degenerative changes most pronounced at L1/L2. Multilevel facet arthrosis most pronounced L4-S1. DISKS: Multilevel intervertebral disc height loss most pronounced at L1/L2. PELVIS: Pelvic phleboliths. SOFT TISSUES: Scattered colonic stool. Nonobstructive bowel gas pattern. Vascular calcifications. Neuroforaminal and spinal canal narrowing suboptimally evaluated by radiograph but there appears to be at least mild neural foraminal narrowing at L5/S1. IMPRESSION: 1. No acute displaced fracture or traumatic malalignment of the lumbar spine. 2. Chronic findings as above. Electronically signed by: Aly Alexis M.D. us Marcel Joshi MD IMG XR PROCEDURES Final Result * Albumin Creatinine Ratio, Urine (06/15/2025 9:16 AM SENIOR MOBILE APPLICATION DEVELOPER) Creatinine ur 51.4 Not Estab. mg/dL [facility] - 01 Microalbumin, ur 5.5 Not Estab. ug/mL [facility] - 01 Microalbumin/cre at ratio 11 0 - 29 mg/g creat [facility] - 01 Comment: Normal: 0 - 29 Moderately increased: 30 - 300 Severely increased: >300 06/15/2025 9:16 AM SENIOR MOBILE APPLICATION DEVELOPER 06/15/2025 Narrative [facility] - 06/16/2025 10:11 AM SENIOR MOBILE APPLICATION DEVELOPER Performed at: [address] [place] [id number] Salsa Dance Instructor: Ulises Gonzalez PhD, Phone: [phone] Barrie Hamm MD LAB URINE ORDERABLES Final Result Performing Organization Address [facility] de Phone Number [facility]CO [facility] - * Thyroid Function Hermann (06/14/2025 8:28 AM SENIOR MOBILE APPLICATION DEVELOPER) Pathologist [facility] TSH 3.810 0.450 - 4.500 uIU/mL [facility] - 01 Comment: No apparent thyroid disorder. Additional testing not indicated. In rare instances, Secondary Hypothyroidism as well as Subclinical Hypothyroidism have been reported in some patients with normal TSH values. Blood 06/14/2025 8:28 AM SENIOR MOBILE APPLICATION DEVELOPER 06/14/2025 Narrative [facility] - 06/15/2025 8:12 AM SENIOR MOBILE APPLICATION DEVELOPER Performed at: [address] [place] [id number] Salsa Dance Instructor: Ulises Gonzalez PhD, Phone: [phone] Barrie Hamm MD LAB BLOOD ORDERABLES Final Result Performing Organization Address [facility] Phone Number [facility] - * CBC with auto differential (06/14/2025 8:28 AM SENIOR MOBILE APPLICATION DEVELOPER) Pathologist [facility] WBC 6.8 3.4 - 10.8 x10E3/uL [facility] - 01 RBC 4.43 3.77 - 5.28 x10E6/uL [facility] - 01 Hgb 12.3 11.1 - 15.9 g/dL [facility] - 01 Hct 38.1 34.0 - 46.6 % [facility] - 01 MCV 86 79 - 97 fL [facility] - 01 MCH 27.8 26.6 - 33.0 pg [facility] - 01 MCHC 32.3 31.5 - 35.7 g/dL [facility] - 01 Rdw 13.4 11.7 - 15.4 % [facility] - 01 Platelets 223 150 - 450 x10E3/uL [facility] - 01 Neutrophils pct 66 Not Estab. % [facility] - 01 Lymphs pct 23 Not Estab. % [facility] - 01 Monocytes pct 5 Not Estab. % [facility] - 01 Eosinophils pct 5 Not Estab. % [facility] - 01 Basophil pct 1 Not Estab. % [facility] - 01 Neutrophil abs 4.4 1.4 - 7.0 x10E3/uL [facility] - 01 Lymphs (Absolute) 1.6 0.7 - 3.1 x10E3/uL [facility] - 01 Monocyte abs 0.4 0.1 - 0.9 x10E3/uL [facility] - 01 Eosinophils, abs 0.4 0.0 - 0.4 x10E3/uL [facility] - 01 Basophils, abs 0.1 0.0 - 0.2 x10E3/uL [facility] - 01 Immature Granulocytes 0 Not Estab. % [facility] - 01 Immature Grans (Abs) 0.0 0.0 - 0.1 x10E3/uL [facility] - 01 Blood 06/14/2025 8:28 AM SENIOR MOBILE APPLICATION DEVELOPER 06/14/2025 Narrative [facility] - 06/15/2025 7:09 AM SENIOR MOBILE APPLICATION DEVELOPER Performed at: [address] [id number] Salsa Dance Instructor: Ulises Gonzalez PhD, Phone: [phone] us Barrie Hamm MD LAB BLOOD ORDERABLES Final Result [facility] - * (ABNORMAL) Hepatitis B core antibody, total Blood (06/14/2025 8:28 AM SENIOR MOBILE APPLICATION DEVELOPER) [facility] Hep B core IgG/IgM Positive(A ) Negative [facility] - 01 Blood 06/14/2025 8:28 AM SENIOR MOBILE APPLICATION DEVELOPER 06/14/2025 Narrative [facility] - 06/15/2025 7:09 AM SENIOR MOBILE APPLICATION DEVELOPER Performed at: [address] [id number] Salsa Dance Instructor: Ulises Gonzalez PhD, Phone: [phone] Barrie Hamm MD LAB MICROBIOLOGY - GENERAL ORDERABLES Final Result Performing Organization Address [facility] Co de Phone Number [facility] * Vitamin D 25 hydroxy (06/14/2025 8:28 AM SENIOR MOBILE APPLICATION DEVELOPER) Pathologist [facility] Vitamin D, 25-Hydroxy 48.1 30.0 - 100.0 ng/mL [facility] - Comment: Vitamin D deficiency has been defined by the [place] of Medicine and an Endocrine Society practice guideline as a level of serum 25-OH vitamin D less than 20 ng/mL (1,2). The Endocrine Society went on to further define vitamin D insufficiency as a level between 21 and 29 ng/mL (2). 1. IOM ([place] of Medicine). 2010. Dietary reference intakes for calcium and D. [place]: The National Academies Press. 2. Brent MF, Sweetie BANUELOS, Elier SHELBY, et al. Evaluation, treatment, and prevention of vitamin D deficiency: an Endocrine Society clinical practice guideline. JCEM. 2011 Jan; 96(7):1911-30. Blood 06/14/2025 8:28 AM SENIOR MOBILE APPLICATION DEVELOPER 06/14/2025 Narrative [facility] - 06/15/2025 8:12 AM SENIOR MOBILE APPLICATION DEVELOPER Performed at: [address] [id number] Salsa Dance Instructor: Ulises Gonzalez PhD, Phone: [phone] Barrie Hamm MD LAB BLOOD ORDERABLES Final Result Performing Organization Address [facility] Co de Phone Number [facility] * Hepatitis B surface antibody (immune status) Blood (06/14/2025 8:28 AM SENIOR MOBILE APPLICATION DEVELOPER) Pathologist [facility] HBsAb (immune status) Reactive [facility] - 01 Comment: Non Reactive: Not immune to HBV infection. Anti-HBs undetectable or less than 10 mIU/mL. Reactive: Evidence of HBV immunity. Anti-HBs levels greater than 10 mIU/mL. Blood 06/14/2025 8:28 AM SENIOR MOBILE APPLICATION DEVELOPER 06/14/2025 Narrative [facility] - 06/15/2025 7:09 AM SENIOR MOBILE APPLICATION DEVELOPER Performed at: [address] [place] [id number] Salsa Dance Instructor: Ulises Gonzalez PhD, Phone: [phone] Barrie Hamm MD LAB MICROBIOLOGY - GENERAL ORDERABLES Final Result Performing Organization Address [facility] Co de Phone Number [facility] - * Hepatitis B Surface Antigen Blood (06/14/2025 8:28 AM SENIOR MOBILE APPLICATION DEVELOPER) [facility] HepBsAg Negative Negative [facility] - Blood 06/14/2025 8:28 AM SENIOR MOBILE APPLICATION DEVELOPER 06/14/2025 Narrative [facility] - 06/15/2025 7:09 AM SENIOR MOBILE APPLICATION DEVELOPER Performed at: [address] [place] [id number] Salsa Dance Instructor: Ulises Gonzalez PhD, Phone: [phone] Barrie Hamm MD LAB MICROBIOLOGY - GENERAL ORDERABLES Final Result Performing Organization Address [facility] Co de Phone Number [facility] - * (ABNORMAL) Hemoglobin A1c (06/14/2025 8:28 AM SENIOR MOBILE APPLICATION DEVELOPER) [facility] Hgb A1C 7.2(H) 4.8 - 5.6 % [facility] - 01 Comment: Prediabetes: 5.7 - 6.4 Diabetes: >6.4 Glycemic control for adults with diabetes: <7.0 Blood 06/14/2025 8:28 AM SENIOR MOBILE APPLICATION DEVELOPER 06/14/2025 Narrative [facility] - 06/15/2025 7:09 AM SENIOR MOBILE APPLICATION DEVELOPER Performed at: [address] [place] [id number] Salsa Dance Instructor: Ulises Gonzalez PhD, Phone: [phone] Barrie Hamm MD LAB BLOOD ORDERABLES Final Result [facility] - * (ABNORMAL) Lipid panel (06/14/2025 8:28 AM SENIOR MOBILE APPLICATION DEVELOPER) Cholesterol 124 100 - 199 mg/dL [facility] - 01 Triglycerides 167(H) 0 - 149 mg/dL [facility] - 01 HDL Cholesterol 41 >39 mg/dL [facility] - 01 VLDL 28 5 - 40 mg/dL [facility] - 01 LDL, calculated 55 0 - 99 mg/dL [facility] - 01 Blood 06/14/2025 8:28 AM SENIOR MOBILE APPLICATION DEVELOPER 06/14/2025 Narrative [facility] - 06/15/2025 8:12 AM SENIOR MOBILE APPLICATION DEVELOPER Performed at: [address] [place] [id number] Salsa Dance Instructor: Ulises Gonzalez PhD, Phone: [phone] Barrie Hamm MD LAB BLOOD ORDERABLES Final Result Performing Organization Address [facility]/ZIP Co de Phone Number [facility] - * (ABNORMAL) Comprehensive metabolic panel (06/14/2025 8:28 AM SENIOR MOBILE APPLICATION DEVELOPER) Glucose 119(H) 70 - 99 mg/dL [facility] - 01 BUN 14 8 - 27 mg/dL [facility] - 01 Creatinine, Serum 0.68 0.57 - 1.00 mg/dL [facility] - 01 eGFR 92 >59 mL/min/1.7 3 [facility] - 01 BUN/creat ratio 21 12 - 28 [facility] - 01 Sodium 133(L) 134 - 144 mmol/L [facility] - 01 Potassium, sr 4.3 3.5 - 5.2 mmol/L [facility] - 01 Chloride 97 96 - 106 mmol/L [facility] - 01 CO2 21 20 - 29 mmol/L [facility] - 01 Calcium 9.0 8.7 - 10.3 mg/dL [facility] - 01 Protein, sr 6.4 6.0 - 8.5 g/dL [facility] - 01 Albumin 4.3 3.8 - 4.8 g/dL [facility] - 01 Globulin, Total 2.1 1.5 - 4.5 g/dL [facility] - 01 Bilirubin, Total 0.7 0.0 - 1.2 mg/dL [facility] - 01 Alk phos 116 49 - 135 IU/L [facility] - 01 AST 22 0 - 40 IU/L [facility] - 01 ALT 33(H) 0 - 32 IU/L [facility] - 01 Blood 06/14/2025 8:28 AM SENIOR MOBILE APPLICATION DEVELOPER 06/14/2025 Narrative [facility] - 06/15/2025 8:12 AM SENIOR MOBILE APPLICATION DEVELOPER Performed at: - [address] [id number] Salsa Dance Instructor: Ulises Gonzalez PhD, Phone: [phone] us Barrie Hamm MD LAB BLOOD ORDERABLES Final Result [facility] - * Vaginitis panel Vaginal (05/17/2025 11:45 AM CDT) Pathologist [facility] Bacterial Vaginosis Not Detected Not Detected Comment:A negative result do es not preclude a possible infection. Results should be considered in conjunction with clinical presentation to determine the disease status. Delaney group Not Detected Not Detected CERNER Delaney glabrata/ krusei Not Detected Not Detected CERNER Trichomonas DNA Not Detected Not Detected CERNER Vaginal 05/17/2025 11:4 5 AM CDT 05/17/2025 8:28 PM CDT Narrative CERNER CH - 05/17/2025 9:36 PM CDT The Cepheid Xpert Xpress MVP test detects DNA targets from anaerobic bacteria associated with bacterial vaginosis, Delaney species associated with vulvovaginal candidiasis, and Trichomonas vaginalis by nucleic acid amplification testing (NAAT). Results should be interpreted in conjunction with other clinical data. This test cannot be used to assess therapeutic success or failure because target nucleic acids may persist following antimicrobial therapy. This test has been cleared by the [place] Food and Drug Administration to aid in the diagnosis of vaginal infections in symptomatic women ages 14 and older. The performance characteristics of this test have been verified by the [facility]. Laure FISH LAB MICROBIOLOGY - GENER AL ORDERABLES Final Result Performing Organization Address [facility] Co de Phone Number DAGOBERTO DOWD [address] Department [place] [address] CH * Urine culture Urine, clean voided (05/17/2025 11:45 AM CDT) Report Final Report: Less than 100,000 colonies/mL (clinically insignificant growth based on current clinical standards) Comment:Testing performed by : [facility], [address] [place]., [address] Organism (CLINICALLY INSIGNIFICANT GROWTH DAGOBERTO Urine, clean voided 05/17/2025 11:45 AM CDT 05/17/2025 11:56 PM CDT Narrative DAGOBERTO - 05/19/2025 7:57 AM CDT Testing performed by [facility] ([phone]) Laure FISH LAB MICROBIOLOGY - GENER AL ORDERABLES Final Result Performing Organization Address [facility] Co de Phone Number PRIMOSUSAN DOWD [address] [place] [address] * POCT urinalysis dipstick (05/17/2025 11:41 AM CDT) Color, Urine, POC Yellow Clarity, ur, POC Clear Clear Glucose, ur, POC Negative Negative Bilirubin, ur, POC Negative Negative Ketones, ur, POC Negative Negative Specific [place], POC 1.025 1.003 - 1.030 Blood, ur, POC Negative Negative pH, ur, POC 7.0 5.0 - 8.0 Protein, ur, POC Negative Negative Urobilinogen, urine, POC 0.2 0.2 - 1.0 mg/dL Nitrite, ur, POC Negative Negative Leukocytes, ur, POC Negative Negative Lot Number [id number] Urine 05/17/2025 11:4 1 AM CDT Result [facility] Laure FISH POINT OF CARE TEST ORDER HODAN Final Result * XR Knee Left 4+ View (04/30/2025 10:14 AM CDT) Anatomical Region Laterality Modality Lower Extremities, Knee Left Digital Radiography Narrative 04/30/2025 10:54 AM CDT Four views left knee show varus deformity subchondral sclerosis joint space narrowing medial osteophytes no fracture subluxation dislocation kl grade 2 3 osteoarthrosis Result [facility] Mick Medina MD IMG XR PROCEDURES Final Resu lt * XR Pelvis 1 or 2 Views (04/30/2025 10:14 AM CDT) Anatomical Region Laterality Modality Body, Pelvis N/A Digital Radiogra phy Narrative 04/30/2025 10:54 AM CDT AP pelvis shows [id number] degenerative changes bilateral hips no fracture subluxation dislocation Result [facility] Mick Medina MD IMG XR PROCEDURES Final Resu lt * (ABNORMAL) DIABETES EYE EXAM (03/02/2025 4:17 PM CDT) SCRIBED HM DIABETIC DILATED EYE EXAM Abnormal Historical Provider HEALTH MAINTENANCE Final Result * DEXA SCAN (05/07/2024 3:29 PM CDT) Result [facility] Historical Provider HEALTH MAINTENANCE Final Result * MAMMOGRAPHY (05/07/2024 12:09 PM CDT) [facility] Provider HEALTH MAINTENANCE Edited Result - Final * COLONOSCOPY (09/26/2023) Result [facility] Provider HEALTH MAINTENANCE Final Result * Hepatitis C antibody Blood (05/28/2023 2:51 PM SENIOR MOBILE APPLICATION DEVELOPER) Hep C Ab Nonreactive Nonreactive [facility]OW[facility] Comment: Interpretive Data Nonreactive: Antibodies to HCV not detected. Does NOT exclude the possibility of recent exposure to HCV. Equivocal: Equivocal for HCV antibodies. Supplemental molecular testing will be automatically performed to determine infection status in accordance with current CDC screening recommendations. Reactive: Positive for HCV antibodies. This may represent current or past HCV infection. Supplemental molecular testing will be automatically performed to determine current infection status in accordance with current CDC screening recommendations. Interpretive data was last revised on 2019. 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 04/30/2022 04/30/2022 Insurance [facility] MEDICARE [facility] MEDICARE SUPPLEMENT MEDICARE [facility] MEDICARE SUPPLEMENT MEDICARE [facility] MEDICARE SUPPLEMENT Advance Directives For more information, please contact: [phone] Documents on File Type Date Recorded Patient Commercial Credit Portfolio Manager Expl anation ADVANCE DIRECTIVE 03/04/2025 4:04 PM POWER OF RN PRIVATE DUTY-MEDICAL * Full Code (Latest Code Status on File) Date Activated Date Inactivated Comments 03/11/2025 8:43 PM 03/15/2025 7:56 PM * Full Code Date Activated Date Inactivated Comments 09/07/2022 12:17 PM 09/08/2022 4:14 PM * Full Code Date Activated Date Inactivated Comments 04/04/2022 3:15 PM 04/06/2022 6:22 PM Care Teams Internet Cafe Manager Relationship Specialty Start Date End Date Barrie Hamm MD [address] [facility] [address] [place] [address] PCP - General Family Medicine 03/15/25 Samir Gibson MD [address] [place] [address] Referring Physician Neurology 11/21/20 Meggan Quiles MD [address] [place] [address] Consulting Physician Urology 09/08/22 Irina Swain MD [address] [place] [address] Referring Physician Dermatology 05/28/23 Neo Doyle DO [address] [facility] [address] [place] [address] Referring Physician Cardiology 05/28/23 Og Crawford MD [address] [facility] [address] [place] [address] Consulting Physician Nephrology 05/28/23 Lexy Plascencia PA [address] [place] [address] Field Counsel Physician Video Clerk 05/28/23 Shelly Fierro NP [address] [facility] [address] [place], [place] [id number] Psychiatry 12/16/24 Renny Becerra MD [address] [place] [address] Referring Physician Psychiatry 12/16/24 Marcel Joshi MD [address] [place] [address] Consulting Physician Neurosurgery 12/16/24 Lindsey Contreras Primary Bottoming Room Supervisor 04/08/25
--- OUTSIDE RECORDS SUMMARY | 2025-07-09 12:28 | XMS_ITS | Encounter Summary ---
Author Organization [facility] Healthcare Address [address] [place] [address] Care Team Providers Care Chief Engineer Name Role Phone Barrie Hamm MD Primary Care Provider [phone] Physician Primary Care Provider Barrie Hamm MD Unavailable [phone] Samir Gibson MD Unavailable [phone] Meggan Quiles MD Unavailable Irina Swain MD Unavailable [phone] Neo Doyle DO Unavailable [phone] Og Crawford MD Unavailable [phone] Lexy Plascencia Unavailable + [phone] Jennyfer Tyler MD Unavailable [phone] Barrie Hamm MD Primary Care Provider [phone] Shelly Fierro NP Unavailable [phone] Renny Becerra MD Unavailable [phone] Marcel Joshi MD Unavailable [phone] Olivier Singh MD Primary Care Provider + [phone] Barrie Hamm MD Primary Care Provider AnastaciaLindsey dodd Unavailable Unavailable Encounter Details Date Type Department Care Team (Late st Contact Info) Description 11/15/2023 Telephone [facility] [address] [place] [phone] Mary Ortiz, RN Social History Tobacco Use [...] points, staff should administer the PHQ-9) 0 10/08/2023 Personal Safety Answer Date Recorded Have you ever been in or are you currently in a harmful physical or emotional relationship or is someone making you feel afraid or unsafe? Denies 11/19/2023 Comments No Sex and Gender Information Value Date Recorded Sex Assigned at Not on file Legal Sex Female 2:54 AM PARTS DRIVER Gender Identity Female 03/13/2022 6:32 PM CDT Sexual Orientation Straight 03/13/2022 6: 32 PM CDT Occupation Industry Job Start Date Job End Date disabled Not on file Not on file Not on file documented as of this encounter Plan of Treatment Upcoming Encounters Date Type Department Care Team (Latest Contact Info) Description 09/14/2025 12:31 PM PARTS DRIVER Hospital Encounter [facility] [address] [place] [address] Andres Banks MD [address] [place] [address] 09/14/2025 12:31 PM PARTS DRIVER - 09/14/2025 3:06 PM PARTS DRIVER Surgery [facility] [address] [place] [address] Andres Banks MD [address] [place] [address] INSERTIONm AXONICS DEVICE STAGE 1 09/30/2025 11:57 AM CDT Hospital Encounter [facility] [address] [place] [address] Andres Banks MD [address] [place] [address] 09/30/2025 11:57 AM CDT - 09/30/2025 1:23 PM CDT Surgery [facility] [address] [place] [address] Andres Banks MD [address] [facility] [place] [address] INSERTION AXONICS STAGE 2 Scheduled Procedures Name Priority Associated Diagnoses Date/Ti me INSERTION/REMOVAL INTERSTIM DEVICE STAGE 1 Mixed incontinence Full incontinence of feces OAB (overactive bladder) 09/14/2025 12:31 PM PARTS DRIVER INSERTION/REMOVAL INTERSTIM STAGE 2 Mixed incontinence Full [...] COVID: Suspected 05/27/2024 05/27/2024 05/27/2024 11:21 PM PARTS DRIVER Exposure, COVID-19 Comment:Added automatically based on COVID19 lab answers indicating exposure risk 08/07/2024 08/07/2024 08/17/2024 3:[address] COVID: Suspected 08/07/2024 08/07/2024 08/07/2024 4:51 PM PARTS DRIVER COVID: Suspected 11/25/2024 11/25/2024 11/25/2024 3:44 PM CDT COVID: Suspected 11/25/2024 11/25/2024 11/26/2024 1:16 AM CDT documented as of this encounter Care Teams Chief Engineer Relationship Specialty Start Date End Date Barrie Hamm MD [address] [place], [place] [id number] PCP - General Family Medicine 05/28/23 10/06/24 No, Physician PCP - General 10/07/24 10/27/24 Barrie Hamm MD [address] [place], [place] [id number] PCP - General Family Medicine 10/28/24 03/12/25 Olivier Singh MD [address] [facility] [address] [place], [place] [id number] PCP - General Family Medicine 03/13/25 03/14/25 Barrie Hamm MD [address] [place], [place] [id number] PCP - General Family Medicine 03/15/25 Barrie Hamm MD [address] [place], [place] [id number] Family Medicine 10/07/24 03/12/25 Samir Gibson MD [address] [place] [id number] Referring Physician Neurology 11/21/20 Meggan Quiles MD [address] [place] [address] Consulting Physician Urology 09/08/22 Irina Swain MD [address] [place] [address] Referring Physician Dermatology 05/28/23 Neo Doyle DO [address] [facility] [address] [place] [address] Referring Physician Cardiology 05/28/23 Og Crawford MD [address] [facility] [place] [address] Consulting Physician Nephrology 05/28/23 Lexy Plascencia PA [address] [place] [address] Group Program Manager Physician Solid State Tester 05/28/23 Jennyfer Tyler MD [address] [place] [address] Psychiatry 05/28/23 12/15/24 Shelly Fierro, TABBY [address] [facility] [address] [place] [address] Psychiatry 12/16/24 Renny Becerra MD [address] [place] [address] Referring Physician Psychiatry 12/16/24 Marcel Joshi MD [address] [place] [address] Consulting Physician Neurosurgery 12/16/24 Lindsey Contreras Primary Orthopedic Physical Therapist 04/08/25 documented as of this encounter
--- OUTSIDE RECORDS SUMMARY | 2025-07-09 12:28 | XMS_ITS | Encounter Summary ---
Author Organization [facility] Address [address] [place] [address] Phone Care Team Providers Care Senior Physician Name Role Phone Samir Gibson MD Unavailable Meggan Quiles MD Unavailable Irina Swain MD Unavailable [phone] Neo Doyle DO Unavailable [phone] Og Crawford MD Unavailable [phone] Lexy Plascencia Unavailable Shelly Fierro NP Unavailable [phone] Renny Becerra MD Unavailable [phone] Marcel Joshi MD Unavailable [phone] Barrie Hamm MD Primary Care Provider Lindsey Contreras Unavailable Unavailable Reason for Referral * Diagnostic Imaging (Routine) - Authorized Specialty Diagnoses / Procedures Referred By Contac t Referred To Contact Diagnoses Lumbar disc disease with radiculopathy Procedures XR Spine Lumbar 2 or 3 Views Beatriz Rojas, TABBY [address] [place] [address] Phone: tel: fax: [facility] [address] [place] [address] Referral ID Status Reason Start Date Expiration Date V isits Requested Visits Authorized [id number] Authorized 07/08/2025 08/07/2026 1 1 FILLER Encounter Details Date Type Department Care Team (Late st Contact Info) Description 07/08/2025 Orders Only [facility] Medicine Neurosurgery [address] [facility] Medical Office Building [address] [place] [address] Beatriz Rojas NP [address] [place] [address] Lumbar disc disease with radiculopathy (Primary Dx) Social History Tobacco Use Types Packs/Day Years [...] on file Legal Sex Female 2:54 AM ROD FILLER Gender Identity Female 03/13/2022 6:32 PM CDT Sexual Orientation Straight 03/13/2022 6: 32 PM CDT Occupation Industry Job Start Date Job End Date disabled Not on file Not on file Not on file documented as of this encounter Plan of Treatment Upcoming Encounters Date Type Department Care Team (Latest Contact Info) Description 09/14/2025 12:31 PM ROD FILLER Hospital Encounter [facility] Operating Room 1 [place] [address] Andres Banks MD [address] [place] [address] 09/14/2025 12:31 PM ROD FILLER - 09/14/2025 3:06 PM ROD FILLER Surgery [facility] Operating Room 1 [place] [address] Andres Banks MD [address] [place] [address] INSERTIONm AXONICS DEVICE STAGE 1 09/30/2025 11:57 AM CDT Hospital Encounter [facility] Operating Room 1 [place] [address] Andres Banks MD [address] [place] [address] 09/30/2025 11:57 AM CDT - 09/30/2025 1:23 PM CDT Surgery [facility] Operating Room 1 [place] [address] Andres Banks MD [address] [place] [address] INSERTION AXONICS STAGE 2 Scheduled Orders Name Type Priority Associated Diagnoses Orde r Schedule XR Spine Lumbar 2 or 3 Views Imaging Schedule Routine, Read Routine (OP Routine) Lumbar disc disease with radiculopathy Expected: 07/30/2025, Expires: 01/06/2027 Scheduled Procedures Name Priority Associated Diagnoses Date/Ti me INSERTION/REMOVAL INTERSTIM DEVICE STAGE 1 Mixed incontinence Full incontinence of feces OAB (overactive bladder) 09/14/2025 12:31 PM ROD FILLER INSERTION/REMOVAL INTERSTIM STAGE 2 Mixed incontinence Full incontinence of feces OAB (overactive bladder) 09/30/2025 11:57 AM CDT PERCUTANEOUS NEPHROLITHOTOMY - TRILOGY Right renal stone CYSTOSCOPY Right renal stone URETEROSCOPY Right renal stone documented as of this encounter Goals Goal Patient Goal Type Associated Problems Recent Progress Patient-Stated? Author Wild de leon Goal Care Plan Autogenerated Problem No Lilo Hampton RMA Autoricky de leon Goal Care Plan Autogenerated Problem No Lilo Hampton RMA documented as of this encounter Visit Diagnoses Diagnosis Mixed incontinence Mixed incontinence urge and stress (male)(female) Full incontinence of feces OAB (overactive bladder) Lumbar disc disease with radiculopathy- Primary Mixed incontinence Mixed incontinence urge and stress (male)(female) Full incontinence of feces OAB (overactive bladder) Mixed incontinence Mixed incontinence urge and stress (male)(female) Full incontinence of feces OAB (overactive bladder) documented in this encounter Additional Health Concerns Active Problems Noted Date Diagnosed Date Autogenerated Problem 06/09/2025 Autogenerated Problem 06/25/2025 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 04/30/2022 04/30/2022 documented as of this encounter Care Teams Senior Physician Relationship Specialty Start Date End Date Barrie Hamm MD [address] [facility] [address] [place] [address] PCP - General Family Medicine 03/15/25 Samir Gibson MD [address] [place] [address] Referring Physician Neurology 11/21/20 Meggan Quiles MD [address] [facility] [address] [place] [address] Consulting Physician Urology 09/08/22 Irina Swain MD [address] [place] [address] Referring Physician Dermatology 05/28/23 Neo Doyle DO [address] [facility] [address] [place] [address] Referring Physician Cardiology 05/28/23 Og Crawford MD [address] [facility] [address] [place] [address] Consulting Physician Nephrology 05/28/23 Lexy Plascencia PA [address] [place] [address] Interlacer Physician Byproducts Pump Operator 05/28/23 Shelly Fieror NP [address] [facility] [address] [place] [address] Psychiatry 12/16/24 Renny Becerra MD [address] [place] [address] Referring Physician Psychiatry 12/16/24 Marcel Joshi MD [address] [place] [address] Consulting Physician Neurosurgery 12/16/24 Lindsey Contreras Primary Surgical Instruments Inspector 04/08/25 documented as of this encounter
--- OUTSIDE RECORDS SUMMARY | 2025-07-09 12:28 | XMS_ITS | Encounter Summary ---
Author Organization [facility] Healthcare Address [address] [place] [address] Care Team Providers Care Stummel Selector Name Role Phone Samir Gibson MD Unavailable [phone] Meggan Quiles MD Unavailable Irina Swain MD Unavailable [phone] Neo Doyle DO Unavailable [phone] Og Crawford MD Unavailable [phone] Lexy Plascencia Unavailable Shelly Fierro NP Unavailable [phone] Renny Becerra MD Unavailable [phone] Marcel Joshi MD Unavailable [phone] Barrie Hamm MD Primary Care Provider Lindsey Contreras Unavailable Unavailable Encounter Details Date Type Department Care Team (Late st Contact Info) Description 05/18/2025 Results Follow-Up [facility] [place] [address] [place] [address] Jannie Hayden SYSTEM SUPPORT TECHNICIAN [address] [place] [address] [address] [place] [address] Vaginitis panel Vaginal, Urine culture Urine, clean voided Social History Tobacco Use Types Packs/Day Years [...] on file Legal Sex Female 2:54 AM HAMMER REPAIRER Gender Identity Female 03/13/2022 6:32 PM CDT Sexual Orientation Straight 03/13/2022 6: 32 PM CDT Occupation Industry Job Start Date Job End Date disabled Not on file Not on file Not on file documented as of this encounter Plan of Treatment Upcoming Encounters Date Type Department Care Team (Latest Contact Info) Description 09/14/2025 12:31 PM HAMMER REPAIRER Hospital Encounter [facility] Operating Room [address] [place] [address] Andres Banks MD [address] [place] [address] 09/14/2025 12:31 PM HAMMER REPAIRER - 09/14/2025 3:06 PM HAMMER REPAIRER Surgery [facility] Operating Room 1 [place] [address] Andres Banks MD [address] [place] [address] INSERTIONm AXONICS DEVICE STAGE 1 09/30/2025 11:57 AM CDT Hospital Encounter [facility] Operating Room [address] [place] [address] Andres Banks MD [address] [place] [address] 09/30/2025 11:57 AM CDT - 09/30/2025 1:23 PM CDT Surgery [facility] Operating Room [address] [place] [address] Andres Banks MD [address] [place] [address] INSERTION AXONICS STAGE 2 Scheduled Procedures Name Priority Associated Diagnoses Date/Ti me INSERTION/REMOVAL INTERSTIM DEVICE STAGE 1 Mixed incontinence Full incontinence of feces OAB (overactive bladder) 09/14/2025 12:31 PM HAMMER REPAIRER INSERTION/REMOVAL INTERSTIM STAGE 2 Mixed incontinence Full [...] documented as of this encounter Care Teams Stummel Selector Relationship Specialty Start Date End Date Barrie Hamm MD [address] [facility] [address] [place] [address] PCP - General Family Medicine 03/15/25 Samir Gibson MD [address] [place] [address] Referring Physician Neurology 11/21/20 Meggan Quiles MD [address] [place] [address] Consulting Physician Urology 09/08/22 Irina Swain MD [address] [place] [address] Referring Physician Dermatology 05/28/23 Neo Doyle DO [address] [place] [address] Referring Physician Cardiology 05/28/23 Og Crawford MD [address] [facility] [place] [address] Consulting Physician Nephrology 05/28/23 Lexy Plascencia PA [address] [place] [address] Clay Processing Factory Worker Physician Medical Observer 05/28/23 Shelly Fierro NP [address] [place] [address] Psychiatry 12/16/24 Renny Becerra MD [address] [place] [address] Referring Physician Psychiatry 12/16/24 Marcel Joshi MD [address] [place] [address] Consulting Physician Neurosurgery 12/16/24 Lindsey Contreras Primary Pocket Cutter 04/08/25 documented as of this encounter
--- OUTSIDE RECORDS SUMMARY | 2025-07-09 12:28 | XMS_ITS | Encounter Summary ---
Author Organization [facility] Address [address] [place] [address] Phone Care Team Providers Care Digital Pre Press Operator Name Role Phone Beatriz Pizarro MD Primary Care Provider + Barrie Hamm MD Primary Care Provider [phone] No, Physician Primary Care Provider [phone] Barrie Hamm MD Unavailable [phone] Samir Gibson MD Unavailable [phone] Meggan Quiles MD Unavailable Irina Swain MD Unavailable [phone] Neo Doyle DO Unavailable [phone] Og Crawford MD Unavailable [phone] Lexy Plascencia Unavailable [phone] Jennyfer Tyler MD Unavailable [phone] Barrie Hamm MD Primary Care Provider [phone] Shelly Fierro NP Unavailable [phone] Renny Becerra MD Unavailable [phone] Marcel Joshi MD Unavailable [phone] Olivier Singh MD Primary Care Provider [phone] Barrie Hamm MD Primary Care Provider iLndsey Contreras Unavailable Unavailable Encounter Details Date Type Department Care Team (Latest Contact Info) Description 10/01/2022 Orders Only [facility] Scanning, Provider [...] on file Legal Sex Female 2:54 AM CLIENT EVALUATOR Gender Identity Female 03/13/2022 6:32 PM CDT Sexual Orientation Straight 03/13/2022 6: 32 PM CDT Occupation Industry Job Start Date Job End Date disabled Not on file Not on file Not on file documented as of this encounter Plan of Treatment Upcoming Encounters Date Type Department Care Team (Latest Contact Info) Description 09/14/2025 12:31 PM CLIENT EVALUATOR Hospital Encounter [facility] Operating Room [address] [place] [address] Andres Banks MD [address] [place] [address] 09/14/2025 12:31 PM CLIENT EVALUATOR - 09/14/2025 3:06 PM CLIENT EVALUATOR Surgery [facility] Operating Room [address] [place] [address] Andres Banks MD [address] [place] [address] INSERTIONm AXONICS DEVICE STAGE 1 09/30/2025 11:57 AM CDT Hospital Encounter [facility] Operating Room [address] [place] [address] Andres Banks MD [address] [place] [address] 09/30/2025 11:57 AM CDT - 09/30/2025 1:23 PM CDT Surgery [facility] Operating Room [address] [place] [address] Andres Banks MD [address] [place] [address] INSERT[address] AXONICS STAGE 2 Scheduled Procedures Name Priority Associated Diagnoses Date/Ti me INSERTION/REMOVAL INTERSTIM DEVICE STAGE 1 Mixed incontinence Full incontinence of feces OAB (overactive bladder) 09/14/2025 12:31 PM CLIENT EVALUATOR INSERTION/REMOVAL INTERSTIM STAGE 2 Mixed incontinence Full incontinence of feces OAB (overactive bladder) 09/30/2025 11:57 AM CDT PERCUTANEOUS NEPHROLITHOTOMY - TRILOGY Right renal stone CYSTOSCOPY Right renal stone URETEROSCOPY Right renal stone documented as of this encounter Procedures Procedure Name Priority Date/Time Associated Diagnosis Comments SCAN - RADIOLOGY/IMAGING 10/01/2022 CARDIOLOGY DOCUMENT SCAN 10/01/2022 documented in this encounter Results * CARDIOLOGY DOCUMENT SCAN (10/01/2022) Anatomical Region Laterality Modality Other us Provider Scanning CV CARDIAC SERVICES PROCEDURES Final Result * SCAN - RADIOLOGY/IMAGING (10/01/2022) Anatomical Region Laterality Modality Other us Provider Scanning Final Result documented in this encounter Visit Diagnoses Not on filedocumented in this encounter Additional Health Concerns 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 04/30/2022 04/30/2022 COVID: Suspected 10/08/2023 10/08/2023 10/08/2023 10:22 AM CDT Influenza, adult 10/08/2023 10/08/2023 10/15/2023 3:06 AM CDT COVID: Suspected 05/27/2024 05/27/2024 05/27/2024 11:21 PM CLIENT EVALUATOR Exposure, COVID-19 Comment:Added automatically based on COVID19 lab answers indicating exposure risk 08/07/2024 08/07/2024 08/17/2024 3:[address] COVID: Suspected 08/07/2024 08/07/2024 08/07/2024 4:51 PM CLIENT EVALUATOR COVID: Suspected 11/25/2024 11/25/2024 11/25/2024 3:44 PM CDT COVID: Suspected 11/25/2024 11/25/2024 11/26/2024 1:16 AM CDT documented as of this encounter Care Teams Digital Pre Press Operator Relationship Specialty Start Date End Date Beatriz Pizarro MD PCP - General 12/15/15 05/27/23 Barrie Hamm MD [address] [place] [address] PCP - General Family Medicine 05/28/23 10/06/24 No, Physician PCP - General 10/07/24 10/27/24 Barrie Hamm MD [address] [place] [address] PCP - General Family Medicine 10/28/24 03/12/25 Olivier Singh MD [address] [facility] [place] [place] [address] PCP - General Family Medicine 03/13/25 03/14/25 Barrie Hamm MD [address] [place] [address] PCP - General Family Medicine 03/15/25 Barrie Hamm MD [address] [place] [address] Family Medicine 10/07/24 03/12/25 Samir Gibson MD [address] [place] [address] Referring Physician Neurology 11/21/20 Meggan Quiles MD [address] [facility] [address] [place] [address] Consulting Physician Urology 09/08/22 Irina Swain MD [address] [place] [address] Referring Physician Dermatology 05/28/23 Neo Doyle DO [address] [facility] [address] [place] [address] Referring Physician Cardiology 05/28/23 Og Crawford MD [address] [facility] [place] [address] Consulting Physician Nephrology 05/28/23 Lexy Plascencia PA [address] [place] [address] Clinic Manager Physician Information Technology Analyst 05/28/23 Jennyfer Tyler MD [address] [place] [address] Psychiatry 05/28/23 12/15/24 Shelly Fierro NP [address] [place] [address] Psychiatry 12/16/24 Renny Becerra MD [address] [place] [address] Referring Physician Psychiatry 12/16/24 Marcel Joshi MD [address] [place] [address] Consulting Physician Neurosurgery 12/16/24 Lindsey Contreras Primary Leisure Travel Agent 04/08/25 documented as of this encounter
--- OUTSIDE RECORDS SUMMARY | 2025-07-09 12:28 | XMS_ITS | Clinical Summary ---
Author Organization [facility] Address [address] [place] [address] Care Team Providers Care Compounding And Finishing Supervisor Name Role Phone Barrie Hamm MD Primary Care Provider [phone] Allergies Active Allergy Reactions Criticality Noted Date Comments Atorvastatin Other (see Comments) 06/08/2023 Muscle pain Sulfamethoxazole-Trimetho prim Other (see Comments) 05/21/2023 Sore throat Glipizide Diarrhea 06/30/2023 Iodinated Contrast Media Hives 05/21/2023 Lisinopril Other (see Comments) 05/21/2023 Dizziness Metformin Other (see Comments) 06/30/2023 Kidney issues Tetracycline Other (see Comments) 05/21/2023 fever Liraglutide Nausea 05/21/2023 Medications ARIPiprazole extended release (Abilify Maintena) 400 MG Prefilled Syringe 400 mg by Intramuscular route every 28 days. Active ALBUTEROL SULFATE IN take 90 mcg by inhalation. Active aspirin 81 MG Chewable Tablet Take 81 mg by mouth daily. Active busPIRone (BUSPAR) 5 MG Tablet Take 5 mg by mouth 2 times daily. Active furosemide (LASIX) 20 MG Tablet Take 20 mg by mouth daily. Active glimepiride (AMARYL) 2 MG Tablet Take 2 mg by mouth every morning. Active levothyroxine (SYNTHROID) 100 MCG Tablet Take 100 mcg by mouth daily. Active LORazepam (ATIVAN) 0.5 MG Tablet Take 0.5 mg by mouth daily. Active metoprolol tartrate (LOPRESSOR) 50 MG Tablet Take 50 mg by mouth 2 times daily. Active ROPINIROLE HYDROCHLORIDE 4 MG Tablet Take 4 mg by mouth 2 times daily. Active multi-vitamins (Multivitamin Adult) Tablet Take 1 Tablet by mouth daily. 90 Tablet 3 06/08/20 23 Active Immunizations Immunization Administration Dates Next Due Covid-19 Vaccine, Vector-nr, Rs-ad26, Pf, 0.5 Ml ([email or web address]) 07/05/2021 Social History Tobacco Use Types Packs/Day Years Used Date Smoking Tobacco: Never Smokeless Tobacco: Never Tobacco Cessation:Counseling Given: Not Answered Alcohol Use Standard Drinks/Week Comments Not Currently 0 (1 standard drink = 0.6 oz pur e alcohol) Comments No Sex and Gender Information Value Date Recorded Sex Assigned at Not on file Legal Sex Female 8:34 PM CDT Gender Identity Not on file Sexual Orientation Not on file Last Filed Vital Signs Vital Sign Reading Time Taken Comments Blood Pressure 160/77 11/12/2024 3:33 PM CDT Pulse 70 11/12/2024 3:33 PM CDT Temperature 36.4 C (97.5 F) 11/12/2024 2:26 PM CDT Respiratory Rate 17 11/12/2024 3:33 PM CDT Oxygen Saturation 100% 11/12/2024 3:33 PM CDT Inhaled Oxygen Concentration - - Weight 102.1 kg (225 lb) 11/12/2024 2:26 PM CDT Height 172.7 cm (5' 8) 11/12/2024 2:26 PM CDT Body Mass Index 34.21 11/12/2024 2:26 PM CDT Plan of Treatment Health Maintenance Due Date Last Done Comments DEXA Bone Density 1950 Hepatitis C Virus (HCV) Screening 1950 Mammogram 1950 Cologuard 1997 Colonoscopy 1997 Colorectal Cancer Screening 1997 Immunochemical Fecal Occult Blood 1997 Medicare Initial AWV [id number] 12/20/2001 Pneumococcal Immunization (5 0+ years) (1 of 1 - PCV) 2002 Zoster Immunization (1 of 2) 2002 Influenza Immunization (#1) 2025 SARS-COV-2 Immunization ( season) 2025 07/05/2021, 11/25/2020 Respiratory Syncytial Virus (RSV) Immunization (Adult) (1 - 1-dose 75+ series) 2027 DTaP/Tdap/Td Immunization Discontinued 08/23/2017 TdaP Immunization Completed 08/23/2017 Hepatitis B Immunization Aged Out No longer eligible based on patient's age to complete this topic Human Papillomavirus (HPV) Immunization (No Doses Required) Completed Meningococcal Immunization (ACWY) Aged Out No longer eligible based on patient's age to complete this topic Rotavirus Immunization Aged Out No lo nger eligible based on patient's age to complete this topic Insurance MEDICARE Care Teams Compounding And Finishing Supervisor Relationship Specialty Start Date End Date Barrie Hamm MD [address] [place] [address] PCP - General Family Medicine 05/21/23
--- NOTE | 2025-07-09 14:45 | WPDPFTINT ---
PFT Procedure Performed PFT Procedure Performed Spirometry with Pre/Post Bronchodilator Plethysmography (Lung Vol) Diffusing Cap (DLCO) Flow Vol Loop PFT Interpretation This is a pulmonary function test with pre and post-bronchodilator spirometry, plethysmography and diffusing capacity. The test was performed and results interpreted in accordance with the 2019 and 2005 ATS/ERS Task Force guidelines respectively using the Global Lung Function Initiative-2012 reference equations. Patient demonstrated good effort and cooperation. Reproducibility criteria were met. The quality of the pre bronchodilator spirometry maneuver was Grade A and post bronchodilator spirometry maneuver was Grade A. Findings: Spirometry: The contour the inspiratory and expiratory flow tracing are normal. The pre bronchodilator FVC is 2.85 L, 89% predicted. The pre bronchodilator FEV1 is 1.92 L, 78% predicted. The FEV1: FVC ratio is 67%. The post bronchodilator FVC is 2.83 L representing 1% decrease. The post bronchodilator FEV1 is 2.13 L, representing an 11% increase. The post bronchodilator FEV1: FVC ratio is 75%. Plethysmography: The total lung capacity is 5.51 L, 97% predicted. The functional residual capacity is 3.43 L, 105% predicted. The residual volume is 2.65 L, 109% predicted. Diffusing capacity: The diffusing capacity unadjusted for hemoglobin and carboxyhemoglobin is 19.7, 90% predicted. The diffusing capacity adjusted for alveolar volume is 4.90, 120% predicted. In comparison to previous pulmonary function testing on 02/01/2022, the post bronchodilator FVC has increased from 2.33 L to 2.83 L. The post bronchodilator FEV1 has increased from 1.78 L to 2.13 L. The total lung capacity is unchanged from 5.49 L to 5.51 L. The functional residual capacity is unchanged from 3.67 L to 3.43 L. The residual volume has decreased from 3.27 L to 2.65 L. The diffusing capacity unadjusted for hemoglobin and carboxyhemoglobin is unchanged from 21.9 to 19.7. The diffusing capacity adjusted for alveolar volume is unchanged from 5.62 to 4.90. Impression: The spirometry is normal without evidence of an obstructive abnormality. There is no significant improvement after inhaling a single dose of albuterol. The lung volumes are normal. The diffusing capacity is normal. In comparison to previous pulmonary function testing on 02/01/2022, there has been a greater than anticipated time dependent increase in the FVC and FEV1. There has been a greater than anticipated time dependent decrease in the residual volume with no significant change in the total lung capacity, functional residual capacity or diffusing capacity. Clinical correlation is recommended.
== END 2025-07-09 12:25 | disposition home or self-care (01) ==
PROVIDERS: PCP Family Medicine; Visit Provider Physician Assistant
DX: J45.40 Moderate persistent asthma, uncomplicated (principal)
CPT/HCPCS: 94060; 94726; 94729